=== PATIENT | male | born 1950 | race Caucasian/White ===

== ENCOUNTER → 2017-10-13 | Outpatient (CLI) | payer BC, OTHER ==
[~2017-10-13] MED LIST: ASPEC81 PO; BUME2TAB3 PO; CARV6.252 PO; CZR25 PO; ELQ25 PO; GLIM4TAB2 PO; NTRGSL4 SL
== END | disposition home or self-care (01) ==
LOC: C.LABSPEC 13:33
PROVIDERS: ATTEND Physician Assistant Medical
DX: L08.9 Local infection of the skin and subcutaneous tissue, unspecified (principal)

== ENCOUNTER → 2018-01-29 | Outpatient (CLI) | payer OTHER, MEDICARE ==
[~2018-01-29] MED LIST changes: -ASPEC81 PO; +ASPI-320 PO
[2018-01-29 17:14] LABS: BLOOD UREA NITROGEN 17 mg/dl (7-18); CALCIUM 9.1 mg/dl (8.5-10.1); CARBON DIOXIDE 29 mmol/L (21-32); GLUCOSE 134 mg/dl (70-99); POTASSIUM 5.2 mmol/L (3.5-5.1); SODIUM 138 mmol/L (136-145)
== END | disposition home or self-care (01) ==
LOC: C.LABPBG 11:19
PROVIDERS: ATTEND Family Medicine
DX: E11.65 Type 2 diabetes mellitus with hyperglycemia (principal); I10 Essential (primary) hypertension; I87.2 Venous insufficiency (chronic) (peripheral); R06.09 Other forms of dyspnea

== ENCOUNTER 2021-04-28 11:26 | Inpatient (IN) ==
[2021-04-28] MEDS ORDERED: VANCOMYCIN HCL 2,750 MG in SODIUM CHLORIDE 0.9% 500 ML IV ONE ×2 (12:13→18:23)
[2021-04-28] MEDS ORDERED: VANCOMYCIN CONSULT ACTIVE PRN ×2 (12:13→18:23)
--- NOTE | 2021-04-28 12:21 | Emergency Department Note ---
History of Present Illness General Chief complaint: Wound Stated complaint: REFERRED BY DR. PACHECO, WOUND INFECTION ON R LEG Time Seen by Provider: 04/28/21 12:04 Source: patient History of Present Illness Provider complaint: Left wound infection Onset (ago): year(s) 4 Location: lower extremity and left Pain Consistency: + constant Maximum Pain Intensity: 0 Quality: + other (Redness and swelling without pain) Relieved By: + none Associated symptoms: no chest pain, no cough, no fever/chills, no malaise, no nausea/vomiting or no shortness of breath This is a 71-year-old male who has chronic venous stasis wounds to his left leg for over 4 years. He was sent in by his doctor today for IV antibiotics for worsening infection. The patient is followed by home health who cares for his wound. He states his bandage was not changed in 4 days and when the nurse came today there was worsening redness and swelling with maggots in the wound. The nurse called the doctor who advised him to come here for IV antibiotics. He states that he has no pain to the wound. He has had this wound for over 4 years. He cannot say when the wound got worse. He states he can move and feel his toes. He denies any fever, vomiting, cough or cold symptoms, chest pain, shortness of breath, abdominal pain, diarrhea or urinary symptoms. Home Medications Medication Instructions Recorded Confirmed Type nitroglycerin 0.4 mg sublingual 0.4 mg SL Q5M PRN tab 05/16/19 04/28/21 History tablet carvedilol 6.25 mg tablet 6.25 mg PO BID #180 tab 05/14/20 04/28/21 Rx albuterol sulfate 90 mcg/actuation 2 puff INH QID #18 g 06/04/20 04/28/21 Rx aerosol inhaler bumetanide 2 mg tablet 2 mg PO BID #180 tab 07/28/20 04/28/21 Rx ergocalciferol (vitamin D2) 1,250 50,000 unit PO .weekly #12 cap 08/25/20 04/28/21 Rx mcg (50,000 unit) capsule losartan 100 mg tablet 100 mg PO DAILY #90 tab 09/15/20 04/28/21 Rx atorvastatin 80 mg tablet 80 mg PO HS #90 tab 10/20/20 04/28/21 Rx apixaban 5 mg tablet (Eliquis) 5 mg PO BID #180 tab 11/09/20 04/28/21 Rx glipizide 5 mg tablet 5 mg PO BIDM #180 tab 11/17/20 04/28/21 Rx metformin 500 mg tablet,extended 1,000 mg PO BID #360 tab 01/26/21 04/28/21 Rx release 24 hr duloxetine 30 mg capsule,delayed 30 mg PO DAILY #30 cap 04/23/21 04/28/21 Rx release sprinkle insulin glargine U-300 conc 300 70 unit SUBCUT HS 04/28/21 04/28/21 History unit/mL (1.5 mL) subcutaneous pen (TouXStor Systemso SoloStar U-300 Insulin) tramadol 50 mg tablet 50 mg PO Q6H 04/28/21 04/28/21 History Allergies Allergy/AdvReac Type Severity Reaction Status Date / Time sulfamethoxazole AdvReac nausea Verified 04/28/21 12:09 [From Bactrim] trimethoprim [From Bactrim] AdvReac nausea Verified 04/28/21 12:09 Past Med/Surg History Medical History (Updated 04/28/21 @ 18:58 by Abraham Faust MD) Acute renal failure Arthritis Atrial fibrillation Atrial fibrillation with RVR Atrial flutter with controlled response Bilateral primary osteoarthritis of knee BPH (benign prostatic hyperplasia) Cellulitis, scrotum Chronic combined systolic and diastolic congestive heart failure Chronic venous stasis dermatitis of both lower extremities Coronary artery disease Degenerative arthritis of knee, bilateral Diabetic nephropathy associated with type 2 diabetes mellitus Diabetic peripheral neuropathy associated with type 2 diabetes mellitus Dysesthesia Dyslipidemia Encounter for wound care Harley's gangrene Glaucoma Hypertension Hypoxia Ischemic cardiomyopathy Left leg cellulitis Lymphedema Morbid obesity Multiple open wounds of lower extremity Open wound of scrotum Paroxysmal SVT (supraventricular tachycardia) SARS-CoV-2 positive Sick sinus syndrome Tobacco use Type 2 diabetes mellitus, with long-term current use of insulin Vitamin D deficiency Surgical History History of testicular surgery Hx of CABG (2015) S/P ablation of atrial fibrillation (2014) Family History Brother Diabetes Hypertension Alcohol abuse Kidney stones Cancer Sister Breast cancer Hypertension Denies family history of Ovarian cancer Prostate cancer Myocardial infarction Colorectal cancer Social History Smoking Status: Never smoker Age Started Using Tobacco: 22; Age Quit Using Tobacco: 42; packs per day: 2; Second Hand Exposure: No; Hx Alcohol Use: No Hx Substance Use: No Preferred Language: Italian Communication Ability: Effective Visual Impairment: No Limitations Hearing Ability: Hard of Hearing Outreach Librarian Required: No Beliefs That Will Affect Care: None marital status: Current Living Situation: Significant Other 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 status: retired 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 and A total of 10 systems reviewed and were otherwise negative Physical Exam Vital Signs Vital Signs - 24 hr 04/28/21 11:29 Temperature 36.5 C Temperature Source Oral Pulse Rate 70 Pulse Rhythm Regular Pulse Strength Normal Respiratory Rate 20 Respiratory Effort / Characteristics Non-Labored Spontaneous Respiratory Depth Normal Respiratory Pattern Regular Blood Pressure 198/87 H Blood Pressure Mean 124 Pulse Oximetry 92 Oxygen Delivery Method Room Air Sepsis Recent Fever Within 48 Hours No Sepsis New/Unexplained Change in Mental Status N/A Sepsis Action Taken by Nursing No Action Required Constitutional: Vital signs reviewed. Eyes: Pupils are equal round reactive to light. Conjunctiva are noninjected. ENT: Pharynx is clear without erythema or exudate. Mucous membranes are moist. Neck supple without meningeal signs. Respiratory: Clear to auscultation bilaterally. Breath sounds are equal bilaterally. Cardiovascular: Regular rate and rhythm. No rubs or gallops. GI: Soft, nondistended and nontender. Bowel sounds are present. Musculoskeletal: Bilateral pitting edema to the lower extremities. There is chronic venous stasis dermatitis to both legs greater on the left side. There is increased warmth and cellulitis to the upper portion of the left lower leg. Distal capillary refill is less than 2 seconds. No tenderness or crepitus. Integumentary: No cyanosis. or jaundice. Neurological: The patient is awake and alert. No focal deficits. Psychiatric: Normal affect. Not anxious appearing. Course Administered Medications Discontinued Medications Hydralazine HCl (Hydralazine Hcl 20 Mg/Ml Vial) 10 mg IV NOW STA Stop: 04/28/21 15:37 Last Admin: 04/28/21 16:13 Dose: 10 mg Documented by: [id number] Vancomycin HCl 2,750 mg/ (Sodium Chloride) 555 mls @ 200 mls/hr IV NOW ONE Stop: 04/28/21 14:59 Last Infusion: 04/28/21 16:30 Dose: 0 mls/hr Documented by: [id number] Admin: 04/28/21 13:15 Dose: 200 mls/hr Documented by: [id number] Medical Decision Making Differential Diagnosis Cellulitis, MRSA, lymphedema, venous insufficiency, fasciitis Medical Records Attestation: I reviewed the patient's medical records. I did perform a limited focused review of portions of the patient's old chart on the electronic medical record. The patient had a wound culture from January 2019 which grew out group B strep and staph aureus from the left leg. He was last evaluated by his PCP via telehealth in December of this year. Home Medications Current Medication List: was personally reviewed by me Laboratory Data Attestation: I reviewed the patient's lab results. Result diagrams: 04/28/21 12:49 04/28/21 12:49 Lab Results 04/28/21 04/28/21 04/28/21 Range/Units 12:49 12:49 13:19 WBC 11.77 H (4.8-10.8) K/uL RBC 4.77 (4.7-6.1) M/uL Hgb 13.3 L (14.0-18.0) g/dL Hct 41.7 L (42-52) % MCV 87.4 (80-100) fL MCH 27.9 (25-34) pg MCHC 31.9 L (32-36) g/dL RDW Std Deviation 52.8 H (36.4-46.3) fL RDW Coeff of Rebecca 16.5 H (11.5-14.5) % Plt Count 217 (130-400) K/uL MPV 10.5 H (7.4-10.4) fL Immature Gran % (Auto) 0.4 % Neut % (Auto) 71.7 % Lymph % (Auto) 18.5 % [place] % (Auto) 7.4 % Eos % (Auto) 1.8 % Baso % (Auto) 0.2 % Neut # (Auto) 8.44 H (1.4-6.5) K/uL Lymph # (Auto) 2.18 (1.2-3.4) K/uL [place] # (Auto) 0.87 H (0.11-0.59) K/uL Eos # (Auto) 0.21 (0-0.5) K/uL Baso # (Auto) 0.02 (0-0.2) K/uL Immature Gran # (Auto) 0.05 H (0.00-0.02) K/uL Sodium 135 L (136-145) mmol/L Potassium 5.4 H (3.5-5.1) mmol/L Chloride 100 (98-107) mmol/L Carbon Dioxide 31 (21-32) mmol/L Anion Gap 5.0 (3-11) BUN 23 H (7-18) mg/dl Creatinine 1.36 (0.6-1.4) mg/dl Est Cr Clr Drug Dosing 80.6 ml/min Est GFR ( Amer) 61.1 ml/min Est GFR (Non-Af Amer) 52.7 ml/min BUN/Creatinine Ratio 17.0 (10-20) Glucose 213 H (70-99) mg/dl Calcium 8.9 (8.5-10.1) mg/dl Total Bilirubin 0.3 (0.2-1) mg/dl AST 11 L (15-37) U/L ALT 16 (12-78) U/L Alkaline Phosphatase 147 H (45-117) U/L Total Protein 7.6 (6.4-8.2) gm/dl Albumin 3.2 L (3.4-5.0) gm/dl Globulin 4.4 H (2.5-4.0) gm/dl Albumin/Globulin Ratio 0.7 L (0.9-2) COVID-19 Eval Order Covid19 at [facility] SARS-CoV-2 (PCR) (Negative) 04/28/21 Range/Units 13:19 WBC (4.8-10.8) K/uL RBC (4.7-6.1) M/uL Hgb (14.0-18.0) g/dL Hct (42-52) % MCV (80-100) fL MCH (25-34) pg MCHC (32-36) g/dL RDW Std Deviation (36.4-46.3) fL RDW Coeff of Rebecca (11.5-14.5) % Plt Count (130-400) K/uL MPV (7.4-10.4) fL Immature Gran % (Auto) % Neut % (Auto) % Lymph % (Auto) % [place] % (Auto) % Eos % (Auto) % Baso % (Auto) % Neut # (Auto) (1.4-6.5) K/uL Lymph # (Auto) (1.2-3.4) K/uL [place] # (Auto) (0.11-0.59) K/uL Eos # (Auto) (0-0.5) K/uL Baso # (Auto) (0-0.2) K/uL Immature Gran # (Auto) (0.00-0.02) K/uL Sodium (136-145) mmol/L Potassium (3.5-5.1) mmol/L Chloride (98-107) mmol/L Carbon Dioxide (21-32) mmol/L Anion Gap (3-11) BUN (7-18) mg/dl Creatinine (0.6-1.4) mg/dl Est Cr Clr Drug Dosing ml/min Est GFR ( Amer) ml/min Est GFR (Non-Af Amer) ml/min BUN/Creatinine Ratio (10-20) Glucose (70-99) mg/dl Calcium (8.5-10.1) mg/dl Total Bilirubin (0.2-1) mg/dl AST (15-37) U/L ALT (12-78) U/L Alkaline Phosphatase (45-117) U/L Total Protein (6.4-8.2) gm/dl Albumin (3.4-5.0) gm/dl Globulin (2.5-4.0) gm/dl Albumin/Globulin Ratio (0.9-2) COVID-19 Eval Order SARS-CoV-2 (PCR) POSITIVE A* (Negative) MDM Narrative I did evaluate the patient as noted above. Patient is presenting with worsening wound infection to the left leg. He has had a chronic wound there for over 4 years. On exam he has cellulitis to the left leg without any evidence of fasciitis. He denies having any pain to the wound. IV access was established. I did order blood cultures. He was given vancomycin IV. I did order and review the patient's blood work as noted in the electronic medical record. His white count is 12. Hemoglobin is 13. Platelet count is within normal limits. Electrolytes demonstrate a sodium of 135 with a potassium of 5.4 and a creatinine of 1.36. Glucose is 213. COVID-19 screening is positive. The patient does state he is not vaccinated. He denies having any respiratory symptoms. The patient was placed in isolation. I did discuss case with the hospitalist and director of casework department. Impression & Plan Cellulitis of left leg, Chronic venous insufficiency, COVID-19 Discharge Plan Visit Data Chief Complaint: Wound Stated Complaint: REFERRED BY DR. PACHECO, WOUND INFECTION ON R LEG ED Provider: Abraham Faust Discharge Problem: Cellulitis of left leg, Chronic venous insufficiency, COVID-19 Patient Disposition: Admitted As Inpatient Discharge Instructions Interventions: ED Discharge Assessment Last Done: 04/28/21 17:37
[2021-04-28 13:20] LABS: Basophils # (auto) 0.02 K/uL (0-0.2); Basophils % (auto) 0.2 %; Eosinophils # (auto) 0.21 K/uL (0-0.5); Eosinophils % (auto) 1.8 %; Hematocrit (blood only) 41.7 % (42-52); Hemoglobin 13.3 g/dL (14.0-18.0); Immature Granulocytes # (auto) 0.05 K/uL (0.00-0.02); Immature Granulocytes % (auto) 0.4 %; Lymphocytes # (auto) 2.18 K/uL (1.2-3.4); Lymphocytes % (auto) 18.5 %; Mean Corpuscular Hemoglobin 27.9 pg (25-34); Mean Corpuscular Hgb Conc 31.9 g/dL (32-36); Mean Corpuscular Volume 87.4 fL (80-100); Mean Platelet Volume 10.5 fL (7.4-10.4); Monocytes # (auto) 0.87 K/uL (0.11-0.59); Monocytes % (auto) 7.4 %; Neutrophils # (auto) 8.44 K/uL (1.4-6.5); Neutrophils % (auto) 71.7 %; Platelet Count 217 K/uL (130-400); RDW Coefficient of Variation 16.5 % (11.5-14.5); RDW Standard Deviation 52.8 fL (36.4-46.3); Red Blood Count 4.77 M/uL (4.7-6.1); White Blood Count 11.77 K/uL (4.8-10.8)
[2021-04-28 13:41] LABS: Albumin Level 3.2 gm/dl (3.4-5.0); Calcium 8.9 mg/dl (8.5-10.1); Creatinine Clr Calc Pharmacy 80.6 ml/min; Est GFR (African American) 61.1 ml/min; Est GFR (Non-African American) 52.7 ml/min; Potassium 5.4 mmol/L (3.5-5.1)
[2021-04-28 13:44] LABS: Albumin Globulin Ratio 0.7 (0.9-2); Bilirubin,Total 0.3 mg/dl (0.2-1); Globulin 4.4 gm/dl (2.5-4.0); Total Protein 7.6 gm/dl (6.4-8.2)
[2021-04-28] MEDS ORDERED: hydrALAZINE HCL 20 MG/ML VIAL IV STA ×2 (15:36→18:29)
--- NOTE | 2021-04-28 15:54 | History & Physical Report ---
Date of Service April 28, 2021 Assessment & Plan (1) Left leg cellulitis: Plan: Attending: Dr. Baumann Impression: Is a 71-year-old male that has chronic nonhealing wound to his left lower extremity. He has wound care come to the home and they miss an appointment. 2 days ago he took his dressings off and found maggots in the wound bed. He remove the maggots and redressed the wound. He discussed this with his primary care physician today, Dr. Smallwood, and she referred him to the emergency department for further evaluation. In the emergency department he was treated with vancomycin. A preemptive Covid screening was done as patient admission was anticipated. This was returned as positive. Patient is completely asymptomatic with Covid symptoms. He has no cough, fever, nausea, vomiting, diarrhea, sore throat, loss of taste, loss of smell. He has been admitted for wound care and isolation for COVID-19. Recommendations: Left lower extremity cellulitis: Patient was started on vancomycin in the emergency department. We will add Zosyn. Blood cultures have been checked. Patient is afebrile. Hemodynamically stable. Check procalcitonin Repeat labs in the morning Isolation for COVID-19 (2) SARS-CoV-2 positive: Plan: Incidental finding with screening on admission Patient asymptomatic Patient has not been vaccinated At this point we will not treat as patient is asymptomatic. Patient has no pulmonary sequela We will hold off on dexamethasone inasmuch as patient has acute on chronic lower extremity cellulitis Patient is chronically anticoagulated for atrial fibrillation with apixaban. Consequently, we will not administer enoxaparin twice daily Patient will be admitted to the Covid unit Monitor (3) Atrial fibrillation: Plan: Chronically anticoagulated with apixaban 5 mg p.o. twice daily Continue carvedilol and losartan Follow on telemetry (4) Type 2 diabetes mellitus, with long-term current use of insulin: Plan: Well-controlled Patient on Lantus 70 units subcutaneously at bedtime, glipizide 5 mg twice daily, and Metformin 1000 mg p.o. twice daily Hemoglobin A1c 7.5% (5) Coronary artery disease: Plan: Patient with history of CABG x2 in 2016 No chest pain or tightness Continue carvedilol and losartan Continue atorvastatin Patient currently not on any antiplatelet agents Further management outpatient Monitor on telemetry (6) Hypertension: Plan: Continue carvedilol and losartan Hemodynamically stable No hypotension in the emergency department (7) Chronic combined systolic and diastolic congestive heart failure: Plan: Patient appears to be euvolemic Continue Bumex 2 mg p.o. twice daily and follow ins and outs (8) DVT prophylaxis: Plan: Patient chronically anticoagulated with apixaban 5 mg p.o. twice daily Continue Please refer to Dr. Baumann's addendum for further recommendations and corrections History of Present Illness Chief Complaint: LLE Cellulitis COVID-19 virus positive Primary Care Provider: Neetu Smallwood DO Attending: Dr. Baumann This is a 71 yo male that was referred to the [facility] by his PPC Dr. Smallwood for worsening LLE cellulitis with evidence of maggots developing in the wound. Patient is afebrile. WBC is 11.77. No lactic acid acquired. No procalcitonin acquired. Patient received vancomycin the ED and referred to the hospitalist vida swann for admission. The patient has a PMH including Obesity, IDDM2, HTN, osteoarthitis, Atrial flutter on chronic AC with Apixaban, CAD, Hx CABG X 2, depression. The patient states that he has a wound care nurse come every other day to change dressings. He reports that he has had this wound for the past 4 years. The nurse missed an appointment so two days ago he took his own dressings off and reports that there maggots on the wound. He removed the maggots and dressed the wound. There was no bleeding and no pain. He denies fever or chills. No sweats. No n/v/d. The patient denies SOB, COYNE, hypotension, lightheadedness, chest pain, chest tightness or any other constitutional symptoms. He has no other acute complaints. He is a diabetic with a HgBA1c of 7.5%. He does not typically check his BSG as he has been out of strips. The patient was found to be positive for SARS, Covid -19. He has no respiratory complaints. He has no loss of taste or smell or diarrhea. Although he is over 62, he has no other complications or complaints. He has no cough or sputum production. He lives with is ex-, their children and their grandchildren. None of the other occupants in the house have COVID or symptoms of COVID. The patient states that he is not vaccinated for COVID Allergies Allergy/AdvReac Type Severity Reaction Status Date / Time sulfamethoxazole AdvReac nausea Verified 04/28/21 12:09 [From Bactrim] trimethoprim [From Bactrim] AdvReac nausea Verified 04/28/21 12:09 Home Medications Medication Instructions Recorded Confirmed Type nitroglycerin 0.4 mg sublingual 0.4 mg SL Q5M PRN tab 05/16/19 04/28/21 History tablet carvedilol 6.25 mg tablet 6.25 mg PO BID #180 tab 05/14/20 04/28/21 Rx albuterol sulfate 90 mcg/actuation 2 puff INH QID #18 g 06/04/20 04/28/21 Rx aerosol inhaler bumetanide 2 mg tablet 2 mg PO BID #180 tab 07/28/20 04/28/21 Rx ergocalciferol (vitamin D2) 1,250 50,000 unit PO .weekly #12 cap 08/25/2004/11 Rx mcg (50,000 unit) capsule losartan 100 mg tablet 100 mg PO DAILY #90 tab 09/15/20 04/28/21 Rx atorvastatin 80 mg tablet 80 mg PO HS #90 tab 10/20/20 04/28/21 Rx apixaban 5 mg tablet (Eliquis) 5 mg PO BID #180 tab 11/09/20 04/28/21 Rx glipizide 5 mg tablet 5 mg PO BIDM #180 tab 11/17/20 04/28/21 Rx metformin 500 mg tablet,extended 1,000 mg PO BID #360 tab 01/26/21 04/28/21 Rx release 24 hr duloxetine 30 mg capsule,delayed 30 mg PO DAILY #30 cap 04/23/21 04/28/21 Rx release sprinkle insulin glargine U-300 conc 300 70 unit SUBCUT HS 04/28/21 04/28/21 History unit/mL (1.5 mL) subcutaneous pen (Toujeo SoloStar U-300 Insulin) tramadol 50 mg tablet 50 mg PO Q6H 04/28/21 04/28/21 History Past Med/Surg History Medical History (Updated 04/28/21 @ 17:48 by Zak Dukes PA-C) Acute renal failure Arthritis Atrial fibrillation Atrial fibrillation with RVR Atrial flutter with controlled response Bilateral primary osteoarthritis of knee BPH (benign prostatic hyperplasia) Cellulitis, scrotum Chronic combined systolic and diastolic congestive heart failure Chronic venous stasis dermatitis of both lower extremities Coronary artery disease Degenerative arthritis of knee, bilateral Diabetic nephropathy associated with type 2 diabetes mellitus Diabetic peripheral neuropathy associated with type 2 diabetes mellitus Dysesthesia Dyslipidemia Encounter for wound care Harley's gangrene Glaucoma Hypertension Hypoxia Ischemic cardiomyopathy Left leg cellulitis Lymphedema Morbid obesity Multiple open wounds of lower extremity Open wound of scrotum Paroxysmal SVT (supraventricular tachycardia) SARS-CoV-2 positive Sick sinus syndrome Tobacco use Type 2 diabetes mellitus, with long-term current use of insulin Vitamin D deficiency Surgical History History of testicular surgery Hx of CABG (2015) S/P ablation of atrial fibrillation (2014) Family History Brother Diabetes Hypertension Alcohol abuse Kidney stones Cancer Sister Breast cancer Hypertension Denies family history of Ovarian cancer Prostate cancer Myocardial infarction Colorectal cancer Social History Smoking Status: Never smoker Age Started Using Tobacco: 22; Age Quit Using Tobacco: 42; packs per day: 2; Second Hand Exposure: No; Hx Alcohol Use: No Hx Substance Use: No Preferred Language: Zambian Communication Ability: Effective Visual Impairment: No Limitations Hearing Ability: Hard of Hearing Cross Country Coach Required: No Beliefs That Will Affect Care: None marital status: Current Living Situation: Significant Other 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 status: retired 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 Pleasant Eyes: PERRL, conjunctivae normal, anicteric sclerae Neck: No appreciation of stridor or carotid bruits Respiratory: normal respiratory effort; no respiratory distress Auscul tation: lungs clear to auscultation bilaterally and + diminished lung sounds Cardiovascular: Rate/Rhythm: regular rate and regular rhythm Neurologic: A&OX3. Results & Data Results & Data ([facility]) Vital Signs (Past 12 Hours) Vital Signs Temp Pulse Resp BP Pulse Ox 04/28/21 11:29 36.5 C 70 20 198/87 H 92 Laboratory Results 04/28/21 12:49 04/28/21 12:49 Medications Administered Vancomycin IV Code Status & VTE Plan Code Status Full resuscitation: Level I VTE Prophylaxis Plan VTE Prophylaxis will be ordered: Yes Supervising Physician Co-Signing Physician Notes I saw and evaluated the patient. I reviewed and agree with the AMA's note as written except/additionally thus: Historyleft lower extremity erythema Examerythema left lower extremity Medical decision making: Reasonable to treat as cellulitis though lot of changes may be chronic and stasis like Clearly has bad wounds Wound consult, Katty and Marina for now Mild hyperkalemia can be followed PG Care Time/CCT Total # of Minutes Spent Total Time Spent with Patient: Total time spent is greater than 50% in coordination of care (as documented) at patient's floor/unit and/or counseling patient: 60 minutes Coding Level of Care Code 01941 Initial Inpt Care Lvl 3 Diagnoses SARS-CoV-2 positive U07.1 Left leg cellulitis L03.116 Atrial fibrillation I48.91 Type 2 diabetes mellitus, with long-term current use of insulin E11.9; Z79.4 Coronary artery disease I25.10 Hypertension I10 DVT prophylaxis Z29.9 Chronic combined systolic and diastolic congestive heart failure I50.42 Time Spent (min) 60
[2021-04-28] MEDS ORDERED: DEXTROSE 50% 50 ML SYRINGE IV PRN (18:23)
[2021-04-28] MEDS ORDERED: PHARMACY GLYCEMIC MGMT CONSULT PRN (18:23)
[2021-04-28] MEDS ORDERED: PIPERACILL/TAZOBAC CONSULT ACTIVE PRN (18:23)
[2021-04-28] MEDS ORDERED: GLUCOSE 10 TABS/TUBE PO PRN (18:23)
[2021-04-28] MEDS ORDERED: MAGNESIUM HYDROXIDE SUSP 30 ML UDC PO PRN (18:23)
[2021-04-28] MEDS ORDERED: PIPERACILLIN/TAZOBACTAM 3.375 GM in DEXTROSE 5% 100 ML IV SCH (18:23)
[2021-04-28] MEDS ORDERED: ONDANSETRON INJ 2 MG/ML 2 ML VIAL IV PRN (18:23)
[2021-04-28] MEDS ORDERED: GLUCAGON FOR INJ 1 MG VIAL SQ PRN (18:23)
[2021-04-28] MEDS ORDERED: CARBOHYDRATES FOR HYPOGLYCEMIA PO PRN (18:23)
[2021-04-28] MEDS ORDERED: GLUCOSE 40% GEL 15 GM TUBE PO PRN (18:23)
[2021-04-28] MEDS ORDERED: ALUMINUM/MAGNESIUM SUSP 30 ML UDC PO PRN (18:23)
[2021-04-28] MEDS ORDERED: NITROGLYCERIN SL 0.4 MG/TAB TAB SL PRN (18:23)
[2021-04-28] MEDS: ALBUTEROL HFA 8 GM INHALER INH SCH (19:06)
[2021-04-28] MEDS ORDERED: PIPERACILLIN/TAZOBACTAM 4.5 GM in DEXTROSE 5% 100 ML IV ONE (19:30)
--- NOTE | 2021-04-28 19:54 | Pharmacy Report ---
Pharmacy Glycemic Short Note 2 - Date of Service April 28, 2021 - Glycemic Short BSG Results (Last 24 hours): 04/28/21 12:49 Glucose 213 H OUTPATIENT ANTIDIABETIC REGIMEN: * Toujeo 70 units SQ HS * Glipizide 5mg PO BIDM * Metformin 1,000mg PO BIDM * A1c = pending for 04/29/21 ASSESSMENT: * 71yo T2DM male with unknown degree of outpatient control - no A1c listed. Ordered for tomorrow morning * Pt is maintained on Basal insulin with Toujeo (insulin glargine U-300) + oral agents * Will HOLD oral agents for admission * Will sub Toujeo to Lantus for inpatient use - may need to adjust Lantus to BID dosing since Toujeo has a longer duration of action than Lantus * Typically when switching Toujeo to Lantus the first dose of Lantus is reduced by 20% due to the long duration of action of Lantus. However, BSGs running high and last dose of Toujeo administered is unknown. Will convert dosing 1:1 as recommended by customer marketing manager for subsequent dosing and titrate based on BSG trends. * Tight glycemic control crucial for wound healing PLAN FOR INPATIENT GLYCEMIC CONTROL: * Hold outpatient oral diabetes medications * Basal insulin * Lantus 70 units SQ HS * Bolus insulin * NovoLog per scale ACHS or Q6hrs while NPO * Goal Range: Low 110 mg/dL - High 140 mg/dL * Correction Factor: 10 mg/dL/unit * Nutritional / Prandial insulin per carb ratio of 1 unit per 4 grams CHO consumed PLAN FOR DISCHARGE: * TBD based on A1c
[2021-04-28] MEDS ORDERED: INSULIN GLARGINE 100 UNIT/ML VIAL SC SCH ×2 (21:00)
[2021-04-28] MEDS ORDERED: carvediloL 6.25 MG TAB PO SCH (21:00)
[2021-04-28] MEDS: DAPTOmycin 450 MG in SYRINGE 0 ML IV SCH (21:34)
[2021-04-28] MEDS: APIXABAN 5 MG TABLET PO SCH (21:34)
[2021-04-28] MEDS: traMADol HCL 50 MG TABLET PO SCH (21:34)
[2021-04-28] MEDS: carvediloL 12.5 MG TAB PO SCH (21:35)
[2021-04-28] MEDS: ATORVASTATIN 40 MG TAB PO SCH (21:35)
[2021-04-28] MEDS: BUMETANIDE 1 MG TAB PO SCH (21:35)
[2021-04-28] MEDS: INSULIN ASPART 100 UNITS/ML 3 ML PEN SC SCH ×2 (22:01→22:04)
[2021-04-28] MEDS ORDERED: Nursing to Pharmacy Communication SCH (23:00)
[2021-04-29 03:03] LABS: Basophils # (auto) 0.02 K/uL (0-0.2); Basophils % (auto) 0.2 %; Eosinophils # (auto) 0.18 K/uL (0-0.5); Eosinophils % (auto) 1.7 %; Hematocrit (blood only) 39.6 % (42-52); Hemoglobin 12.4 g/dL (14.0-18.0); Immature Granulocytes # (auto) 0.03 K/uL (0.00-0.02); Immature Granulocytes % (auto) 0.3 %; Lymphocytes # (auto) 2.05 K/uL (1.2-3.4); Lymphocytes % (auto) 19.3 %; Mean Corpuscular Hemoglobin 27.3 pg (25-34); Mean Corpuscular Hgb Conc 31.3 g/dL (32-36); Mean Platelet Volume 10.3 fL (7.4-10.4); Monocytes # (auto) 0.77 K/uL (0.11-0.59); Monocytes % (auto) 7.2 %; Neutrophils # (auto) 7.59 K/uL (1.4-6.5); Neutrophils % (auto) 71.3 %; Platelet Count 208 K/uL (130-400); RDW Coefficient of Variation 16.4 % (11.5-14.5); RDW Standard Deviation 52.1 fL (36.4-46.3); Red Blood Count 4.55 M/uL (4.7-6.1); White Blood Count 10.64 K/uL (4.8-10.8)
[2021-04-29 03:04] LABS: Base Excess VBG 4.4 mEq/L; HCO3 VBG 32 mmol/L; Oxygen Saturation VBG 75.5 %; PCO2 VBG 63 mmHg (38-50); PO2 VBG 47 mmHg; pH VBG 7.33 (7.36-7.41)
[2021-04-29] MEDS: traMADol HCL 50 MG TABLET PO SCH ×4 (03:11→17:55)
[2021-04-29 03:14] LABS: Partial Thromboplastin Ratio 1.1; Partial Thromboplastin Time 28.9 Seconds (21.0-31.0)
[2021-04-29 03:28] LABS: BUN Creatinine Ratio 19.4 (10-20); Calcium 8.6 mg/dl (8.5-10.1); Creatinine Clr Calc Pharmacy 97.9 ml/min; Est GFR (African American) 77.3 ml/min; Est GFR (Non-African American) 66.7 ml/min; Potassium 4.4 mmol/L (3.5-5.1)
[2021-04-29] MEDS: PIPERACILLIN/TAZOBACTAM 4.5 GM in DEXTROSE 5% 100 ML IV SCH ×2 (03:53→09:03)
[2021-04-29] MEDS ORDERED: INSULIN GLARGINE 100 UNIT/ML VIAL SC ONE (07:30)
[2021-04-29] MEDS: ALBUTEROL HFA 8 GM INHALER INH SCH (07:45)
[2021-04-29 08:02] LABS: Estimated Average Glucose 246 mg/dl; Hemoglobin A1C 10.2 % (4.5-5.6)
[2021-04-29] MEDS: INSULIN ASPART 100 UNITS/ML 3 ML PEN SC SCH ×4 (08:58→21:11)
[2021-04-29] MEDS: BUMETANIDE 1 MG TAB PO SCH ×2 (08:59→21:05)
[2021-04-29] MEDS: carvediloL 12.5 MG TAB PO SCH ×2 (09:00→21:03)
[2021-04-29] MEDS: APIXABAN 5 MG TABLET PO SCH ×2 (09:00→21:03)
[2021-04-29] MEDS: DULoxetine HCL 30 MG CAP PO SCH (09:00)
[2021-04-29] MEDS: LOSARTAN POTASSIUM 50 MG TAB PO SCH (09:00)
[2021-04-29] MEDS ORDERED: ALBUTEROL HFA 8 GM INHALER INH PRN (09:03)
--- NOTE | 2021-04-29 09:04 | XRay Report ---
XR chest 1V portable HISTORY: COVID, hypoxia COMPARISON: Chest 08/31/2018. FINDINGS: No pneumothorax. There is chronic elevation of the right hemidiaphragm. The heart remains m ildly enlarged. There are poststernotomy changes. There is mild central pulmonary vascular congestion without overt edema. This is similar to the prior study. Linear density at the right lung base also persist. This favors subsegmental atelectasis given the elevated right hemidiaphragm. No new focal darlene ng consolidations. IMPRESSION: 1. No change in the cardiomegaly and mild pulmonary vascular congestion. 2. Chronic elevation of the right hemidiaphragm with right basilar densities likely representing subs egmental atelectasis. A pneumonia could also have a similar appearance in the appropriate clinical se tting. However, no new focal lung consolidations identified. ACT 112: Negative or not required by law. Electronically signed by: Kannan Cintron M.D. 04/29/2021 9:02 AM
--- NOTE | 2021-04-29 11:40 | Hospitalist Progress Note ---
Date of Service April 29, 2021 Assessment & Plan (1) Left leg cellulitis: Plan: Impression: Is a 71-year-old male that has chronic nonhealing wound to his left lower extremity. He has wound care come to the home and they miss an appointment. 2 days ago he took his dressings off and found maggots in the wound bed. He remove the maggots and redressed the wound. He discussed this with his primary care physician today, Dr. Smallwood, and she referred him to the emergency department for further evaluation. In the emergency department he was treated with vancomycin. A preemptive Covid screening was done as patient admission was anticipated. This was returned as positive. Patient is completely asymptomatic with Covid symptoms. He has no cough, fever, nausea, vomiting, diarrhea, sore throat, loss of taste, loss of smell. He has been admitted for wound care and isolation for COVID-19. Left lower extremity cellulitis: Daptomycin and Unasyn, would need a few days of IV antibiotics then transition to PO he is resistant to staying in hospital past this evening, will need to convince him Blood cultures pending, no growth check surface wound culture at this time Patient is afebrile. Hemodynamically stable. (2) SARS-CoV-2 positive: Plan: Incidental finding with screening on admission Patient asymptomatic Patient has not been vaccinated developed hypoxia, on 2-4L, he admits that he does not use oxygen at home CXR with subtle infiltrates start on dexamethasone 6mg PO daily (3) Atrial fibrillation: Plan: Chronically anticoagulated with apixaban 5 mg p.o. twice daily Continue carvedilol and losartan Follow on telemetry (4) Type 2 diabetes mellitus, with long-term current use of insulin: Plan: Well-controlled at home Patient on Lantus 70 units subcutaneously at bedtime, glipizide 5 mg twice daily, and Metformin 1000 mg p.o. twice daily Hemoglobin A1c 7.5% pharmacy consulted, use NPH with dexamethasone (5) Coronary artery disease: Plan: Patient with history of CABG x2 in 2016 No chest pain or tightness Continue carvedilol and losartan Continue atorvastatin Patient currently not on any antiplatelet agents Further management outpatient Monitor on telemetry (6) Hypertension: Plan: Continue carvedilol and losartan Hemodynamically stable No hypotension in the emergency department (7) Chronic combined systolic and diastolic congestive heart failure: Plan: Patient appears to be volume overloaded Continue Bumex 2 mg p.o. twice daily add a dose of Zaroxolyn 5mg PO tomorrow AM prior to Bumex (8) DVT prophylaxis: Plan: Patient chronically anticoagulated with apixaban 5 mg p.o. twice daily Continue Admission and Anticipated Discharge Date Admission Date: April 28, 2021 Subjective patient sitting up in his chair left leg dressing taken down, leg is red, skin, warm he says he has had wounds/ulcers for over a year at least, he says nurses come to his home he says he wants to go home tomorrow, I discussed that he needs IV antibiotics and also he is on oxygen, suspect COVID pneumonia discussed antibiotic with pharmacy, will use Unasyn and Daptomycin patient is eating well, no fever/chills, no chest pain, no dyspnea, no cough, no GI symptoms Review of Systems Review of Systems: All systems reviewed & are unremarkable except as noted in Subjective Integumentary: + wounds (left leg), + erythema (left leg) and + dry skin Physical Exam Constitutional: well developed, + morbidly obese and comfortable; no acute distress Neck: trachea midline and + thick neck Thyroid: normal thyroid Respiratory: normal respiratory effort, lungs clear to auscultation Cardiovascular: Rate/Rhythm: regular rate and regular rhythm Heart Sounds: normal S1 and normal S2; no murmur Extremities: normal capillary refill and + edema (legs bilaterally) Gastrointestinal (Abdomen): normal bowel sounds, soft, nontender, no hepatosplenomegaly Musculoskeletal: no cyanosis or clubbing, extremities motor strength 5/5 Skin: + wound (left leg, with cellulitis, warm and tender), + dry skin and + erythema (venous stasis changes bilaterally) Neurologic: normal touch/pain/proprioception, CN's II-XI intact bilaterally, moves all extremities and awake; no focal motor deficits Psychiatric: Orientation: alert and oriented x 3 Affect: + irritable affect Results & Data Results & Data ([facility]) Vital Signs (Past 12 Hours) Vital Signs Temp Pulse Resp BP BP Pulse Ox 04/29/21 11:12 36.8 C 62 20 144/61 H 96 04/29/21 07:46 63 16 96 04/29/21 07:21 36.5 C 61 20 133/67 95 04/29/21 03:37 37.0 C 76 18 126/63 96 Laboratory Results Laboratory Results - last 24 hr 04/28/21 04/28/21 04/28/21 12:49 12:49 13:00 WBC 11.77 H RBC 4.77 Hgb 13.3 L Hct 41.7 L MCV 87.4 MCH 27.9 MCHC 31.9 L RDW Std Deviation 52.8 H RDW Coeff of Rebecca 16.5 H Plt Count 217 MPV 10.5 H Immature Gran % (Auto) 0.4 Neut % (Auto) 71.7 Lymph % (Auto) 18.5 Calvert % (Auto) 7.4 Eos % (Auto) 1.8 Baso % (Auto) 0.2 Neut # (Auto) 8.44 H Lymph # (Auto) 2.18 Calvert # (Auto) 0.87 H Eos # (Auto) 0.21 Baso # (Auto) 0.02 Immature Gran # (Auto) 0.05 H APTT PTT Ratio VBG pH VBG pCO2 VBG pO2 VBG HCO3 VBG O2 Saturation VBG Base Excess Sodium 135 L Potassium 5.4 H Chloride 100 Carbon Dioxide 31 Anion Gap 5.0 BUN 23 H Creatinine 1.36 Est Cr Clr Drug Dosing 80.6 Est GFR ( Amer) 61.1 Est GFR (Non-Af Amer) 52.7 BUN/Creatinine Ratio 17.0 Glucose 213 H POC Glucose Estimat Average Glucose Hemoglobin A1c Calcium 8.9 Total Bilirubin 0.3 AST 11 L ALT 16 Alkaline Phosphatase 147 H Total Protein 7.6 Albumin 3.2 L Globulin 4.4 H Albumin/Globulin Ratio 0.7 L Procalcitonin 0.06 COVID-19 Eval Order SARS-CoV-2 (PCR) 04/28/21 04/28/21 04/28/21 13:19 13:19 20:13 WBC RBC Hgb Hct MCV MCH MCHC RDW Std Deviation RDW Coeff of Rebecca Plt Count MPV Immature Gran % (Auto) Neut % (Auto) Lymph % (Auto) Calvert % (Auto) Eos % (Auto) Baso % (Auto) Neut # (Auto) Lymph # (Auto) Calvert # (Auto) Eos # (Auto) Baso # (Auto) Immature Gran # (Auto) APTT PTT Ratio VBG pH VBG pCO2 VBG pO2 VBG HCO3 VBG O2 Saturation VBG Base Excess Sodium Potassium Chloride Carbon Dioxide Anion Gap BUN Creatinine Est Cr Clr Drug Dosing Est GFR ( Amer) Est GFR (Non-Af Amer) BUN/Creatinine Ratio Glucose POC Glucose 322 H* Estimat Average Glucose Hemoglobin A1c Calcium Total Bilirubin AST ALT Alkaline Phosphatase Total Protein Albumin Globulin Albumin/Globulin Ratio Procalcitonin COVID-19 Eval Order Covid19 at [facility] SARS-CoV-2 (PCR) POSITIVE A* 04/28/21 04/29/21 04/29/21 20:15 02:43 02:43 WBC 10.64 RBC 4.55 L Hgb 12.4 L Hct 39.6 L MCV 87.0 MCH 27.3 MCHC 31.3 L RDW Std Deviation 52.1 H RDW Coeff of Rebecca 16.4 H Plt Count 208 MPV 10.3 Immature Gran % (Auto) 0.3 Neut % (Auto) 71.3 Lymph % (Auto) 19.3 Calvert % (Auto) 7.2 Eos % (Auto) 1.7 Baso % (Auto) 0.2 Neut # (Auto) 7.59 H Lymph # (Auto) 2.05 Calvert # (Auto) 0.77 H Eos # (Auto) 0.18 Baso # (Auto) 0.02 Immature Gran # (Auto) 0.03 H APTT 28.9 PTT Ratio 1.1 VBG pH VBG pCO2 VBG pO2 VBG HCO3 VBG O2 Saturation VBG Base Excess Sodium Potassium Chloride Carbon Dioxide Anion Gap BUN Creatinine Est Cr Clr Drug Dosing Est GFR ( Amer) Est GFR (Non-Af Amer) BUN/Creatinine Ratio Glucose POC Glucose 323 H* Estimat Average Glucose Hemoglobin A1c Calcium Total Bilirubin AST ALT Alkaline Phosphatase Total Protein Albumin Globulin Albumin/Globulin Ratio Procalcitonin COVID-19 Eval Order SARS-CoV-2 (PCR) 04/29/21 04/29/21 04/29/21 02:43 02:43 02:43 WBC RBC Hgb Hct MCV MCH MCHC RDW Std Deviation RDW Coeff of Rebecca Plt Count MPV Immature Gran % (Auto) Neut % (Auto) Lymph % (Auto) Calvert % (Auto) Eos % (Auto) Baso % (Auto) Neut # (Auto) Lymph # (Auto) Calvert # (Auto) Eos # (Auto) Baso # (Auto) Immature Gran # (Auto) APTT PTT Ratio VBG pH 7.33 L VBG pCO2 63 H VBG pO2 47 VBG HCO3 32 VBG O2 Saturation 75.5 VBG Base Excess 4.4 Sodium 136 Potassium 4.4 D Chloride 103 Carbon Dioxide 32 Anion Gap 1.0 L BUN 22 H Creatinine 1.12 Est Cr Clr Drug Dosing 97.9 Est GFR ( Amer) 77.3 Est GFR (Non-Af Amer) 66.7 BUN/Creatinine Ratio 19.4 Glucose 194 H POC Glucose Estimat Average Glucose 246 Hemoglobin A1c 10.2 H Calcium 8.6 Total Bilirubin AST ALT Alkaline Phosphatase Total Protein Albumin Globulin Albumin/Globulin Ratio Procalcitonin COVID-19 Eval Order SARS-CoV-2 (PCR) 04/29/21 07:19 WBC RBC Hgb Hct MCV MCH MCHC RDW Std Deviation RDW Coeff of Rebecca Plt Count MPV Immature Gran % (Auto) Neut % (Auto) Lymph % (Auto) Calvert % (Auto) Eos % (Auto) Baso % (Auto) Neut # (Auto) Lymph # (Auto) Calvert # (Auto) Eos # (Auto) Baso # (Auto) Immature Gran # (Auto) APTT PTT Ratio VBG pH VBG pCO2 VBG pO2 VBG HCO3 VBG O2 Saturation VBG Base Excess Sodium Potassium Chloride Carbon Dioxide Anion Gap BUN Creatinine Est Cr Clr Drug Dosing Est GFR ( Amer) Est GFR (Non-Af Amer) BUN/Creatinine Ratio Glucose POC Glucose 212 H Estimat Average Glucose Hemoglobin A1c Calcium Total Bilirubin AST ALT Alkaline Phosphatase Total Protein Albumin Globulin Albumin/Globulin Ratio Procalcitonin COVID-19 Eval Order SARS-CoV-2 (PCR) Medications Administered Current Inpatient Medications Al Hydrox/Mg Hydrox/Simethicone (Aluminum/Magnesium Susp 30 Ml Udc) 15 ml PO Q4H PRN PRN Reason: Dyspepsia Stop: 05/28/21 18:22 Albuterol (Albuterol Hfa 8 Gm Inhaler) 2 puffs INH QIDR PRN; Protocol PRN Reason: Shortness Of Breath Or Wheezing Stop: 05/28/21 18:59 Apixaban (Apixaban 5 Mg Tablet) 5 mg PO BID MARTIN Stop: 05/28/21 20:59 Last Admin: 04/29/21 09:00 Dose: 5 mg Documented by: Atorvastatin Calcium (Atorvastatin 40 Mg Tab) 80 mg PO HS [facility] Stop: 05/28/21 20:59 Last Admin: 04/28/21 21:35 Dose: 80 mg Documented by: Bumetanide (Bumetanide 1 Mg Tab) 2 mg PO BID MARTIN Stop: 05/28/21 20:59 Last Admin: 04/29/21 08:59 Dose: 2 mg Documented by: Carvedilol (Carvedilol 12.5 Mg Tab) 12.5 mg PO BID [facility] Stop: 05/28/21 20:59 Last Admin: 04/29/21 09:00 Dose: 12.5 mg Documented by: Dexamethasone (Dexamethasone 1 Mg Tab) 6 mg PO QAM [facility] Stop: 05/29/21 11:44 Dextrose (Dextrose 50% 50 Ml Syringe) 25 - 50 ml IV UD PRN; Protocol PRN Reason: Hypoglycemia Protocol Stop: 05/28/21 18:22 Duloxetine HCl (Duloxetine Hcl 30 Mg Cap) 30 mg PO DAILY MARTIN Stop: 05/29/21 08:59 Last Admin: 04/29/21 09:00 Dose: 30 mg Documented by: Ergocalciferol (Ergocalciferol 50,000 Units 1250 Mcg Cap) 50,000 units PO Sa@0900 [facility] Stop: 05/31/21 08:59 Glucagon (Glucagon For Inj 1 Mg Vial) 1 mg SQ UD PRN; Protocol PRN Reason: Hypoglycemia Protocol Stop: 05/28/21 18:22 Glucose (Glucose 10 Tabs/Tube) 4 - 8 tabs PO UD PRN; Protocol PRN Reason: Hypoglycemia Protocol Stop: 05/28/21 18:22 Glucose (Glucose 40% Gel 15 Gm Tube) 15 - 30 gm PO UD PRN; Protocol PRN Reason: Hypoglycemia Protocol Stop: 05/28/21 18:22 Piperacillin Sod/Tazobactam (Sod 4.5 gm/ Dextrose) 120 mls @ 30 mls/hr IV Q8H [facility]; Protocol Stop: 05/06/21 00:00 Last Admin: 04/29/21 09:03 Dose: 30 mls/hr Documented by: Daptomycin 450 mg/ Syringe 9 mls @ 4.5 mls/min IV HS [facility]; Protocol Stop: 05/05/21 22:59 Last Admin: 04/28/21 21:34 Dose: 4.5 mls/min Documented by: Insulin Aspart (Insulin Aspart 100 Units/Ml 3 Ml Pen) 0 units SC ACHS [facility] Stop: 05/28/21 18:22 Last Admin: 04/29/21 08:58 Dose: 26 units Documented by: Insulin Glargine (Insulin Glargine 100 Unit/Ml Vial) 70 units SC HS [facility] Stop: 05/28/21 20:59 Last Admin: 04/28/21 22:02 Dose: 70 units Documented by: Insulin Human NPH (Insulin Human Nph) 40 units SC QAM [facility] Stop: 05/29/21 11:44 Losartan Potassium (Losartan Potassium 50 Mg Tab) 100 mg PO DAILY [facility] Stop: 05/29/21 08:59 Last Admin: 04/29/21 09:00 Dose: 100 mg Documented by: Magnesium Hydroxide (Magnesium Hydroxide Susp 30 Ml Udc) 30 ml PO Q12H PRN PRN Reason: Constipation Stop: 05/28/21 18:22 Metolazone (Metolazone 5 Mg Tablet) 5 mg PO QAM [facility] Stop: 05/30/21 08:59 Miscellaneous (Carbohydrates For Hypoglycemia ) 15 - 30 gm PO UD PRN PRN Reason: Hypoglycemia Protocol Stop: 05/28/21 18:22 Miscellaneous Information (Pharmacy Glycemic Mgmt Consult) 1 ea N/A UD PRN; Protocol PRN Reason: Consult Stop: 05/28/21 18:22 Miscellaneous Information (Piperacill/Tazobac Consult Active) 1 ea N/A UD PRN PRN Reason: Consult Stop: 05/28/21 18:22 Miscellaneous Information (Daptomycin Consult Active) 1 ea N/A UD PRN PRN Reason: Consult Stop: 05/28/21 19:18 Nitroglycerin (Nitroglycerin Sl 0.4 Mg/Tab Tab) 0.4 mg SL Q5M PRN PRN Reason: chest pain Stop: 05/28/21 18:22 Ondansetron HCl (Ondansetron Inj 2 Mg/Ml 2 Ml Vial) 4 mg IV Q6H PRN PRN Reason: Nausea Stop: 05/28/21 18:22 Tramadol HCl (Tramadol Hcl 50 Mg Tablet) 50 mg PO Q6HWA [facility] Stop: 05/28/21 18:59 Last Admin: 04/29/21 06:27 Dose: 50 mg Documented by: PG Care Time/CCT Total # of Minutes Spent Total Time Spent with Patient: Total time spent is greater than 50% in coordination of care (as documented) at patient's floor/unit and/or counseling patient: Coding Level of Care Code 97054 Subseq Hosp Care Lvl 3 Diagnoses Left leg cellulitis L03.116 SARS-CoV-2 positive U07.1 Atrial fibrillation I48.91 Type 2 diabetes mellitus, with long-term current use of insulin E11.9; Z79.4 Coronary artery disease I25.10 Hypertension I10 Chronic combined systolic and diastolic congestive heart failure I50.42 DVT prophylaxis Z29.9
[2021-04-29] MEDS ORDERED: INSULIN HUMAN NPH SC ONE (11:45)
[2021-04-29] MEDS: dexAMETHasone 1 MG TAB PO SCH (12:36)
--- NOTE | 2021-04-29 12:57 | Pharmacy Report ---
Pharmacy Glycemic Short Note 2 - Date of Service April 29, 2021 - Glycemic Short BSG Results (Last 24 hours): 04/28/21 04/28/21 04/28/21 12:49 20:13 20:15 Glucose 213 H POC Glucose 322 H* 323 H* 04/29/21 04/29/21 04/29/21 02:43 07:19 11:47 Glucose 194 H POC Glucose 212 H 255 H OUTPATIENT ANTIDIABETIC REGIMEN: * Toujeo 70 units SQ HS * Glipizide 5mg PO BIDM * Metformin 1,000mg PO BIDM * A1c = 10.2% on 04/29/21 ASSESSMENT: 04/29 * BSG's have all been >200 mg/dL since admission. * Tightened CHO ratio this AM at breakfast and did so again at lunch for persistent BSG's >200 mg/dL * Increased Lantus by 30% this AM * Dexamethasone 6 mg *po* daily (1st dose now) starting at lunch * Added NPH ~0.3 units/kg * Tightened CHO ratio again, starting with dinner * BSG's were not well controlled prior to starting dexamethasone and BSG's may worsen due to dex. Discussed with Dr. Abraham PARMAR to start insulin drip for any BSG >300 mg/dL that occurs later today. Will leave out for 2nd shift assessment. 04/28 * 71yo T2DM male with unknown degree of outpatient control - no A1c listed. Ordered for tomorrow morning * Pt is maintained on Basal insulin with Toujeo (insulin glargine U-300) + oral agents * Will HOLD oral agents for admission * Will sub Toujeo to Lantus for inpatient use - may need to adjust Lantus to BID dosing since Toujeo has a longer duration of action than Lantus * Typically when switching Toujeo to Lantus the first dose of Lantus is reduced by 20% due to the long duration of action of Lantus. However, BSGs running high and last dose of Toujeo administered is unknown. Will convert dosing 1:1 as recommended by collector of port for subsequent dosing and titrate based on BSG trends. * Tight glycemic control crucial for wound healing PLAN FOR INPATIENT GLYCEMIC CONTROL: * Hold outpatient oral diabetes medications * Basal insulin * Lantus 20 units SC x1 this AM and 60-80 units SQ HS, depending on BSG * NPH 30 units SC x1 now - likely will continue qAM tomorrow, with dose dependent on trend in BSG * Bolus insulin * NovoLog per scale ACHS or Q6hrs while NPO - with two overnight checks * Goal Range: Low 110 mg/dL - High 140 mg/dL * Correction Factor: 8 mg/dL/unit * Nutritional / Prandial insulin per carb ratio of 1 unit per 2 grams CHO consumed PLAN FOR DISCHARGE: * TBD based on A1c
[2021-04-29] MEDS: AMPICILLIN/SULBACTAM SOD 3,000 MG in 0.9 % SODIUM CHLORIDE 100 ML IV SCH (17:56)
[2021-04-29] MEDS: DAPTOmycin 450 MG in SYRINGE 0 ML IV SCH (21:02)
[2021-04-29] MEDS: ATORVASTATIN 40 MG TAB PO SCH (21:05)
[2021-04-29] MEDS: INSULIN GLARGINE 100 UNIT/ML VIAL SC SCH (21:12)
[2021-04-30] MEDS: INSULIN ASPART 100 UNITS/ML 3 ML PEN SC SCH ×6 (00:14→20:25)
[2021-04-30] MEDS: AMPICILLIN/SULBACTAM SOD 3,000 MG in 0.9 % SODIUM CHLORIDE 100 ML IV SCH ×5 (00:14→23:46)
[2021-04-30] MEDS: traMADol HCL 50 MG TABLET PO SCH ×5 (00:14→23:46)
[2021-04-30] MEDS: APIXABAN 5 MG TABLET PO SCH ×2 (07:21→20:23)
[2021-04-30] MEDS: BUMETANIDE 1 MG TAB PO SCH ×2 (07:21→20:23)
[2021-04-30] MEDS: dexAMETHasone 1 MG TAB PO SCH (07:22)
[2021-04-30] MEDS: carvediloL 12.5 MG TAB PO SCH ×2 (07:22→20:23)
[2021-04-30] MEDS: LOSARTAN POTASSIUM 50 MG TAB PO SCH (07:22)
[2021-04-30] MEDS: metOLazone 5 MG TABLET PO SCH (07:22)
[2021-04-30 07:30] LABS: Basophils # (auto) 0.01 K/uL (0-0.2); Basophils % (auto) 0.1 %; Eosinophils # (auto) 0.01 K/uL (0-0.5); Eosinophils % (auto) 0.1 %; Hematocrit (blood only) 42.2 % (42-52); Hemoglobin 13.4 g/dL (14.0-18.0); Immature Granulocytes # (auto) 0.05 K/uL (0.00-0.02); Immature Granulocytes % (auto) 0.4 %; Lymphocytes # (auto) 1.49 K/uL (1.2-3.4); Lymphocytes % (auto) 11.6 %; Mean Corpuscular Hemoglobin 27.2 pg (25-34); Mean Corpuscular Hgb Conc 31.8 g/dL (32-36); Mean Corpuscular Volume 85.8 fL (80-100); Mean Platelet Volume 10.3 fL (7.4-10.4); Monocytes # (auto) 0.73 K/uL (0.11-0.59); Monocytes % (auto) 5.7 %; Neutrophils # (auto) 10.61 K/uL (1.4-6.5); Neutrophils % (auto) 82.1 %; Platelet Count 215 K/uL (130-400); RDW Coefficient of Variation 16.2 % (11.5-14.5); RDW Standard Deviation 50.8 fL (36.4-46.3); Red Blood Count 4.92 M/uL (4.7-6.1)
[2021-04-30] MEDS: DULoxetine HCL 30 MG CAP PO SCH (07:39)
[2021-04-30 08:00] LABS: BUN Creatinine Ratio 24.1 (10-20); Calcium 9.1 mg/dl (8.5-10.1); Creatinine Clr Calc Pharmacy 105.8 ml/min; Est GFR (African American) 83.5 ml/min; Est GFR (Non-African American) 72.1 ml/min; Potassium 4.4 mmol/L (3.5-5.1)
[2021-04-30] MEDS ORDERED: INSULIN HUMAN NPH SC ONE (09:00)
--- NOTE | 2021-04-30 12:30 | Hospitalist Progress Note ---
Date of Service April 30, 2021 Assessment & Plan (1) Left leg cellulitis: Plan: Impression: Is a 71-year-old male that has chronic nonhealing wound to his left lower extremity. He has wound care come to the home and they miss an appointment. 2 days ago he took his dressings off and found maggots in the wound bed. He remove the maggots and redressed the wound. He discussed this with his primary care physician today, Dr. Smallwood, and she referred him to the emergency department for further evaluation. In the emergency department he was treated with vancomycin. A preemptive Covid screening was done as patient admission was anticipated. This was returned as positive. Patient is completely asymptomatic with Covid symptoms. He has no cough, fever, nausea, vomiting, diarrhea, sore throat, loss of taste, loss of smell. He has been admitted for wound care and isolation for COVID-19. Left lower extremity cellulitis: Daptomycin and Unasyn, would need a few days of IV antibiotics then transition to PO surface culture is growing gram neg and gram pos, awaiting final speciation and sensitivities Blood cultures pending, no growth Patient is afebrile. Hemodynamically stable likely change to PO antibiotics tomorrow and go home, he does not want to stay any longer (2) SARS-CoV-2 positive: Plan: Incidental finding with screening on admission Patient asymptomatic Patient has not been vaccinated developed hypoxia, on 2L right now, took him off oxygen and he stayed at 90% says he is 87-90% at home when home nursing checks him CXR with subtle infiltrates start on dexamethasone 6mg PO daily, day 2 today would continue short course of dexamethasone on discharge (3) Atrial fibrillation: Plan: Chronically anticoagulated with apixaban 5 mg p.o. twice daily Continue carvedilol and losartan Follow on telemetry (4) Type 2 diabetes mellitus, with long-term current use of insulin: Plan: Well-controlled at home Patient on Lantus 70 units subcutaneously at bedtime, glipizide 5 mg twice daily, and Metformin 1000 mg p.o. twice daily Hemoglobin A1c 7.5% pharmacy consulted, no hypoglycemia (5) Coronary artery disease: Plan: Patient with history of CABG x2 in 2016 No chest pain or tightness Continue carvedilol and losartan Continue atorvastatin Patient currently not on any antiplatelet agents Further management outpatient Monitor on telemetry (6) Hypertension: Plan: Continue carvedilol and losartan Hemodynamically stable No hypotension in the emergency department (7) Chronic combined systolic and diastolic congestive heart failure: Plan: Patient appears to be volume overloaded Continue Bumex 2 mg p.o. twice daily good response this morning to Zaroxolyn 5mg PO (8) DVT prophylaxis: Plan: Patient chronically anticoagulated with apixaban 5 mg p.o. 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 daily with saline, apply Aquacel AG, ABD and wrap, can continue this at home surface wound with gram negative bacilli and gram positives, awaiting final culture down to room air, he says his oxygen always runs 87-92% at home on room air he is making a lot more urine today with Zaroxoyn prior to his Bumex he would like to go home tomorrow Review of Systems Review of Systems: All systems reviewed & are unremarkable except as noted in Subjective Cardiovascular: + edema Integumentary: + wounds and + erythema Physical Exam Constitutional: well developed, + morbidly obese and comfortable; no acute distress Neck: trachea midline and + thick neck Thyroid: normal thyroid Respiratory: normal respiratory effort, lungs clear to auscultation Cardiovascular: Rate/Rhythm: regular rate and regular rhythm Heart Sounds: normal S1 and normal S2; no murmur Extremities: normal capillary refill and + edema (legs bilaterally) Gastrointestinal (Abdomen): normal bowel sounds, soft, nontender, no hepatosplenomegaly Musculoskeletal: no cyanosis or clubbing, extremities motor strength 5/5 Skin: + wound (left leg, with cellulitis, warm and tender), + dry skin and + erythema (venous stasis changes bilaterally) Neurologic: normal touch/pain/proprioception, CN's II-XI intact bilaterally, moves all extremities and awake; no focal motor deficits Psychiatric: Orientation: alert and oriented x 3 Affect: + irritable affect Results & Data Results & Data ([facility]) Vital Signs (Past 12 Hours) Vital Signs Temp Pulse Pulse Pulse Resp BP Pulse Ox 04/30/21 11:26 36.7 C 62 18 143/89 H 94 04/30/21 08:00 67 04/30/21 07:09 36.5 C 65 12 178/88 H 95 04/30/21 03:56 36.6 C 78 18 174/79 H 94 04/30/21 01:03 69 Laboratory Results Laboratory Results - last 24 hr 04/29/21 04/29/21 04/30/21 16:10 20:59 00:07 WBC RBC Hgb Hct MCV MCH MCHC RDW Std Deviation RDW Coeff of Rebecca Plt Count MPV Immature Gran % (Auto) Neut % (Auto) Lymph % (Auto) [place] % (Auto) Eos % (Auto) Baso % (Auto) Neut # (Auto) Lymph # (Auto) [place] # (Auto) Eos # (Auto) Baso # (Auto) Immature Gran # (Auto) Sodium Potassium Chloride Carbon Dioxide Anion Gap BUN Creatinine Est Cr Clr Drug Dosing Est GFR ( Amer) Est GFR (Non-Af Amer) BUN/Creatinine Ratio Glucose POC Glucose 101 H 232 H 232 H Calcium 04/30/21 04/30/21 04/30/21 03:55 06:54 06:54 WBC 12.90 H RBC 4.92 Hgb 13.4 L Hct 42.2 MCV 85.8 MCH 27.2 MCHC 31.8 L RDW Std Deviation 50.8 H RDW Coeff of Rebecca 16.2 H Plt Count 215 MPV 10.3 Immature Gran % (Auto) 0.4 Neut % (Auto) 82.1 Lymph % (Auto) 11.6 [place] % (Auto) 5.7 Eos % (Auto) 0.1 Baso % (Auto) 0.1 Neut # (Auto) 10.61 H Lymph # (Auto) 1.49 [place] # (Auto) 0.73 H Eos # (Auto) 0.01 Baso # (Auto) 0.01 Immature Gran # (Auto) 0.05 H Sodium 134 L Potassium 4.4 Chloride 100 Carbon Dioxide 31 Anion Gap 3.0 BUN 25 H Creatinine 1.05 Est Cr Clr Drug Dosing 105.8 Est GFR ( Amer) 83.5 Est GFR (Non-Af Amer) 72.1 BUN/Creatinine Ratio 24.1 H Glucose 189 H POC Glucose 207 H Calcium 9.1 04/30/21 04/30/21 07:08 11:23 WBC RBC Hgb Hct MCV MCH MCHC RDW Std Deviation RDW Coeff of Rebecca Plt Count MPV Immature Gran % (Auto) Neut % (Auto) Lymph % (Auto) [place] % (Auto) Eos % (Auto) Baso % (Auto) Neut # (Auto) Lymph # (Auto) [place] # (Auto) Eos # (Auto) Baso # (Auto) Immature Gran # (Auto) Sodium Potassium Chloride Carbon Dioxide Anion Gap BUN Creatinine Est Cr Clr Drug Dosing Est GFR ( Amer) Est GFR (Non-Af Amer) BUN/Creatinine Ratio Glucose POC Glucose 175 H 238 H Calcium Medications Administered Current Inpatient Medications Al Hydrox/Mg Hydrox/Simethicone (Aluminum/Magnesium Susp 30 Ml Udc) 15 ml PO Q4H PRN PRN Reason: Dyspepsia Stop: 05/28/21 18:22 Albuterol (Albuterol Hfa 8 Gm Inhaler) 2 puffs INH QIDR PRN; Protocol PRN Reason: Shortness Of Breath Or Wheezing Stop: 05/28/21 18:59 Apixaban (Apixaban 5 Mg Tablet) 5 mg PO BID MARTIN Stop: 05/28/21 20:59 Last Admin: 04/30/21 07:21 Dose: 5 mg Documented by: Atorvastatin Calcium (Atorvastatin 40 Mg Tab) 80 mg PO HS MARTIN Stop: 05/28/21 20:59 Last Admin: 04/29/21 21:05 Dose: 80 mg Documented by: Bumetanide (Bumetanide 1 Mg Tab) 2 mg PO BID MARTIN Stop: 05/28/21 20:59 Last Admin: 04/30/21 07:21 Dose: 2 mg Documented by: Carvedilol (Carvedilol 12.5 Mg Tab) 12.5 mg PO BID MARTIN Stop: 05/28/21 20:59 Last Admin: 04/30/21 07:22 Dose: 12.5 mg Documented by: Dexamethasone (Dexamethasone 1 Mg Tab) 6 mg PO QAM [facility] Stop: 05/29/21 11:44 Last Admin: 04/30/21 07:22 Dose: 6 mg Documented by: Dextrose (Dextrose 50% 50 Ml Syringe) 25 - 50 ml IV UD PRN; Protocol PRN Reason: Hypoglycemia Protocol Stop: 05/28/21 18:22 Duloxetine HCl (Duloxetine Hcl 30 Mg Cap) 30 mg PO DAILY MARTIN Stop: 05/29/21 08:59 Last Admin: 04/30/21 07:39 Dose: 30 mg Documented by: Ergocalciferol (Ergocalciferol 50,000 Units 1250 Mcg Cap) 50,000 units PO Sa@0900 MARTIN Stop: 05/31/21 08:59 Glucagon (Glucagon For Inj 1 Mg Vial) 1 mg SQ UD PRN; Protocol PRN Reason: Hypoglycemia Protocol Stop: 05/28/21 18:22 Glucose (Glucose 10 Tabs/Tube) 4 - 8 tabs PO UD PRN; Protocol PRN Reason: Hypoglycemia Protocol Stop: 05/28/21 18:22 Glucose (Glucose 40% Gel 15 Gm Tube) 15 - 30 gm PO UD PRN; Protocol PRN Reason: Hypoglycemia Protocol Stop: 05/28/21 18:22 Daptomycin 450 mg/ Syringe 9 mls @ 4.5 mls/min IV HS MARTIN; Protocol Stop: 05/05/21 22:59 Last Admin: 04/29/21 21:02 Dose: 4.5 mls/min Documented by: Ampicillin Sodium/Sulbactam Sodium 3,000 mg/ Sodium Chloride 108 mls @ 216 mls/hr IV Q6H MARTIN; Protocol Stop: 05/06/21 17:59 Last Admin: 04/30/21 11:58 Dose: 216 mls/hr Documented by: Insulin Aspart (Insulin Aspart 100 Units/Ml 3 Ml Pen) 0 units SC ACHS MARTIN; Protocol Stop: 05/29/21 16:29 Last Admin: 04/30/21 08:47 Dose: 27 units Documented by: Insulin Glargine (Insulin Glargine 100 Unit/Ml Vial) 0 units SC HS MARTIN; Protocol Stop: 05/29/21 20:59 Last Admin: 04/29/21 21:12 Dose: 80 units Documented by: Losartan Potassium (Losartan Potassium 50 Mg Tab) 100 mg PO DAILY MARTIN Stop: 05/29/21 08:59 Last Admin: 04/30/21 07:22 Dose: 100 mg Documented by: Magnesium Hydroxide (Magnesium Hydroxide Susp 30 Ml Udc) 30 ml PO Q12H PRN PRN Reason: Constipation Stop: 05/28/21 18:22 Metolazone (Metolazone 5 Mg Tablet) 5 mg PO QAM [facility] Stop: 05/30/21 08:59 Last Admin: 04/30/21 07:22 Dose: 5 mg Documented by: Miscellaneous (Carbohydrates For Hypoglycemia ) 15 - 30 gm PO UD PRN PRN Reason: Hypoglycemia Protocol Stop: 05/28/21 18:22 Miscellaneous Information (Pharmacy Glycemic Mgmt Consult) 1 ea N/A UD PRN; Protocol PRN Reason: Consult Stop: 05/28/21 18:22 Miscellaneous Information (Daptomycin Consult Active) 1 ea N/A UD PRN PRN Reason: Consult Stop: 05/28/21 19:18 Nitroglycerin (Nitroglycerin Sl 0.4 Mg/Tab Tab) 0.4 mg SL Q5M PRN PRN Reason: chest pain Stop: 05/28/21 18:22 Ondansetron HCl (Ondansetron Inj 2 Mg/Ml 2 Ml Vial) 4 mg IV Q6H PRN PRN Reason: Nausea Stop: 05/28/21 18:22 Tramadol HCl (Tramadol Hcl 50 Mg Tablet) 50 mg PO Q6HWA [facility] Stop: 05/28/21 18:59 Last Admin: 04/30/21 12:02 Dose: 50 mg Documented by: PG Care Time/CCT Total # of Minutes Spent Total Time Spent with Patient: Total time spent is greater than 50% in coordination of care (as documented) at patient's floor/unit and/or counseling patient: Coding Level of Care Code 02858 Subseq Hosp Care Lvl 2 Diagnoses Left leg cellulitis L03.116 SARS-CoV-2 positive U07.1 Atrial fibrillation I48.91 Type 2 diabetes mellitus, with long-term current use of insulin E11.9; Z79.4 Coronary artery disease I25.10 Hypertension I10 Chronic combined systolic and diastolic congestive heart failure I50.42 DVT prophylaxis Z29.9
--- NOTE | 2021-04-30 14:32 | Pharmacy Report ---
Pharmacy Glycemic Short Note 2 - Date of Service April 30, 2021 - Glycemic Short BSG Results (Last 24 hours): 04/29/21 04/29/21 04/30/21 16:10 20:59 00:07 Glucose POC Glucose 101 H 232 H 232 H 04/30/21 04/30/21 04/30/21 03:55 06:54 07:08 Glucose 189 H POC Glucose 207 H 175 H 04/30/21 11:23 Glucose POC Glucose 238 H OUTPATIENT ANTIDIABETIC REGIMEN: * Toujeo 70 units SQ HS * Glipizide 5mg PO BIDM * Metformin 1,000mg PO BIDM * A1c = 10.2% on 04/29/21 ASSESSMENT: 04/30 * Pt has received 122 units of insulin over the past 24hrs * 130 units of basal with Lantus (100) and NPH (30) * 92 units of bolus with NovoLog * BSGs 101-255mg/dl * Will tighten CR further and NPH was increased this AM, will increase further tomorrow if needed 04/29 * BSG's have all been >200 mg/dL since admission. * Tightened CHO ratio this AM at breakfast and did so again at lunch for persistent BSG's >200 mg/dL * Increased Lantus by 30% this AM * Dexamethasone 6 mg *po* daily (1st dose now) starting at lunch * Added NPH ~0.3 units/kg * Tightened CHO ratio again, starting with dinner * BSG's were not well controlled prior to starting dexamethasone and BSG's may worsen due to dex. Discussed with Dr. Rosario - AGATA to start insulin drip for any BSG >300 mg/dL that occurs later today. Will leave out for 2nd shift assessment. 04/28 * 71yo T2DM male with unknown degree of outpatient control - no A1c listed. Ordered for tomorrow morning * Pt is maintained on Basal insulin with Toujeo (insulin glargine U-300) + oral agents * Will HOLD oral agents for admission * Will sub Toujeo to Lantus for inpatient use - may need to adjust Lantus to BID dosing since Toujeo has a longer duration of action than Lantus * Typically when switching Toujeo to Lantus the first dose of Lantus is reduced by 20% due to the long duration of action of Lantus. However, BSGs running high and last dose of Toujeo administered is unknown. Will convert dosing 1:1 as recommended by inspector of dredging for subsequent dosing and titrate based on BSG trends. * Tight glycemic control crucial for wound healing PLAN FOR INPATIENT GLYCEMIC CONTROL: * Hold outpatient oral diabetes medications * Basal insulin * Lantus 60-80 units SQ HS, depending on BSG * NPH 40 units SC qam * Bolus insulin * NovoLog per scale ACHS or Q6hrs while NPO - with two overnight checks * Goal Range: Low 110 mg/dL - High 140 mg/dL * Correction Factor: 8 mg/dL/unit * Nutritional / Prandial insulin per carb ratio of 1 unit per 2 grams CHO consumed PLAN FOR DISCHARGE: * TBD based on A1c 10.2%
[2021-04-30] MEDS: ATORVASTATIN 40 MG TAB PO SCH (20:23)
[2021-04-30] MEDS: DAPTOmycin 450 MG in SYRINGE 0 ML IV SCH (20:28)
[2021-04-30] MEDS: INSULIN GLARGINE 100 UNIT/ML VIAL SC SCH (20:33)
[2021-05-01] MEDS: traMADol HCL 50 MG TABLET PO SCH ×2 (06:05→13:12)
[2021-05-01] MEDS: AMPICILLIN/SULBACTAM SOD 3,000 MG in 0.9 % SODIUM CHLORIDE 100 ML IV SCH ×2 (06:05→14:17)
[2021-05-01] MEDS: LOSARTAN POTASSIUM 50 MG TAB PO SCH (07:07)
[2021-05-01] MEDS: APIXABAN 5 MG TABLET PO SCH (07:07)
[2021-05-01] MEDS: carvediloL 12.5 MG TAB PO SCH (07:07)
[2021-05-01] MEDS: dexAMETHasone 1 MG TAB PO SCH (07:07)
[2021-05-01] MEDS: metOLazone 5 MG TABLET PO SCH (07:08)
[2021-05-01] MEDS: DULoxetine HCL 30 MG CAP PO SCH (07:08)
[2021-05-01] MEDS: BUMETANIDE 1 MG TAB PO SCH (07:08)
[2021-05-01 07:09] LABS: Basophils # (auto) 0.02 K/uL (0-0.2); Basophils % (auto) 0.1 %; Eosinophils # (auto) 0.06 K/uL (0-0.5); Eosinophils % (auto) 0.4 %; Hematocrit (blood only) 46.6 % (42-52); Hemoglobin 14.9 g/dL (14.0-18.0); Immature Granulocytes # (auto) 0.05 K/uL (0.00-0.02); Immature Granulocytes % (auto) 0.4 %; Lymphocytes # (auto) 2.73 K/uL (1.2-3.4); Lymphocytes % (auto) 19.3 %; Mean Corpuscular Hemoglobin 27.3 pg (25-34); Mean Corpuscular Volume 85.3 fL (80-100); Mean Platelet Volume 10.5 fL (7.4-10.4); Monocytes # (auto) 0.92 K/uL (0.11-0.59); Monocytes % (auto) 6.5 %; Neutrophils # (auto) 10.37 K/uL (1.4-6.5); Neutrophils % (auto) 73.3 %; Platelet Count 252 K/uL (130-400); RDW Coefficient of Variation 16.5 % (11.5-14.5); RDW Standard Deviation 50.9 fL (36.4-46.3); Red Blood Count 5.46 M/uL (4.7-6.1); White Blood Count 14.15 K/uL (4.8-10.8)
[2021-05-01 07:28] LABS: BUN Creatinine Ratio 28.9 (10-20); Calcium 9.3 mg/dl (8.5-10.1); Creatinine Clr Calc Pharmacy 97.5 ml/min; Est GFR (African American) 75.6 ml/min; Est GFR (Non-African American) 65.3 ml/min; Potassium 4.2 mmol/L (3.5-5.1)
[2021-05-01] MEDS ORDERED: hydrALAZINE HCL 25 MG TAB PO STA (08:40)
[2021-05-01] MEDS: INSULIN ASPART 100 UNITS/ML 3 ML PEN SC SCH ×2 (08:57→12:47)
[2021-05-01] MEDS ORDERED: ERGOCALCIFEROL 50,000 UNITS 1250 MCG CAP PO SCH (09:00)
[2021-05-01] MEDS ORDERED: INSULIN HUMAN NPH SC SCH (10:45)
--- NOTE | 2021-05-01 10:47 | Discharge Summary ---
Date of Service May 01, 2021 Admission HPI Per Admitting Provider Attending: Dr. Baumann This is a 71 yo male that was referred to the [facility] by his PPC Dr. Smallwood for worsening LLE cellulitis with evidence of maggots developing in the wound. Patient is afebrile. WBC is 11.77. No lactic acid acquired. No procalcitonin acquired. Patient received vancomycin the ED and referred to the hospitalist vida swann for admission. The patient has a PMH including Obesity, IDDM2, HTN, osteoarthitis, Atrial flutter on chronic AC with Apixaban, CAD, Hx CABG X 2, depression. The patient states that he has a wound care nurse come every other day to change dressings. He reports that he has had this wound for the past 4 years. The nurse missed an appointment so two days ago he took his own dressings off and reports that there maggots on the wound. He removed the maggots and dressed the wound. T here was no bleeding and no pain. He denies fever or chills. No sweats. No n/v/d. The patient denies SOB, COYNE, hypotension, lightheadedness, chest pain, chest tightness or any other constitutional symptoms. He has no other acute complaints. He is a diabetic with a HgBA1c of 7.5%. He does not typically check his BSG as he has been out of strips. The patient was found to be positive for SARS, Covid -19. He has no respiratory complaints. He has no loss of taste or smell or diarrhea. Although he is over 62, he has no other complications or complaints. He has no cough or sputum production. He lives with is ex-, their children and their grandchildren. None of the other occupants in the house have COVID or symptoms of COVID. The patient states that he is not vaccinated for COVID Principal Diagnosis Left leg cellulitis with lymphedema Discharge Exam Constitutional well developed, + morbidly obese and comfortable; no acute distress Neck trachea midline and + thick neck Thyroid: normal thyroid Respiratory normal respiratory effort, lungs clear to auscultation Cardiovascular Rate/Rhythm: regular rate and regular rhythm Heart Sounds: normal S1 and normal S2; no murmur Extremities: normal capillary refill and + edema (legs bilaterally) Gastrointestinal (Abdomen) normal bowel sounds, soft, nontender, no hepatosplenomegaly Musculoskeletal no cyanosis or clubbing, extremities motor strength 5/5 Skin + wound (left leg, with cellulitis, warm and tender), + dry skin and + erythema (venous stasis changes bilaterally) Neurologic normal touch/pain/proprioception, CN's II-XI intact bilaterally, moves all extremities and awake; no focal motor deficits Psychiatric Orientation: alert and oriented x 3 Affect: + irritable affect Discharge Data Allergies Allergy/AdvReac Type Severity Reaction Status Date / Time sulfamethoxazole AdvReac nausea Verified 04/28/21 12:09 [From Bactrim] trimethoprim [From Bactrim] AdvReac nausea Verified 04/28/21 12:09 Consultations 04/28/21 14:29 ED Decision to Admit Stat Diabetes Follow up Diabetes Follow-up Needed for HgbA1c >9% Hospital Course (1) Left leg cellulitis: Impression: Is a 71-year-old male that has chronic nonhealing wound to his left lower extremity. He has wound care come to the home and they miss an appointment. 2 days ago he took his dressings off and found maggots in the wound bed. He remove the maggots and redressed the wound. He discussed this with his primary care physician today, Dr. Smallwood, and she referred him to the emergency department for further evaluation. In the emergency department he was treated with vancomycin. A preemptive Covid screening was done as patient admission was anticipated. This was returned as positive. Patient is completel y asymptomatic with Covid symptoms. He has no cough, fever, nausea, vomiting, diarrhea, sore throat, loss of taste, loss of smell. He has been admitted for wound care and isolation for COVID-19. Left lower extremity cellulitis: Daptomycin and Unasyn initially, good response, less redness, no pain, no drainage surface culture is growing gram neg and gram pos, cultures suggests skin microbiota Blood cultures - no growth over 48 hours Patient is afebrile. Hemodynamically stable got 4 days of IV antibiotics, will change to Augmentin/Doxy for 10 days wound care : clean with saline daily, apply Aquacel AG and ABD and wrap with gauze, change daily or as needed for drainage keep left leg elevated as often as possible (2) SARS-CoV-2 positive: Incidental finding with screening on admission Patient asymptomatic Patient has not been vaccinated was placed on 2L when he was found to be < 90% room air says he is 87-90% at home when home nursing checks him CXR with subtle infiltrates but feel it was more likely pulmonary edema started on dexamethasone 6mg PO daily, day 3 today spoke with his daughter, she says he was really sick 8 weeks ago with cough, dyspnea, URI symptoms he refused to get tested for COVID he was exposed to someone who eventually tested positive and was hospitalized for COVID suspect that his positive test was a residual positive from prior infection he has zero symptoms of COVID at this time no further need for dexamethasone, no need for isolation (3) Atrial fibrillation: Chronically anticoagulated with apixaban 5 mg p.o. twice daily Continue carvedilol and losartan rates have been stable (4) Type 2 diabetes mellitus, with long-term current use of insulin: Well-controlled at home Patient on Lantus 70 units subcutaneously at bedtime, glipizide 5 mg twice daily, and Metformin 1000 mg p.o. twice daily Hemoglobin A1c 7.5% pharmacy consulted, no hypoglycemia (5) Coronary artery disease: Patient with history of CABG x2 in 2016 No chest pain or tightness Continue carvedilol and losartan Continue atorvastatin Patient currently not on any antiplatelet agents Further management outpatient Monitor on telemetry (6) Hypertension: Continue carvedilol and losartan added Hydralazine 25mg TID for better BP control follow up with PCP (7) Chronic combined systolic and diastolic congestive heart failure: acute on chronic combined systolic/diastolic HF Patient appears to be volume overloaded Continue Bumex 2 mg p.o. twice daily good response to Zaroxolyn 5mg PO qAM discussed taking Zaroxolyn MWF at home, but he refuses, says he responds well to Bumex at home CHF instructions provided to weigh himself, fluid restrict, call PCP if weight goes up by 2-3 lbs (8) DVT prophylaxis: Patient chronically anticoagulated with apixaban 5 mg p.o. twice daily Continue home on oral antibiotics continue to follow with home nursing for wound care, lymphedema care Total Time Total Time Spent Total Time Spent (In Minutes): 35 Total Time Includes: Examination of the Patient, Discharge Planning and Medication Reconciliation Discharge Plan Discharge Items Patient Disposition: Home - Home Health Services Reason For Visit: LLE CELLULITIS Discharge Diagnosis: Left leg cellulitis, chronic lymphedema Acute on chronic combined systolic and diastolic heart failure COVID 19 positive, suspect prior infection Condition on Discharge: Good Goals: complete course of antibiotics continue wound care, keep legs elevated when possible Activity: Resume your previous activity Weightbearing: Full weightbearing Non-emergency contact: Primary Care Provider Call non-emergency contact if: you have any medication questions, your symptoms worsen and you have a fever Follow-up/Referrals: Neetu Smallwood DO [Primary Care Provider] - (one week) Diet: Carb Consistent or DM2, Heart Healthy and Low Sodium (2gm) Fluids: 2000ml (8 cups) Addtl Attending Provider Instructions: Medications: - DOXYCYCLINE and AUGMENTIN: antibiotics, take both of them twice a day for 10 more days, start this evening - HYDRALAZINE: new blood pressure medication, take 25mg three times a day, can help manage heart failure as well as blood pressure Left leg cellulitis, chronic lymphedema from prior vein graft for bypass surgery responded well to IV antibiotics for a few days transition to oral antibiotics for ten more days dressing instructions: clean daily with saline, pat dry, apply Aquacel AG and ABD, gauze wrap change daily or more often as needed keep legs elevated whenever possible COVID 19 positive test: suspect this might be residual positive test from when you were sick weeks ago no real signs of pneumonia on chest x-ray, no fever, no cough or other symptoms of COVID no further dexamethasone needed at this time you are breathing comfortably on room air Acute on chronic combined systolic and diastolic heart failure gave you Zaroxolyn in addition to Bumex while admitted, good response continue Bumex 2mg BID, follow a daily fluid restriction of 2000mL a day, weigh yourself daily to make sure you are not retaining fluid if weight goes up by 2-3 lbs then call PCP for instructions Hypertension: BP quite high, added hydralazine for better control which can also help manage heart failure Call 911 and go to the Emergency Room if: * You have tightness or pain in your chest that does not go away with rest or Nitroglycerin * You are very short of breath even with rest Call your doctor if any of the following symptoms or problems start or get worse: * Shortness of breath or difficulty breathing * Wake up at night short of breath * Chest pain * Cough * Swelling of your hands, fee, or legs * More fatigued or tired with your normal activity * Palpitations - sudden fast heart beats WEIGHT * Weigh yourself every morning after using the bathroom. * Use the same scale. * Wear the same amount of clothing. * Write your weight down on your chart. * Call your doctor if you gain more than 2-3 pounds in 1-2 days. MEDICATIONS * Use this discharge instruction sheet for instructions. * Take your medications at the time your doctor ordered. * Do not skip a dose of your medicines. * If you miss a dose of medicine, take as soon as possible, but DO NOT DOUBLE A DOSE. * Read your medicine information when you get home. * Know all of the side effects of your medicine. * Call your doctor's office if you have any side effects. * Be sure all of your doctors know what medicine and herbs you take (including cold, flu, and herbal medicine). * Pain Medicine: If you do not get relief from your pain, please call your doctor for help. Take the following with you to your follow-up doctor appointments: * Weight Chart * Medication List * List of questions Do not drink excessive alcohol, beer or wine. Pending Studies at Discharge: No Stand-Alone Forms: My [facility] [employer], Smoking Cessation Medications and DC Order Prescriptions: New hydralazine 25 mg Tablet 25 mg PO Q8 30 Days Qty: 90 RF: 1 doxycycline hyclate 100 mg capsule 100 mg PO BID 10 Days Qty: 20 RF: 0 amoxicillin-pot clavulanate [Augmentin] 875-125 mg tablet 1 tab PO BID Qty: 20 RF: 0 Continued duloxetine 30 mg capsule, delayed rel sprinkle 30 mg PO DAILY Qty: 30 RF: 0 carvedilol 6.25 mg tablet 6.25 mg PO BID Qty: 180 RF: 3 albuterol sulfate 90 mcg/actuation HFA aerosol inhaler 2 puff INH QID Qty: 18 RF: 2 ergocalciferol (vitamin D2) 1,250 mcg (50,000 unit) capsule 50,000 unit PO .weekly Qty: 12 RF: 0 losartan 100 mg tablet 100 mg PO DAILY Qty: 90 RF: 1 atorvastatin 80 mg tablet 80 mg PO HS Qty: 90 RF: 1 Eliquis 5 mg tablet 5 mg PO BID Qty: 180 RF: 1 glipizide 5 mg tablet 5 mg PO BIDM Qty: 180 RF: 1 metformin 500 mg tablet extended release 24 hr 1,000 mg PO BID Qty: 360 RF: 1 bumetanide 2 mg tablet 2 mg PO BID Qty: 180 RF: 1 nitroglycerin 0.4 mg tablet, sublingual 0.4 mg SL Q5M PRN (Reason: chest pain) RF: 0 tramadol 50 mg tablet 50 mg PO Q6H RF: 0 Toujeo SoloStar U-300 Insulin 300 unit/mL (1.5 mL) insulin pen 70 unit subcut HS RF: 0 Discharge Orders: Discharge Order (Routine); Ordered 05/01/21 Ordered By: Rick Mccoy/Other Patient Handouts: A1C, High Blood Sugar (Hyperglycemia), Managing Type 2 Diabetes, Special Foot Care for Diabetes Admission Data Admit Date/Time: 04/28/21 15:52 Attending Provider: Rick Rosario Admit Provider: Reba Baumann Primary Care Provider: Neetu Smallwood Other Providers: Abraham Ferguson Other Interventions: Discharge Summary Assessment (RN) Last Done: 05/01/21 11:17 Coding Level of Care Code D/C DAY MANAGEMENT >30 MINS Diagnoses Left leg cellulitis L03.116 SARS-CoV-2 positive U07.1 Atrial fibrillation I48.91 Type 2 diabetes mellitus, with long-term current use of insulin E11.9; Z79.4 Coronary artery disease I25.10 Hypertension I10 Chronic combined systolic and diastolic congestive heart failure I50.42 DVT prophylaxis Z29.9
[2021-05-01] MEDS ORDERED: hydrALAZINE HCL 25 MG TAB PO SCH (14:00)
== END 2021-05-01 15:50 | disposition home health service (06) | DRG 602 ==
LOC: ED 11:26 → SUATTDRO 15:52 → 2E 15:52
DX: E11.22 Type 2 diabetes mellitus with diabetic chronic kidney disease; I48.91 Unspecified atrial fibrillation; I11.0 Hypertensive heart disease with heart failure; J12.82 Pneumonia due to coronavirus disease 2019; Z95.1 Presence of aortocoronary bypass graft; M17.0 Bilateral primary osteoarthritis of knee; U07.1 COVID-19; I48.92 Unspecified atrial flutter; L03.116 Cellulitis of left lower limb; E11.40 Type 2 diabetes mellitus with diabetic neuropathy, unspecified; E66.01 Morbid (severe) obesity due to excess calories; N40.0 Benign prostatic hyperplasia without lower urinary tract symptoms; I89.0 Lymphedema, not elsewhere classified; Z87.891 Personal history of nicotine dependence; I25.10 Atherosclerotic heart disease of native coronary artery without angina pectoris; I50.43 Acute on chronic combined systolic (congestive) and diastolic (congestive) heart failure; Z68.43 Body mass index [BMI] 50.0-59.9, adult; Z79.84 Long term (current) use of oral hypoglycemic drugs; I83.229 Varicose veins of left lower extremity with both ulcer of unspecified site and inflammation; Z83.3 Family history of diabetes mellitus

== ENCOUNTER 2022-04-23 19:21 | Inpatient (IN) ==
[2022-04-23] MEDS ORDERED: FUROSEMIDE 40 MG/4 ML VIAL IV ONE (19:27)
[2022-04-23] MEDS ORDERED: NITROGLYCERIN 2% OINTMENT 30GM TUBE EXT ONE (19:31)
--- NOTE | 2022-04-23 19:31 | Emergency Department Note ---
Impression & Plan Acute respiratory failure with hypoxia, Acute pulmonary edema ED Provider Note Name: IRISH ROSALES Age: 72 Sex: M Arrives Via: Ambulance Informant: Patient, EMS, daughter ED Provider: James Diaz MD Chief Complaint: Breathing difficulty Impression: As per impressions above Medical Decision Making: Pleasant 72-year-old gentleman in severe distress due to inability to breathe. He has a history of cardiomyopathy, type 2 diabetes, CAD, BPH, hypertension, A. fib and is on anticoagulation. On arrival patient has diffuse crackles all lung sounds he is severely dyspneic and his oxygen saturation is 65% on room air. He is unable to even tolerate sitting in a bed severe shortness of breath. He was placed in a hospital chair, placed on BiPAP, given 40 mg IV Lasix, Nitropaste applied. This resulted in rapid improvement in the patient's breathing he is much more comfortable and he is interacting normally. Chest x-ray consistent with pulmonary edema. Given the amount of swelling in his legs and weeping I do feel that this is acute on chronic congestive failure. There is no clear evidence of pneumonia or infection at this time. It is unlikely PE or dissection and do not feel that a CTA would be indicated. His initial troponin is unremarkable and EKG does not show clear evidence of ischemia. Hospitalist was consulted for further management. Prior Medical Record and Triage/Nursing Notes reviewed by Me Additional history obtained from, EMS, daughter Differentials:Reactive airway disease, pneumonia, pneumothorax, COPD, CHF, infections, cardiac ischemia, pulmonary embolism, musculoskeletal, gastroi ntestinal, as well as other pathologies. Vital Signs: reviewed and remarkable for hypoxia Interventions: Lasix 40 mg IV, paste 1 inch Labs:Reviewed and remarkable for no significant abnormalities Imagin view chest x-ray bilateral congestive failure/pulmonary edema as interpreted by me EKG:Per My Interpretation: Indication shob: Sinus rhythm with PACs at 65 bpm and a QTC of 463. There is no acute ischemia. Similar to EKG from August 31, 2018 Cardiac/Tele Monitoring: Cardiac Monitoring: An Order was placed for continuous cardiac monitoring. The monitor shows a rate of 60 with a normal sinus rhythm. Consults:Dr Mickey RAMIREZ Hospitalist Plan: Disposition:Hospitalization. Condition: Fair History of Present Illness: 72-year-old gentleman arrives for evaluation of shortness of breath. Patient notes 2 weeks of worsening shortness of breath. Associated with increasing leg swelling and weeping from his legs. He notes history of heart failure and that he has had fluid overload issues before though never to this level. Patient states any exertion makes severely worse and he cannot lie flat without severe shortness of breath. Today symptoms rapidly worsened 911 was called. No medications prior to arrival. Even laying with his feet up he feels severely shortness of breath. Getting his legs down he does feel somewhat better. He denies any specific chest pain, productive cough, fevers, abdominal pain, nausea, vomiting, back pain or other specific symptoms. He states he has been urinating normally. He is on Bumex for cardiomyopathy which he states he is still taking. He is also on Eliquis for his A. fib. No recent falls, trauma, injury. ROS: See above HPI for pertinent positives & negatives. A total of 10 systems reviewed and were otherwise negative. Past Medical History:See Below Past Surgical History:See Below Family History:See Below Social History:See Below Home Medications:See Below Allergies:bactrim Vitals:Blood Pressure: 180/90, Pulse 80, RR 30, T 36.8C, O2 65% on RA Physical Exam: GENERAL: Patient is severely unwell appearing and in severe distress. EYES: No scleral icterus, unremarkable pupils. ENT: Mucous membranes moist, no nasal congestion. NECK: No masses appreciated, nomeningismus, trachea is midline. RESPIRATORY: Severe dyspnea and tachypnea with diffuse crackles all lung lam. CARDIOVASCULAR: Regular rate and rhythm.No murmurs, rubs, gallops appreciated. GASTROINTESTINAL: Abdomen soft, non-tender, no peritonitis.Bowel sounds positive.No masses appreciated. BACK: No midline tenderness, no CVA tenderness EXTREMITIES: 4+ pitting edema of legs up to back with weeping from the lower legs peripheral venous stasis noted in legs NEUROLOGIC: Alert and oriented, no acute motor or sensory deficits, no focal weakness, cranial nerves grossly intact. SKIN: No rash, no jaundice, no diaphoresis. PSYCH: Appropriate GCS: 15 ED Course: Times/Reassessments: Rapid improvement when placed on BiPAP and in sitting position. Continues to improve throughout the ED stay while awaiting hospitalization. Critical Care: I have personally spent 35 minutes of critical care time in the direct management of this patient. Acute hypoxic respiratory failure requiring BiPAP secondary to pulmonary edema. This was a life/limb threatening event. This 35 minutes is in excess of all separately billable procedures. James Diaz MD Past Med/Surg History Medical History Arthritis Atrial fibrillation Atrial flutter with controlled response Bilateral primary osteoarthritis of knee BPH (benign prostatic hyperplasia) Cellulitis, scrotum Chronic combined systolic and diastolic congestive heart failure Chronic venous stasis dermatitis of both lower extremities Coronary artery disease Degenerative arthritis of knee, bilateral Diabetic nephropathy associated with type 2 diabetes mellitus Diabetic peripheral neuropathy associated with type 2 diabetes mellitus Dysesthesia Dyslipidemia Encounter for wound care Harley's gangrene Glaucoma Hypertension Hypoxia Ischemic cardiomyopathy Left leg cellulitis Lymphedema Morbid obesity Multiple open wounds of lower extremity Open wound of scrotum Paroxysmal SVT (supraventricular tachycardia) Peripheral arterial disease SARS-CoV-2 positive Sick sinus syndrome Tobacco use Type 2 diabetes mellitus, with long-term current use of insulin Vitamin D deficiency Surgical History History of testicular surgery Hx of CABG (2015) S/P ablation of atrial fibrillation (2014) Family History Brother Diabetes Hypertension Alcohol abuse Kidney stones Cancer Sister Breast cancer Hypertension Denies family history of Ovarian cancer Prostate cancer Myocardial infarction Colorectal cancer Social History Smoking Status: Former smoker Tobacco Type: Cigarettes and Smokeless Tobacco (Dip or Chew) Age Started Using Tobacco: 22; packs per day: 2; Cigarettes Per Day: QUIT SMOKING AT AGE 42- STILL CHEWS TOBACCO; Second Hand Exposure: No; Hx Alcohol Use: Yes Alcohol type: beer Hx Substance Use: No Preferred Language: Taiwanese Communication Ability: Effective Visual Impairment: No Limitations Hearing Ability: Hard of Hearing Buffet Attendant Required: No Beliefs That Will Affect Care: None marital status: Current Living Situation: Family Current Living Situation Comment: lives with ex , daughter, granddaughter, grandson 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 How many Children do You have: 3 Feels Safe at Home: Yes Childhood Exposure to Second-Hand Smoke: Yes caffeine: Yes during the past year weight has: remained stable Dental Care, Regularly: No Physical Activity Frequency: Does not Exercise Seatbelt Use: never Sunscreen Use: Yes Assistive Devices: BiPap and Walker Allergies Allergies Allergy/AdvReac Type Severity Reaction Status Date / Time sulfamethoxazole AdvReac nausea Verified 04/23/22 21:35 [From Bactrim] trimethoprim [From Bactrim] AdvReac nausea Verified 04/23/22 21:35 Home Meds Home Medications Medication Instructions Recorded Confirmed nitroglycerin 0.4 mg sublingual 0.4 mg sublingual Q5M PRN chest 05/16/19 04/23/22 tablet pain albuterol sulfate 90 mcg/actuation 2 puff inhalation QID PRN 09/02/21 04/23/22 aerosol inhaler Shortness Of Breath ergocalciferol (vitamin D2) 1,250 1,250 mcg PO WK 04/23/22 04/23/22 mcg (50,000 unit) capsule Previous Rx's Medication Instructions Recorded metformin 500 mg tablet,extended 1,000 mg PO BID #360 tabs 07/28/21 release 24 hr glipizide 5 mg tablet 5 mg PO BIDM #180 tabs 08/13/21 losartan 100 mg tablet 100 mg PO DAILY #90 tabs 09/06/21 atorvastatin 80 mg tablet 80 mg PO HS #90 tabs 11/05/21 apixaban 5 mg tablet (Eliquis) 5 mg PO BID #180 tabs 02/01/22 acetaminophen 500 mg tablet 500 mg PO Q4H PRN pain #360 tabs 03/11/22 (Tylenol Extra Strength) amlodipine 5 mg tablet 5 mg PO DAILY #90 tabs 03/11/22 carvedilol 6.25 mg tablet 6.25 mg PO BID #180 tabs 03/11/22 insulin glargine U-300 conc 300 75 unit (0.25 mL) subcut HS #4.5 mL 03/16/22 unit/mL (1.5 mL) subcutaneous pen (Toujeo SoloStar U-300 Insulin) tramadol 50 mg tablet See Rx Instructions PO Q6H PRN 04/14/22 pain #120 tabs Results & Data (ED) Vital Signs Vital Signs - 24 hr 04/23/22 19:46 04/23/22 19:35 04/23/22 19:35 Temperature 37.0 C Temperature Source Oral Pulse Rate 69 Pulse Rate [Right Finger] Respiratory Rate 24 32 H Respiratory Effort / Characteristics Spontaneous Labored Respiratory Depth Normal Normal Respiratory Pattern Regular Tachypnea Blood Pressure 137/73 Blood Pressure [Right Arm] Blood Pressure Mean 94 Blood Pressure Mean [Right Arm] Pulse Oximetry 96 65 L Oxygen Delivery Method Room Air Oxygen Flow Rate Fraction of Inspired Oxygen 50 Sepsis Recent Fever Within 48 Hours No Sepsis New/Unexplained Change in Mental Status No Sepsis Action Taken by Nursing No Action Required Fraction of Inspired Oxygen - Titration Pulse Oximetry Post Tiitration 04/23/22 19:35 04/23/22 20:16 04/23/22 21:05 Temperature Temperature Source Pulse Rate Pulse Rate [Right Finger] 65 67 Respiratory Rate 20 20 Respiratory Effort / Characteristics Respiratory Depth Respiratory Pattern Blood Pressure Blood Pressure [Right Arm] 201/85 H 155/84 H Blood Pressure Mean Blood Pressure Mean [Right Arm] 123 107 Pulse Oximetry 65 L 94 97 Oxygen Delivery Method Room Air BiPAP Room Air Oxygen Flow Rate 0 Fraction of Inspired Oxygen Sepsis Recent Fever Within 48 Hours Sepsis New/Unexplained Change in Mental Status Sepsis Action Taken by Nursing Fraction of Inspired Oxygen - Titration 50 Pulse Oximetry Post Tiitration 98 Laboratory Data Result diagrams: 04/23/22 19:41 04/23/22 19:41 Lab Results 04/23/22 04/23/22 04/23/22 Range/Units 19:41 19:41 19:41 WBC 10.54 (4.8-10.8) K/ul RBC 4.49 L (4.63-6.08) M/uL Hgb 12.1 L (14.0-18.0) g/dl Hct 40.3 (40.1-51.0) % MCV 89.8 (80.0-100.0) fL MCH 26.9 (25.0-34.0) pg MCHC 30.0 L (32.0-36.0) g/dL RDW Std Deviation 54.0 H (36.4-46.3) fL RDW Coeff of Rebecca 16.7 H (11.5-14.5) % Plt Count 200 (130-400) K/uL MPV 9.7 (9.4-12.4) fL Immature Gran % (Auto) 0.6 % Neut % (Auto) 72.0 % Lymph % (Auto) 15.9 % [place] % (Auto) 8.9 % Eos % (Auto) 2.1 % Baso % (Auto) 0.5 % Neut # (Auto) 7.59 H (1.4-6.5) K/uL Lymph # (Auto) 1.68 (1.2-3.4) K/uL [place] # (Auto) 0.94 H (0.24-0.82) K/uL Eos # (Auto) 0.22 (0-0.50) K/uL Baso # (Auto) 0.05 (0-0.2) K/uL Immature Gran # (Auto) 0.06 H (0.00-0.02) K/uL PT 11.3 (9.0-12.0) Seconds INR 1.1 (0.9-1.1) VBG pH (7.36-7.41) VBG pCO2 (38-50) mmHg VBG pO2 mmHg VBG HCO3 mmol/L VBG O2 Saturation % VBG Base Excess mEq/L Sodium 135 L (136-145) mmol/L Potassium 5.0 (3.5-5.1) mmol/L Chloride 99 (98-107) mmol/L Carbon Dioxide 32 (21-32) mmol/L Anion Gap 4 (3-11) BUN 30 H (6-23) mg/dl Creatinine 1.19 (0.6-1.4) mg/dl Est Cr Clr Drug Dosing Not Reportable Est GFR ( Amer) 71.3 ml/min Est GFR (Non-Af Amer) 61.5 ml/min BUN/Creatinine Ratio 25.2 H (10-20) Glucose 156 H (70-99(Fasting)) mg/dl Calcium 8.7 (8.5-10.1) mg/dl Magnesium 1.6 L (1.7-2.4) mg/dl Total Bilirubin 0.4 (0.2-1.0) mg/dl Direct Bilirubin 0.0 (0-0.2) mg/dl AST 10 L (13-39) U/L ALT 8 (7-52) U/L Alkaline Phosphatase 124 H (34-104) U/L Troponin I High Sens 16.3 (0-20) pg/ml Total Protein 6.8 (6.0-8.3) gm/dl Albumin 3.4 (3.4-5.0) gm/dl Urine Color Urine Appearance (Clear) Urine pH (4.5-7.5) Ur Specific Shirley (1.000-1.030) Urine Protein (Negative) Urine Glucose (UA) (Negative) Urine Ketones (Negative) Urine Blood (Negative) Urine Nitrite (Negative) Urine Bilirubin (Negative) Urine Urobilinogen (Negative) Ur Leukocyte Esterase (Negative) Urine WBC (Auto) (0-5) /hpf Urine RBC (Auto) (0-4) /hpf U Hyaline Cast (Auto) (0-5) /lpf U Epithel Cells (Auto) (0-5) /lpf Urine Bacteria (Auto) (Negative) SARS-CoV-2, RNA, NAAT (NEGATIVE) 04/23/22 04/23/22 04/23/22 Range/Units 19:41 19:53 20:09 WBC (4.8-10.8) K/ul RBC (4.63-6.08) M/uL Hgb (14.0-18.0) g/dl Hct (40.1-51.0) % MCV (80.0-100.0) fL MCH (25.0-34.0) pg MCHC (32.0-36.0) g/dL RDW Std Deviation (36.4-46.3) fL RDW Coeff of Rebecca (11.5-14.5) % Plt Count (130-400) K/uL MPV (9.4-12.4) fL Immature Gran % (Auto) % Neut % (Auto) % Lymph % (Auto) % [place] % (Auto) % Eos % (Auto) % Baso % (Auto) % Neut # (Auto) (1.4-6.5) K/uL Lymph # (Auto) (1.2-3.4) K/uL [place] # (Auto) (0.24-0.82) K/uL Eos # (Auto) (0-0.50) K/uL Baso # (Auto) (0-0.2) K/uL Immature Gran # (Auto) (0.00-0.02) K/uL PT (9.0-12.0) Seconds INR (0.9-1.1) VBG pH 7.32 L (7.36-7.41) VBG pCO2 77 H (38-50) mmHg VBG pO2 39 mmHg VBG HCO3 40 mmol/L VBG O2 Saturation < 60.0 % VBG Base Excess 10.6 mEq/L Sodium (136-145) mmol/L Potassium (3.5-5.1) mmol/L Chloride (98-107) mmol/L Carbon Dioxide (21-32) mmol/L Anion Gap (3-11) BUN (6-23) mg/dl Creatinine (0.6-1.4) mg/dl Est Cr Clr Drug Dosing Est GFR ( Amer) ml/min Est GFR (Non-Af Amer) ml/min BUN/Creatinine Ratio (10-20) Glucose (70-99(Fasting)) mg/dl Calcium (8.5-10.1) mg/dl Magnesium (1.7-2.4) mg/dl Total Bilirubin (0.2-1.0) mg/dl Direct Bilirubin (0-0.2) mg/dl AST (13-39) U/L ALT (7-52) U/L Alkaline Phosphatase (34-104) U/L Troponin I High Sens (0-20) pg/ml Total Protein (6.0-8.3) gm/dl Albumin (3.4-5.0) gm/dl Urine Color Yellow Urine Appearance Clear (Clear) Urine pH 6.0 (4.5-7.5) Ur Specific Shirley 1.015 (1.000-1.030) Urine Protein 3+ H (Negative) Urine Glucose (UA) Trace H (Negative) Urine Ketones Negative (Negative) Urine Blood Trace H (Negative) Urine Nitrite Negative (Negative) Urine Bilirubin Negative (Negative) Urine Urobilinogen Negative (Negative) Ur Leukocyte Esterase Negative (Negative) Urine WBC (Auto) 1-5 (0-5) /hpf Urine RBC (Auto) 5-10 H (0-4) /hpf U Hyaline Cast (Auto) 0 (0-5) /lpf U Epithel Cells (Auto) 5-10 H (0-5) /lpf Urine Bacteria (Auto) Negative (Negative) SARS-CoV-2, RNA, NAAT NEGATIVE (NEGATIVE) Administered Medications Magnesium Sulfate/Dextrose (Magnesium Sulfate / D5w) 1 gm in 100 mls @ 50 mls/hr IV Q2H MARTIN Stop: 04/24/22 05:29 Last Admin: 08/14/22 00:14 Dose: 50 mls/hr Documented By: SENIOR CONSTRUCTION PROJECT MANAGER Discontinued Medications Furosemide (Furosemide 40 Mg/4 Ml Vial) 40 mg IV ONE ONE Stop: 04/23/22 19:28 Last Admin: 04/23/22 19:47 Dose: 40 mg Documented By: MEHRAN Nitroglycerin (Nitroglycerin 2% Ointment 30gm Tube) 1 inch EXT NOW ONE Stop: 04/23/22 19:32 Last Admin: 04/23/22 19:47 Dose: 1 inch Documented By: MEHRAN Imaging Data Radiologist's Impression: Chest X-Ray 04/23/22 19:28 XR chest 1V portable CLINICAL HISTORY: shob TECHNIQUE: Single frontal radiograph of the chest was obtained. Comparison: Comparison is made to chest radiograph 04/29/2021 FINDINGS: Median sternotomy wires are unchanged. Cardiomegaly is noted. There is prominence and cephalization of the vasculature with Carolina B lines seen. Likely small bilateral pleural effusions. IMPRESSION: Clinical history megaly with moderate pulmonary edema, increased from prior exam. Likely small bilateral pleural effusions. ACT 112: Negative or not required by law. Electronically signed by: Rick Banegas M.D. 04/23/2022 8:12 PM Discharge Plan Visit Data Chief Complaint: Shortness of Breath/Dyspnea ED Provider: James Diaz Discharge Problem: Acute respiratory failure with hypoxia, Acute pulmonary edema Patient Disposition: Admitted As Inpatient Discharge Instructions Interventions: ED Discharge Assessment Last Done: 04/23/22 22:27
[2022-04-23 19:49] LABS: Base Excess VBG 10.6 mEq/L; Basophils # (auto) 0.05 K/uL (0-0.2); Basophils % (auto) 0.5 %; Eosinophils # (auto) 0.22 K/uL (0-0.50); Eosinophils % (auto) 2.1 %; HCO3 VBG 40 mmol/L; Hematocrit (blood only) 40.3 % (40.1-51.0); Hemoglobin 12.1 g/dl (14.0-18.0); Immature Granulocytes # (auto) 0.06 K/uL (0.00-0.02); Immature Granulocytes % (auto) 0.6 %; Lymphocytes # (auto) 1.68 K/uL (1.2-3.4); Lymphocytes % (auto) 15.9 %; Mean Corpuscular Hemoglobin 26.9 pg (25.0-34.0); Mean Corpuscular Volume 89.8 fL (80.0-100.0); Mean Platelet Volume 9.7 fL (9.4-12.4); Monocytes # (auto) 0.94 K/uL (0.24-0.82); Monocytes % (auto) 8.9 %; Neutrophils # (auto) 7.59 K/uL (1.4-6.5); Oxygen Saturation VBG < 60.0 %; PCO2 VBG 77 mmHg (38-50); PO2 VBG 39 mmHg; Platelet Count 200 K/uL (130-400); RDW Coefficient of Variation 16.7 % (11.5-14.5); Red Blood Count 4.49 M/uL (4.63-6.08); White Blood Count 10.54 K/ul (4.8-10.8); pH VBG 7.32 (7.36-7.41)
[2022-04-23 20:01] LABS: INR 1.1 (0.9-1.1); Prothrombin Time 11.3 Seconds (9.0-12.0)
[2022-04-23 20:13] LABS: Alanine Aminotransferase 8 U/L (7-52); Albumin Level 3.4 gm/dl (3.4-5.0); Alkaline Phosphatase 124 U/L (34-104); Anion Gap 4 (3-11); Aspartate Aminotransferase 10 U/L (13-39); BUN Creatinine Ratio 25.2 (10-20); Bilirubin,Total 0.4 mg/dl (0.2-1.0); Blood Urea Nitrogen 30 mg/dl (6-23); Calcium 8.7 mg/dl (8.5-10.1); Carbon Dioxide 32 mmol/L (21-32); Chloride 99 mmol/L (98-107); Est GFR (African American) 71.3 ml/min; Est GFR (Non-African American) 61.5 ml/min; Glucose 156 mg/dl (70-99(Fasting)); Magnesium 1.6 mg/dl (1.7-2.4); Sodium 135 mmol/L (136-145); Total Protein 6.8 gm/dl (6.0-8.3)
--- NOTE | 2022-04-23 20:13 | XRay Report ---
XR chest 1V portable CLINICAL HISTORY: shob TECHNIQUE: Single frontal radiograph of the chest was obtained. Comparison: Comparison is made to chest radiograph 04/29/2021 FINDINGS: Median sternotomy wires are unchanged. Cardiomegaly is noted. There is prominence and cephalization o f the vasculature with Carolina B lines seen. Likely small bilateral pleural effusions. IMPRESSION: Clinical history megaly with moderate pulmonary edema, increased from prior exam. Likely small bilate ral pleural effusions. ACT 112: Negative or not required by law. Electronically signed by: Rick Banegas M.D. 04/23/2022 8:12 PM
[2022-04-23 20:15] LABS: Troponin I High Sensitivity 16.3 pg/ml (0-20)
[2022-04-23 20:26] LABS: Appearance Urine Clear (Clear); Bacteria Urine Automated Negative (Negative); Bilirubin Urine Negative (Negative); Blood Urine Trace (Negative); Cast Urine Automated 0 /lpf (0-5); Color Urine Yellow; Glucose Urine UA Trace (Negative); Ketones Urine Negative (Negative); Leukocyte Esterase Urine Negative (Negative); Nitrite Urine Negative (Negative); Protein Urine 3+ (Negative); Specific Gravity Urine 1.015 (1.000-1.030); Urobilinogen Urine Negative (Negative)
--- NOTE | 2022-04-23 21:30 | History & Physical Report ---
Date of Service April 23, 2022 Assessment & Plan (1) Acute respiratory failure with hypoxia: Plan: 72yo male with history of CAD s/p CABG x 2V, ICM with combined systolic/diastolic CHF, AF s/p ablation on anticoagulation presenting with 2 weeks of progressive dyspnea, weight gain and orthopnea with acute worsening today. Patient in respiratory distress upon arrival, hypoxic to 65% on room air requiring placement of rescue BiPAP. Patient with Nitro paste in place, was administered Lasix 40mg IV. Breathing more comfortably now, on BiPAP 14/6, 40% FiO2 with adequate tidal volumes 1200mL of clear, yellow urine present in Peña bag Increased weight per record review. Weight today 167.3kg. Was previously 149.7kg on 03/11/22 (must consider different clinical settings, scales, etc) Suspect acute on chronic CHF with pulmonary edema as etiology of patient's acute hypoxic respiratory failure. Improving now. -Admit to PCU -Check BNP -Check 2D echocardiogram -Continue BiPAP, wean as tolerated -Bumex 2mg IV BID -Monitor I/Os, daily weights -BMP q 12 hours to monitor renal function and electrolytes with diuresis -Mg repletion (2) Chronic combined systolic and diastolic congestive heart failure: Plan: Patient with CAD s/p CABG x 2 vessel, evidence of inferior [place] on SPECT, ischemic cardiomyopathy with EF of 40-45%. Suspect acute decompensated CHF as etiology of patient's symptoms. -Diuresis with Bumex 2mg IV BID -Montior I/Os, weight -2D echo -Continue Carvedilol 6.25mg po BID -Continue Losartan 100mg po daily -?initiation of SGLT2 for comanagement of diabetes and patient's CHF. His renal function would support it. There is some concern given patient's vascular disease, prior history of Harley's? Will defer to PCP (3) Coronary artery disease: Plan: Patient denies chest pain. Troponin is within normal limits. No acute ischemic changes present on EKG -Continue Atorvastatin, Carvedilol, Losartan Patient was to have a stent placed in the LLE but missed his appointment -Outpatient followup with Dr. Smalls (4) Atrial fibrillation: Plan: s/p ablation. Presently in SR with sinus arrhythmia. -Continue Carvedilol -Continue anticoagulation with Apixaban (5) Type 2 diabetes mellitus, with long-term current use of insulin: Plan: Patient with poorly controlled DM. Last HgbA1C on 03/11/22 = 9.1. -Hold Metformin and Glipizide while admitted -Lantus 30u BID -ISS -Goal blood sugar 100 - 140 -?use of SGLT2 medication? (6) Dyslipidemia: Plan: Chronic. On high dose statin therapy with Atorvastatin 80mg daily -Continue Atorvastatin (7) Chronic venous stasis dermatitis of both lower extremities: Plan: Dressing in place -Wound care BID -Continue compression stockings (8) Hypertension: Plan: Blood pressure elevated in ER. Improved. -Continue Amlodipine, Carvedilol, Losartan -Monitor F/E/N - Diuresis with Bumex 2mg IV BID, check BMP BID, AHA/CC/Low Na diet as tolerated Ppx - On Apixaban Code - Full Dispo- Admit to PCU History of Present Illness Chief Complaint: "can't breathe" Primary Care Provider: Neetu Smallwood DO Ryan Bruce is a 72yo male with history of CAD s/p CABG x 2V, ischemic cardiomyopathy with chronic systolic and diastolic CHF, EF of 40-45%, atrial flutter s/p ablation on Apixaban anticoagulation, HTN, HLP, DM and chronic lymphedema with stasis dermatitis. Patient reports two weeks of progressive SOB and COYNE. Also endorses 30# unintentional weight gain over the last 2 weeks. He has baseline orthopnea and is unable to lay flat but now has to sit upright in a chair to breathe. He presents to the ER today with acute progressive dyspnea - oxygen saturation measured at home 70%. He reports that his daughter made him come to the ER. He denies fever, chest pain, palpitations, cough, phlegm, abdominal pain, nausea, vomiting, diarrhea, constipation. He does not use home O2 or NIPPV. In the ER patient afebrile, tachypneic at 32bpm with saturation of 65% on room air. He did have one BP reading of 201/85. He was placed on BiPAP and was given Nitro patch and IV Lasix. During my encounter patient sitting upright in chair, BiPAP in place. No respiratory distress. Patient able to answer questions and speak in complete sentences. No additional complaints at this time. ER Course: BiPAP Peña Nitro paste x 1 inch Lasix 40mg IV Allergies Allergy/AdvReac Type Severity Reaction Status Date / Time sulfamethoxazole AdvReac nausea Verified 04/23/22 21:35 [From Bactrim] trimethoprim [From Bactrim] AdvReac nausea Verified 04/23/22 21:35 Home Medications Medication Instructions Recorded Confirmed Type nitroglycerin 0.4 mg sublingual 0.4 mg sublingual Q5M PRN chest 05/16/19 04/23/22 History tablet pain metformin 500 mg tablet,extended 1,000 mg PO BID #360 tabs 07/28/21 04/23/22 Rx release 24 hr glipizide 5 mg tablet 5 mg PO BIDM #180 tabs 08/13/21 04/23/22 Rx albuterol sulfate 90 mcg/actuation 2 puff inhalation QID PRN 09/02/21 04/23/22 History aerosol inhaler Shortness Of Breath losartan 100 mg tablet 100 mg PO DAILY #90 tabs 09/06/21 04/23/22 Rx atorvastatin 80 mg tablet 80 mg PO HS #90 tabs 11/05/21 04/23/22 Rx apixaban 5 mg tablet (Eliquis) 5 mg PO BID #180 tabs 02/01/22 04/23/22 Rx acetaminophen 500 mg tablet 500 mg PO Q4H PRN pain #360 tabs 03/11/22 04/23/22 Rx (Tylenol Extra Strength) amlodipine 5 mg tablet 5 mg PO DAILY #90 tabs 03/11/22 04/23/22 Rx carvedilol 6.25 mg tablet 6.25 mg PO BID #180 tabs 03/11/22 04/23/22 Rx insulin glargine U-300 conc 300 75 unit (0.25 mL) subcut HS #4.5 mL 03/16/22 04/23/22 Rx unit/mL (1.5 mL) subcutaneous pen (Toujeo SoloStar U-300 Insulin) tramadol 50 mg tablet See Rx Instructions PO Q6H PRN 04/14/22 04/23/22 Rx pain #120 tabs ergocalciferol (vitamin D2) 1,250 1,250 mcg PO WK 04/23/22 04/23/22 History mcg (50,000 unit) capsule Past Med/Surg History Medical History Arthritis Atrial fibrillation Atrial flutter with controlled response Bilateral primary osteoarthritis of knee BPH (benign prostatic hyperplasia) Cellulitis, scrotum Chronic combined systolic and diastolic congestive heart failure Chronic venous stasis dermatitis of both lower extremities Coronary artery disease Degenerative arthritis of knee, bilateral Diabetic nephropathy associated with type 2 diabetes mellitus Diabetic peripheral neuropathy associated with type 2 diabetes mellitus Dysesthesia Dyslipidemia Encounter for wound care Harley's gangrene Glaucoma Hypertension Hypoxia Ischemic cardiomyopathy Left leg cellulitis Lymphedema Morbid obesity Multiple open wounds of lower extremity Open wound of scrotum Paroxysmal SVT (supraventricular tachycardia) Peripheral arterial disease SARS-CoV-2 positive Sick sinus syndrome Tobacco use Type 2 diabetes mellitus, with long-term current use of insulin Vitamin D deficiency Surgical History History of testicular surgery Hx of CABG (2015) S/P ablation of atrial fibrillation (2014) Family History Brother Diabetes Hypertension Alcohol abuse Kidney stones Cancer Sister Breast cancer Hypertension Denies family history of Ovarian cancer Prostate cancer Myocardial infarction Colorectal cancer Social History Smoking Status: Never smoker Tobacco Type: Cigarettes and Smokeless Tobacco (Dip or Chew) Age Started Using Tobacco: 22; packs per day: 2; Cigarettes Per Day: QUIT SMOKING AT AGE 42- STILL CHEWS TOBACCO; Second Hand Exposure: No; Hx Alcohol Use: No Hx Substance Use: No Preferred Language: Tajik Communication Ability: Effective Visual Impairment: No Limitations Hearing Ability: Hard of Hearing Malt Roaster Required: No Beliefs That Will Affect Care: None marital status: Current Living Situation: Significant Other Current Living Situation Comment: LIVES W EX- 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 status: retired 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 How many Children do You have: 3 Feels Safe at Home: Yes Childhood Exposure to Second-Hand Smoke: Yes caffeine: Yes during the past year weight has: remained stable Dental Care, Regularly: No Physical Activity Frequency: Does not Exercise Seatbelt Use: never Sunscreen Use: Yes Assistive Devices: Walker Review of Systems Review of Systems: All systems reviewed & are unremarkable except as noted in HPI & below Physical Exam Physical Exam: General: obese male patient sitting upright in chair, BiPAP in place, NAD, non-toxic in appearance, AA&O x 4 Skin: warm, dry, chronic venous stasis dermatitis with dressings in place on bilateral LE wounds HEENT: NC/AT, PERRL, EOMI, anicteric sclera, conjunctiva without injection, external ear normal to inspection and nontender, nares patent, moist mucus membranes, dentition intact, no oropharyngeal lesions, neck supple, trachea midline, no LAD, no thyromegaly, +JVD noted on left to angle of jaw Heart: +S1/S2, regular, no m/r/g, distant heart sounds Lungs: equal air entry bilaterally, no rales/rhonchi/wheezes, diminished in bases Abd: +BS, soft, NT/ND, no masses/organomegaly/ascites, reducible umbilical hernia, nontender Ext: warm, 2+ pulses in UE/LE bilaterally, +edema of bilateral LE, thighs, scrotum, LE wounds dressed with compression stockings in place, palpabla pulses Neuro: nonfocal, patient AA&O x 4, speech intact, no facial droop, moving all extremities on command with equal strength 5/5 Results & Data Results & Data ([facility]) Vital Signs (Past 12 Hours) Vital Signs Temp Pulse Pulse Resp BP BP Pulse Ox 04/23/22 21:05 67 20 155/84 H 97 04/23/22 20:16 65 20 201/85 H 94 04/23/22 19:35 65 L 04/23/22 19:35 37.0 C 69 32 H 137/73 65 L 04/23/22 19:46 24 96 O2 Del Method O2 Flow Rate FiO2 04/23/22 21:05 Room Air 04/23/22 20:16 BiPAP 04/23/22 19:35 Room Air 0 04/23/22 19:35 Room Air 04/23/22 19:46 50 Laboratory Results Laboratory Results WBC 10.54 K/ul (4.8-10.8) 04/23/22 19:41 RBC 4.49 M/uL (4.63-6.08) L 04/23/22 19:41 Hgb 12.1 g/dl (14.0-18.0) L 04/23/22 19:41 Hct 40.3 % (40.1-51.0) 04/23/22 19: MCV 89.8 fL (80.0-100.0) 04/23/22 19: MCH 26.9 pg (25.0-34.0) 04/23/22 19: MCHC 30.0 g/dL (32.0-36.0) L 04/23/22 19: RDW Std Deviation 54.0 fL (36.4-46.3) H 04/23/22: RDW Coeff of Rebecca 16.7 % (11.5-14.5) H 04/23/22 19:41 Plt Count 200 K/uL (130-400) 04/23/22: MPV 9.7 fL (9.4-12.4) 04/23/22: Immature Gran % (Auto) 0.6 % 04/23/22: Neut % (Auto) 72.0 % 04/23/22 19: Lymph % (Auto) 15.9 % 04/23/22: Patrick % (Auto) 8.9 % 04/23/22 19:41 Eos % (Auto) 2.1 % 04/23/22 19: Baso % (Auto) 0.5 % 04/23/22: Neut # (Auto) 7.59 K/uL (1.4-6.5) H 04/23/22: Lymph # (Auto) 1.68 K/uL (1.2-3.4) 04/23/22 19: Patrick # (Auto) 0.94 K/uL (0.24-0.82) H 04/23/22: Eos # (Auto) 0.22 K/uL (0-0.50) 04/23/22 19: Baso # (Auto) 0.05 K/uL (0-0.2) 04/23/22: Immature Gran # (Auto) 0.06 K/uL (0.00-0.02) H 04/23/22 19: PT 11.3 Seconds (9.0-12.0) 04/23/22: INR 1.1 (0.9-1.1) 04/23/22: VBG pH 7.32 (7.36-7.41) L 04/23/22 19:41 VBG pCO2 77 mmHg (38-50) H 04/23/22 19:41 VBG pO2 39 mmHg 04/23/22 19:41 VBG HCO3 40 mmol/L 04/23/22 19:41 VBG O2 Saturation < 60.0 % 04/23/22 19:41 VBG Base Excess 10.6 mEq/L 04/23/22 19:41 Sodium 135 mmol/L (136-145) L 04/23/22 19:41 Potassium 5.0 mmol/L (3.5-5.1) 04/23/22 19:41 Chloride 99 mmol/L (98-107) 04/23/22 19:41 Carbon Dioxide 32 mmol/L (21-32) 04/23/22 19:41 Anion Gap 4 (3-11) 04/23/22 19:41 BUN 30 mg/dl (6-23) H 04/23/22 19:41 Creatinine 1.19 mg/dl (0.6-1.4) 04/23/22 19:41 Est Cr Clr Drug Dosing Not Reportable 04/23/22 19:41 Est GFR ( Amer) 71.3 ml/min 04/23/22 19:41 Est GFR (Non-Af Amer) 61.5 ml/min 04/23/22 19:41 BUN/Creatinine Ratio 25.2 (10-20) H 04/23/22 19:41 Glucose 156 mg/dl (70-99(Fasting)) H 04/23/22 19:41 Calcium 8.7 mg/dl (8.5-10.1) 04/23/22 19:41 Magnesium 1.6 mg/dl (1.7-2.4) L 04/23/22 19:41 Total Bilirubin 0.4 mg/dl (0.2-1.0) 04/23/22 19:41 Direct Bilirubin 0.0 mg/dl (0-0.2) 04/23/22 19:41 AST 10 U/L (13-39) L 04/23/22 19:41 ALT 8 U/L (7-52) 04/23/22 19:41 Alkaline Phosphatase 124 U/L (34-104) H 04/23/22 19:41 Troponin I High Sens 16.3 pg/ml (0-20) 04/23/22 19:41 Total Protein 6.8 gm/dl (6.0-8.3) 04/23/22 19:41 Albumin 3.4 gm/dl (3.4-5.0) 04/23/22 19:41 Urine Color Yellow 04/23/22 20:09 Urine Appearance Clear (Clear) 04/23/22 20:09 Urine pH 6.0 (4.5-7.5) 04/23/22 20:09 Ur Specific [place] 1.015 (1.000-1.030) 04/23/22 20:09 Urine Protein 3+ (Negative) H 04/23/22 20:09 Urine Glucose (UA) Trace (Negative) H 04/23/22 20:09 Urine Ketones Negative (Negative) 04/23/22 20:09 Urine Blood Trace (Negative) H 04/23/22 20:09 Urine Nitrite Negative (Negative) 04/23/22 20:09 Urine Bilirubin Negative (Negative) 04/23/22 20:09 Urine Urobilinogen Negative (Negative) 04/23/22 20:09 Ur Leukocyte Esterase Negative (Negative) 04/23/22 20:09 Urine WBC (Auto) 1-5 /hpf (0-5) 04/23/22 20:09 Urine RBC (Auto) 5-10 /hpf (0-4) H 04/23/22 20:09 U Hyaline Cast (Auto) 0 /lpf (0-5) 04/23/22 20:09 U Epithel Cells (Auto) 5-10 /lpf (0-5) H 04/23/22 20:09 Urine Bacteria (Auto) Negative (Negative) 04/23/22 20:09 SARS-CoV-2, RNA, NAAT NEGATIVE (NEGATIVE) 04/23/22 19:53 Impressions Chest X-Ray 04/23/22 19:28 XR chest 1V portable CLINICAL HISTORY: shob TECHNIQUE: Single frontal radiograph of the chest was obtained. Comparison: Comparison is made to chest radiograph 04/29/2021 FINDINGS: Median sternotomy wires are unchanged. Cardiomegaly is noted. There is prominence and cephalization of the vasculature with [place] B lines seen. Likely small bilateral pleural effusions. IMPRESSION: Clinical history megaly with moderate pulmonary edema, increased from prior exam. Likely small bilateral pleural effusions. ACT 112: Negative or not required by law. Electronically signed by: Rick Banegas M.D. 04/23/2022 8:12 PM ECG Additional Comments: EKG with SR at 65bpm with sinus arrhythmia, rate of 65, left axis deviation, 1st degree AV block with HQ=148, GDL=475, CEk=262, RBBB, old inferior infarct PG Care Time/CCT Total # of Minutes Spent Total Time Spent with Patient: Total time spent is greater than 50% in coordination of care (as documented) at patient's floor/unit and/or counseling patient: Coding Level of Care Code 50888 Initial Inpt Care Lvl 3 Diagnoses Acute respiratory failure with hypoxia J96.01 Chronic combined systolic and diastolic congestive heart failure I50.42 Coronary artery disease I25.10 Atrial fibrillation I48.91 Type 2 diabetes mellitus, with long-term current use of insulin E11.9; Z79.4 Dyslipidemia E78.5 Chronic venous stasis dermatitis of both lower extremities I87.2 Hypertension I10
[2022-04-23] MEDS ORDERED: GLUCOSE 40% GEL 15 GM TUBE PO PRN (22:55)
[2022-04-23] MEDS ORDERED: GLUCAGON FOR INJ 1 MG VIAL SQ PRN (22:55)
[2022-04-23] MEDS ORDERED: CARBOHYDRATES FOR HYPOGLYCEMIA PO PRN (22:55)
[2022-04-23] MEDS ORDERED: GLUCOSE 10 TAB/TUBE PO PRN (22:55)
[2022-04-23] MEDS ORDERED: DEXTROSE 50% 50 ML SYRINGE IV PRN (22:55)
[2022-04-23] MEDS ORDERED: ONDANSETRON INJ 2 MG/ML 2 ML VIAL IV PRN (22:55)
[2022-04-23] MEDS ORDERED: ALBUTEROL HFA 8 GM INHALER INH PRN (22:55)
[2022-04-23] MEDS ORDERED: traMADol HCL 50 MG TABLET PO PRN (22:55)
[2022-04-24] MEDS: MAGNESIUM SULFATE / D5W 1 GM/100 ML BAG IV SCH ×3 (00:14→05:06)
[2022-04-24 07:35] LABS: Basophils # (auto) 0.05 K/uL (0-0.2); Basophils % (auto) 0.5 %; Eosinophils % (auto) 1.9 %; Immature Granulocytes # (auto) 0.04 K/uL (0.00-0.02); Immature Granulocytes % (auto) 0.4 %; Lymphocytes # (auto) 1.44 K/uL (1.2-3.4); Lymphocytes % (auto) 13.9 %; Mean Corpuscular Volume 89.9 fL (80.0-100.0); Mean Platelet Volume 10.7 fL (9.4-12.4); Monocytes # (auto) 1.03 K/uL (0.24-0.82); Neutrophils # (auto) 7.58 K/uL (1.4-6.5); Neutrophils % (auto) 73.3 %; Platelet Count 212 K/uL (130-400); RDW Coefficient of Variation 16.7 % (11.5-14.5); RDW Standard Deviation 54.3 fL (36.4-46.3); Red Blood Count 4.45 M/uL (4.63-6.08); White Blood Count 10.34 K/ul (4.8-10.8)
[2022-04-24 08:00] LABS: BUN Creatinine Ratio 26.4 (10-20); Calcium 8.7 mg/dl (8.5-10.1); Creatinine Clr Calc Pharmacy 97.2 ml/min; Est GFR (African American) 78.4 ml/min; Est GFR (Non-African American) 67.7 ml/min; Magnesium 2.1 mg/dl (1.7-2.4); Potassium 4.8 mmol/L (3.5-5.1)
[2022-04-24] MEDS: INSULIN ASPART PER UNIT SC SCH ×4 (08:23→21:03)
[2022-04-24] MEDS ORDERED: LOSARTAN POTASSIUM 50 MG TAB PO SCH (09:00)
[2022-04-24] MEDS: APIXABAN 5 MG TABLET PO SCH ×2 (09:15→20:38)
[2022-04-24] MEDS: carvediloL 6.25 MG TAB PO SCH ×2 (09:15→20:38)
[2022-04-24] MEDS: BUMETANIDE 2 MG in SYRINGE 0 ML IV SCH ×2 (09:17→17:14)
[2022-04-24] MEDS: LANTUS PER UNIT CHARGE SQ SCH ×2 (09:26→21:04)
--- NOTE | 2022-04-24 10:25 | XCELERA ---
[id number]
--- NOTE | 2022-04-24 11:20 | Hospitalist Progress Note ---
Date of Service April 24, 2022 Assessment & Plan (1) Acute respiratory failure with hypoxia: Plan: 72yo male with history of CAD s/p CABG x 2V, ICM with combined systo lic/diastolic CHF, AF s/p ablation on anticoagulation presenting with 2 weeks of progressive dyspnea, weight gain and orthopnea with acute worsening today. Patient in respiratory distress upon arrival, hypoxic to 65% on room air requiring placement of rescue BiPAP. Patient with Nitro paste in place, was administered Lasix 40mg IV. Breathing more comfortably now, on BiPAP /, 40% FiO2 with adequate tidal volumes 1200mL of clear, yellow urine present in Peña bag Increased weight per record review. Weight today 167.3kg. Was previously 149.7kg on 03/11/22 (must consider different clinical settings, scales, etc) Treat CHF. O2 to keep sats > 90%. Wean as tolerated. Serial CXR. (2) Chronic combined systolic and diastolic congestive heart failure: Plan: Patient with CAD s/p CABG x 2 vessel, evidence of inferior [place] on SPECT, ischemic cardiomyopathy with EF of 40-45%. Suspect acute decompensated CHF as etiology of patient's symptoms. -Diuresis with Bumex 2mg IV BID -Montior I/Os, weight -2D echo. -Continue Carvedilol 6.25mg po BID -Continue Losartan 100mg po daily (3) Coronary artery disease: Plan: Patient denies chest pain. Troponin normal. No acute ischemic changes present on EKG -Continue Atorvastatin, Carvedilol, Losartan Patient was to have a stent placed in the LLE but missed his appointment -Outpatient followup with Dr. Smalls (4) Atrial fibrillation: Plan: s/p ablation. Presently in SR with sinus arrhythmia. -Continue Carvedilol -Continue anticoagulation with Apixaban (5) Type 2 diabetes mellitus, with long-term current use of insulin: Plan: Patient with poorly controlled DM. Last HgbA1C on 03/11/22 = 9.1. -Hold Metformin and Glipizide while admitted -Lantus 30u BID -ISS -Goal blood sugar 100 - 140 (6) Dyslipidemia: Plan: Chronic. Continue Atorvastatin (7) Chronic venous stasis dermatitis of both lower extremities: Plan: Dressing in place -Wound care BID -Continue compression stockings (8) Hypertension: Plan: Blood pressure elevated in ER. Now improved. -Continue Amlodipine, Carvedilol, Losartan -Monitor Ppx - On Apixaban Code - Full Dispo- eventual discharge to home Plan treat CHF. Eventual discharge to home Admission and Anticipated Discharge Date Admission Date: April 23, 2022 Subjective Alert and oriented. He is not sure if his breathing has improved subjectively. We will repeat chest x-ray again tomorrow. Cardiac echo ordered and [facility] cardiology consult requested. Continue to monitor daily labs. Wean oxygen as tolerated but keep saturation greater than 90%. Continue intravenous Bumex 2 mg IV twice daily. Review of Systems Review of Systems: Constitutional-no fever or chills ENT-no blurred vision, no double vision, no epistaxis, no sore throat Respiratory-no cough, no wheezing. Orthopnea and dyspnea on exertion noted Cardiac-no palpitations, no chest pain, no syncope GI-no nausea, vomiting, diarrhea, melena, hematochezia -no urinary retention, no urinary incontinence, no dysuria, no hematuria Musculoskeletal-no joint pain, no muscle tenderness Skin-chronic stasis dermatitis bilateral lower extremities with chronic edema bilateral lower extremities which has worsened with CHF Neuro-no isolated weakness, no paresthesia, no weakness Psych-no depression, no anxiety Physical Exam Physical Exam: General-alert and oriented x3, no fevers, no chills. Morbidly obese HEENT-head atraumatic and normocephalic, TMs intact bilaterally, pupils equal and reactive to light, extraocular muscles intact Neck-no lymphadenopathy or thyromegaly, trachea midline Chest-bilateral inspiratory rales. No wheezing. No dullness to percussion Cardiac-regular rate and rhythm, normal S1 and S2 Abdomen-normal bowel sounds, nontender, no hepatosplenomegaly Extremities-chronic bilateral stasis dermatitis and bilateral edema Neuro-cranial nerves II through XII intact, motor and sensory function within normal limits, strength symmetrical , no focal deficits Psych-normal affect, normal mood Results & Data Results & Data ([facility]) Vital Signs (Past 12 Hours) Vital Signs Temp Pulse Pulse Resp BP Pulse Ox O2 Del Method 04/24/22 11:01 36.8 C 61 21 126/68 98 Nasal Cannula 04/24/22 08:00 59 L 04/24/22 07:53 37.0 C 62 22 161/69 H 97 Nasal Cannula 04/24/22 07:24 62 14 92 04/24/22 06:01 BiPAP 04/24/22 03:57 36.7 C 61 18 143/55 H 97 BiPAP 04/24/22 03:23 60 13 95 O2 Flow Rate FiO2 04/24/22 11:01 15 04/24/22 08:00 04/24/22 07:53 15 04/24/22 07:24 40 04/24/22 06:01 04/24/22 03:57 04/24/22 03:23 40 Laboratory Results 04/24/22 06:38 04/24/22 06:38 04/24/22 06:38 04/24/22 06:38 PG Care Time/CCT Total # of Minutes Spent Total Time Spent with Patient: Total time spent is greater than 50% in coordination of care (as documented) at patient's floor/unit and/or counseling patient: Coding Level of Care Code 04305 Subseq Hosp Care Lvl 3 Diagnoses Acute respiratory failure with hypoxia J96.01 Chronic combined systolic and diastolic congestive heart failure I50.42 Coronary artery disease I25.10 Atrial fibrillation I48.91 Type 2 diabetes mellitus, with long-term current use of insulin E11.9; Z79.4 Dyslipidemia E78.5 Chronic venous stasis dermatitis of both lower extremities I87.2 Hypertension I10
[2022-04-24] MEDS: amLODIPine BESYLATE 5 MG TAB PO SCH (11:56)
--- NOTE | 2022-04-24 12:16 | Cardiology Consultation ---
Date of Consultation April 24, 2022 Assessment & Plan (1) Acute respiratory failure with hypoxia: -secondary to acute on chronic CHF -responding well to intravenous Bumex. -would continue IV diuretics until the BUN and creatinine increase. (2) Chronic combined systolic and diastolic congestive heart failure: -echocardiogram today notes normal systolic function without obvious wall motion abnormality. -continue carvedilol and losartan. (3) Coronary artery disease: -s/p CABG x2, June 2016. (4) Ischemic cardiomyopathy: -LVEF now normal. History of Present Illness Attending Physician: Iván Sotelo MD History of Present Illness Mr. Bruce is a 72-year-old male admitted yesterday with acute on chronic combined CHF. This consultation was ordered to assist in his cardiac management. Of note, patient is followed by Dr. Smalls in the outpatient setting. The patient was in his usual state of health until approximately 2 weeks prior to presentation. He began to note progressive exertional dyspnea, orthopnea, and a 30 lb weight gain. On the day of presentation, the patient was short of breath at rest. On arrival to the emergency room, he was in respiratory distress with an O2 sat of 65%. He was placed on rescue BiPAP and was treated with intravenous diuretics. Fortunately, the patient improved. He has a history of coronary artery disease having undergone a 2 vessel bypass in June of 2016. This included an MENDEZ to the LAD, and a saphenous vein graft to the LCx. He also carries a history of an ischemic cardiomyopathy with ejection fraction 40-45%. He has been diagnosed with combined systolic and diastolic CHF. He has a history of paroxysmal atrial flutter and underwent an atrial flutter ablation in 2014. He is maintained on rate control and long-term anticoagulation. He also has a history of peripheral vascular disease with ulcerations in the left lower extremity. An arterial Doppler in July 2021 noted a 60% SFA/popliteal stenosis. He was to undergo an intervention, however, did not show up for his appointments. Currently, patient is resting comfortably in bedside chair without complaints. Past medical and surgical history 1. Coronary artery disease-see above 2. CABG times 12 June 2016 3. Ischemic cyrjteqlxgmtdg-12-00% 4. Combined systolic/diastolic CHF 5. Paroxysmal atrial flutter 6. Atrial flutter ablation-2014 7. Hypertension 8. Hypercholesterolemia 9. Peripheral vascular disease-see above 10. Diabetes mellitus 11. Lymphedema 12. Chronic venous stasis 13. BPH 14. 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 Allergies Allergy/AdvReac Type Severity Reaction Status Date / Time sulfamethoxazole AdvReac nausea Verified 04/23/22 21:35 [From Bactrim] trimethoprim [From Bactrim] AdvReac nausea Verified 04/23/22 21:35 Home Medications Medication Instructions Recorded Confirmed Type nitroglycerin 0.4 mg sublingual 0.4 mg sublingual Q5M PRN chest 05/16/19 04/23/22 History tablet pain metformin 500 mg tablet,extended 1,000 mg PO BID #360 tabs 07/28/21 04/23/22 Rx release 24 hr glipizide 5 mg tablet 5 mg PO BIDM #180 tabs 08/13/21 04/23/22 Rx albuterol sulfate 90 mcg/actuation 2 puff inhalation QID PRN 09/02/21 04/23/22 History aerosol inhaler Shortness Of Breath losartan 100 mg tablet 100 mg PO DAILY #90 tabs 09/06/21 04/23/22 Rx atorvastatin 80 mg tablet 80 mg PO HS #90 tabs 11/05/21 04/23/22 Rx apixaban 5 mg tablet (Eliquis) 5 mg PO BID #180 tabs 02/01/22 04/23/22 Rx acetaminophen 500 mg tablet 500 mg PO Q4H PRN pain #360 tabs 03/11/22 04/23/22 Rx (Tylenol Extra Strength) amlodipine 5 mg tablet 5 mg PO DAILY #90 tabs 03/11/22 04/23/22 Rx carvedilol 6.25 mg tablet 6.25 mg PO BID #180 tabs 03/11/22 04/23/22 Rx insulin glargine U-300 conc 300 75 unit (0.25 mL) subcut HS #4.5 mL 03/16/22 04/23/22 Rx unit/mL (1.5 mL) subcutaneous pen (Touinnao SoloStar U-300 Insulin) tramadol 50 mg tablet See Rx Instructions PO Q6H PRN 04/14/22 04/23/22 Rx pain #120 tabs ergocalciferol (vitamin D2) 1,250 1,250 mcg PO WK 04/23/22 04/23/22 History mcg (50,000 unit) capsule Patient History Medical History Arthritis Atrial fibrillation Atrial flutter with controlled response Bilateral primary osteoarthritis of knee BPH (benign prostatic hyperplasia) Cellulitis, scrotum Chronic combined systolic and diastolic congestive heart failure Chronic venous stasis dermatitis of both lower extremities Coronary artery disease Degenerative arthritis of knee, bilateral Diabetic nephropathy associated with type 2 diabetes mellitus Diabetic peripheral neuropathy associated with type 2 diabetes mellitus Dysesthesia Dyslipidemia Encounter for wound care Harley's gangrene Glaucoma Hypertension Hypoxia Ischemic cardiomyopathy Left leg cellulitis Lymphedema Morbid obesity Multiple open wounds of lower extremity Open wound of scrotum Paroxysmal SVT (supraventricular tachycardia) Peripheral arterial disease SARS-CoV-2 positive Sick sinus syndrome Tobacco use Type 2 diabetes mellitus, with long-term current use of insulin Vitamin D deficiency Surgical History History of testicular surgery Hx of CABG (2015) S/P ablation of atrial fibrillation (2014) Family History Brother Diabetes Hypertension Alcohol abuse Kidney stones Cancer Sister Breast cancer Hypertension Denies family history of Ovarian cancer Prostate cancer Myocardial infarction Colorectal cancer Social History Smoking Status: Former smoker Tobacco Type: Cigarettes and Smokeless Tobacco (Dip or Chew) Age Started Using Tobacco: 22; packs per day: 2; Cigarettes Per Day: QUIT SMOKING AT AGE 42- STILL CHEWS TOBACCO; Second Hand Exposure: No; Hx Alcohol Use: Yes Alcohol type: beer Hx Substance Use: No Preferred Language: Moldovan Communication Ability: Effective Visual Impairment: No Limitations Hearing Ability: Hard of Hearing Space Technologist Required: No Beliefs That Will Affect Care: None marital status: Current Living Situation: Family Current Living Situation Comment: lives with ex , daughter, granddaughter, grandson 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 status: 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 HEENT exam is negative. Neck is supple with full carotid upstrokes. No carotid bruits. Jugular venous pressure is flat at 90. There is no thyromegaly. Cardiovascular exam reveals a regular rhythm with distant heart sounds. No obvious murmurs. No S3. Lungs note decreased breath sounds at the bases but no rales. Abdomen is obese without bruits. Extremities reveal intact radial artery pulses bilaterally. 2+ pitting edema in the pretibial regions bilaterally. Erythema and ulcerations of the left lower extremity noted. Results & Data ([facility]) Vital Signs (Past 12 Hours) Vital Signs Temp Pulse Pulse Resp BP Pulse Ox Pulse Ox 04/24/22 11:01 36.8 C 61 21 126/68 98 04/24/22 08:00 04/24/22 08:00 90 04/24/22 08:00 59 L 04/24/22 07:53 37.0 C 62 22 161/69 H 97 04/24/22 07:24 62 14 92 04/24/22 06:01 04/24/22 03:57 36.7 C 61 18 143/55 H 97 04/24/22 03:23 60 13 95 O2 Del Method O2 Del Method O2 Flow Rate FiO2 04/24/22 11:01 Nasal Cannula 15 04/24/22 08:00 High Flow Nasal Cannula 04/24/22 08:00 High Flow Nasal Cannula 04/24/22 08:00 04/24/22 07:53 Nasal Cannula 15 04/24/22 07:24 40 04/24/22 06:01 BiPAP 04/24/22 03:57 BiPAP 04/24/22 03:23 40 Laboratory Results CBC notes hemoglobin of 12.0, hematocrit 40.0, white count 10.3, and platelet count of 360028. Electrolytes note a sodium of 135, potassium 4.8, chloride 100, bicarb 32, BUN 29, creatinine 1.1, glucose of 109. High sensitivity troponin is normal at 16.3. BNP is mildly elevated 193. Diagnostic Findings Echocardiogram is technically limited but notes normal systolic function with ejection fraction 55-60%. There are no obvious wall motion abnormalities. There was mild LVH and mild tricuspid regurgitation. EKG notes sinus rhythm with first-degree AV block, PACs, and a complete right bundle branch block. Chest x-ray notes cardiomegaly and interstitial pulmonary edema. PG Care Time/CCT Total # of Minutes Spent Total Time Spent with Patient: Total time spent is greater than 50% in coordination of care (as documented) at patient's floor/unit and/or counseling patient: Coding Level of Care Code 50252 Initial Inpt Care Lvl 3 Diagnoses Acute respiratory failure with hypoxia J96.01 Chronic combined systolic and diastolic congestive heart failure I50.42 Coronary artery disease I25.10 Ischemic cardiomyopathy I25.5
--- NOTE | 2022-04-24 13:37 | Electrocardiogram Report ---
Test Reason : Blood Pressure : / mmHG Vent. Rate : 065 BPM Atrial Rate : 065 BPM P-R Int : 272 ms QRS Dur : 146 ms QT Int : 446 ms P-R-T Axes : 000 -50 032 degrees QTc Int : 463 ms Sinus rhythm with marked sinus arrhythmia with 1st degree A-V block Left axis deviation Right bundle branch block Inferior infarct (cited on or before 31-AUG-2018) Abnormal ECG When compared with ECG of 31-AUG-2018 07:29, NE interval has increased QRS axis Shifted left T wave inversion no longer evident in Anterior leads Confirmed by Timothy Rice ([id number]) on 04/24/2022 1:36:49 PM Referred By: Neetu Smallwood Confirmed By:Timothy Rice
[2022-04-24] MEDS: traMADol HCL 50 MG TABLET PO PRN ×2 (14:06→20:51)
[2022-04-24 17:20] LABS: BUN Creatinine Ratio 23.4 (10-20); Calcium 8.7 mg/dl (8.5-10.1); Creatinine Clr Calc Pharmacy 75.8 ml/min; Est GFR (African American) 58.1 ml/min; Est GFR (Non-African American) 50.1 ml/min; Potassium 5.3 mmol/L (3.5-5.1)
[2022-04-24] MEDS: ATORVASTATIN 40 MG TAB PO SCH (20:38)
[2022-04-25] MEDS: ACETAMINOPHEN 500 MG TAB PO PRN (02:19)
[2022-04-25 06:13] LABS: BUN Creatinine Ratio 24.7 (10-20); Calcium 8.5 mg/dl (8.5-10.1); Creatinine Clr Calc Pharmacy 71.2 ml/min; Est GFR (African American) 53.9 ml/min; Est GFR (Non-African American) 46.5 ml/min; Potassium 5.3 mmol/L (3.5-5.1)
--- NOTE | 2022-04-25 07:08 | XRay Report ---
XR chest 1V portable HISTORY: 72 years-old Male CHF acute shortness of breath COMPARISON: Chest radiograph 04/23/2022 TECHNIQUE: AP view of the chest FINDINGS: Cardiac silhouette is enlarged. Pulmonary vascular congestion an mildly improved interstitial coarsen ing. Prior median sternotomy. There is no pneumothorax. Layering pleural effusions with bibasilar con solidation. Degenerative changes of the shoulders and spine. IMPRESSION: 1. Cardiomegaly with mildly improved pulmonary edema. 2. Layering pleural effusions with bibasilar consolidation redemonstrated. ACT 112: Negative or not required by law. The above report was generated using voice recognition software. It may contain grammatical, syntax o r spelling errors. Electronically signed by: Kb Montenegro M.D. 04/25/2022 7:06 AM
[2022-04-25] MEDS: LANTUS PER UNIT CHARGE SQ SCH ×2 (08:18→20:45)
[2022-04-25] MEDS: INSULIN ASPART PER UNIT SC SCH ×4 (08:18→20:46)
[2022-04-25] MEDS: carvediloL 6.25 MG TAB PO SCH (08:58)
[2022-04-25] MEDS: APIXABAN 5 MG TABLET PO SCH ×2 (08:59→20:45)
[2022-04-25] MEDS: LOSARTAN POTASSIUM 50 MG TAB PO SCH (08:59)
[2022-04-25] MEDS: BUMETANIDE 2 MG in SYRINGE 0 ML IV SCH (08:59)
[2022-04-25] MEDS: amLODIPine BESYLATE 5 MG TAB PO SCH (08:59)
--- NOTE | 2022-04-25 14:13 | Electrocardiogram Report ---
Test Reason : Blood Pressure : / mmHG Vent. Rate : 061 BPM Atrial Rate : 061 BPM P-R Int : 000 ms QRS Dur : 154 ms QT Int : 426 ms P-R-T Axes : 000 -61 073 degrees QTc Int : 428 ms Normal sinus rhythm with frequent Premature atrial complexes Right bundle branch block Left anterior fascicular block Bifascicular block Abnormal ECG When compared with ECG of 23-APR-2022 19:44, No significant change Confirmed by Timothy Rice ([id number]) on 04/25/2022 2:12:33 PM Referred By: Neetu Smallwood Confirmed By:Timothy Rice
--- NOTE | 2022-04-25 15:35 | Hospitalist Progress Note ---
Date of Service April 25, 2022 Assessment & Plan (1) Acute diastolic CHF (congestive heart failure): Plan: At present picture most consistent with same; now developing what appears to be CRS physiology with rising creatinine in the face of volume overload and rising bicarbonate; inappropriate bradycardia might be contributing At present cut back Bumex to once a day; cut back carvedilol (tending to have inappropriate sinus bradycardia although asymptomaticresume lower dose from a.m.); cut back ARB (2) Acute respiratory failure with hypoxia: Plan: Likely secondary to #1 though may have underlying [place]/obesity hypoventilation (3) Coronary artery disease: Plan: Patient denies chest pain. Troponin normal. No acute ischemic changes present on EKG Continue meds as above Patient was to have a stent placed in the LLE but missed his appointment -Outpatient followup with Dr. Smalls (4) Atrial fibrillation: Plan: s/p ablation. Presently in SR with sinus arrhythmia. -Continue carvedilol but dose lowered -Continue anticoagulation with Apixaban (5) Type 2 diabetes mellitus, with long-term current use of insulin: Plan: Sugars reasonableno change for now (6) Dyslipidemia: Plan: Chronic. Continue Atorvastatin (7) Chronic venous stasis dermatitis of both lower extremities: Plan: Dressing in place -Wound care BID -Continue compression stockings Wound care consult (8) Hypertension: Plan: Slightly lower dose of carvedilol and losartan as above but no other change Plan Noted renal function, noted electrolytes; no other change; trial of Peña removal Admission and Anticipated Discharge Date Admission Date: April 23, 2022 Results & Data Results & Data ([facility]) Vital Signs (Past 12 Hours) Vital Signs Temp Pulse Pulse Resp BP Pulse Ox Pulse Ox 04/25/22 15:27 65 04/25/22 10:04 04/25/22 08:00 96 04/25/22 08:08 37 C 67 20 126/71 97 04/25/22 07:18 64 04/25/22 06:32 95 04/25/22 04:01 36.9 C 60 20 124/66 96 O2 Del Method O2 Del Method O2 Flow Rate O2 Flow Rate 04/25/22 15:27 04/25/22 10:04 High Flow Nasal Cannula 7 04/25/22 08:00 High Flow Nasal Cannula 7 04/25/22 08:08 Nasal Cannula 04/25/22 07:18 04/25/22 06:32 Nasal Cannula 7 04/25/22 04:01 Nasal Cannula 8 Laboratory Results Laboratory Results - last 24 hr 04/24/22 04/24/22 04/24/22 16:01 16:31 20:10 Sodium 135 L Potassium 5.3 H Chloride 99 Carbon Dioxide 32 Anion Gap 4 BUN 33 H Creatinine 1.41 H D Est Cr Clr Drug Dosing 75.8 Est GFR ( Amer) 58.1 Est GFR (Non-Af Amer) 50.1 BUN/Creatinine Ratio 23.4 H Glucose 162 H POC Glucose 170 H 171 H Calcium 8.7 04/25/22 04/25/22 04/25/22 05:42 07:24 11:17 Sodium 136 Potassium 5.3 H Chloride 99 Carbon Dioxide 35 H Anion Gap 2 L BUN 37 H Creatinine 1.50 H Est Cr Clr Drug Dosing 71.2 Est GFR ( Amer) 53.9 Est GFR (Non-Af Amer) 46.5 BUN/Creatinine Ratio 24.7 H Glucose 155 H POC Glucose 145 H 241 H Calcium 8.5 04/25/22 11:17 Sodium Potassium Chloride Carbon Dioxide Anion Gap BUN Creatinine Est Cr Clr Drug Dosing Est GFR ( Amer) Est GFR (Non-Af Amer) BUN/Creatinine Ratio Glucose POC Glucose 265 H Calcium PG Care Time/CCT Total # of Minutes Spent Total Time Spent with Patient: Total time spent is greater than 50% in coordination of care (as documented) at patient's floor/unit and/or counseling patient: Coding Level of Care Code 27065 Subseq Hosp Care Lvl 2 Diagnoses Acute diastolic CHF (congestive heart failure) I50.31 Acute respiratory failure with hypoxia J96.01 Coronary artery disease I25.10 Atrial fibrillation I48.91 Type 2 diabetes mellitus, with long-term current use of insulin E11.9; Z79.4 Dyslipidemia E78.5 Chronic venous stasis dermatitis of both lower extremities I87.2 Hypertension I10
--- NOTE | 2022-04-25 18:31 | Cardiology Progress Note ---
Date of Service April 25, 2022 Assessment & Plan (1) Acute diastolic CHF (congestive heart failure): Plan: 2. 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 Acute renal insufficiency 4. Bradycardia, secondary AV block Mobitz type I, trifascicular block 5. History of atrial flutter status post ablation on anticoagulation 6. Type 2 diabetes--on insulin 7. Hypertension 8. Lymphedema CVI with venous ulcerations 9. Poor medical adherence 10. Suspected PAD Breathing improved but not back at baseline still on 7 L Continues to diurese well. Negative almost 4 L since admission. Mild bump in BUN/creatinine Difficult exam but evidence of congestion. Edema/pleural effusions on chest x- ray Periods of bradycardia to the 40s on telemetry, appears to have sinus bradycardia/second-degree AV block Mobitz type I, asymptomatic. ECG with evidence of conduction disease. No indication for pacemaker at this time. Recommend continued IV diuresis, reassess urine output/BUN/SCr in AM carvedilol reduced to 3.125 twice daily. Okay to discontinue if recurrent bradycardia. Can add back hydralazine as needed for blood pressure Continue Eliquis continue wound care/compression for venous ulcers Distal lower extremities appear well-perfused. No plans for lower extremity angiogram at this time Discuss addition of SGLT2 as an outpatient Admission and Anticipated Discharge Date Admission Date: April 23, 2022 Subjective Seen this afternoon. Patient sitting up in chair. Denies any chest pain or palpitations. States breathing had progressed over the preceding few weeks leading to admission. Breathing easier than when admitted but still not at baseline. -1500 yesterday. Cumulative negative almost 4 L. Weight down 9 pounds Telemetry reviewedprimarily sinus rhythm in the 60s to 70s. Periods of bradycardia down to 40s, second-degree AV block Mobitz type I Review of Systems Review of Systems: All systems reviewed & are unremarkable except as noted in HPI & below Physical Exam Physical Exam: General: Comfortable HEENT: Sclerae anicteric Lungs: Decreased breath sounds throughout Cardiac: Regular rate and rhythm, 2 out of 6 systolic ejection murmur, unable to assess JVD Vascular: 2+ radial, DP pulses. Abdomen: Soft, nontender Extremities: Chronic venous stasis changes, evidence of stasis dermatitis with skin breakdown and oozing, 2+ edema below the knee. Purpleish discoloration of digits on left foot, normal capillary refill Psych: Alert orient x3, normal affect and mood Results & Data ([facility]) Vital Signs (Past 12 Hours) Vital Signs Temp Pulse Pulse Resp BP Pulse Ox Pulse Ox 04/25/22 16:00 98.2 F 65 20 159/70 H 97 04/25/22 15:27 65 04/25/22 10:04 04/25/22 08:00 96 04/25/22 08:08 98.6 F 67 20 126/71 97 04/25/22 07:18 64 04/25/22 06:32 95 O2 Del Method O2 Del Method O2 Flow Rate O2 Flow Rate 04/25/22 16:00 High Flow Nasal Cannula 7 04/25/22 15:27 04/25/22 10:04 High Flow Nasal Cannula 7 04/25/22 08:00 High Flow Nasal Cannula 7 04/25/22 08:08 Nasal Cannula 04/25/22 07:18 04/25/22 06:32 Nasal Cannula 7 PG Care Time/CCT Total # of Minutes Spent Total Time Spent with Patient: Total time spent is greater than 50% in coordination of care (as documented) at patient's floor/unit and/or counseling patient: Coding Level of Care Code 00536 Subseq Hosp Care Lvl 3 Diagnoses Acute diastolic CHF (congestive heart failure) I50.31
[2022-04-25] MEDS: ATORVASTATIN 40 MG TAB PO SCH (20:45)
[2022-04-25] MEDS ORDERED: carvediloL 3.125 MG TAB PO SCH (21:00)
[2022-04-26] MEDS: ACETAMINOPHEN 500 MG TAB PO PRN ×2 (03:51→21:09)
[2022-04-26 07:44] LABS: Basophils # (auto) 0.03 K/uL (0-0.2); Basophils % (auto) 0.2 %; Eosinophils # (auto) 0.15 K/uL (0-0.50); Eosinophils % (auto) 1.2 %; Hematocrit (blood only) 40.7 % (40.1-51.0); Immature Granulocytes # (auto) 0.05 K/uL (0.00-0.02); Immature Granulocytes % (auto) 0.4 %; Lymphocytes # (auto) 1.45 K/uL (1.2-3.4); Lymphocytes % (auto) 11.8 %; Mean Corpuscular Hemoglobin 27.1 pg (25.0-34.0); Mean Corpuscular Hgb Conc 29.5 g/dL (32.0-36.0); Mean Corpuscular Volume 91.9 fL (80.0-100.0); Monocytes # (auto) 1.25 K/uL (0.24-0.82); Monocytes % (auto) 10.2 %; Neutrophils # (auto) 9.37 K/uL (1.4-6.5); Neutrophils % (auto) 76.2 %; Platelet Count 208 K/uL (130-400); RDW Coefficient of Variation 16.6 % (11.5-14.5); RDW Standard Deviation 55.8 fL (36.4-46.3); Red Blood Count 4.43 M/uL (4.63-6.08)
[2022-04-26 08:23] LABS: Albumin Globulin Ratio 0.9 (0.9-2); Albumin Level 3.4 gm/dl (3.4-5.0); Bilirubin,Total 0.5 mg/dl (0.2-1.0); Creatinine Clr Calc Pharmacy 79.2 ml/min; Est GFR (African American) 61.8 ml/min; Est GFR (Non-African American) 53.3 ml/min; Globulin 3.6 gm/dl (2.5-4.0); Phosphorus 4.1 mg/dl (2.5-4.9)
[2022-04-26] MEDS: BUMETANIDE 2 MG in SYRINGE 0 ML IV SCH (08:43)
[2022-04-26] MEDS: LOSARTAN POTASSIUM 50 MG TAB PO SCH (08:43)
[2022-04-26] MEDS: carvediloL 3.125 MG TAB PO SCH ×2 (08:43→21:10)
[2022-04-26] MEDS: APIXABAN 5 MG TABLET PO SCH ×2 (08:43→21:11)
[2022-04-26] MEDS: amLODIPine BESYLATE 5 MG TAB PO SCH (08:43)
[2022-04-26] MEDS: LANTUS PER UNIT CHARGE SQ SCH ×2 (08:57→21:12)
[2022-04-26] MEDS: INSULIN ASPART PER UNIT SC SCH ×4 (08:57→21:12)
--- NOTE | 2022-04-26 12:12 | Cardiology Progress Note ---
Date of Service April 26, 2022 Assessment & Plan (1) Acute diastolic CHF (congestive heart failure): Plan: 2. Multivessel coronary artery disease post 2 vessel CABG 2015 (MENDEZ TO LAD, SVG TO LCX), known RCA ELECTRONICS TESTER 3. Acute renal insufficiency 4. Bradycardia, second degree AV block Mobitz type I, trifascicular block 5. History of atrial flutter status post ablation on anticoagulation 6. Type 2 diabetes--on insulin 7. Hypertension 8. Lymphedema CVI with venous ulcerations 9. Poor medical adherence 10. Suspected PAD 11. Nonsustained VT Continues to diurese well. Residual congestion on exam but improved from yesterday. O2 requirement reduced Renal function stable Brief nonsustained VT on telemetry, no further bradycardia overnight Continue IV Bumex today possible transition to p.o. diuretics tomorrow continue reduced dose carvedilol 3.125 twice daily. Can add back hydralazine as needed for blood pressure Continue Eliquis continue wound care/compression for venous ulcers Distal lower extremities appear well-perfused. No plans for lower extremity angiogram at this time Discuss addition of SGLT2 as an outpatient Admission and Anticipated Discharge Date Admission Date: April 23, 2022 Subjective Seen this morning. Patient sitting up in chair. Just walked to bathroom, O2 sats down to low 80s. Denies any chest pain or palpitations. He states breathing near baseline and hoping to go home soon. -1100 yesterday. Cumulative negative almost 4750 Telemetry reviewedprimarily sinus rhythm in the 60s to 70s. 1 episode of nonsustained VT, 11 beats. Periods of bradycardia down to 40s, sinus/PACs and second-degree AV block Mobitz type I Physical Exam Physical Exam: General: Comfortable HEENT: Sclerae anicteric Lungs: Decreased breath sounds most notable at right base, otherwise clear Cardiac: Regular rate and rhythm, 2 out of 6 systolic ejection murmur, unable to assess JVD Vascular: 2+ radial, DP pulses. Abdomen: Soft, nontender Extremities: Chronic venous stasis changes, evidence of stasis dermatitis with skin breakdown and oozing, 2+ edema below the knee. Purpleish discoloration of digits on left foot, normal capillary refill Psych: Alert orient x3, normal affect and mood Results & Data ([facility]) Vital Signs (Past 12 Hours) Vital Signs Temp Pulse Pulse Resp BP Pulse Ox Pulse Ox 04/26/22 09:33 04/26/22 08:00 93 04/26/22 08:28 97.5 F L 71 16 147/63 H 93 04/26/22 07:27 60 04/26/22 04:37 61 158/73 H 04/26/22 03:41 98.4 F 64 20 164/79 H 95 04/26/22 00:28 98.6 F 63 20 164/72 H 94 O2 Del Method O2 Del Method O2 Flow Rate O2 Flow Rate 04/26/22 09:33 Nasal Cannula 3 04/26/22 08:00 Nasal Cannula 3 04/26/22 08:28 Nasal Cannula 3 04/26/22 07:27 04/26/22 04:37 04/26/22 03:41 Nasal Cannula 3 04/26/22 00:28 Nasal Cannula 5 PG Care Time/CCT Total # of Minutes Spent Total Time Spent with Patient: Total time spent is greater than 50% in coordination of care (as documented) at patient's floor/unit and/or counseling patient: Coding Level of Care Code 65901 Subseq Hosp Care Lvl 3 Diagnoses Acute diastolic CHF (congestive heart failure) I50.31
[2022-04-26] MEDS: hydrALAZINE HCL 25 MG TAB PO SCH ×2 (13:31→21:11)
--- NOTE | 2022-04-26 15:12 | Hospitalist Progress Note ---
Date of Service April 26, 2022 Assessment & Plan (1) Acute diastolic CHF (congestive heart failure): Plan: Picture most consistent; doing better; renal function somewhat better, no change from current Bumex dose (2) Acute respiratory failure with hypoxia: Plan: Likely secondary to #1 though may have underlying [place]/obesity hypoventilationoutpatient evaluation for latter (3) Coronary artery disease: Plan: Patient denies chest pain. Troponin normal. No acute ischemic changes present on EKG Continue meds as above Patient was to have a stent placed in the LLE but missed his appointment -Outpatient followup with Dr. Smalls (4) Atrial fibrillation: Plan: s/p ablation. Presently in SR with sinus arrhythmia. -Continue carvedilol but dose lowered -Continue anticoagulation with Apixaban (5) Type 2 diabetes mellitus, with long-term current use of insulin: Plan: Sugars reasonableno change for now (6) Dyslipidemia: Plan: Chronic. Continue Atorvastatin (7) Chronic venous stasis dermatitis of both lower extremities: Plan: Dressing in place -Wound care BID -Continue compression stockings Wound care consult (8) Hypertension: Plan: BP drifting up; added hydralazine (9) Dysuria: Plan: Along with leukocytosisurine analysis with reflex culture; hold off antibiotics for the moment Plan Noted NSVTDr. Slim follow-up appreciated Admission and Anticipated Discharge Date Admission Date: April 23, 2022 Subjective Follow-up of presentation with shortness of breath-overall doing better but does complain of dysuria after Peña removal Physical Exam Physical Exam: Constitutional and general: No acute distress, looks biologic age Head and face: No puffiness, atraumatic Eyes: No scleral icterus, extraocular movements normal Neck: Supple, no JVD Musculoskeletal: No acute joint swelling, no bony abnormalities Skin/dermatologic/integument: No rash, no purpura Hematologic and lymphatic: pallor +, no petechia Gastrointestinal/abdomen: distended, soft, nonacute Neurologic: Cranial nerves intact, nonfocal Psychiatry: Awake, alert, pleasant, communicative Cardiovascular: Heart rhythm regular, no rub, systolic murmur 3 x 6, no gallop Respiratory: Chest movements equal, no use of accessory muscles, no adventitious sounds but overall decreased breath sounds Extremities: Edema++; stasis changes Results & Data Results & Data ([facility]) Vital Signs (Past 12 Hours) Vital Signs Temp Pulse Pulse Resp BP Pulse Ox Pulse Ox 04/26/22 12:00 36.7 C 65 20 150/67 H 96 04/26/22 09:33 04/26/22 08:00 93 04/26/22 08:28 36.4 C L 71 16 147/63 H 93 04/26/22 07:27 60 04/26/22 04:37 61 158/73 H 04/26/22 03:41 36.9 C 64 20 164/79 H 95 O2 Del Method O2 Del Method O2 Flow Rate O2 Flow Rate 04/26/22 12:00 Nasal Cannula 3 04/26/22 09:33 Nasal Cannula 3 04/26/22 08:00 Nasal Cannula 3 04/26/22 08:28 Nasal Cannula 3 04/26/22 07:27 04/26/22 04:37 04/26/22 03:41 Nasal Cannula 3 Laboratory Results Laboratory Results - last 24 hr 04/25/22 04/25/22 04/26/22 16:13 20:15 07:15 WBC 12.30 H RBC 4.43 L Hgb 12.0 L Hct 40.7 MCV 91.9 MCH 27.1 MCHC 29.5 L RDW Std Deviation 55.8 H RDW Coeff of Rebecca 16.6 H Plt Count 208 MPV 10.0 Immature Gran % (Auto) 0.4 Neut % (Auto) 76.2 Lymph % (Auto) 11.8 [place] % (Auto) 10.2 Eos % (Auto) 1.2 Baso % (Auto) 0.2 Neut # (Auto) 9.37 H Lymph # (Auto) 1.45 [place] # (Auto) 1.25 H Eos # (Auto) 0.15 Baso # (Auto) 0.03 Immature Gran # (Auto) 0.05 H Sodium Potassium Chloride Carbon Dioxide Anion Gap BUN Creatinine Est Cr Clr Drug Dosing Est GFR ( Amer) Est GFR (Non-Af Amer) POC Glucose 242 H 190 H Fasting Glucose Calcium Phosphorus Magnesium Total Bilirubin AST ALT Alkaline Phosphatase Total Protein Albumin Globulin Albumin/Globulin Ratio Urine Color Urine Appearance Urine pH Ur Specific [place] Urine Protein Urine Glucose (UA) Urine Ketones Urine Blood Urine Nitrite Urine Bilirubin Urine Urobilinogen Ur Leukocyte Esterase 04/26/22 04/26/22 04/26/22 07:15 07:25 11:33 WBC RBC Hgb Hct MCV MCH MCHC RDW Std Deviation RDW Coeff of Rebecca Plt Count MPV Immature Gran % (Auto) Neut % (Auto) Lymph % (Auto) [place] % (Auto) Eos % (Auto) Baso % (Auto) Neut # (Auto) Lymph # (Auto) [place] # (Auto) Eos # (Auto) Baso # (Auto) Immature Gran # (Auto) Sodium 139 Potassium 5.0 Chloride 100 Carbon Dioxide 34 H Anion Gap 5 BUN 50 H Creatinine 1.34 Est Cr Clr Drug Dosing 79.2 Est GFR ( Amer) 61.8 Est GFR (Non-Af Amer) 53.3 POC Glucose 107 H 247 H Fasting Glucose 124 H Calcium 9.0 Phosphorus 4.1 Magnesium 2.0 Total Bilirubin 0.5 AST 12 L ALT 10 Alkaline Phosphatase 150 H Total Protein 7.0 Albumin 3.4 Globulin 3.6 Albumin/Globulin Ratio 0.9 Urine Color Urine Appearance Urine pH Ur Specific [place] Urine Protein Urine Glucose (UA) Urine Ketones Urine Blood Urine Nitrite Urine Bilirubin Urine Urobilinogen Ur Leukocyte Esterase 04/26/22 13:48 WBC RBC Hgb Hct MCV MCH MCHC RDW Std Deviation RDW Coeff of Rebecca Plt Count MPV Immature Gran % (Auto) Neut % (Auto) Lymph % (Auto) [place] % (Auto) Eos % (Auto) Baso % (Auto) Neut # (Auto) Lymph # (Auto) [place] # (Auto) Eos # (Auto) Baso # (Auto) Immature Gran # (Auto) Sodium Potassium Chloride Carbon Dioxide Anion Gap BUN Creatinine Est Cr Clr Drug Dosing Est GFR ( Amer) Est GFR (Non-Af Amer) POC Glucose Fasting Glucose Calcium Phosphorus Magnesium Total Bilirubin AST ALT Alkaline Phosphatase Total Protein Albumin Globulin Albumin/Globulin Ratio Urine Color Pending Urine Appearance Pending Urine pH Pending Ur Specific [place] Pending Urine Protein Pending Urine Glucose (UA) Pending Urine Ketones Pending Urine Blood Pending Urine Nitrite Pending Urine Bilirubin Pending Urine Urobilinogen Pending Ur Leukocyte Esterase Pending PG Care Time/CCT Total # of Minutes Spent Total Time Spent with Patient: Total time spent is greater than 50% in coordination of care (as documented) at patient's floor/unit and/or counseling patient: Coding Level of Care Code 00626 Subseq Hosp Care Lvl 2 Diagnoses Acute diastolic CHF (congestive heart failure) I50.31 Acute respiratory failure with hypoxia J96.01 Coronary artery disease I25.10 Atrial fibrillation I48.91 Type 2 diabetes mellitus, with long-term current use of insulin E11.9; Z79.4 Dyslipidemia E78.5 Chronic venous stasis dermatitis of both lower extremities I87.2 Hypertension I10 Dysuria R30.0
[2022-04-26 15:20] LABS: Appearance Urine Cloudy (Clear); Bacteria Urine Automated 3+ (Negative); Bilirubin Urine Negative (Negative); Blood Urine 3+ (Negative); Color Urine Yellow; Glucose Urine UA Negative (Negative); Ketones Urine Negative (Negative); Leukocyte Esterase Urine 2+ (Negative); Nitrite Urine Negative (Negative); Protein Urine 3+ (Negative); Specific Gravity Urine 1.013 (1.000-1.030); Urobilinogen Urine Negative (Negative); WBC Urine Automated >30 /hpf (0-5)
[2022-04-26] MEDS: traMADol HCL 50 MG TABLET PO PRN (18:20)
[2022-04-26] MEDS: ATORVASTATIN 40 MG TAB PO SCH (21:10)
[2022-04-26] MEDS: cefTRIAXone SODIUM 2,000 MG in DEXTROSE 5% 50 ML IV SCH (22:06)
[2022-04-27] MEDS: traMADol HCL 50 MG TABLET PO PRN ×2 (01:01→20:38)
[2022-04-27 07:36] LABS: Basophils # (auto) 0.04 K/uL (0-0.2); Basophils % (auto) 0.3 %; Eosinophils # (auto) 0.05 K/uL (0-0.50); Eosinophils % (auto) 0.3 %; Hematocrit (blood only) 38.6 % (40.1-51.0); Hemoglobin 11.7 g/dl (14.0-18.0); Immature Granulocytes # (auto) 0.08 K/uL (0.00-0.02); Immature Granulocytes % (auto) 0.5 %; Lymphocytes # (auto) 1.11 K/uL (1.2-3.4); Mean Corpuscular Hgb Conc 30.3 g/dL (32.0-36.0); Mean Corpuscular Volume 88.9 fL (80.0-100.0); Mean Platelet Volume 10.7 fL (9.4-12.4); Monocytes # (auto) 1.33 K/uL (0.24-0.82); Monocytes % (auto) 8.4 %; Neutrophils # (auto) 13.31 K/uL (1.4-6.5); Neutrophils % (auto) 83.5 %; Platelet Count 196 K/uL (130-400); RDW Coefficient of Variation 16.4 % (11.5-14.5); RDW Standard Deviation 52.9 fL (36.4-46.3); Red Blood Count 4.34 M/uL (4.63-6.08); White Blood Count 15.92 K/ul (4.8-10.8)
[2022-04-27] MEDS: hydrALAZINE HCL 25 MG TAB PO SCH ×3 (08:28→20:02)
[2022-04-27] MEDS: LOSARTAN POTASSIUM 50 MG TAB PO SCH (08:28)
[2022-04-27 08:29] LABS: Albumin Globulin Ratio 0.9 (0.9-2); Albumin Level 3.3 gm/dl (3.4-5.0); Bilirubin,Total 0.6 mg/dl (0.2-1.0); Calcium 8.9 mg/dl (8.5-10.1); Creatinine Clr Calc Pharmacy 84.9 ml/min; Est GFR (African American) 67.2 ml/min; Globulin 3.8 gm/dl (2.5-4.0); Magnesium 1.9 mg/dl (1.7-2.4); Phosphorus 3.5 mg/dl (2.5-4.9); Potassium 4.9 mmol/L (3.5-5.1); Total Protein 7.1 gm/dl (6.0-8.3)
[2022-04-27] MEDS: BUMETANIDE 2 MG in SYRINGE 0 ML IV SCH (08:29)
[2022-04-27] MEDS: amLODIPine BESYLATE 5 MG TAB PO SCH (08:29)
[2022-04-27] MEDS: APIXABAN 5 MG TABLET PO SCH ×2 (08:29→20:00)
[2022-04-27] MEDS: carvediloL 3.125 MG TAB PO SCH ×2 (08:30→20:02)
[2022-04-27] MEDS: INSULIN ASPART PER UNIT SC SCH ×4 (08:38→21:23)
[2022-04-27] MEDS: LANTUS PER UNIT CHARGE SQ SCH ×2 (08:38→21:23)
--- NOTE | 2022-04-27 13:20 | Hospitalist Progress Note ---
Date of Service April 27, 2022 Assessment & Plan (1) Acute diastolic CHF (congestive heart failure): Plan: Picture most consistent; overall doing better; renal function stable; no change at present; will consider switch to p.o. Bumex soon (2) Catheter-associated urinary tract infection: Plan: Not present on admission; gram-negative rods; noted leukocytosis worse but clinically bettercontinue Rocephin pending sensitivity (3) Acute respiratory failure with hypoxia: Plan: Likely secondary to #1 though may have underlying [place]/obesity hypoventilationoutpatient evaluation for latter (4) Coronary artery disease: Plan: Patient denies chest pain. Troponin normal. No acute ischemic changes present on EKG Continue meds as above Patient was to have a stent placed in the LLE but missed his appointment -Outpatient followup with Dr. Smalls (5) Atrial fibrillation: Plan: s/p ablation. Presently in SR with sinus arrhythmia. -Continue carvedilol but dose lowered -Continue anticoagulation with Apixaban (6) Type 2 diabetes mellitus, with long-term current use of insulin: Plan: Sugars reasonableno change for now (7) Dyslipidemia: Plan: Chronic. Continue Atorvastatin (8) Chronic venous stasis dermatitis of both lower extremities: Plan: Dressing in place -Wound care BID -Continue compression stockings Wound care consult (9) Hypertension: Plan: BP drifting up; added hydralazine yesterday (26 April)no change today Plan Noted NSVT 2 days agoDr. Smalls follow-up appreciated Admission and Anticipated Discharge Date Admission Date: April 23, 2022 Subjective Follow-up of presentation with shortness of breath-dysuria better; no other complaints Physical Exam Physical Exam: Constitutional and general: No acute distress, looks biologic age Head and face: No puffiness, atraumatic Eyes: No scleral icterus, extraocular movements normal Neck: Supple, no JVD Musculoskeletal: No acute joint swelling, no bony abnormalities Skin/dermatologic/integument: No rash, no purpura Hematologic and lymphatic: pallor +, no petechia Gastrointestinal/abdomen: distended, soft, nonacute Neurologic: Cranial nerves intact, nonfocal Psychiatry: Awake, alert, pleasant, communicative Cardiovascular: Heart rhythm regular, no rub, systolic murmur 3 x 6, no gallop Respiratory: Chest movements equal, no use of accessory muscles, no adventitious sounds but overall decreased breath sounds Extremities: Edema++; stasis changes Results & Data Results & Data ([facility]) Vital Signs (Past 12 Hours) Vital Signs Temp Pulse Resp BP Pulse Ox O2 Del Method O2 Flow Rate 04/27/22 08:15 Nasal Cannula 3 04/27/22 11:19 36.8 C 69 18 151/62 H 94 Nasal Cannula 3 04/27/22 07:21 36.9 C 62 18 150/57 H 92 Nasal Cannula 3 04/27/22 03:00 36.8 C 63 18 156/72 H 96 Nasal Cannula Laboratory Results Laboratory Results - last 24 hr 04/26/22 04/26/22 04/26/22 13:48 16:21 20:25 WBC RBC Hgb Hct MCV MCH MCHC RDW Std Deviation RDW Coeff of Rebecca Plt Count MPV Immature Gran % (Auto) Neut % (Auto) Lymph % (Auto) [place] % (Auto) Eos % (Auto) Baso % (Auto) Neut # (Auto) Lymph # (Auto) [place] # (Auto) Eos # (Auto) Baso # (Auto) Immature Gran # (Auto) Sodium Potassium Chloride Carbon Dioxide Anion Gap BUN Creatinine Est Cr Clr Drug Dosing Est GFR ( Amer) Est GFR (Non-Af Amer) POC Glucose 125 H 180 H Fasting Glucose Calcium Phosphorus Magnesium Total Bilirubin AST ALT Alkaline Phosphatase Total Protein Albumin Globulin Albumin/Globulin Ratio Urine Color Yellow Urine Appearance Cloudy A Urine pH 6.0 Ur Specific [place] 1.013 Urine Protein 3+ H Urine Glucose (UA) Negative Urine Ketones Negative Urine Blood 3+ H Urine Nitrite Negative Urine Bilirubin Negative Urine Urobilinogen Negative Ur Leukocyte Esterase 2+ H Urine WBC (Auto) >30 H Urine RBC (Auto) 5-10 H U Hyaline Cast (Auto) 1-5 U Epithel Cells (Auto) 5-10 H Urine Bacteria (Auto) 3+ H 04/27/22 04/27/22 04/27/22 06:39 06:39 07:23 WBC 15.92 H RBC 4.34 L Hgb 11.7 L Hct 38.6 L MCV 88.9 MCH 27.0 MCHC 30.3 L RDW Std Deviation 52.9 H RDW Coeff of Rebecca 16.4 H Plt Count 196 MPV 10.7 Immature Gran % (Auto) 0.5 Neut % (Auto) 83.5 Lymph % (Auto) 7.0 [place] % (Auto) 8.4 Eos % (Auto) 0.3 Baso % (Auto) 0.3 Neut # (Auto) 13.31 H Lymph # (Auto) 1.[address] # (Auto) 1.33 H Eos # (Auto) 0.05 Baso # (Auto) 0.04 Immature Gran # (Auto) 0.08 H Sodium 137 Potassium 4.9 Chloride 99 Carbon Dioxide 36 H Anion Gap 2 L BUN 48 H Creatinine 1.25 Est Cr Clr Drug Dosing 84.9 Est GFR ( Amer) 67.2 Est GFR (Non-Af Amer) 58.0 POC Glucose 87 Fasting Glucose 84 Calcium 8.9 Phosphorus 3.5 Magnesium 1.9 Total Bilirubin 0.6 AST 12 L ALT 12 Alkaline Phosphatase 159 H Total Protein 7.1 Albumin 3.3 L Globulin 3.8 Albumin/Globulin Ratio 0.9 Urine Color Urine Appearance Urine pH Ur Specific [place] Urine Protein Urine Glucose (UA) Urine Ketones Urine Blood Urine Nitrite Urine Bilirubin Urine Urobilinogen Ur Leukocyte Esterase Urine WBC (Auto) Urine RBC (Auto) U Hyaline Cast (Auto) U Epithel Cells (Auto) Urine Bacteria (Auto) 04/27/22 11:21 WBC RBC Hgb Hct MCV MCH MCHC RDW Std Deviation RDW Coeff of Rebecca Plt Count MPV Immature Gran % (Auto) Neut % (Auto) Lymph % (Auto) [place] % (Auto) Eos % (Auto) Baso % (Auto) Neut # (Auto) Lymph # (Auto) [place] # (Auto) Eos # (Auto) Baso # (Auto) Immature Gran # (Auto) Sodium Potassium Chloride Carbon Dioxide Anion Gap BUN Creatinine Est Cr Clr Drug Dosing Est GFR ( Amer) Est GFR (Non-Af Amer) POC Glucose 167 H Fasting Glucose Calcium Phosphorus Magnesium Total Bilirubin AST ALT Alkaline Phosphatase Total Protein Albumin Globulin Albumin/Globulin Ratio Urine Color Urine Appearance Urine pH Ur Specific [place] Urine Protein Urine Glucose (UA) Urine Ketones Urine Blood Urine Nitrite Urine Bilirubin Urine Urobilinogen Ur Leukocyte Esterase Urine WBC (Auto) Urine RBC (Auto) U Hyaline Cast (Auto) U Epithel Cells (Auto) Urine Bacteria (Auto) PG Care Time/CCT Total # of Minutes Spent Total Time Spent with Patient: Total time spent is greater than 50% in coordination of care (as documented) at patient's floor/unit and/or counseling patient: Coding Level of Care Code 96874 Subseq Hosp Care Lvl 2 Diagnoses Acute diastolic CHF (congestive heart failure) I50.31 Catheter-associated urinary tract infection T83.511A; N39.0 Acute respiratory failure with hypoxia J96.01 Coronary artery disease I25.10 Atrial fibrillation I48.91 Type 2 diabetes mellitus, with long-term current use of insulin E11.9; Z79.4 Dyslipidemia E78.5 Chronic venous stasis dermatitis of both lower extremities I87.2 Hypertension I10
[2022-04-27] MEDS: cefTRIAXone SODIUM 2,000 MG in DEXTROSE 5% 50 ML IV SCH (18:14)
[2022-04-27] MEDS: ATORVASTATIN 40 MG TAB PO SCH (20:01)
[2022-04-28 05:53] LABS: Basophils # (auto) 0.03 K/uL (0-0.2); Basophils % (auto) 0.2 %; Eosinophils # (auto) 0.16 K/uL (0-0.50); Eosinophils % (auto) 1.2 %; Hematocrit (blood only) 37.9 % (40.1-51.0); Hemoglobin 11.1 g/dl (14.0-18.0); Immature Granulocytes # (auto) 0.07 K/uL (0.00-0.02); Immature Granulocytes % (auto) 0.5 %; Lymphocytes # (auto) 1.12 K/uL (1.2-3.4); Lymphocytes % (auto) 8.4 %; Mean Corpuscular Hemoglobin 26.6 pg (25.0-34.0); Mean Corpuscular Hgb Conc 29.3 g/dL (32.0-36.0); Mean Corpuscular Volume 90.9 fL (80.0-100.0); Mean Platelet Volume 10.6 fL (9.4-12.4); Monocytes # (auto) 1.14 K/uL (0.24-0.82); Monocytes % (auto) 8.5 %; Neutrophils # (auto) 10.88 K/uL (1.4-6.5); Neutrophils % (auto) 81.2 %; Platelet Count 194 K/uL (130-400); RDW Coefficient of Variation 16.4 % (11.5-14.5); RDW Standard Deviation 54.7 fL (36.4-46.3); Red Blood Count 4.17 M/uL (4.63-6.08)
[2022-04-28] MEDS: traMADol HCL 50 MG TABLET PO PRN ×2 (05:59→17:03)
[2022-04-28 06:29] LABS: Alanine Aminotransferase 17 U/L (7-52); Albumin Globulin Ratio 0.8 (0.9-2); Albumin Level 3.2 gm/dl (3.4-5.0); Alkaline Phosphatase 174 U/L (34-104); Anion Gap 4 (3-11); Bilirubin,Total 0.5 mg/dl (0.2-1.0); Blood Urea Nitrogen 58 mg/dl (6-23); Calcium 8.8 mg/dl (8.5-10.1); Carbon Dioxide 33 mmol/L (21-32); Chloride 97 mmol/L (98-107); Creatinine Clr Calc Pharmacy 77.6 ml/min; Est GFR (African American) 60.1 ml/min; Est GFR (Non-African American) 51.9 ml/min; Globulin 3.9 gm/dl (2.5-4.0); Glucose Fasting 128 mg/dl (70-99); Phosphorus 4.6 mg/dl (2.5-4.9); Sodium 134 mmol/L (136-145); Total Protein 7.1 gm/dl (6.0-8.3)
[2022-04-28] MEDS: INSULIN ASPART PER UNIT SC SCH ×4 (08:27→21:21)
[2022-04-28] MEDS: LANTUS PER UNIT CHARGE SQ SCH ×2 (08:28→21:21)
[2022-04-28] MEDS: ACETAMINOPHEN 500 MG TAB PO PRN ×2 (08:48→17:02)
[2022-04-28] MEDS: amLODIPine BESYLATE 5 MG TAB PO SCH (08:48)
[2022-04-28] MEDS: carvediloL 3.125 MG TAB PO SCH ×2 (08:49→21:16)
[2022-04-28] MEDS: APIXABAN 5 MG TABLET PO SCH ×2 (08:49→21:15)
[2022-04-28] MEDS: LOSARTAN POTASSIUM 50 MG TAB PO SCH (08:49)
[2022-04-28] MEDS: hydrALAZINE HCL 25 MG TAB PO SCH ×3 (08:49→21:15)
[2022-04-28] MEDS: BUMETANIDE 2 MG in SYRINGE 0 ML IV SCH (08:49)
--- NOTE | 2022-04-28 14:52 | Hospitalist Progress Note ---
Date of Service April 28, 2022 Assessment & Plan (1) Acute diastolic CHF (congestive heart failure): Plan: Picture most consistent; overall doing better; at present might be over diuresed based on renal parametershold Bumex and observe (2) Catheter-associated urinary tract infection: Plan: Not present on admission; Proteus sensitive to Rocephincontinue (3) Acute respiratory failure with hypoxia: Plan: Likely secondary to #1 though may have underlying [place]/obesity hypoventilationoutpatient evaluation for latter (4) Coronary artery disease: Plan: Patient denies chest pain. Troponin normal. No acute ischemic changes present on EKG Continue meds as above Patient was to have a stent placed in the LLE but missed his appointment -Outpatient followup with Dr. Smalls (5) Atrial fibrillation: Plan: s/p ablation. Presently in SR with sinus arrhythmia. -Continue carvedilol but dose lowered -Continue anticoagulation with Apixaban (6) Type 2 diabetes mellitus, with long-term current use of insulin: Plan: Sugars reasonableno change for now (7) Dyslipidemia: Plan: Chronic. Continue Atorvastatin (8) Chronic venous stasis dermatitis of both lower extremities: Plan: Dressing in place -Wound care BID -Continue compression stockings Wound care consult (9) Hypertension: Plan: BP drifting up; added hydralazine 26 April)no change today; uptitrate as necessary Plan Noted NSVT 3 days agoDr. Smalls follow-up appreciated Await stability in renal function, sense of diuretic need, trend of leukocytosis towards improvement Admission and Anticipated Discharge Date Admission Date: April 23, 2022 Subjective Follow-up of presentation with shortness of breath-dysuria better; no other complaints Physical Exam Physical Exam: Constitutional and general: No acute distress, looks biologic age Head and face: No puffiness, atraumatic Eyes: No scleral icterus, extraocular movements normal Neck: Supple, no JVD Musculoskeletal: No acute joint swelling, no bony abnormalities Skin/dermatologic/integument: No rash, no purpura Hematologic and lymphatic: pallor +, no petechia Gastrointestinal/abdomen: distended, soft, nonacute Neurologic: Cranial nerves intact, nonfocal Psychiatry: Awake, alert, pleasant, communicative Cardiovascular: Heart rhythm regular, no rub, systolic murmur 3 x 6, no gallop Respiratory: Chest movements equal, no use of accessory muscles, no adventitious sounds but overall decreased breath sounds Extremities: Edema++; stasis changes Results & Data Results & Data ([facility]) Vital Signs (Past 12 Hours) Vital Signs Temp Pulse Pulse Resp BP Pulse Ox O2 Del Method 04/28/22 14:41 36.7 C 62 18 174/75 H 95 Nasal Cannula 04/28/22 11:00 36.8 C 64 18 130/68 97 Nasal Cannula 04/28/22 08:00 Nasal Cannula 04/28/22 07:00 61 04/28/22 08:45 65 144/55 H 04/28/22 07:10 36.5 C 61 17 132/58 L 93 Nasal Cannula 04/28/22 03:13 36.5 C 68 20 152/66 H 94 Nasal Cannula O2 Flow Rate 04/28/22 14:41 3 04/28/22 11:00 3 04/28/22 08:00 3 04/28/22 07:00 04/28/22 08:45 04/28/22 07:10 3 04/28/22 03:13 3 Laboratory Results Laboratory Results - last 24 hr 04/27/22 04/27/22 04/28/22 16:13 20:57 05:26 WBC 13.40 H RBC 4.17 L Hgb 11.1 L Hct 37.9 L MCV 90.9 MCH 26.6 MCHC 29.3 L RDW Std Deviation 54.7 H RDW Coeff of Rebecca 16.4 H Plt Count 194 MPV 10.6 Immature Gran % (Auto) 0.5 Neut % (Auto) 81.2 Lymph % (Auto) 8.4 [place] % (Auto) 8.5 Eos % (Auto) 1.2 Baso % (Auto) 0.2 Neut # (Auto) 10.88 H Lymph # (Auto) 1.12 L [place] # (Auto) 1.14 H Eos # (Auto) 0.16 Baso # (Auto) 0.03 Immature Gran # (Auto) 0.07 H Sodium Potassium Chloride Carbon Dioxide Anion Gap BUN Creatinine Est Cr Clr Drug Dosing Est GFR ( Amer) Est GFR (Non-Af Amer) POC Glucose 169 H 149 H Fasting Glucose Calcium Phosphorus Magnesium Total Bilirubin AST ALT Alkaline Phosphatase Total Protein Albumin Globulin Albumin/Globulin Ratio 04/28/22 04/28/22 04/28/22 05:26 06:50 07:12 WBC RBC Hgb Hct MCV MCH MCHC RDW Std Deviation RDW Coeff of Rebecca Plt Count MPV Immature Gran % (Auto) Neut % (Auto) Lymph % (Auto) [place] % (Auto) Eos % (Auto) Baso % (Auto) Neut # (Auto) Lymph # (Auto) [place] # (Auto) Eos # (Auto) Baso # (Auto) Immature Gran # (Auto) Sodium 134 L Potassium TNP 5.0 Chloride 97 L Carbon Dioxide 33 H Anion Gap 4 BUN 58 H Creatinine 1.37 Est Cr Clr Drug Dosing 77.6 Est GFR ( Amer) 60.1 Est GFR (Non-Af Amer) 51.9 POC Glucose 123 H Fasting Glucose 128 H Calcium 8.8 Phosphorus 4.6 D Magnesium 2.0 Total Bilirubin 0.5 AST TNP 13 ALT 17 Alkaline Phosphatase 174 H Total Protein 7.1 Albumin 3.2 L Globulin 3.9 Albumin/Globulin Ratio 0.8 L 04/28/22 11:02 WBC RBC Hgb Hct MCV MCH MCHC RDW Std Deviation RDW Coeff of Rebecca Plt Count MPV Immature Gran % (Auto) Neut % (Auto) Lymph % (Auto) [place] % (Auto) Eos % (Auto) Baso % (Auto) Neut # (Auto) Lymph # (Auto) [place] # (Auto) Eos # (Auto) Baso # (Auto) Immature Gran # (Auto) Sodium Potassium Chloride Carbon Dioxide Anion Gap BUN Creatinine Est Cr Clr Drug Dosing Est GFR ( Amer) Est GFR (Non-Af Amer) POC Glucose 181 H Fasting Glucose Calcium Phosphorus Magnesium Total Bilirubin AST ALT Alkaline Phosphatase Total Protein Albumin Globulin Albumin/Globulin Ratio PG Care Time/CCT Total # of Minutes Spent Total Time Spent with Patient: Total time spent is greater than 50% in coordination of care (as documented) at patient's floor/unit and/or counseling patient: Coding Level of Care Code 38785 Subseq Hosp Care Lvl 2 Diagnoses Acute diastolic CHF (congestive heart failure) I50.31 Catheter-associated urinary tract infection T83.511A; N39.0 Acute respiratory failure with hypoxia J96.01 Coronary artery disease I25.10 Atrial fibrillation I48.91 Type 2 diabetes mellitus, with long-term current use of insulin E11.9; Z79.4 Dyslipidemia E78.5 Chronic venous stasis dermatitis of both lower extremities I87.2 Hypertension I10
[2022-04-28] MEDS: cefTRIAXone SODIUM 2,000 MG in DEXTROSE 5% 50 ML IV SCH (20:02)
[2022-04-28] MEDS: ATORVASTATIN 40 MG TAB PO SCH (21:15)
[2022-04-29] MEDS: traMADol HCL 50 MG TABLET PO PRN ×4 (00:30→20:11)
[2022-04-29] MEDS: ACETAMINOPHEN 500 MG TAB PO PRN ×3 (06:03→17:33)
[2022-04-29 06:25] LABS: Basophils # (auto) 0.02 K/uL (0-0.2); Basophils % (auto) 0.2 %; Eosinophils # (auto) 0.14 K/uL (0-0.50); Eosinophils % (auto) 1.6 %; Hematocrit (blood only) 38.8 % (40.1-51.0); Hemoglobin 11.5 g/dl (14.0-18.0); Immature Granulocytes # (auto) 0.02 K/uL (0.00-0.02); Immature Granulocytes % (auto) 0.2 %; Lymphocytes # (auto) 0.67 K/uL (1.2-3.4); Lymphocytes % (auto) 7.8 %; Mean Corpuscular Hemoglobin 26.9 pg (25.0-34.0); Mean Corpuscular Hgb Conc 29.6 g/dL (32.0-36.0); Mean Corpuscular Volume 90.9 fL (80.0-100.0); Mean Platelet Volume 10.8 fL (9.4-12.4); Monocytes # (auto) 0.77 K/uL (0.24-0.82); Monocytes % (auto) 8.9 %; Neutrophils # (auto) 7.01 K/uL (1.4-6.5); Neutrophils % (auto) 81.3 %; Platelet Count 195 K/uL (130-400); RDW Coefficient of Variation 16.4 % (11.5-14.5); RDW Standard Deviation 54.4 fL (36.4-46.3); Red Blood Count 4.27 M/uL (4.63-6.08); White Blood Count 8.63 K/ul (4.8-10.8)
[2022-04-29 07:08] LABS: Albumin Globulin Ratio 0.9 (0.9-2); Albumin Level 3.3 gm/dl (3.4-5.0); Bilirubin,Total 0.4 mg/dl (0.2-1.0); Calcium 8.9 mg/dl (8.5-10.1); Creatinine Clr Calc Pharmacy 72.3 ml/min; Est GFR (African American) 55.2 ml/min; Est GFR (Non-African American) 47.7 ml/min; Globulin 3.8 gm/dl (2.5-4.0); Magnesium 2.1 mg/dl (1.7-2.4); Phosphorus 4.5 mg/dl (2.5-4.9); Potassium 5.4 mmol/L (3.5-5.1); Total Protein 7.1 gm/dl (6.0-8.3)
[2022-04-29] MEDS: INSULIN ASPART PER UNIT SC SCH ×4 (08:29→20:17)
[2022-04-29] MEDS: carvediloL 3.125 MG TAB PO SCH ×2 (08:41→20:08)
[2022-04-29] MEDS: LOSARTAN POTASSIUM 50 MG TAB PO SCH (08:41)
[2022-04-29] MEDS: APIXABAN 5 MG TABLET PO SCH ×2 (08:41→20:08)
[2022-04-29] MEDS: amLODIPine BESYLATE 5 MG TAB PO SCH (08:41)
[2022-04-29] MEDS: hydrALAZINE HCL 25 MG TAB PO SCH ×3 (08:41→20:08)
[2022-04-29] MEDS: LANTUS PER UNIT CHARGE SQ SCH ×2 (09:31→20:17)
--- NOTE | 2022-04-29 15:44 | Hospitalist Progress Note ---
Date of Service April 29, 2022 Assessment & Plan (1) Acute diastolic CHF (congestive heart failure): Plan: Picture most consistent; overall doing better but rising renal parameters; overdiuresis versus evolving CRS BNP in a.m.; no Bumex today; reassess; Dr. Smalls will reevaluate in the morning (2) Catheter-associated urinary tract infection: Plan: Not present on admission; Proteus sensitive to Rocephincontinue (3) Acute respiratory failure with hypoxia: Plan: Likely secondary to #1 though may have underlying CLINTON/obesity hy poventilationoutpatient evaluation for latter (4) Coronary artery disease: Plan: Patient denies chest pain. Troponin normal. No acute ischemic changes present on EKG Continue meds as above Patient was to have a stent placed in the LLE but missed his appointment -Outpatient followup with Dr. Smalls (5) Atrial fibrillation: Plan: s/p ablation. Presently in SR with sinus arrhythmia. -Continue carvedilol but dose lowered -Continue anticoagulation with Apixaban (6) Type 2 diabetes mellitus, with long-term current use of insulin: Plan: Sugars reasonableno change for now (7) Dyslipidemia: Plan: Chronic. Continue Atorvastatin (8) Chronic venous stasis dermatitis of both lower extremities: Plan: Dressing in place -Wound care BID -Continue compression stockings Wound care consult (9) Hypertension: Plan: BP acceptable; room to uptitrate hydralazine; no change at present (10) Acute renal insufficiency: Plan: Cannot diagnose RISHABH; ultrasound noncontributory; reassess in a.m., see #1; if persists will consider nephrology input Plan Noted NSVT 4 [address]Dr. Smalls follow-up appreciated Observe mild hyperkalemia; observe mild hyponatremia Admission and Anticipated Discharge Date Admission Date: April 23, 2022 Subjective Follow-up of presentation with shortness of breath-dysuria better; no other complaints Physical Exam Physical Exam: Constitutional and general: No acute distress, looks biologic age Head and face: No puffiness, atraumatic Eyes: No scleral icterus, extraocular movements normal Neck: Supple, no JVD Musculoskeletal: No acute joint swelling, no bony abnormalities Skin/dermatologic/integument: No rash, no purpura Hematologic and lymphatic: pallor +, no petechia Gastrointestinal/abdomen: distended, soft, nonacute Neurologic: Cranial nerves intact, nonfocal Psychiatry: Awake, alert, pleasant, communicative Cardiovascular: Heart rhythm regular, no rub, systolic murmur 3 x 6, no gallop Respiratory: Chest movements equal, no use of accessory muscles, no adventitious sounds but overall decreased breath sounds Extremities: Edema+; stasis changes Results & Data Results & Data ([facility]) Vital Signs (Past 12 Hours) Vital Signs Temp Pulse Pulse Resp BP Pulse Ox O2 Del Method 04/29/22 14:36 36.6 C 63 20 141/64 H 93 Nasal Cannula 04/29/22 11:09 36.7 C 62 17 133/61 94 Room Air 04/29/22 08:15 Nasal Cannula 04/29/22 07:00 67 04/29/22 07:08 36.7 C 68 19 134/69 93 Nasal Cannula O2 Flow Rate 04/29/22 14:36 3 04/29/22 11:09 3 04/29/22 08:15 3 04/29/22 07:00 04/29/22 07:08 3 Laboratory Results Laboratory Results - last 24 hr 04/28/22 04/29/22 04/29/22 19:59 05:33 05:33 WBC 8.63 RBC 4.27 L Hgb 11.5 L Hct 38.8 L MCV 90.9 MCH 26.9 MCHC 29.6 L RDW Std Deviation 54.4 H RDW Coeff of Rebecca 16.4 H Plt Count 195 MPV 10.8 Immature Gran % (Auto) 0.2 Neut % (Auto) 81.3 Lymph % (Auto) 7.8 [place] % (Auto) 8.9 Eos % (Auto) 1.6 Baso % (Auto) 0.2 Neut # (Auto) 7.01 H Lymph # (Auto) 0.67 L [place] # (Auto) 0.77 Eos # (Auto) 0.14 Baso # (Auto) 0.02 Immature Gran # (Auto) 0.02 Sodium 133 L Potassium 5.4 H Chloride 95 L Carbon Dioxide 32 Anion Gap 6 BUN 64 H Creatinine 1.47 H Est Cr Clr Drug Dosing 72.3 Est GFR ( Amer) 55.2 Est GFR (Non-Af Amer) 47.7 POC Glucose 221 H Fasting Glucose 126 H Calcium 8.9 Phosphorus 4.5 Magnesium 2.1 Total Bilirubin 0.4 AST 14 ALT 18 Alkaline Phosphatase 205 H Total Protein 7.1 Albumin 3.3 L Globulin 3.8 Albumin/Globulin Ratio 0.9 04/29/22 04/29/22 07:12 11:14 WBC RBC Hgb Hct MCV MCH MCHC RDW Std Deviation RDW Coeff of Rebceca Plt Count MPV Immature Gran % (Auto) Neut % (Auto) Lymph % (Auto) [place] % (Auto) Eos % (Auto) Baso % (Auto) Neut # (Auto) Lymph # (Auto) [place] # (Auto) Eos # (Auto) Baso # (Auto) Immature Gran # (Auto) Sodium Potassium Chloride Carbon Dioxide Anion Gap BUN Creatinine Est Cr Clr Drug Dosing Est GFR ( Amer) Est GFR (Non-Af Amer) POC Glucose 121 H 210 H Fasting Glucose Calcium Phosphorus Magnesium Total Bilirubin AST ALT Alkaline Phosphatase Total Protein Albumin Globulin Albumin/Globulin Ratio PG Care Time/CCT Total # of Minutes Spent Total Time Spent with Patient: Total time spent is greater than 50% in coordination of care (as documented) at patient's floor/unit and/or counseling patient: Coding Level of Care Code 00758 Subseq Hosp Care Lvl 2 Diagnoses Acute diastolic CHF (congestive heart failure) I50.31 Catheter-associated urinary tract infection T83.511A; N39.0 Acute respiratory failure with hypoxia J96.01 Coronary artery disease I25.10 Atrial fibrillation I48.91 Type 2 diabetes mellitus, with long-term current use of insulin E11.9; Z79.4 Dyslipidemia E78.5 Chronic venous stasis dermatitis of both lower extremities I87.2 Hypertension I10 Acute renal insufficiency N28.9
--- NOTE | 2022-04-29 15:49 | Ultrasound Report ---
US renal/blad retro comp HISTORY: 72 years-old Male Abnormal renal function COMPARISON: None TECHNIQUE: Multiple real-time sonographic images of the kidneys and urinary bladder were obtained ass essing grayscale appearance and color flow FINDINGS: The right kidney measures 12.2 cm in length. The left kidney measures 12.2 cm in length. Mild cortica l thinning of the bilateral kidneys. No renal calculi, hydronephrosis or suspicious mass lesion. Vince ical medullary differentiation is preserved bilaterally. Decompressed urinary bladder is not well vis ualized. IMPRESSION: 1. No renal calculi or hydronephrosis. 2. Mild cortical thinning of the kidneys. ACT 112: Negative or not required by law. The above report was generated using voice recognition software. It may contain grammatical, syntax o r spelling errors. Electronically signed by: Kb Montenegro M.D. 04/29/2022 3:48 PM
[2022-04-29] MEDS: cefTRIAXone SODIUM 2,000 MG in DEXTROSE 5% 50 ML IV SCH (18:16)
[2022-04-29] MEDS: ATORVASTATIN 40 MG TAB PO SCH (20:08)
[2022-04-30] MEDS: traMADol HCL 50 MG TABLET PO PRN ×3 (03:37→17:30)
[2022-04-30 07:35] LABS: Basophils # (auto) 0.03 K/uL (0-0.2); Basophils % (auto) 0.4 %; Eosinophils # (auto) 0.18 K/uL (0-0.50); Eosinophils % (auto) 2.5 %; Hematocrit (blood only) 38.3 % (40.1-51.0); Hemoglobin 11.6 g/dl (14.0-18.0); Immature Granulocytes # (auto) 0.04 K/uL (0.00-0.02); Immature Granulocytes % (auto) 0.6 %; Lymphocytes # (auto) 0.86 K/uL (1.2-3.4); Mean Corpuscular Hemoglobin 27.1 pg (25.0-34.0); Mean Corpuscular Hgb Conc 30.3 g/dL (32.0-36.0); Mean Corpuscular Volume 89.5 fL (80.0-100.0); Mean Platelet Volume 10.8 fL (9.4-12.4); Monocytes # (auto) 0.83 K/uL (0.24-0.82); Monocytes % (auto) 11.6 %; Neutrophils # (auto) 5.23 K/uL (1.4-6.5); Neutrophils % (auto) 72.9 %; Platelet Count 191 K/uL (130-400); RDW Coefficient of Variation 16.3 % (11.5-14.5); RDW Standard Deviation 53.1 fL (36.4-46.3); Red Blood Count 4.28 M/uL (4.63-6.08); White Blood Count 7.17 K/ul (4.8-10.8)
[2022-04-30] MEDS: INSULIN ASPART PER UNIT SC SCH ×4 (08:02→20:55)
[2022-04-30] MEDS: LANTUS PER UNIT CHARGE SQ SCH ×2 (08:02→20:55)
[2022-04-30] MEDS: hydrALAZINE HCL 25 MG TAB PO SCH (08:07)
[2022-04-30] MEDS: APIXABAN 5 MG TABLET PO SCH ×2 (08:08→20:09)
[2022-04-30] MEDS: amLODIPine BESYLATE 5 MG TAB PO SCH (08:08)
[2022-04-30] MEDS: ACETAMINOPHEN 500 MG TAB PO PRN ×3 (08:08→20:12)
[2022-04-30] MEDS: carvediloL 3.125 MG TAB PO SCH ×2 (08:08→20:10)
[2022-04-30] MEDS: LOSARTAN POTASSIUM 50 MG TAB PO SCH (08:08)
[2022-04-30 08:25] LABS: Albumin Globulin Ratio 0.9 (0.9-2); Albumin Level 3.3 gm/dl (3.4-5.0); Bilirubin,Total 0.4 mg/dl (0.2-1.0); Calcium 9.1 mg/dl (8.5-10.1); Creatinine Clr Calc Pharmacy 80.5 ml/min; Est GFR (African American) 62.9 ml/min; Est GFR (Non-African American) 54.3 ml/min; Globulin 3.8 gm/dl (2.5-4.0); Magnesium 2.3 mg/dl (1.7-2.4); Phosphorus 4.1 mg/dl (2.5-4.9); Potassium 5.2 mmol/L (3.5-5.1); Total Protein 7.1 gm/dl (6.0-8.3)
--- NOTE | 2022-04-30 09:33 | Cardiology Progress Note ---
Date of Service April 30, 2022 Assessment & Plan (1) Acute diastolic CHF (congestive heart failure): Plan: 2. Multivessel coronary artery disease post 2 vessel CABG 2016 (MENDEZ TO LAD, SVG TO LCX), known RCA [employer]IST 3. Acute renal insufficiency 4. Bradycardia, second degree AV block Mobitz type I, trifascicular block 5. History of atrial flutter status post ablation on anticoagulation 6. Type 2 diabetes--on insulin 7. Hypertension 8. Lymphedema CVI with venous ulcerations 9. Poor medical adherence 10. Suspected PAD 11. Nonsustained VT Volume status difficult to assess. Dyspnea on exertion, 02 requirement persists. LE edema worse and now new scrotal edema -- ? mostly lymphedema SCr improved with holding of diuretics. BNP minimally elevated For now recommend repeat trial of IV diuretics. If volume status remains unclear may consider RHC on monday. Will give Bumex 2mg IV this morning. Will be difficult to follow I/Os, will need standing weights. Follow BMP, repeat CXR in AM Needs LE compression Will increase hydralazine to 50mg TID -- titrate as needed Continue Eliquis Admission and Anticipated Discharge Date Admission Date: April 23, 2022 Subjective Primary concern today is difficulty urinating due to swelling in scrotum. Denies chest pain. Short of breath with any exertion. Unable to lie flat. Tele reviewed -- no events. Review of Systems Review of Systems: All systems reviewed & are unremarkable except as noted in HPI & below Physical Exam Physical Exam: General: uncomfortable HEENT: Sclerae anicteric Lungs: Decreased breath sounds at bases bilaterally, otherwise clear Cardiac: Regular rate and rhythm, 2 out of 6 systolic ejection murmur, unable to assess JVD Vascular: 2+ radial Abdomen: Soft, nontender. Scrotum red, swollen Extremities: Chronic venous stasis changes, evidence of stasis dermatitis with skin breakdown and oozing, 2+ edema below the knee. Psych: Alert orient x3, normal affect and mood Results & Data ([facility]) Vital Signs (Past 12 Hours) Vital Signs Temp Pulse Resp BP Pulse Ox O2 Del Method O2 Flow Rate 04/30/22 08:14 98.4 F 69 20 195/77 H 96 Nasal Cannula 3 04/30/22 08:00 98.2 F 72 18 171/67 H 95 Nasal Cannula 3 04/30/22 03:25 97.7 F 82 20 158/65 H 92 Nasal Cannula 3 04/29/22 23:19 98.6 F 60 20 167/70 H 96 Nasal Cannula 3 PG Care Time/CCT Total # of Minutes Spent Total Time Spent with Patient: Total time spent is greater than 50% in coordination of care (as documented) at patient's floor/unit and/or counseling patient: Coding Level of Care Code 33570 Subseq Hosp Care Lvl 3 Diagnoses Acute diastolic CHF (congestive heart failure) I50.31
[2022-04-30] MEDS ORDERED: BUMETANIDE 2 MG in SYRINGE 0 ML IV ONE ×2 (10:15→19:00)
[2022-04-30] MEDS ORDERED: hydrALAZINE HCL 25 MG TAB PO STA (10:37)
[2022-04-30] MEDS: hydrALAZINE TAB 50 MG TAB PO SCH ×2 (13:07→20:11)
[2022-04-30] MEDS ORDERED: oxyCODONE HCL IR 5 MG TAB (IMMEDIATE RELEASE) PO STA (15:20)
[2022-04-30] MEDS ORDERED: oxyCODONE HCL IR 5 MG TAB (IMMEDIATE RELEASE) PO PRN ×3 (15:21→18:45)
--- NOTE | 2022-04-30 15:48 | Hospitalist Progress Note ---
Date of Service April 30, 2022 Assessment & Plan (1) Acute diastolic CHF (congestive heart failure): Plan: Picture most consistent; more edema with scrotal swellingmost that I have seen; appears evolving CRS; noted BNP not impressive Noted dose of IV Bumex Could merit Bumex/Lasix drip based on clinical hypervolemia At present cautiously follow May be predominantly right-sided failure due to cor pulmonale; right heart cath strong consideration (2) Catheter-associated urinary tract infection: Plan: Not present on admission; Proteus sensitive to Rocephincontinue (3) Acute respiratory failure with hypoxia: Plan: Likely secondary to #1 though may have underlying CLINTON/obesity hypoventilationoutpatient evaluation for latter Otherwise as above (4) Coronary artery disease: Plan: Patient denies chest pain. Troponin normal. No acute ischemic changes present on EKG Continue meds as above Patient was to have a stent placed in the LLE but missed his appointment -Outpatient followup with Dr. Smalls (5) Atrial fibrillation: Plan: s/p ablation. Presently in SR with sinus arrhythmia. -Continue carvedilol but dose lowered -Continue anticoagulation with Apixaban (6) Type 2 diabetes mellitus, with long-term current use of insulin: Plan: Sugars reasonableno change for now (7) Dyslipidemia: Plan: Chronic. Continue Atorvastatin (8) Chronic venous stasis dermatitis of both lower extremities: Plan: Dressing in place -Wound care BID -Continue compression stockings Wound care consult (9) Hypertension: Plan: BP acceptable; room to uptitrate hydralazine; no change at present (10) Acute renal insufficiency: Plan: Improvement in parameters after 1 dose of Bumex being held but now clinical hypervolemiaquite prominent; as noted above appears evolving CRS and may be more right-sided As above Plan Noted NSVT 5 [address]Dr. Smalls follow-up appreciated Observe mild hyperkalemia; observe mild hyponatremia Symptomatic treatment of scrotal swellingat present nothing to suggest epididymoorchitis Admission and Anticipated Discharge Date Admission Date: April 23, 2022 Subjective Follow-up of presentation of shortness of breathincreased edema, scrotal swelling Physical Exam Physical Exam: Constitutional and general: No acute distress, looks biologic age Head and face: No puffiness, atraumatic Eyes: No scleral icterus, extraocular movements normal Neck: Supple, no JVD Musculoskeletal: No acute joint swelling, no bony abnormalities Skin/dermatologic/integument: No rash, no purpura Hematologic and lymphatic: pallor +, no petechia Gastrointestinal/abdomen: distended, soft, nonacute Neurologic: Cranial nerves intact, nonfocal Psychiatry: Awake, alert, pleasant, communicative Cardiovascular: Heart rhythm regular, no rub, systolic murmur 3 x 6, no gallop Respiratory: Chest movements equal, no use of accessory muscles, no adventitious sounds but overall decreased breath sounds Extremities: Edema++; stasis changes Scrotal swelling Results & Data Results & Data ([facility]) Vital Signs (Past 12 Hours) Vital Signs Temp Pulse Pulse Resp BP Pulse Ox O2 Del Method 04/30/22 07:45 Nasal Cannula 04/30/22 12:20 36.7 C 67 18 182/81 H 96 Nasal Cannula 04/30/22 07:00 65 04/30/22 08:14 36.9 C 69 20 195/77 H 96 Nasal Cannula 04/30/22 08:00 36.8 C 72 18 171/67 H 95 Nasal Cannula O2 Flow Rate 04/30/22 07:45 3 04/30/22 12:20 3 04/30/22 07:00 04/30/22 08:14 3 04/30/22 08:00 3 Laboratory Results Laboratory Results - last 24 hr 04/29/22 04/29/22 04/30/22 16:23 20:10 06:59 WBC 7.17 RBC 4.28 L Hgb 11.6 L Hct 38.3 L MCV 89.5 MCH 27.1 MCHC 30.3 L RDW Std Deviation 53.1 H RDW Coeff of Rebecca 16.3 H Plt Count 191 MPV 10.8 Immature Gran % (Auto) 0.6 Neut % (Auto) 72.9 Lymph % (Auto) 12.0 [place] % (Auto) 11.6 Eos % (Auto) 2.5 Baso % (Auto) 0.4 Neut # (Auto) 5.23 Lymph # (Auto) 0.86 L [place] # (Auto) 0.83 H Eos # (Auto) 0.18 Baso # (Auto) 0.03 Immature Gran # (Auto) 0.04 H Sodium Potassium Chloride Carbon Dioxide Anion Gap BUN Creatinine Est Cr Clr Drug Dosing Est GFR ( Amer) Est GFR (Non-Af Amer) POC Glucose 147 H 172 H Fasting Glucose Calcium Phosphorus Magnesium Total Bilirubin AST ALT Alkaline Phosphatase B-Natriuretic Peptide Total Protein Albumin Globulin Albumin/Globulin Ratio 04/30/22 04/30/22 04/30/22 06:59 06:59 07:23 WBC RBC Hgb Hct MCV MCH MCHC RDW Std Deviation RDW Coeff of Rebecca Plt Count MPV Immature Gran % (Auto) Neut % (Auto) Lymph % (Auto) [place] % (Auto) Eos % (Auto) Baso % (Auto) Neut # (Auto) Lymph # (Auto) [place] # (Auto) Eos # (Auto) Baso # (Auto) Immature Gran # (Auto) Sodium 135 L Potassium 5.2 H Chloride 97 L Carbon Dioxide 32 Anion Gap 6 BUN 64 H Creatinine 1.32 Est Cr Clr Drug Dosing 80.5 Est GFR ( Amer) 62.9 Est GFR (Non-Af Amer) 54.3 POC Glucose 166 H Fasting Glucose 169 H Calcium 9.1 Phosphorus 4.1 Magnesium 2.3 Total Bilirubin 0.4 AST 11 L ALT 17 Alkaline Phosphatase 212 H B-Natriuretic Peptide 117 H Total Protein 7.1 Albumin 3.3 L Globulin 3.8 Albumin/Globulin Ratio 0.9 04/30/22 11:38 WBC RBC Hgb Hct MCV MCH MCHC RDW Std Deviation RDW Coeff of Rebecca Plt Count MPV Immature Gran % (Auto) Neut % (Auto) Lymph % (Auto) [place] % (Auto) Eos % (Auto) Baso % (Auto) Neut # (Auto) Lymph # (Auto) [place] # (Auto) Eos # (Auto) Baso # (Auto) Immature Gran # (Auto) Sodium Potassium Chloride Carbon Dioxide Anion Gap BUN Creatinine Est Cr Clr Drug Dosing Est GFR ( Amer) Est GFR (Non-Af Amer) POC Glucose 163 H Fasting Glucose Calcium Phosphorus Magnesium Total Bilirubin AST ALT Alkaline Phosphatase B-Natriuretic Peptide Total Protein Albumin Globulin Albumin/Globulin Ratio PG Care Time/CCT Total # of Minutes Spent Total Time Spent with Patient: Total time spent is greater than 50% in coordination of care (as documented) at patient's floor/unit and/or counseling patient: Coding Level of Care Code 57671 Subseq Hosp Care Lvl 2 Diagnoses Acute diastolic CHF (congestive heart failure) I50.31 Catheter-associated urinary tract infection T83.511A; N39.0 Acute respiratory failure with hypoxia J96.01 Coronary artery disease I25.10 Atrial fibrillation I48.91 Type 2 diabetes mellitus, with long-term current use of insulin E11.9; Z79.4 Dyslipidemia E78.5 Chronic venous stasis dermatitis of both lower extremities I87.2 Hypertension I10 Acute renal insufficiency N28.9
[2022-04-30] MEDS: cefTRIAXone SODIUM 2,000 MG in DEXTROSE 5% 50 ML IV SCH (18:00)
--- NOTE | 2022-04-30 19:34 | Ultrasound Report ---
ULTRASOUND TESTES AND SCROTUM CLINICAL HISTORY: Scrotal pain and swelling. COMPARISON STUDY: Scrotal ultrasound dated 12/03/2014. TECHNIQUE: Real-time, grayscale, and color Doppler sonography of the testes and scrotum is performed. Images are reviewed in the transverse and longitudinal planes. FINDINGS: The testes are mildly atrophic and slightly heterogeneous. The right testis measures 3.7 x 3.6 x 3.2 cm and the left testis measures 3.3 x 3.0 x 2.8 cm. No intratesticular mass is seen. Testicular blood flow is normal and symmetric. Normal Doppler waveforms are identified in both testes. The epididymal heads are grossly unremarkable but not well visualized. There is marked scrotal wall thickening. Hyperemia is shown on color imaging. No varicocele or hydroc gege is seen. IMPRESSION: 1. No acute sonographic abnormality is seen involving the testes. 2. There is marked scrotal wall thickening and edema with hyperemia on color imaging. Correlate clini brionna for evidence of cellulitis. ACT 112: Negative or not required by law. Electronically signed by: Zak Kemp M.D. 04/30/2022 7:32 PM
[2022-04-30] MEDS: ATORVASTATIN 40 MG TAB PO SCH (20:09)
[2022-05-01] MEDS: oxyCODONE HCL IR 5 MG TAB (IMMEDIATE RELEASE) PO PRN ×2 (00:08→20:46)
[2022-05-01] MEDS: traMADol HCL 50 MG TABLET PO PRN ×2 (00:09→20:47)
[2022-05-01 06:15] LABS: Base Excess VBG 9.2 mEq/L; Basophils # (auto) 0.05 K/uL (0-0.2); Basophils % (auto) 0.6 %; Eosinophils # (auto) 0.15 K/uL (0-0.50); Eosinophils % (auto) 1.7 %; HCO3 VBG 37 mmol/L; Hematocrit (blood only) 37.1 % (40.1-51.0); Hemoglobin 11.3 g/dl (14.0-18.0); Immature Granulocytes # (auto) 0.03 K/uL (0.00-0.02); Immature Granulocytes % (auto) 0.3 %; Lymphocytes # (auto) 0.89 K/uL (1.2-3.4); Lymphocytes % (auto) 10.3 %; Mean Corpuscular Hgb Conc 30.5 g/dL (32.0-36.0); Mean Corpuscular Volume 88.5 fL (80.0-100.0); Mean Platelet Volume 10.7 fL (9.4-12.4); Monocytes # (auto) 1.03 K/uL (0.24-0.82); Monocytes % (auto) 11.9 %; Neutrophils # (auto) 6.49 K/uL (1.4-6.5); Neutrophils % (auto) 75.2 %; Oxygen Saturation VBG 91.4 %; PCO2 VBG 66 mmHg (38-50); PO2 VBG 61 mmHg; Platelet Count 187 K/uL (130-400); RDW Coefficient of Variation 16.1 % (11.5-14.5); RDW Standard Deviation 52.5 fL (36.4-46.3); Red Blood Count 4.19 M/uL (4.63-6.08); White Blood Count 8.64 K/ul (4.8-10.8); pH VBG 7.36 (7.36-7.41)
[2022-05-01 06:46] LABS: Albumin Globulin Ratio 0.9 (0.9-2); Albumin Level 3.1 gm/dl (3.4-5.0); Bilirubin,Total 0.4 mg/dl (0.2-1.0); Creatinine Clr Calc Pharmacy 81.6 ml/min; Est GFR (African American) 64.1 ml/min; Est GFR (Non-African American) 55.3 ml/min; Globulin 3.4 gm/dl (2.5-4.0); Magnesium 2.2 mg/dl (1.7-2.4); Phosphorus 3.6 mg/dl (2.5-4.9); Potassium 5.1 mmol/L (3.5-5.1); Total Protein 6.5 gm/dl (6.0-8.3)
[2022-05-01] MEDS: INSULIN ASPART PER UNIT SC SCH ×4 (08:27→21:49)
[2022-05-01] MEDS: hydrALAZINE TAB 50 MG TAB PO SCH ×3 (08:28→20:45)
[2022-05-01] MEDS: LOSARTAN POTASSIUM 50 MG TAB PO SCH (08:28)
[2022-05-01] MEDS: amLODIPine BESYLATE 5 MG TAB PO SCH (08:28)
[2022-05-01] MEDS: carvediloL 3.125 MG TAB PO SCH ×2 (08:29→20:44)
[2022-05-01] MEDS: APIXABAN 5 MG TABLET PO SCH ×2 (08:29→20:46)
[2022-05-01] MEDS: LANTUS PER UNIT CHARGE SQ SCH ×2 (08:32→21:49)
--- NOTE | 2022-05-01 08:40 | Urology Consultation ---
Date of Consultation May 01, 2022 Assessment & Plan (1) Scrotal edema: Plan 72-year-old male with scrotal edema likely related to fluid overload Discussed with patient that there is no surgical management to help this issue. It is related to third spacing of fluid. Recommended scrotal elevation with a towel as well as tight fitting underwear. I do not have any concern for infection based on exam but not unreasonable to continue antibiotics while patient is in-house due to his history of scrotal infections Recommend continued fluid overload management. Not unreasonable to treat positive urine culture however this may likely be contaminated based on body habitus preventing clean-catch collection technique Urology to sign off. No urologic follow-up necessary. Discussed with patient that better fluid management at home and weight loss would be his most benefi cial management. History of Present Illness Reason for Consultation: Scrotal swelling Attending Physician: Reba Baumann MD History of Present Illness 72-year-old male admitted for respiratory failure likely from exacerbation of chronic CHF. He has had persistent scrotal discomfort which medicine thought was due to edema. Scrotal ultrasound was performed on 04/30/2022 which I independently reviewed. This shows normal bilateral testicles and scrotal wall thickening. He had a renal ultrasound done on 04/29/2022 which does not show any renal calculi or hydronephrosis. He is currently on ceftriaxone and was pr eviously on Bumex. Patient reports that his swelling has worsened since he was admitted to the hospital. He does report these had a history of scrotal infection that required surgical intervention. Denies some dysuria but otherwise is urinating without any issues. His urine culture did grow out Proteus mirabilis however doubt this was a clean-catch based on his anatomy. Allergies Allergy/AdvReac Type Severity Reaction Status Date / Time sulfamethoxazole AdvReac nausea Verified 04/23/22 21:35 [From Bactrim] trimethoprim [From Bactrim] AdvReac nausea Verified 04/23/22 21:35 Home Medications Medication Instructions Recorded Confirmed Type nitroglycerin 0.4 mg sublingual 0.4 mg sublingual Q5M PRN chest 05/16/19 04/23/22 History tablet pain metformin 500 mg tablet,extended 1,000 mg PO BID #360 tabs 07/28/21 04/23/22 Rx release 24 hr glipizide 5 mg tablet 5 mg PO BIDM #180 tabs 08/13/21 04/23/22 Rx albuterol sulfate 90 mcg/actuation 2 puff inhalation QID PRN 09/02/21 04/23/22 History aerosol inhaler Shortness Of Breath losartan 100 mg tablet 100 mg PO DAILY #90 tabs 09/06/21 04/23/22 Rx atorvastatin 80 mg tablet 80 mg PO HS #90 tabs 11/05/21 04/23/22 Rx apixaban 5 mg tablet (Eliquis) 5 mg PO BID #180 tabs 02/01/22 04/23/22 Rx acetaminophen 500 mg tablet 500 mg PO Q4H PRN pain #360 tabs 03/11/22 04/23/22 Rx (Tylenol Extra Strength) amlodipine 5 mg tablet 5 mg PO DAILY #90 tabs 03/11/22 04/23/22 Rx carvedilol 6.25 mg tablet 6.25 mg PO BID #180 tabs 03/11/22 04/23/22 Rx insulin glargine U-300 conc 300 75 unit (0.25 mL) subcut HS #4.5 mL 03/16/22 04/23/22 Rx unit/mL (1.5 mL) subcutaneous pen (Toujeo SoloStar U-300 Insulin) tramadol 50 mg tablet See Rx Instructions PO Q6H PRN 04/14/22 04/23/22 Rx pain #120 tabs ergocalciferol (vitamin D2) 1,250 1,250 mcg PO WK 04/23/22 04/23/22 History mcg (50,000 unit) capsule Patient History Medical History Arthritis Atrial fibrillation Atrial flutter with controlled response Bilateral primary osteoarthritis of knee BPH (benign prostatic hyperplasia) Cellulitis, scrotum Chronic combined systolic and diastolic congestive heart failure Chronic venous stasis dermatitis of both lower extremities Coronary artery disease Degenerative arthritis of knee, bilateral Diabetic nephropathy associated with type 2 diabetes mellitus Diabetic peripheral neuropathy associated with type 2 diabetes mellitus Dysesthesia Dyslipidemia Encounter for wound care Harley's gangrene Glaucoma Hypertension Hypoxia Ischemic cardiomyopathy Left leg cellulitis Lymphedema Morbid obesity Multiple open wounds of lower extremity Open wound of scrotum Paroxysmal SVT (supraventricular tachycardia) Peripheral arterial disease SARS-CoV-2 positive Sick sinus syndrome Tobacco use Type 2 diabetes mellitus, with long-term current use of insulin Vitamin D deficiency Surgical History History of testicular surgery Hx of CABG (2016) S/P ablation of atrial fibrillation (2014) Family History Brother Diabetes Hypertension Alcohol abuse Kidney stones Cancer Sister Breast cancer Hypertension Denies family history of Ovarian cancer Prostate cancer Myocardial infarction Colorectal cancer Social History Smoking Status: Former smoker Tobacco Type: Cigarettes and Smokeless Tobacco (Dip or Chew) Age Started Using Tobacco: 22; packs per day: 2; Cigarettes Per Day: QUIT SMOKING AT AGE 42- STILL CHEWS TOBACCO; Second Hand Exposure: No; Hx Alcohol Use: Yes Alcohol type: beer Hx Substance Use: No Preferred Language: Slovenian Communication Ability: Effective Visual Impairment: No Limitations Hearing Ability: Hard of Hearing Pc Tech Required: No Beliefs That Will Affect Care: None marital status: Current Living Situation: Family Current Living Situation Comment: lives with ex , daughter, granddaughter, grandson 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 status: 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 How many Children do You have: 3 Feels Safe at Home: Yes Childhood Exposure to Second-Hand Smoke: Yes caffeine: Yes during the past year weight has: remained stable Dental Care, Regularly: No Physical Activity Frequency: Does not Exercise Seatbelt Use: never Sunscreen Use: Yes Assistive Devices: Walker Review of Systems Review of Systems: 14 point review of systems negative outside of what is listed above in HPI Physical Exam Physical Exam: General: Alert and oriented, no acute distress HEENT: Normocephalic, mucous membranes moist Pulmonary: Nonlabored respirations Abdomen: Nondistended, obese : Significant scrotal edema causing buried penis. He is tender to examination. Mild erythema throughout. Unable to palpate testicles due to edema. Edema appears most consistent with third spacing. Extremities: Edema throughout all 4 extremities Neuro: No gross deficits Skin: Warm, dry, no rashes noted Results & Data ([facility]) Vital Signs (Past 12 Hours) Vital Signs Temp Pulse Resp BP BP Pulse Ox O2 Del Method 05/01/22 08:15 36.9 C 71 16 175/71 H 94 Nasal Cannula 05/01/22 05:00 36.8 C 79 18 167/70 H 92 Nasal Cannula 04/30/22 23:32 36.8 C 75 20 156/68 H 94 Nasal Cannula 04/30/22 21:00 Nasal Cannula O2 Flow Rate 05/01/22 08:15 05/01/22 05:00 5 04/30/22 23:32 5 04/30/22 21:00 3 PG Care Time/CCT Total # of Minutes Spent Total Time Spent with Patient: Total time spent is greater than 50% in coordination of care (as documented) at patient's floor/unit and/or counseling patient: [place] [address] Initial Inpt Care Lvl 2 Patient Type New Diagnoses Scrotal edema N50.89
[2022-05-01] MEDS ORDERED: BUMETANIDE 2 MG in SYRINGE 0 ML IV ONE (12:45)
--- NOTE | 2022-05-01 12:54 | Hospitalist Progress Note ---
Date of Service May 01, 2022 Assessment & Plan (1) Acute diastolic CHF (congestive heart failure): Plan: Picture most consistent though likely has a component of cor pulmonalecontinue Lasix; recent issue is painful scrotal discomfort; declines scrotal support; con tinue diuresis, today appears better Bumex 2 mg IV twice daily today; cardiology considering right heart cath (2) Catheter-associated urinary tract infection: Plan: Not present on admission; Proteus sensitive to Rocephincontinue to soon switch to p.o. (3) Acute respiratory failure with hypoxia: Plan: And with hypercapnia; likely combination of diastolic heart failure and CLINTON/obesity hypoventilation; pulmonary inputlikely merits nightly NIV though at discharge may be an issue without a formal sleep study (4) Coronary artery disease: Plan: Patient denies chest pain. Troponin normal. No acute ischemic changes present on EKG Continue meds as above Patient was to have a stent placed in the LLE but missed his appointment -Outpatient followup with Dr. Smalls (5) Atrial fibrillation: Plan: s/p ablation. Presently in SR with sinus arrhythmia. -Continue carvedilol but dose lowered -Continue anticoagulation with Apixaban (6) Type 2 diabetes mellitus, with long-term current use of insulin: Plan: Sugars reasonableno change for now (7) Dyslipidemia: Plan: Chronic. Continue Atorvastatin (8) Chronic venous stasis dermatitis of both lower extremities: Plan: Dressing in place -Wound care BID -Continue compression stockings Wound care consult (9) Hypertension: Plan: BP recent high trend; hydralazine uptitrated yesterday; no more changes today (10) Acute renal insufficiency: Plan: Suspect CRSstable; continue diuresis (11) Elevated alkaline phosphatase level: Plan: Has been in this range before; no definite clinical correlateinclined to observe; if persists or worse can consider further assessment Plan Noted NSVT 6 days agoDr. Smalls follow-up appreciated Mild hyponatremiamodest fluid restriction Symptomatic treatment of scrotal swellingat present nothing to suggest epididymoorchitis; one-time urology input appreciated Admission and Anticipated Discharge Date Admission Date: April 23, 2022 Subjective Follow-up of presentation with shortness of breathfeels better than yesterday, scrotal discomfort less Physical Exam Physical Exam: Constitutional and general: No acute distress, looks biologic age Head and face: No puffiness, atraumatic Eyes: No scleral icterus, extraocular movements normal Neck: Supple, no JVD Musculoskeletal: No acute joint swelling, no bony abnormalities Skin/dermatologic/integument: No rash, no purpura Hematologic and lymphatic: pallor +, no petechia Gastrointestinal/abdomen: distended, soft, nonacute Neurologic: Cranial nerves intact, nonfocal Psychiatry: Awake, alert, pleasant, communicative Cardiovascular: Heart rhythm regular, no rub, systolic murmur 3 x 6, no gallop Respiratory: Chest movements equal, no use of accessory muscles, no adventitious sounds but overall decreased breath sounds Extremities: Edema++; stasis changes Scrotal swellingdifficult to assess much change Results & Data Results & Data ([facility]) Vital Signs (Past 12 Hours) Vital Signs Temp Pulse Resp BP BP Pulse Ox Pulse Ox 05/01/22 12:04 36.8 C 72 18 165/96 H 94 05/01/22 11:48 93 05/01/22 11:32 83 L 05/01/22 08:15 36.9 C 71 16 175/71 H 94 05/01/22 05:00 36.8 C 79 18 167/70 H 92 Pulse Ox O2 Del Method O2 Flow Rate O2 Flow Rate O2 Flow Rate 05/01/22 12:04 Nasal Cannula 5 05/01/22 11:48 05/01/22 11:32 93 0 3 05/01/22 08:15 Nasal Cannula 05/01/22 05:00 Nasal Cannula 5 Laboratory Results Vital Signs Temp Pulse Pulse Resp BP BP Pulse Ox 05/01/22 12:04 36.8 C 72 18 165/96 H 94 05/01/22 11:48 93 05/01/22 11:32 05/01/22 08:15 36.9 C 71 16 175/71 H 94 05/01/22 05:00 36.8 C 79 18 167/70 H 92 04/30/22 23:32 36.8 C 75 20 156/68 H 94 04/30/22 21:00 04/30/22 14:15 68 04/30/22 16:07 36.6 C 69 18 170/61 H 95 Pulse Ox Pulse Ox O2 Del Method O2 Flow Rate O2 Flow Rate O2 Flow Rate 05/01/22 12:04 Nasal Cannula 5 05/01/22 11:48 05/01/22 11:32 83 L 93 0 3 05/01/22 08:15 Nasal Cannula 05/01/22 05:00 Nasal Cannula 5 04/30/22 23:32 Nasal Cannula 5 04/30/22 21:00 Nasal Cannula 3 04/30/22 14:15 04/30/22 16:07 Room Air Intake and Output 04/30/22 05/01/22 05/01/22 22:59 06:59 14:59 Intake Total 130 / 920 120 / 920 Output Total 400 / 950 550 / 950 250 / 250 Balance -270 / -30 -430 / -30 -250 / -250 Intake: IV 70 / 70 cefTRIAXone SODIUM 2,000 mg In 70 / 70 Dextrose 5% 50 ml @ 100 mls/hr IV Q24H [facility] Rx#:[id number] Oral 60 / 850 120 / 850 Output: Urine 400 / 950 550 / 950 250 / 250 PG Care Time/CCT Total # of Minutes Spent Total Time Spent with Patient: Total time spent is greater than 50% in coordination of care (as documented) at patient's floor/unit and/or counseling patient: Coding Level of Care Code 15455 Subseq Hosp Care Lvl 2 Diagnoses Acute diastolic CHF (congestive heart failure) I50.31 Catheter-associated urinary tract infection T83.511A; N39.0 Acute respiratory failure with hypoxia J96.01 Coronary artery disease I25.10 Atrial fibrillation I48.91 Type 2 diabetes mellitus, with long-term current use of insulin E11.9; Z79.4 Dyslipidemia E78.5 Chronic venous stasis dermatitis of both lower extremities I87.2 Hypertension I10 Acute renal insufficiency N28.9 Elevated alkaline phosphatase level R74.8
--- NOTE | 2022-05-01 17:21 | Pulmonary Consultation ---
Date of Consultation May 01, 2022 Assessment & Plan (1) Acute diastolic CHF (congestive heart failure): In order to accurately assess this patient's urine output, a Peña catheter is of utmost importance. I think the risks and benefits are in favor of placement of a Peña catheter to accurately assess volume status. I have placed an order for Peña catheter and discussed this with the nurse. Of note, nursing staff has attempted to place the Peña catheter, but due to the patient's profound scrotal edema and was unable to be placed. Urology is following the patient and would recommend consultation with urology service in terms of placement of a Peña. Will defer to the hospitalist service. (2) Cor pulmonale: The echo findings are difficult to interpret given his body habitus. I suspect that he has significant pulmonary hypertension due to poorly controlled CLINTON, severe diastolic heart failure and OHS. The treatment for this is diuretic therapy, weight loss, supplemental oxygen and compliance with BiPAP. (3) Obesity hypoventilation syndrome: I strongly encouraged the use of BiPAP anytime the patient is sleeping. He would benefit from an outpatient polysomnography to determine the exact settings that he needs to treat his OHS/CLINTON. In the interim, we will recommend empiric BiPAP therapy while in the hospital. (4) Catheter-associated urinary tract infection: Patient had pansensitive Proteus urinary tract infection associated with a Peña catheter earlier this admission. He is asymptomatic at this time. The catheter has been removed for about 3 days. New catheter can be reinserted to accurately assess urine output. This was discussed with the hospitalist over [place] text and he agrees. Urology will be consulted by the hospitalist service. History of Present Illness Reason for Consultation: Acute on chronic hypercapnic respiratory failure Attending Physician: Reba Baumann MD History of Present Illness 72-year-old male with a past medical history of coronary artery disease status post grafting in 2016, type 2 diabetes mellitus, morbid obesity with a BMI of 48, atrial fibrillation, lymphedema, poor medical compliance, nonsustained ventricular tachycardia and sick sinus syndrome who presented to the hospital due to worsening respiratory distress. He was found to be in volume overload. He is followed by cardiology for pulmonary hypertension, diastolic heart failure and fluid retention. Urology has also been consulted for severe scrotal edema. He had an echo on April 24 which revealed an LVEF of 55 to 60%. The study was overall poor and the right ventricle was poorly visualized. He had a chest x- ray on the which revealed layering pleural effusion with bibasilar consolidation. Serial VBG's have been reviewed. His most recent VBG is from 6 AM this morning which revealed a pH of 7.36 and a PCO2 of 66. As far as his respiratory treatments, he is currently on Rocephin 2 g daily and Bumex 2 mg twice daily. He is also on Eliquis 5 mg twice daily for atrial flutter. The patient is frustrated and notes that his scrotum is very swollen. He has refused BiPAP throughout this hospital stay. He does not have a Peña catheter in place and is questioning the need for Peña catheter. Apparently earlier in the day he urinated on the floor. He easily falls asleep during mid conversation. With the nurse in the room, we were able to get his attention and have a more in-depth discussion. He notes increasing shortness of breath over the past several weeks. He denies any chest pain. No fevers or chills. He is overall frustrated with his situation. Allergies Allergy/AdvReac Type Severity Reaction Status Date / Time sulfamethoxazole AdvReac nausea Verified 04/23/22 21:35 [From Bactrim] trimethoprim [From Bactrim] AdvReac nausea Verified 04/23/22 21:35 Home Medications Medication Instructions Recorded Confirmed Type nitroglycerin 0.4 mg sublingual 0.4 mg sublingual Q5M PRN chest 05/16/19 04/23/22 History tablet pain metformin 500 mg tablet,extended 1,000 mg PO BID #360 tabs 07/28/21 04/23/22 Rx release 24 hr glipizide 5 mg tablet 5 mg PO BIDM #180 tabs 08/13/21 04/23/22 Rx albuterol sulfate 90 mcg/actuation 2 puff inhalation QID PRN 09/02/21 04/23/22 History aerosol inhaler Shortness Of Breath losartan 100 mg tablet 100 mg PO DAILY #90 tabs 09/06/21 04/23/22 Rx atorvastatin 80 mg tablet 80 mg PO HS #90 tabs 11/05/21 04/23/22 Rx apixaban 5 mg tablet (Eliquis) 5 mg PO BID #180 tabs 02/01/22 04/23/22 Rx acetaminophen 500 mg tablet 500 mg PO Q4H PRN pain #360 tabs 03/11/22 04/23/22 Rx (Tylenol Extra Strength) amlodipine 5 mg tablet 5 mg PO DAILY #90 tabs 03/11/22 04/23/22 Rx carvedilol 6.25 mg tablet 6.25 mg PO BID #180 tabs 03/11/22 04/23/22 Rx insulin glargine U-300 conc 300 75 unit (0.25 mL) subcut HS #4.5 mL 03/16/22 04/23/22 Rx unit/mL (1.5 mL) subcutaneous pen (Toujeo SoloStar U-300 Insulin) tramadol 50 mg tablet See Rx Instructions PO Q6H PRN 04/14/22 04/23/22 Rx pain #120 tabs ergocalciferol (vitamin D2) 1,250 1,250 mcg PO WK 04/23/22 04/23/22 History mcg (50,000 unit) capsule Patient History Medical History (Updated 05/01/22 @ 18:10 by Johnny Bowden MD) Arthritis Atrial fibrillation Atrial flutter with controlled response Bilateral primary osteoarthritis of knee BPH (benign prostatic hyperplasia) Catheter-associated urinary tract infection Cellulitis, scrotum Chronic combined systolic and diastolic congestive heart failure Chronic venous stasis dermatitis of both lower extremities Cor pulmonale Coronary artery disease Degenerative arthritis of knee, bilateral Diabetic nephropathy associated with type 2 diabetes mellitus Diabetic peripheral neuropathy associated with type 2 diabetes mellitus Dysesthesia Dyslipidemia Encounter for wound care Harley's gangrene Glaucoma Hypertension Hypoxia Ischemic cardiomyopathy Left leg cellulitis Lymphedema Morbid obesity Multiple open wounds of lower extremity Obesity hypoventilation syndrome Open wound of scrotum Paroxysmal SVT (supraventricular tachycardia) Peripheral arterial disease SARS-CoV-2 positive Scrotal edema Sick sinus syndrome Tobacco use Type 2 diabetes mellitus, with long-term current use of insulin Vitamin D deficiency Surgical History History of testicular surgery Hx of CABG (2015) S/P ablation of atrial fibrillation (2014) Family History Brother Diabetes Hypertension Alcohol abuse Kidney stones Cancer Sister Breast cancer Hypertension Denies family history of Ovarian cancer Prostate cancer Myocardial infarction Colorectal cancer Social History Smoking Status: Former smoker Tobacco Type: Cigarettes and Smokeless Tobacco (Dip or Chew) Age Started Using Tobacco: 22; packs per day: 2; Cigarettes Per Day: QUIT SMOKING AT AGE 42- STILL CHEWS TOBACCO; Second Hand Exposure: No; Hx Alcohol Use: Yes Alcohol type: beer Hx Substance Use: No Preferred Language: Algerian Communication Ability: Effective Visual Impairment: No Limitations Hearing Ability: Hard of Hearing Crystalizer Operator Required: No Beliefs That Will Affect Care: None marital status: Current Living Situation: Family Current Living Situation Comment: lives with ex , daughter, granddaughter, grandson 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 Eyes: Pupils are equal round and reactive to light. Conjunctivae are normal. Anicteric sclera. Ears nose, mouth and throat: Mallampati class 3. Normal posterior oropharynx. Uvula is midline. Neck: Trachea is midline. Visual inspection is normal. Respiratory: Clear to auscultation bilaterally. No use of accessory muscles. No significant clubbing noted. Cardiovascular: Regular rate and rhythm. Profound lower extremity edema and scrotal edema. Gastrointestinal: Normal bowel sounds, soft, nontender and nondistended. No hepatosplenomegaly noted. Musculoskeletal: No cyanosis. Patient is able to move all extremities. Skin: No rashes, warm dry and intact. Neurologic: No obvious focal neurological deficits seen. Psychiatric: Alert and oriented x3 with an anxious mood Results & Data Results & Data ([facility]) Vital Signs (Past 12 Hours) Vital Signs Temp Pulse Pulse Resp BP Pulse Ox Pulse Ox 05/01/22 16:56 37.0 C 72 20 166/72 H 96 05/01/22 08:00 66 05/01/22 08:00 08/21/22 12:04 36.8 C 72 18 165/96 H 94 05/01/22 11:48 93 05/01/22 11:32 83 L 05/01/22 08:15 36.9 C 71 16 175/71 H 94 Pulse Ox O2 Del Method O2 Flow Rate O2 Flow Rate O2 Flow Rate 05/01/22 16:56 Nasal Cannula 5 05/01/22 08:00 05/01/22 08:00 Nasal Cannula 5 05/01/22 12:04 Nasal Cannula 5 05/01/22 11:48 05/01/22 11:32 93 0 3 05/01/22 08:15 Nasal Cannula PG Care Time/CCT Total # of Minutes Spent Total Time Spent with Patient: Total time spent is greater than 50% in coordination of care (as documented) at patient's floor/unit and/or counseling patient: Coding Level of Care Code 56236 Initial Inpt Care Lvl 3 Diagnoses Acute diastolic CHF (congestive heart failure) I50.31 Cor pulmonale I27.81 Obesity hypoventilation syndrome E66.2 Catheter-associated urinary tract infection T83.511A; N39.0
[2022-05-01] MEDS: BUMETANIDE 2 MG in SYRINGE 0 ML IV SCH (17:41)
[2022-05-01] MEDS: ATORVASTATIN 40 MG TAB PO SCH (20:45)
[2022-05-02 06:29] LABS: Basophils # (auto) 0.06 K/uL (0-0.2); Basophils % (auto) 0.7 %; Eosinophils # (auto) 0.16 K/uL (0-0.50); Eosinophils % (auto) 1.8 %; Hematocrit (blood only) 37.8 % (40.1-51.0); Hemoglobin 11.2 g/dl (14.0-18.0); Immature Granulocytes # (auto) 0.05 K/uL (0.00-0.02); Immature Granulocytes % (auto) 0.6 %; Lymphocytes # (auto) 0.98 K/uL (1.2-3.4); Lymphocytes % (auto) 10.9 %; Mean Corpuscular Hemoglobin 26.5 pg (25.0-34.0); Mean Corpuscular Hgb Conc 29.6 g/dL (32.0-36.0); Mean Corpuscular Volume 89.6 fL (80.0-100.0); Mean Platelet Volume 11.1 fL (9.4-12.4); Monocytes # (auto) 1.06 K/uL (0.24-0.82); Monocytes % (auto) 11.8 %; Neutrophils % (auto) 74.2 %; Platelet Count 231 K/uL (130-400); RDW Coefficient of Variation 16.2 % (11.5-14.5); RDW Standard Deviation 52.9 fL (36.4-46.3); Red Blood Count 4.22 M/uL (4.63-6.08); White Blood Count 9.01 K/ul (4.8-10.8)
[2022-05-02 07:00] LABS: Albumin Globulin Ratio 0.9 (0.9-2); Albumin Level 3.2 gm/dl (3.4-5.0); Bilirubin,Total 0.5 mg/dl (0.2-1.0); Calcium 9.3 mg/dl (8.5-10.1); Creatinine Clr Calc Pharmacy 91.1 ml/min; Est GFR (African American) 74.3 ml/min; Est GFR (Non-African American) 64.1 ml/min; Globulin 3.5 gm/dl (2.5-4.0); Magnesium 2.2 mg/dl (1.7-2.4); Phosphorus 3.6 mg/dl (2.5-4.9); Potassium 5.2 mmol/L (3.5-5.1); Total Protein 6.7 gm/dl (6.0-8.3)
[2022-05-02] MEDS: hydrALAZINE TAB 50 MG TAB PO SCH ×3 (08:40→20:39)
[2022-05-02] MEDS: LOSARTAN POTASSIUM 50 MG TAB PO SCH (08:40)
[2022-05-02] MEDS: amLODIPine BESYLATE 5 MG TAB PO SCH (08:40)
[2022-05-02] MEDS: carvediloL 3.125 MG TAB PO SCH ×2 (08:40→20:40)
[2022-05-02] MEDS: APIXABAN 5 MG TABLET PO SCH ×2 (08:41→20:39)
[2022-05-02] MEDS: BUMETANIDE 2 MG in SYRINGE 0 ML IV SCH ×2 (08:41→16:58)
[2022-05-02] MEDS: oxyCODONE HCL IR 5 MG TAB (IMMEDIATE RELEASE) PO PRN ×3 (08:49→20:38)
[2022-05-02] MEDS: INSULIN ASPART PER UNIT SC SCH ×4 (08:50→20:37)
[2022-05-02] MEDS: LANTUS PER UNIT CHARGE SQ SCH ×2 (08:50→20:38)
--- NOTE | 2022-05-02 10:13 | Cardiology Progress Note ---
Date of Service May 02, 2022 Assessment & Plan (1) Acute diastolic CHF (congestive heart failure): Plan: 2. Multivessel coronary artery disease post 2 vessel CABG 2016 (MENDEZ TO LAD, SVG TO LCX), known [employer] 3. Acute renal insufficiency 4. Bradycardia -- sinus with periods of second degree AV block Mobitz type I, trifascicular block 5. History of atrial flutter status post ablation on anticoagulation 6. Type 2 diabetes--on insulin 7. Hypertension 8. Lymphedema CVI with venous ulcerations 9. Poor medical adherence 10. Suspected PAD 11. Nonsustained VT Good urine ouput on BID IV diuretic Weight, breath sounds, LE edema, 02 requirement improved from monday Renal function stable - Continue bumex 2mg IV BID - Continue daily standing weights, BUN/SCr - Increase hydralazine to 75mg TID. Continue current carvedilol, losartan, amlodipine. - Continue Eliquis - Needs LE compression Will follow Admission and Anticipated Discharge Date Admission Date: April 23, 2022 Subjective Breathing slightly improved. Did not like Bipap overnight. No chest pain. Primary concern this morning is continued pain in scrotum after catheter inserted. Tele reviewed -- sinus, no NSVT or bradycardia I/O -- negative 1800 Review of Systems Review of Systems: All systems reviewed & are unremarkable except as noted in HPI & below Physical Exam Physical Exam: General: uncomfortable HEENT: Sclerae anicteric Lungs: Breath sounds improved. no crackles Cardiac: Regular rate and rhythm, 2 out of 6 systolic ejection murmur, unable to assess JVD Vascular: 2+ radial Abdomen: Soft, nontender. Scrotum red, swollen Extremities: Chronic venous stasis changes, evidence of stasis dermatitis with skin breakdown and oozing, 2+ edema below the knee. Psych: Alert orient x3, normal affect and mood Results & Data ([facility]) Vital Signs (Past 12 Hours) Vital Signs Temp Pulse Pulse Resp BP Pulse Ox O2 Del Method 05/02/22 07:44 98.2 F 74 18 167/74 H 97 Nasal Cannula 05/01/22 22:41 66 05/02/22 04:12 97.7 F 74 22 165/75 H 96 Nasal Cannula 05/01/22 22:36 76 19 98 05/01/22 22:52 98.2 F 68 19 145/61 H 97 Nasal Cannula O2 Flow Rate FiO2 05/02/22 07:44 5 05/01/22 22:41 05/02/22 04:12 5 05/01/22 22:36 40 05/01/22 22:52 5 PG Care Time/CCT Total # of Minutes Spent Total Time Spent with Patient: Total time spent is greater than 50% in coordination of care (as documented) at patient's floor/unit and/or counseling patient: Coding Level of Care Code 12061 Subseq Hosp Care Lvl 3 Diagnoses Acute diastolic CHF (congestive heart failure) I50.31
--- NOTE | 2022-05-02 10:34 | Pulmonology Progress Note ---
Date of Service May 02, 2022 Assessment & Plan (1) Acute diastolic CHF (congestive heart failure): (2) Cor pulmonale: (3) Obesity hypoventilation syndrome: (4) Acute respiratory failure with hypoxia and hypercapnia: Plan Chest x-ray 04/25/2022 personally reviewed: Portable film, poor inspiratory effort, bilateral costophrenic and cardiophrenic angles are blunted, increased cardiac silhouette, pulmonary vascular congestion 2D echo 04/24/2022: EF 55-60%, grade 2 diastolic dysfunction, right ventricle is not well visualized -- Acute hypoxic hypercapnic respiratory failure Hypoxia is most likely from pulmonary edema from grade 2 diastolic CHF, pulm onary hypertension might also be playing a role Hypercapnia is most likely from underlying CLINTON/OHS Continue with O2 supplementation to keep O2 saturation between 88-92% Do not over oxygenate the patient BiPAP nightly and as needed shortness of breath. This will help with pulmonary edema as well -- CLINTON/OHS BiPAP nightly and as needed shortness of breath Patient will need sleep study to be done as an outpatient Patient will benefit from CPAP/BiPAP machine on discharge -- History of cigarette smoking Quit approximately 40 years ago -- Morbid obesity Advised to lose with diet and exercise --A. fib On apixaban Plan: In/out: -1.7 L, urine output 2750, -7 L since coming to the hospital Patient's last chest x-ray was 04/25/2022. I will repeat a chest x-ray today Continue with diuretics to keep the patient negative balance. Hyperkalemia management as per primary team Do not overall continue with the patient. Keep O2 saturation between 88-92% Incentive spirometry will be beneficial Case was discussed with SOHEILA Mitchell Please note the above document was generated using voice recognition software. It may contain grammatical, syntax or spelling errors.Any formal questions or concerns about the content, text or information contained within the body of this dictation should be directly addressed to the provider for clarification. Admission and Anticipated Discharge Date Admission Date: April 23, 2022 Subjective Patient seen and examined at bedside. No acute distress, no adverse events overnight. Denies any headache, no nausea, no vomiting He did use BiPAP overnight but only for couple of hours He was awake alert oriented and answering all the questions appropriately He was saturating 98% on 5 L nasal cannula And went down to 3 L Review of Systems Review of Systems: All systems reviewed & are unremarkable except as noted in Subjective Physical Exam Physical Exam: Constitutional: No acute distress HEENT: EOMI, PERRLA Respiratory system:Decreased air entry bilaterally, no wheeze, no rhonchi, positive crackles bilateral lower lobes CVS: S1-S2 positive, positive 2 out of 6 systolic murmur appreciated best at apex Abdomen: Soft, nontender, nondistended, positive bowel sounds x4 Extremities: +2 pulses bilaterally radialis/ dorsalis pedis, no cyanosis, +3 pitting edema bilateral lower extremity Neuro: Awake alert oriented x3 Psych: Normal mood and affect G/U: Positive Peña Skin: no rashes, warm and dry Lymphatic: no cervical or axillary lymphadenopathy Results & Data Results & Data ([facility]) Vital Signs (Past 12 Hours) Vital Signs Temp Pulse Pulse Resp BP Pulse Ox O2 Del Method 05/02/22 07:44 36.8 C 74 18 167/74 H 97 Nasal Cannula 05/01/22 22:41 66 05/02/22 04:12 36.5 C 74 22 165/75 H 96 Nasal Cannula 05/01/22 22:36 76 19 98 05/01/22 22:52 36.8 C 68 19 145/61 H 97 Nasal Cannula O2 Flow Rate FiO2 05/02/22 07:44 5 05/01/22 22:41 05/02/22 04:12 5 05/01/22 22:36 40 05/01/22 22:52 5 Laboratory Results 05/02/22 05:41 05/02/22 05:41 PG Care Time/CCT Total # of Minutes Spent Total Time Spent with Patient: Total time spent is greater than 50% in coordination of care (as documented) at patient's floor/unit and/or counseling patient: Coding Level of Care Code 38264 Subseq Hosp Care Lvl 3 Diagnoses Acute diastolic CHF (congestive heart failure) I50.31 Cor pulmonale I27.81 Obesity hypoventilation syndrome E66.2 Acute respiratory failure with hypoxia and hypercapnia J96.01; J96.02
--- NOTE | 2022-05-02 11:03 | XRay Report ---
XR chest 1V portable HISTORY: Shortness of breath. Follow-up. COMPARISON: Chest 04/25/2022. FINDINGS: No pneumothorax. There are low lung volumes with elevation the right hemidiaphragm. The hea rt remains enlarged. There are poststernotomy changes. Mild interstitial pulmonary edema in the small bilateral pleural effusions/bibasilar densities have improved in the interval. No new focal lung con solidations identified. IMPRESSION: Interval improvement in the mild interstitial pulmonary edema and small bilateral pleural effusions/d ensities. ACT 112: Negative or not required by law. Electronically signed by: Kannan Cintron M.D. 05/02/2022 11:02 AM
[2022-05-02] MEDS ORDERED: POLYETHYLENE (MIRALAX) 17 GM PACK PO PRN (13:26)
[2022-05-02] MEDS ORDERED: POLYETHYLENE (MIRALAX) 17 GM PACK ONE (13:35)
--- NOTE | 2022-05-02 14:06 | Hospitalist Progress Note ---
Date of Service May 02, 2022 Assessment & Plan (1) Acute diastolic CHF (congestive heart failure): Plan: Picture most consistent though likely has a component of cor pulmonale. - Continue Bumex 2 mg IV BID (2) Scrotal edema: Plan: Due to CHF. Seen by urology. Supportive care. - Presently refusing any scrotal elevation; he reported being willing to move after pain medication, so asked RN to try this. (3) Catheter-associated urinary tract infection: Plan: Not present on admission; Proteus sensitive to Rocephin Was on from 04/26 - 05/02. - Monitor (4) Acute respiratory failure with hypoxia: Plan: And with hypercapnia; likely combination of diastolic heart failure and [place]/obesity hypoventilation. - Consulted pulmonary likely merits nightly NIV though at discharge may be an issue without a formal sleep study. Presently declining BiPap during the day. (5) Coronary artery disease: Plan: Patient denies chest pain. Troponin normal. No acute ischemic changes present on EKG. - Continue meds as above Patient was to have a stent placed in the LLE but missed his appointment - Outpatient followup with Dr. Smalls (6) Atrial fibrillation: Plan: S/p ablation. Presently in SR with sinus arrhythmia. - Continue carvedilol but dose lowered - Continue anticoagulation with apixaban (7) Hypertension: Plan: BP recent at 140/60. - Continue amlodipine, losartan, carvedilol, and hydralazine. (8) Type 2 diabetes mellitus, with long-term current use of insulin: Plan: A1c was 9.1% in 03/2022. - Continue glargine 30 units SQ BID - Sliding scale insulin -> Sugars 100 - 155. (9) Dyslipidemia: Plan: Chronic. - Continue atorvastatin (10) Chronic venous stasis dermatitis of both lower extremities: Plan: Dressing in place. - Wound care BID - Continue compression stockings - Wound care consult (11) Acute renal insufficiency: Plan: Suspect CRSstable; continue diuresis - Cr is 1.1 today. (12) Elevated alkaline phosphatase level: Plan: Has been in this range before; no definite clinical correlate inclined to observe; if persists or worse can consider further assessment. Admission and Anticipated Discharge Date Admission Date: April 23, 2022 Subjective Very upset today. Has many conspiratorial thoughts about how we have made him worse to keep him here longer. Reports to me that he only came in for some mild shortness of breath and now has swollen legs and swollen scrotum. Feels his breathing is not improved. Reports no fevers/chills, chest pain, abdominal pain, nausea, or vomiting. Physical Exam Constitutional: WD/WN, vitals as above Eyes: EOM intact bilaterally; no conjunctival abnormality ENMT: external ear and nose normal, oropharynx normal Neck: trachea midline, no thyromegaly normal visual inspection Respiratory: normal respiratory effort, lungs clear to auscultation no respiratory distress Cardiovascular: RRR, no murmur, no edema Gastrointestinal (Abdomen): Inspection/Auscultation: abdomen normal to inspection; abdomen not distended Musculoskeletal: no cyanosis or clubbing, extremities motor strength 5/5 Skin: no rashes, warm and dry Neurologic: moves all extremities and awake Psychiatric: Orientation: alert, oriented to person and cooperative Genitourinary: + scrotum abnormality (Ertyema and swelling) Results & Data Results & Data ([facility]) Vital Signs (Past 12 Hours) Vital Signs Temp Pulse Resp BP Pulse Ox O2 Del Method O2 Flow Rate 05/02/22 10:58 36.8 C 70 18 142/58 H 94 Nasal Cannula 2 05/02/22 07:44 36.8 C 74 18 167/74 H 97 Nasal Cannula 5 05/02/22 04:12 36.5 C 74 22 165/75 H 96 Nasal Cannula 5 PG Care Time/CCT Total # of Minutes Spent Total Time Spent with Patient: Total time spent is greater than 50% in coordination of care (as documented) at patient's floor/unit and/or counseling patient: Coding Level of Care Code 04005 Subseq Hosp Care Lvl 3 Diagnoses Acute diastolic CHF (congestive heart failure) I50.31 Scrotal edema N50.89 Catheter-associated urinary tract infection T83.511A; N39.0 Acute respiratory failure with hypoxia J96.01 Coronary artery disease I25.10 Atrial fibrillation I48.91 Hypertension I10 Type 2 diabetes mellitus, with long-term current use of insulin E11.9; Z79.4 Dyslipidemia E78.5 Chronic venous stasis dermatitis of both lower extremities I87.2 Acute renal insufficiency N28.9 Elevated alkaline phosphatase level R74.8
[2022-05-02] MEDS: traMADol HCL 50 MG TABLET PO PRN ×2 (17:03→23:09)
[2022-05-02] MEDS: ATORVASTATIN 40 MG TAB PO SCH (20:40)
[2022-05-03] MEDS: oxyCODONE HCL IR 5 MG TAB (IMMEDIATE RELEASE) PO PRN ×3 (02:06→20:45)
[2022-05-03] MEDS: traMADol HCL 50 MG TABLET PO PRN ×2 (06:04→18:06)
[2022-05-03 07:04] LABS: Mean Corpuscular Hemoglobin 26.6 pg (25.0-34.0); Mean Corpuscular Volume 88.7 fL (80.0-100.0); Mean Platelet Volume 10.7 fL (9.4-12.4); Platelet Count 265 K/uL (130-400); RDW Coefficient of Variation 16.1 % (11.5-14.5); RDW Standard Deviation 52.6 fL (36.4-46.3); Red Blood Count 4.51 M/uL (4.63-6.08); White Blood Count 10.03 K/ul (4.8-10.8)
[2022-05-03 07:33] LABS: Albumin Globulin Ratio 0.9 (0.9-2); Albumin Level 3.4 gm/dl (3.4-5.0); BUN Creatinine Ratio 39.6 (10-20); Bilirubin,Total 0.6 mg/dl (0.2-1.0); Calcium 9.4 mg/dl (8.5-10.1); Est GFR (African American) 61.8 ml/min; Est GFR (Non-African American) 53.3 ml/min; Globulin 3.7 gm/dl (2.5-4.0); Magnesium 2.2 mg/dl (1.7-2.4); Potassium 5.4 mmol/L (3.5-5.1); Total Protein 7.1 gm/dl (6.0-8.3)
[2022-05-03] MEDS: BUMETANIDE 2 MG in SYRINGE 0 ML IV SCH ×2 (08:30→16:47)
[2022-05-03] MEDS: hydrALAZINE TAB 50 MG TAB PO SCH ×3 (08:31→20:45)
[2022-05-03] MEDS: APIXABAN 5 MG TABLET PO SCH ×2 (08:31→20:45)
[2022-05-03] MEDS: carvediloL 3.125 MG TAB PO SCH ×2 (08:31→20:45)
[2022-05-03] MEDS: LOSARTAN POTASSIUM 50 MG TAB PO SCH (08:31)
[2022-05-03] MEDS: amLODIPine BESYLATE 5 MG TAB PO SCH (08:31)
--- NOTE | 2022-05-03 08:31 | Pulmonology Progress Note ---
Date of Service May 03, 2022 Assessment & Plan (1) Acute diastolic CHF (congestive heart failure): (2) Cor pulmonale: (3) Obesity hypoventilation syndrome: (4) Acute respiratory failure with hypoxia and hypercapnia: Plan Chest x-ray 04/25/2022 personally reviewed: Portable film, poor inspiratory effort, bilateral costophrenic and cardiophrenic angles are blunted, increased cardiac silhouette, pulmonary vascular congestion 2D echo 04/24/2022: EF 55-60%, grade 2 diastolic dysfunction, right ventricle is not well visualized -- Acute hypoxic hypercapnic respiratory failure Hypoxia is most likely from pulmonary edema from grade 2 diastolic CHF, pulm onary hypertension might also be playing a role Hypercapnia is most likely from underlying CLINTON/OHS Continue with O2 supplementation to keep O2 saturation between 88-92% Do not over oxygenate the patient BiPAP nightly and as needed shortness of breath. This will help with pulmonary edema as well -- [place]/OHS BiPAP nightly and as needed shortness of breath Patient will need sleep study to be done as an outpatient Patient will benefit from CPAP/BiPAP machine on discharge -- History of cigarette smoking Quit approximately 40 years ago -- Morbid obesity Advised to lose with diet and exercise --A. fib On apixaban Plan: In/out: -435, urine output 1825, -7.4 L since coming to the hospital Chest x-ray from 05/02/2022 shows improvement in the right-sided pleural effusion as well as pulmonary edema. There is elevation of the right hemidiaphragm. Importance of using BiPAP whenever asleep and at night reiterated to the patient but he still not using it. I did tell him that he will get intubated in the near future if he not compliant with BiPAP Continue with diuretics to keep the patient negative balance. Hyperkalemia management as per primary team Keep O2 saturation between 88-92%, avoid over oxygenating the patient Case was discussed with SOHEILA Gauthier No further recommendation from pulmonary perspective. We will sign off. Please call directly with any questions Please note the above document was generated using voice recognition software. It may contain grammatical, syntax or spelling errors.Any formal questions or concerns about the content, text or information contained within the body of this dictation should be directly addressed to the provider for clarification. Admission and Anticipated Discharge Date Admission Date: April 23, 2022 Subjective Patient seen and examined at bedside. No acute distress, no adverse events overnight. Patient unfortunately did not use CPAP for more than an hour last night. He was sleeping on the chair when I entered the room. Denies any headache, no nausea, no vomiting No chest pain Shortness of breath is improved. Fair appetite Review of Systems Review of Systems: All systems reviewed & are unremarkable except as noted in Subjective Physical Exam Physical Exam: Constitutional: No acute distress HEENT: EOMI, PERRLA Respiratory system:Decreased air entry bilaterally, no wheeze, no rhonchi, positive crackles bilateral lower lobes CVS: S1-S2 positive, positive 2 out of 6 systolic murmur appreciated best at apex Abdomen: Soft, nontender, nondistended, positive bowel sounds x4 Extremities: +2 pulses bilaterally radialis/ dorsalis pedis, no cyanosis, +3 pitting edema bilateral lower extremity Neuro: Awake alert oriented x3 Psych: Normal mood and affect G/U: Positive Peña Skin: no rashes, warm and dry Lymphatic: no cervical or axillary lymphadenopathy Results & Data Results & Data ([facility]) Vital Signs (Past 12 Hours) Vital Signs Temp Pulse Pulse Resp BP Pulse Ox O2 Del Method 05/03/22 08:00 37.0 C 60 18 139/70 97 05/03/22 03:34 36.5 C 67 20 148/60 H 95 Nasal Cannula 05/03/22 00:05 66 20 96 05/02/22 22:31 71 05/02/22 23:07 36.6 C 70 20 166/70 H 94 Nasal Cannula O2 Flow Rate FiO2 05/03/22 08:00 05/03/22 03:34 2.0 05/03/22 00:05 40 05/02/22 22:31 05/02/22 23:07 2 Laboratory Results 05/03/22 06:28 05/03/22 06:28 PG Care Time/CCT Total # of Minutes Spent Total Time Spent with Patient: Total time spent is greater than 50% in coordination of care (as documented) at patient's floor/unit and/or counseling patient: Coding Level of Care Code 83973 Subseq Hosp Care Lvl 2 Diagnoses Acute diastolic CHF (congestive heart failure) I50.31 Cor pulmonale I27.81 Obesity hypoventilation syndrome E66.2 Acute respiratory failure with hypoxia and hypercapnia J96.01; J96.02
[2022-05-03] MEDS: INSULIN ASPART PER UNIT SC SCH ×4 (08:36→20:35)
[2022-05-03] MEDS: ACETAMINOPHEN 500 MG TAB PO PRN (08:36)
[2022-05-03] MEDS: LANTUS PER UNIT CHARGE SQ SCH ×2 (08:37→21:10)
--- NOTE | 2022-05-03 11:37 | Hospitalist Progress Note ---
Date of Service May 03, 2022 Assessment & Plan (1) Acute diastolic CHF (congestive heart failure): Plan: Picture most consistent though likely has a component of cor pulmonale. - Continue Bumex 2 mg IV BID - Standing weight only down about 1 kg from yesterday. Net - 435 mL. (2) Scrotal edema: Plan: Due to CHF. Seen by urology. Supportive care. - Some improvement today. Agreeable to trying to elevate as able. (3) Catheter-associated urinary tract infection: Plan: Not present on admission; Proteus sensitive to Rocephin Was on from 04/26 - 05/02. - Monitor (4) Acute respiratory failure with hypoxia: Plan: And with hypercapnia; likely combination of diastolic heart failure and [place]/obesity hypoventilation. - Consulted pulmonary likely merits nightly NIV though at discharge may be an issue without a formal sleep study. Presently declining BiPap during the day. Did wear it for 2 hours at night. (5) Coronary artery disease: Plan: Patient denies chest pain. Troponin normal. No acute ischemic changes present on EKG. - Continue meds as above Patient was to have a stent placed in the LLE but missed his appointment - Outpatient followup with Dr. Smalls (6) Atrial fibrillation: Plan: S/p ablation. Presently in SR with sinus arrhythmia. - Continue carvedilol but dose lowered - Continue anticoagulation with apixaban (7) Hypertension: Plan: BP recent at 140/70. - Continue amlodipine, losartan, carvedilol, and hydralazine. - Lower losartan to 50 mg to reduce changes of hyperkalemia. (8) Type 2 diabetes mellitus, with long-term current use of insulin: Plan: A1c was 9.1% in 03/2022. - Continue glargine 30 units SQ BID - Sliding scale insulin -> Sugars 125 - 150 in last 24 hours. (9) Dyslipidemia: Plan: Chronic. - Continue atorvastatin (10) Chronic venous stasis dermatitis of both lower extremities: Plan: Dressing in place. - Wound care BID - Continue compression stockings - Wound care consult (11) Acute renal insufficiency: Plan: Suspect CRSstable; continue diuresis - Cr is 1.3 today. (12) Elevated alkaline phosphatase level: Plan: Has been in this range before; no definite clinical correlate inclined to observe; if persists or worse can consider further assessment. (13) DVT prophylaxis: Plan: Apixaban for his afib Admission and Anticipated Discharge Date Admission Date: April 23, 2022 Subjective Doing much better today. Seems more positive, seems to think swelling is slightly better. Scrotum slightly less swollen and slightly less painful. Willing to get back into bed, though he does note that the poor mattress makes it somewhat painful. Physical Exam Constitutional: WD/WN, vitals as above Eyes: EOM intact bilaterally; no conjunctival abnormality ENMT: external ear and nose normal, oropharynx normal Neck: trachea midline, no thyromegaly normal visual inspection Respiratory: normal respiratory effort, lungs clear to auscultation no respiratory distress Cardiovascular: RRR, no murmur, no edema Gastrointestinal (Abdomen): Inspection/Auscultation: abdomen normal to inspection; abdomen not distended Musculoskeletal: no cyanosis or clubbing, extremities motor strength 5/5 Skin: no rashes, warm and dry Neurologic: moves all extremities and awake Psychiatric: Orientation: alert, oriented to person and cooperative Genitourinary: + scrotum abnormality (Erthyema and swelling) Results & Data Results & Data ([facility]) Vital Signs (Past 12 Hours) Vital Signs Temp Pulse Pulse Resp BP Pulse Ox O2 Del Method 05/03/22 08:00 Nasal Cannula 05/03/22 08:00 37.0 C 60 18 139/70 97 05/03/22 03:34 36.5 C 67 20 148/60 H 95 Nasal Cannula 05/03/22 00:05 66 20 96 O2 Flow Rate FiO2 05/03/22 08:00 2 05/03/22 08:00 05/03/22 03:34 2.0 05/03/22 00:05 40 PG Care Time/CCT Total # of Minutes Spent Total Time Spent with Patient: Total time spent is greater than 50% in coordination of care (as documented) at patient's floor/unit and/or counseling patient: Coding Level of Care Code 78561 Subseq Hosp Care Lvl 3 Diagnoses Acute diastolic CHF (congestive heart failure) I50.31 Scrotal edema N50.89 Catheter-associated urinary tract infection T83.511A; N39.0 Acute respiratory failure with hypoxia J96.01 Coronary artery disease I25.10 Atrial fibrillation I48.91 Hypertension I10 Type 2 diabetes mellitus, with long-term current use of insulin E11.9; Z79.4 Dyslipidemia E78.5 Chronic venous stasis dermatitis of both lower extremities I87.2 Acute renal insufficiency N28.9 Elevated alkaline phosphatase level R74.8 DVT prophylaxis Z29.9
[2022-05-03] MEDS: ATORVASTATIN 40 MG TAB PO SCH (20:45)
[2022-05-04] MEDS: traMADol HCL 50 MG TABLET PO PRN ×3 (01:07→20:52)
[2022-05-04] MEDS: oxyCODONE HCL IR 5 MG TAB (IMMEDIATE RELEASE) PO PRN ×2 (03:16→08:48)
[2022-05-04] MEDS: ACETAMINOPHEN 500 MG TAB PO PRN ×2 (06:07→16:46)
[2022-05-04 06:47] LABS: Hematocrit (blood only) 36.9 % (40.1-51.0); Hemoglobin 11.1 g/dl (14.0-18.0); Mean Corpuscular Hemoglobin 26.7 pg (25.0-34.0); Mean Corpuscular Hgb Conc 30.1 g/dL (32.0-36.0); Mean Corpuscular Volume 88.7 fL (80.0-100.0); Mean Platelet Volume 10.6 fL (9.4-12.4); Platelet Count 276 K/uL (130-400); RDW Coefficient of Variation 16.1 % (11.5-14.5); RDW Standard Deviation 52.9 fL (36.4-46.3); Red Blood Count 4.16 M/uL (4.63-6.08); White Blood Count 9.75 K/ul (4.8-10.8)
[2022-05-04 07:06] LABS: BUN Creatinine Ratio 39.7 (10-20); Calcium 9.2 mg/dl (8.5-10.1); Creatinine Clr Calc Pharmacy 79.1 ml/min; Est GFR (African American) 63.5 ml/min; Est GFR (Non-African American) 54.8 ml/min; Magnesium 2.2 mg/dl (1.7-2.4); Potassium 5.5 mmol/L (3.5-5.1)
[2022-05-04] MEDS: INSULIN ASPART PER UNIT SC SCH ×4 (08:43→20:52)
[2022-05-04] MEDS: hydrALAZINE TAB 50 MG TAB PO SCH ×3 (08:43→20:49)
[2022-05-04] MEDS: BUMETANIDE 2 MG in SYRINGE 0 ML IV SCH ×2 (08:43→16:46)
[2022-05-04] MEDS: carvediloL 3.125 MG TAB PO SCH ×2 (08:44→20:49)
[2022-05-04] MEDS: LOSARTAN POTASSIUM 25 MG TAB PO SCH (08:44)
[2022-05-04] MEDS: amLODIPine BESYLATE 5 MG TAB PO SCH (08:44)
[2022-05-04] MEDS: APIXABAN 5 MG TABLET PO SCH ×2 (08:44→20:50)
[2022-05-04] MEDS: LANTUS PER UNIT CHARGE SQ SCH ×2 (08:48→20:52)
--- NOTE | 2022-05-04 12:04 | Cardiology Progress Note ---
Date of Service May 04, 2022 Assessment & Plan (1) Acute diastolic CHF (congestive heart failure): Plan: 2. 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 Acute renal insufficiency 4. Bradycardia -- sinus with periods of second degree AV block Mobitz type I, trifascicular block 5. History of atrial flutter status post ablation on anticoagulation 6. Type 2 diabetes--on insulin 7. Hypertension 8. Lymphedema CVI with venous ulcerations 9. Poor medical adherence 10. Suspected PAD 11. Nonsustained VT Good urine output on BID IV diuretic Weight, LE edema, 02 requirement improving Renal function stable - Continue bumex 2mg IV BID today. Likely conversion to maintenance p.o. diuretics in next day or 2 - Continue daily standing weights, BUN/SCr -Continue current hydralazine, carvedilol, losartan, amlodipine. - Continue Eliquis -Lower extremity compression Agree with rehab on discharge. Will follow Admission and Anticipated Discharge Date Admission Date: April 23, 2022 Subjective Doing okay this morning. Breathing improved from admission. Denies any chest pain or palpitations. Still with discomfort around catheter, scrotal area. Telemetry reviewedsinus, no events I/O- -2200 yesterday. Weight down 5 pounds from yesterday. Cumulative negative >9 L Review of Systems Review of Systems: All systems reviewed & are unremarkable except as noted in HPI & below Physical Exam Physical Exam: General: Comfortable HEENT: Sclerae anicteric Lungs: Breath sounds improved. no crackles Cardiac: Regular rate and rhythm, 2 out of 6 systolic ejection murmur, unable to assess JVD Vascular: 2+ radial Abdomen: Soft, nontender. Extremities: Chronic venous stasis changes, 2+ edema left greater than right, evidence of stasis dermatitis with skin breakdown, scaling left greater than right Psych: Alert orient x3, normal affect and mood Results & Data ([facility]) Vital Signs (Past 12 Hours) Vital Signs Temp Pulse Resp BP Pulse Ox O2 Del Method O2 Flow Rate 05/04/22 11:47 97.7 F 63 18 146/61 H 94 Nasal Cannula 2 05/04/22 08:00 Nasal Cannula 2 05/04/22 07:59 98.1 F 68 20 139/73 96 Nasal Cannula 2 05/04/22 02:59 98.2 F 71 18 170/73 H 94 Nasal Cannula 1.5 PG Care Time/CCT Total # of Minutes Spent Total Time Spent with Patient: Total time spent is greater than 50% in coordination of care (as documented) at patient's floor/unit and/or counseling patient: Coding Level of Care Code 36752 Subseq Hosp Care Lvl 3 Diagnoses Acute diastolic CHF (congestive heart failure) I50.31
--- NOTE | 2022-05-04 12:59 | Hospitalist Progress Note ---
Date of Service May 04, 2022 Assessment & Plan (1) Acute diastolic CHF (congestive heart failure): Plan: Picture most consistent though likely has a component of cor pulmonale. - Continue Bumex 2 mg IV BID - Standing weight only down about 2 kg from yesterday. Net - 2000 mL, so this also computes. Approaching euvolemia; discussed with cardiology, and will give IV Bumex through today. Will stop tonight, and then assess in AM before deciding on dose. (2) Scrotal edema: Plan: Due to CHF. Seen by urology. Supportive care. - Some improvement today. Agreeable to trying to elevate as able and has been getting in bed. The bed is very painful for his back though, so that makes it hard to stay there for prolonged periods. (3) Catheter-associated urinary tract infection: Plan: Not present on admission; Proteus sensitive to Rocephin Was on from 04/26 - 05/02. - Monitor (4) Acute respiratory failure with hypoxia: Plan: And with hypercapnia; likely combination of diastolic heart failure and [place]/obesity hypoventilation. - Consulted pulmonary likely merits nightly NIV though at discharge may be an issue without a formal sleep study. Presently declining BiPap during the day. Did wear it for 2 hours at night. - Improving slowly. Down to 1.5L NC. (5) Coronary artery disease: Plan: Patient denies chest pain. Troponin normal. No acute ischemic changes present on EKG. - Continue meds as above Patient was to have a stent placed in the LLE but missed his appointment. - Outpatient followup with Dr. Smalls (6) Atrial fibrillation: Plan: S/p ablation. Presently in SR with sinus arrhythmia. - Continue carvedilol but dose lowered - Continue anticoagulation with apixaban (7) Hypertension: Plan: BP recent at 140/60. - Continue amlodipine, losartan, carvedilol, and hydralazine. - Lower losartan to 25 mg to reduce chances of hyperkalemia. (8) Type 2 diabetes mellitus, with long-term current use of insulin: Plan: A1c was 9.1% in 03/2022. - Continue glargine 30 units SQ BID - Sliding scale insulin -> Sugars 110 - 220 in last 24 hours. (9) Dyslipidemia: Plan: Chronic. - Continue atorvastatin (10) Chronic venous stasis dermatitis of both lower extremities: Plan: Dressing in place. - Wound care BID - Continue compression stockings as able - Wound care consult (11) Acute renal insufficiency: Plan: Suspect CRSstable; continue diuresis - Cr is 1.3 today. (12) Elevated alkaline phosphatase level: Plan: Has been in this range before; no definite clinical correlate inclined to observe; if persists or worse can consider further assessment. (13) DVT prophylaxis: Plan: Apixaban for his afib Admission and Anticipated Discharge Date Admission Date: April 23, 2022 Subjective Doing well today. In better spirits. Feels legs are modestly improved. Scrotal swelling has improved as well. It is also no longer painful, but that may be due more to less chaffing rather than less swelling. Reports no fevers/chills, chest pain, shortness of breath, abdominal pain, nausea, or vomiting. Physical Exam Constitutional: WD/WN, vitals as above Eyes: EOM intact bilaterally; no conjunctival abnormality ENMT: external ear and nose normal, oropharynx normal Neck: trachea midline, no thyromegaly normal visual inspection Respiratory: normal respiratory effort, lungs clear to auscultation no respiratory distress Cardiovascular: RRR, no murmur, no edema Gastrointestinal (Abdomen): Inspection/Auscultation: abdomen normal to inspection; abdomen not distended Musculoskeletal: no cyanosis or clubbing, extremities motor strength 5/5 Skin: no rashes, warm and dry Neurologic: moves all extremities and awake Psychiatric: Orientation: alert, oriented to person and cooperative Genitourinary: + scrotum abnormality (Erthyema and swelling have both improved. Still pink, but less straight red) Results & Data Results & Data ([facility]) Vital Signs (Past 12 Hours) Vital Signs Temp Pulse Resp BP Pulse Ox O2 Del Method O2 Flow Rate 05/04/22 11:47 36.5 C 63 18 146/61 H 94 Nasal Cannula 2 05/04/22 08:00 Nasal Cannula 2 05/04/22 07:59 36.7 C 68 20 139/73 96 Nasal Cannula 2 05/04/22 02:59 36.8 C 71 18 170/73 H 94 Nasal Cannula 1.5 PG Care Time/CCT Total # of Minutes Spent Total Time Spent with Patient: Total time spent is greater than 50% in coordination of care (as documented) at patient's floor/unit and/or counseling patient: Coding Level of Care Code 24828 Subseq Hosp Care Lvl 3 Diagnoses Acute diastolic CHF (congestive heart failure) I50.31 Scrotal edema N50.89 Catheter-associated urinary tract infection T83.511A; N39.0 Acute respiratory failure with hypoxia J96.01 Coronary artery disease I25.10 Atrial fibrillation I48.91 Hypertension I10 Type 2 diabetes mellitus, with long-term current use of insulin E11.9; Z79.4 Dyslipidemia E78.5 Chronic venous stasis dermatitis of both lower extremities I87.2 Acute renal insufficiency N28.9 Elevated alkaline phosphatase level R74.8 DVT prophylaxis Z29.9
[2022-05-04] MEDS: ATORVASTATIN 40 MG TAB PO SCH (20:49)
[2022-05-05] MEDS: oxyCODONE HCL IR 5 MG TAB (IMMEDIATE RELEASE) PO PRN (00:02)
[2022-05-05 06:20] LABS: Hematocrit (blood only) 36.5 % (40.1-51.0); Mean Corpuscular Hgb Conc 30.1 g/dL (32.0-36.0); Mean Corpuscular Volume 89.5 fL (80.0-100.0); Mean Platelet Volume 10.4 fL (9.4-12.4); Platelet Count 277 K/uL (130-400); RDW Standard Deviation 52.9 fL (36.4-46.3); Red Blood Count 4.08 M/uL (4.63-6.08); White Blood Count 9.12 K/ul (4.8-10.8)
[2022-05-05] MEDS: traMADol HCL 50 MG TABLET PO PRN ×3 (06:33→23:24)
[2022-05-05 06:46] LABS: BUN Creatinine Ratio 40.3 (10-20); Calcium 9.1 mg/dl (8.5-10.1); Creatinine Clr Calc Pharmacy 77.3 ml/min; Est GFR (African American) 61.8 ml/min; Est GFR (Non-African American) 53.3 ml/min; Magnesium 2.3 mg/dl (1.7-2.4); Potassium 5.2 mmol/L (3.5-5.1)
[2022-05-05] MEDS: carvediloL 3.125 MG TAB PO SCH ×2 (08:36→19:53)
[2022-05-05] MEDS: BUMETANIDE 2 MG in SYRINGE 0 ML IV SCH ×2 (08:36→17:10)
[2022-05-05] MEDS: APIXABAN 5 MG TABLET PO SCH ×2 (08:36→20:08)
[2022-05-05] MEDS: LANTUS PER UNIT CHARGE SQ SCH ×2 (08:36→20:27)
[2022-05-05] MEDS: hydrALAZINE TAB 50 MG TAB PO SCH ×3 (08:36→20:08)
[2022-05-05] MEDS: LOSARTAN POTASSIUM 25 MG TAB PO SCH (08:36)
[2022-05-05] MEDS: INSULIN ASPART PER UNIT SC SCH ×4 (08:37→20:27)
[2022-05-05] MEDS: amLODIPine BESYLATE 5 MG TAB PO SCH (08:43)
--- NOTE | 2022-05-05 09:12 | Cardiology Progress Note ---
Date of Service May 05, 2022 Assessment & Plan (1) Acute diastolic CHF (congestive heart failure): Plan: 2. 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 Acute renal insufficiency 4. Bradycardia -- sinus with periods of second degree AV block Mobitz type I, trifascicular block 5. History of atrial flutter status post ablation on anticoagulation 6. Type 2 diabetes--on insulin 7. Hypertension 8. Lymphedema CVI with venous ulcerations 9. Poor medical adherence 10. Suspected PAD 11. Nonsustained VT Good urine output on BID IV diuretic Persistent congestion Renal function stable - Continue bumex 2mg IV BID today. - Continue daily standing weights, BUN/SCr - Continue current hydralazine, carvedilol, losartan, amlodipine. - Continue Eliquis - Lower extremity compression Agree with rehab on discharge. Will follow Admission and Anticipated Discharge Date Admission Date: April 23, 2022 Subjective Upset about fluid restriction. Up walking to sink with walker yesterday with PT/OT O2 down to 86% Denies dyspnea, chest pain today. Feels scrotum unchanged. Tele Reviewed - no events I/O - negative 1800 Review of Systems Review of Systems: All systems reviewed & are unremarkable except as noted in HPI & below Physical Exam Physical Exam: General: Comfortable HEENT: Sclerae anicteric Lungs: Breath sounds improved. no crackles. Dec at RT base. Cardiac: Regular rate and rhythm, 2 out of 6 systolic ejection murmur, unable to assess JVD Vascular: 2+ radial Abdomen: Soft, nontender. Persistent scrotal edema. Less red Extremities: Chronic venous stasis changes, 2+ edema left greater than right, evidence of stasis dermatitis with skin breakdown, scaling left greater than right Psych: Alert orient x3, normal affect and mood Results & Data ([facility]) Vital Signs (Past 12 Hours) Vital Signs Temp Pulse Pulse Resp BP Pulse Ox O2 Del Method 05/05/22 08:32 98.4 F 72 18 140/61 93 05/05/22 04:06 98.1 F 67 16 194/73 H 95 Nasal Cannula 05/05/22 00:00 66 05/04/22 22:24 98.4 F 66 18 151/63 H 94 Nasal Cannula O2 Flow Rate 05/05/22 08:32 05/05/22 04:06 1 05/05/22 00:00 05/04/22 22:24 1.5 PG Care Time/CCT Total # of Minutes Spent Total Time Spent with Patient: Total time spent is greater than 50% in coordination of care (as documented) at patient's floor/unit and/or counseling patient: Coding Level of Care Code 20837 Subseq Hosp Care Lvl 3 Diagnoses Acute diastolic CHF (congestive heart failure) I50.31
[2022-05-05] MEDS: ACETAMINOPHEN 500 MG TAB PO PRN (12:09)
--- NOTE | 2022-05-05 15:45 | Hospitalist Progress Note ---
Date of Service May 05, 2022 Assessment & Plan (1) Acute diastolic CHF (congestive heart failure): Plan: Picture most consistent though likely has a component of cor pulmonale. - Continue Bumex 2 mg IV BID - Standing weight stable today, but net - 2000 mL. Approaching euvolemia; discussed with cardiology on 05/04. Continue IV diuresis at this time. (2) Scrotal edema: Plan: Due to CHF. Seen by urology. Supportive care. - Minimal improvement today. Has been in bed some, but doesn't like the bed. Not willing to try to scrotal sling as it looks like it is sized for "two golf balls." (3) Catheter-associated urinary tract infection: Plan: Not present on admission; Proteus sensitive to Rocephin Was on from 04/26 - 05/02. - Monitor (4) Acute respiratory failure with hypoxia: Plan: And with hypercapnia; likely combination of diastolic heart failure and CLINTON/obesity hypoventilation. - Consulted pulmonary likely merits nightly NIV though at discharge may be an issue without a formal sleep study. Presently declining BiPap during the day. Did wear it for 2 hours at night. - Improving slowly. Down to 1 L NC. (5) Coronary artery disease: Plan: Patient denies chest pain. Troponin normal. No acute ischemic changes present on EKG. - Continue meds as above Patient was to have a stent placed in the LLE but missed his appointment. - Outpatient follow-up with Dr. Smalls (6) Atrial fibrillation: Plan: S/p ablation. Presently in SR with sinus arrhythmia. - Continue carvedilol but dose lowered - Continue anticoagulation with apixaban (7) Hypertension: Plan: BP recent at 140/70. - Continue amlodipine, losartan, carvedilol, and hydralazine. - Lowered losartan to 25 mg to reduce chances of hyperkalemia on 05/04. (8) Type 2 diabetes mellitus, with long-term current use of insulin: Plan: A1c was 9.1% in 03/2022. - Continue glargine 30 units SQ BID - Sliding scale insulin -> Sugars 125 - 220 in last 24 hours. (9) Dyslipidemia: Plan: Chronic. - Continue atorvastatin (10) Chronic venous stasis dermatitis of both lower extremities: Plan: Dressing in place. - Wound care BID - Continue compression stockings as able - Wound care consult (11) Acute renal insufficiency: Plan: Suspect CRSstable; continue diuresis - Cr is 1.3 today. (12) Elevated alkaline phosphatase level: Plan: Has been in this range before; no definite clinical correlate inclined to observe; if persists or worse can consider further assessment. (13) DVT prophylaxis: Plan: Apixaban for his afib Admission and Anticipated Discharge Date Admission Date: April 23, 2022 Subjective Honestly doing well today. No major issues. Scrotum still swollen. Reports no fevers/chills, chest pain, shortness of breath, abdominal pain, nausea, or vomiting. Physical Exam Constitutional: WD/WN, vitals as above Eyes: EOM intact bilaterally; no conjunctival abnormality ENMT: external ear and nose normal, oropharynx normal Neck: trachea midline, no thyromegaly normal visual inspection Respiratory: normal respiratory effort, lungs clear to auscultation no respiratory distress Cardiovascular: RRR, no murmur, no edema Gastrointestinal (Abdomen): Inspection/Auscultation: abdomen normal to inspection; abdomen not distended Musculoskeletal: no cyanosis or clubbing, extremities motor strength 5/5 Skin: no rashes, warm and dry Neurologic: moves all extremities and awake Psychiatric: Orientation: alert, oriented to person and cooperative Genitourinary: + scrotum abnormality (Erthyema and swelling have both improved. Still pink, but less straight red) Results & Data Results & Data ([facility]) Vital Signs (Past 12 Hours) Vital Signs Temp Pulse Resp BP Pulse Ox O2 Del Method O2 Flow Rate 05/05/22 15:27 36.5 C 69 19 140/70 92 Nasal Cannula 1 05/05/22 11:23 36.5 C 66 17 147/60 H 91 Nasal Cannula 2 05/05/22 08:00 Nasal Cannula 2 05/05/22 08:32 36.9 C 72 18 140/61 93 05/05/22 04:06 36.7 C 67 16 194/73 H 95 Nasal Cannula 1 PG Care Time/CCT Total # of Minutes Spent Total Time Spent with Patient: Total time spent is greater than 50% in coordination of care (as documented) at patient's floor/unit and/or counseling patient: Coding Level of Care Code 97390 Subseq Hosp Care Lvl 3 Diagnoses Acute diastolic CHF (congestive heart failure) I50.31 Scrotal edema N50.89 Catheter-associated urinary tract infection T83.511A; N39.0 Acute respiratory failure with hypoxia J96.01 Coronary artery disease I25.10 Atrial fibrillation I48.91 Hypertension I10 Type 2 diabetes mellitus, with long-term current use of insulin E11.9; Z79.4 Dyslipidemia E78.5 Chronic venous stasis dermatitis of both lower extremities I87.2 Acute renal insufficiency N28.9 Elevated alkaline phosphatase level R74.8 DVT prophylaxis Z29.9
[2022-05-05] MEDS: ATORVASTATIN 40 MG TAB PO SCH (20:08)
[2022-05-06 06:52] LABS: Hematocrit (blood only) 37.2 % (40.1-51.0); Hemoglobin 11.2 g/dl (14.0-18.0); Mean Corpuscular Hemoglobin 26.9 pg (25.0-34.0); Mean Corpuscular Hgb Conc 30.1 g/dL (32.0-36.0); Mean Corpuscular Volume 89.4 fL (80.0-100.0); Mean Platelet Volume 10.3 fL (9.4-12.4); Platelet Count 275 K/uL (130-400); RDW Coefficient of Variation 16.2 % (11.5-14.5); RDW Standard Deviation 52.8 fL (36.4-46.3); Red Blood Count 4.16 M/uL (4.63-6.08); White Blood Count 8.95 K/ul (4.8-10.8)
[2022-05-06 07:31] LABS: Albumin Level 3.4 gm/dl (3.4-5.0); Bilirubin,Total 0.5 mg/dl (0.2-1.0); Calcium 9.1 mg/dl (8.5-10.1); Creatinine Clr Calc Pharmacy 75.1 ml/min; Est GFR (African American) 59.6 ml/min; Est GFR (Non-African American) 51.4 ml/min; Globulin 3.4 gm/dl (2.5-4.0); Magnesium 2.3 mg/dl (1.7-2.4); Potassium 5.3 mmol/L (3.5-5.1); Total Protein 6.8 gm/dl (6.0-8.3)
[2022-05-06] MEDS: INSULIN ASPART PER UNIT SC SCH ×3 (08:47→17:52)
[2022-05-06] MEDS: LANTUS PER UNIT CHARGE SQ SCH (08:48)
[2022-05-06] MEDS: BUMETANIDE 2 MG in SYRINGE 0 ML IV SCH ×2 (08:48→17:53)
[2022-05-06] MEDS: carvediloL 3.125 MG TAB PO SCH ×2 (08:49→20:00)
[2022-05-06] MEDS: APIXABAN 5 MG TABLET PO SCH ×2 (08:49→20:00)
[2022-05-06] MEDS: LOSARTAN POTASSIUM 25 MG TAB PO SCH (08:49)
[2022-05-06] MEDS: hydrALAZINE TAB 50 MG TAB PO SCH ×3 (08:50→20:00)
[2022-05-06] MEDS: amLODIPine BESYLATE 5 MG TAB PO SCH (08:50)
[2022-05-06] MEDS ORDERED: bisacodyL 10 MG SUPP PR STA (14:09)
--- NOTE | 2022-05-06 14:34 | Discharge Summary ---
Date of Service May 06, 2022 Admission HPI Per Admitting Provider Ryan Bruce is a 72yo male with history of CAD s/p CABG x 2V, ischemic cardiomyopathy with chronic systolic and diastolic CHF, EF of 40-45%, atrial flutter s/p ablation on Apixaban anticoagulation, HTN, HLP, DM and chronic lymphedema with stasis dermatitis. Patient reports two weeks of progressive SOB and COYNE. Also endorses 30# unintentional weight gain over the last 2 weeks. He has baseline orthopnea and is unable to lay flat but now has to sit upright in a chair to breathe. He presents to the ER today with acute progressive dyspnea - oxygen saturation measured at home 70%. He reports that his daughter made him come to the ER. He denies fever, chest pain, palpitations, cough, phlegm, abdominal pain, nausea, vomiting, diarrhea, constipation. He does not use home O2 or NIPPV. In the ER patient afebrile, tachypneic at 32bpm with saturation of 65% on room air. He did have one BP reading of 201/85. He was placed on BiPAP and was given Nitro patch and IV Lasix. During my encounter patient sitting upright in chair, BiPAP in place. No respiratory distress. Patient able to answer questions and speak in complete sentences. No additional complaints at this time. ER Course: BiPAP Yeboah Nitro paste x 1 inch Lasix 40mg IV Principal Diagnosis 1. Acute on chronic hypercapnic hypoxic respiratory failure 2. A/c CHF 3. CAUTI (treated) Discharge Exam GENERAL: 72 yo Well-developed, well-nourished morbidly obese WM. NAD. LUNGS: Nonlabored w/o conversational dyspnea. Bibasilar crackles noted, no wheezes or rhonchi. CARDIOVASCULAR: Regular rate and rhythm w/ 2-3/6 RANGEL. ABDOMEN: Soft, non-tender and non-distended. BS normoactive x 4 quad. EXTREMITIES: +3 pitting edema. Non-tender. Peripheral pulses +2/4. NEUROLOGIC: A&O x3. Nonfocal PSYCHIATRIC: Cooperative. Appropriate mood and affect. SKIN: Warm, dry, intact. No rashes or lesions. Discharge Data Allergies Allergy/AdvReac Type Severity Reaction Status Date / Time sulfamethoxazole AdvReac nausea Verified 04/23/22 21:35 [From Bactrim] trimethoprim [From Bactrim] AdvReac nausea Verified 04/23/22 21:35 Consultations 04/23/22 20:49 ED Decision to Admit Stat 04/24/22 09:55 Consult Cardiology Routine 04/30/22 18:35 Consult Urology Routine 05/01/22 15:46 Consult Pulmonology Routine Ordered Studies Chest X-Ray 04/23/22 19:28 XR chest 1V portable CLINICAL HISTORY: shob TECHNIQUE: Single frontal radiograph of the chest was obtained. Comparison: Comparison is made to chest radiograph 04/29/2021 FINDINGS: Median sternotomy wires are unchanged. Cardiomegaly is noted. There is prominence and cephalization of the vasculature with Carolina B lines seen. Likely small bilateral pleural effusions. IMPRESSION: Clinical history megaly with moderate pulmonary edema, increased from prior exam. Likely small bilateral pleural effusions. ACT 112: Negative or not required by law. Electronically signed by: Rick Banegas M.D. 04/23/2022 8:12 PM Chest X-Ray 04/25/22 08:30 XR chest 1V portable HISTORY: 72 years-old Male CHF acute shortness of breath COMPARISON: Chest radiograph 04/23/2022 TECHNIQUE: AP view of the chest FINDINGS: Cardiac silhouette is enlarged. Pulmonary vascular congestion an mildly improved interstitial coarsening. Prior median sternotomy. There is no pneumothorax. Layering pleural effusions with bibasilar consolidation. Degenerative changes of the shoulders and spine. IMPRESSION: 1. Cardiomegaly with mildly improved pulmonary edema. 2. Layering pleural effusions with bibasilar consolidation redemonstrated. ACT 112: Negative or not required by law. The above report was generated using voice recognition software. It may contain grammatical, syntax or spelling errors. Electronically signed by: Kb Montenegro M.D. 04/25/2022 7:06 AM Renal Ultrasound 04/29/22 13:50 US renal/blad retro comp HISTORY: 72 years-old Male Abnormal renal function COMPARISON: None TECHNIQUE: Multiple real-time sonographic images of the kidneys and urinary bladder were obtained assessing grayscale appearance and color flow FINDINGS: The right kidney measures 12.2 cm in length. The left kidney measures 12.2 cm in length. Mild cortical thinning of the bilateral kidneys. No renal calculi, hydronephrosis or suspicious mass lesion. Cortical medullary differentiation is preserved bilaterally. Decompressed urinary bladder is not well visualized. IMPRESSION: 1. No renal calculi or hydronephrosis. 2. Mild cortical thinning of the kidneys. ACT 112: Negative or not required by law. The above report was generated using voice recognition software. It may contain grammatical, syntax or spelling errors. Electronically signed by: Kb Montenegro M.D. 04/29/2022 3:48 PM Scrotum Ultrasound 04/30/22 18:31 ULTRASOUND TESTES AND SCROTUM CLINICAL HISTORY: Scrotal pain and swelling. COMPARISON STUDY: Scrotal ultrasound dated 12/03/2014. TECHNIQUE: Real-time, grayscale, and color Doppler sonography of the testes and scrotum is performed. Images are reviewed in the transverse and longitudinal planes. FINDINGS: The testes are mildly atrophic and slightly heterogeneous. The right testis measures 3.7 x 3.6 x 3.2 cm and the left testis measures 3.3 x 3.0 x 2.8 cm. No intratesticular mass is seen. Testicular blood flow is normal and symmetric. Normal Doppler waveforms are identified in both testes. The epididymal heads are grossly unremarkable but not well visualized. There is marked scrotal wall thickening. Hyperemia is shown on color imaging. No varicocele or hydrocele is seen. IMPRESSION: 1. No acute sonographic abnormality is seen involving the testes. 2. There is marked scrotal wall thickening and edema with hyperemia on color imaging. Correlate clinically for evidence of cellulitis. ACT 112: Negative or not required by law. Electronically signed by: Zak Kemp M.D. 04/30/2022 7:32 PM Chest X-Ray 05/02/22 10:30 XR chest 1V portable HISTORY: Shortness of breath. Follow-up. COMPARISON: Chest 04/25/2022. FINDINGS: No pneumothorax. There are low lung volumes with elevation the right hemidiaphragm. The heart remains enlarged. There are poststernotomy changes. Mild interstitial pulmonary edema in the small bilateral pleural effusions/bibasilar densities have improved in the interval. No new focal lung consolidations identified. IMPRESSION: Interval improvement in the mild interstitial pulmonary edema and small bilateral pleural effusions/densities. ACT 112: Negative or not required by law. Electronically signed by: Kannan Cintron M.D. 05/02/2022 11:02 AM Hospital Course (1) Acute diastolic CHF (congestive heart failure): Picture most consistent though likely has a component of cor pulmonale. - Continue Bumex 2 mg IV BID - Standing weight stable today, but net - 2000 mL. Approaching euvolemia; discussed with cardiology on 05/04. Continue IV diuresis at this time. - Another FB of -2490 mL over the past 24 hours - D/w Dr. Smalls, will transition to Bumex 2mg BID, can remove yeboah - F/u with Penelope Calderon PA-C in HF clinic (2) Scrotal edema: Due to CHF. Seen by urology. Supportive care. - Minimal improvement today. Has been in bed some, but doesn't like the bed. Not willing to try to scrotal sling as it looks like it is sized for "two golf balls." (3) Catheter-associated urinary tract infection: Not present on admission; Proteus sensitive to Rocephin Was on from 04/26 - 05/02. - Monitor (4) Acute respiratory failure with hypoxia: And with hypercapnia; likely combination of diastolic heart failure and CLINTON/obesity hypoventilation. - Consulted pulmonary likely merits nightly NIV though at discharge may be an issue without a formal sleep study. Presently declining BiPap during the day. Did wear it for 2 hours at night. - Improving slowly. Reportedly 96-98% on 2L, instructed nurse to wean off O2 and monitor. Goal pulse ox 88-92% given his underlying COPD - Has non-diagnosed sleep apnea-will need a formal sleep study at [facility] to get him qualified for cpap prior to return home - for now, he can use a cpap at HS 8-10mmhg (5) Coronary artery disease: Patient denies chest pain. Troponin normal. No acute ischemic changes present on EKG. - Continue meds as above Patient was to have a stent placed in the LLE but missed his appointment. - Outpatient follow-up with Dr. Smalls (6) Atrial fibrillation: S/p ablation. Presently in SR with sinus arrhythmia. - Continue carvedilol but dose lowered - Continue anticoagulation with apixaban (7) Hypertension: BP recent at 140/70. - Continue amlodipine, losartan, carvedilol, and hydralazine. - Lowered losartan to 25 mg to reduce chances of hyperkalemia on 05/04. (8) Type 2 diabetes mellitus, with long-term current use of insulin: A1c was 9.1% in 03/2022. - Continue glargine 30 units SQ BID - Sliding scale insulin -> Sugars 125 - 220 in last 24 hours. (9) Dyslipidemia: Chronic. - Continue atorvastatin (10) Chronic venous stasis dermatitis of both lower extremities: Dressing in place. - Wound care BID - Continue compression stockings as able - Wound care consult (11) Acute renal insufficiency: Suspect CRSstable; continue diuresis - Cr is 1.3 today. (12) Elevated alkaline phosphatase level: Has been in this range before; no definite clinical correlate inclined to observe; if persists or worse can consider further assessment. Plan K slightly elevated at 5.3, hasn't had a BM in 4 days. Given a dose of Patiromer as well as a bisacodyl suppository. Wean O2 as able to keep goal pulse ox 88- 92%. He is medically stable for discharge to [facility] rehab hospital. Discussed with Dr. Smalls, able to transition pt back to oral diuretics and f/u as outpatient. Plan has been d/w Dr. Vance Gates who is in agreement with aforementioned. Total Time Total Time Spent Total Time Spent (In Minutes): >30 minutes Discharge Plan Discharge Items Patient Disposition: Transfer Inpatient Rehab Fac Reason For Visit: ACUTE HYPOXIC RESPIRATORY FAILURE Discharge Diagnosis: 1. Fluid overload 2. Low pulse ox 3. Sleep apnea Activity: As commented below Activity Comment: with assistance as tolerated Non-emergency contact: Primary Care Provider, Specialist, Public Improvement Inspector and Theater Education Teacher Call non-emergency contact if: you have any medication questions and your symptoms worsen Follow-up/Referrals: Neetu Smallwood DO [Primary Care Provider] - María Calderon PA-C [Physician Arch Support Maker] - 05/09/22 2:00 pm (Congestive Heart Failure Program Appointment Information Early follow up is essential to managing your heart failure. An appointment has been scheduled for you with the [facility] Heart Failure Program within 7 days of discharge. Anticipate this visit to be 30-60 minutes long. Please expect a supervisor insulation phone call from one of our nurses approximately 48 hours from discharge. They will also be placing an order for lab work to be completed 1-2 days prior to your heart failure follow up appointment. Please be sure to have this done so we can go over the results when you come in. Office Location The cardiology office building is located in front of the hospital at [address] Bring the following with you to your follow-up doctor appointments: Please bring your daily weight log any discharge paperwork all of your medication bottles with you to this visit. ) Diet: Carb Consistent or DM2, Heart Healthy and Low Sodium (2gm) Fluids: 1500ml (6 cups) Addtl Attending Provider Instructions: You were hospitalized due to fluid overload that accumulated in your heart and caused you to be short of breath with low oxygen levels. You were placed on medications to help remove the access water called diuretics. The medicine (Bumex) was given through our IV. You are now being transitioned to the oral form of this medication. It is very important that you remain compliant with taking it twice a day as directed. Do not skip doses or adjust the dose unless specifically instructed to do so by a physician or other qualified healthcare provider. You will need to also be compliant with using a cpap machine at night when you sleep. This is to help prevent your airway from becoming blocked causing you to stop breathing. When this happens, you are not able to adequately oxygenate your brain and other vital organs. * Please wear the cpap at settings of 14 mmhg each night. * You are going to need a sleep study performed while at [facility] rehab hospital to qualify you for a cpap so that it is arranged prior to your discharge home from [facility]. You are felt to need physical rehab therefore are being discharged to [facility] rehab hospital where you will participate in physical and occupational therapy until you are well enough to return home. Please keep all scheduled follow ups with your specialists as planned. You will be closely followed by the medical team at [facility] but will need to arrange for a PCP follow up prior to your discharge home from [facility]. Also, it is important to note that some of your blood pressure medications have been changed. Please note the followin. Losartan is decreased to 25mg once per day 2. Coreg is decreased to 3.125mg twice a day 3. You have been started on Hydralazine 50mg, one tablet three times per day. Please keep your fluid intake less than 2L per day and eat a low fat/low salt diabetic diet. If you have any questions following your discharge, you may call the nonemergency number listed on your discharge paperwork. In the event of a medical emergency, call 911. [facility] Automated Equipment Engineer Technician Provider Instructions: Call your Primary Care doctor if any of the following symptoms or problems start or get worse: * Shortness of breath or difficulty breathing * Wake up at night short of breath * Chest pain * Cough * Swelling of your hands, feet, or legs * More fatigued or tired with your normal activity * Palpitations - sudden fast heart beats WEIGHT * Weigh yourself every morning after using the bathroom. * Use the same scale. * Wear the same amount of clothing. * Write your weight down on a chart. * Call your Primary Care doctor if you gain more than 2-3 pounds in 1-2 days. MEDICATIONS * Use this discharge instruction sheet for medication instructions. * Take your medications at the time your doctor ordered. * Do not skip a dose of your medicines. * If you miss a dose of medicine, take it as soon as possible, but DO NOT DOUBLE A DOSE. * Read your medicine information when you get home. * Know all of the side effects of your medicine. If in doubt, ask your pharmacist * Call your Primary Care doctor's office if you have any side effects. * Be sure all of your doctors know what medicine and herbs you take (including cold, flu, and herbal medicine). Take the following with you to your follow-up doctor appointments: * Weight Chart * Medication List * List of questions Do not drink excessive alcohol, beer or wine. Pending Studies at Discharge: No Stand-Alone Forms: My [facility] Skilled Items Patient informed of condition?: Yes DNR: No Discharge Level of Care: Acute rehab Communicable Disease: No Discharge Prognosis: Stable Lines: None Urinary Catheter: No Medications and DC Order Prescriptions: New carvedilol 3.125 mg Tablet 3.125 mg PO BID Qty: 60 0RF losartan 25 mg Tablet 25 mg PO DAILY Qty: 30 0RF hydralazine 50 mg Tablet 50 mg PO TID Qty: 90 0RF bumetanide 2 mg tablet 2 mg PO BID Qty: 60 0RF Continued metformin 500 mg tablet extended release 24 hr 1,000 mg PO BID Qty: 360 1RF Rx Instructions: Regular ER, not MOD or OSM glipizide 5 mg tablet 5 mg PO BIDM Qty: 180 1RF atorvastatin 80 mg tablet 80 mg PO HS Qty: 90 1RF Eliquis 5 mg tablet 5 mg PO BID Qty: 180 1RF Artie BaileyoStar U-300 Insulin 300 unit/mL (1.5 mL) insulin pen 75 unit subcut HS Qty: 4.5 5RF Rx Instructions: 75 unit (0.23 mL) SQ AT BEDTIME tramadol 50 mg tablet See Rx Instructions PO Q6H PRN (Reason: pain) Qty: 120 0RF Rx Instructions: Take 1-2 tabs PO every 6 hours PRN; PDMP check last fill: 02/03/22 nitroglycerin 0.4 mg tablet, sublingual 0.4 mg SL Q5M PRN (Reason: chest pain) albuterol sulfate 90 mcg/actuation HFA aerosol inhaler 2 puff INH QID PRN (Reason: Shortness Of Breath) acetaminophen [Tylenol Extra Strength] 500 mg tablet 500 mg PO Q4H PRN (Reason: pain) Qty: 360 3RF amlodipine 5 mg tablet 5 mg PO DAILY Qty: 90 1RF ergocalciferol (vitamin D2) 1,250 mcg (50,000 unit) capsule 1,250 mcg PO WK Rx Instructions: sundays Discontinued losartan 100 mg tablet 100 mg PO DAILY Qty: 90 1RF carvedilol 6.25 mg tablet 6.25 mg PO BID Qty: 180 0RF Rx Instructions: must administer with a meal/food Discharge Orders: Discharge Order (Routine); Ordered 05/06/22 Ordered By: Qing Alberts Admission Data Admit Date/Time: 04/23/22 21:28 Attending Provider: Vance Gates Admit Provider: Michelle Arevalo Primary Care Provider: Neetu Smallwood Other Providers: Michelle Arevalo ; Cruz Baron ; Oseas Jimenez ; Timothy Rice ; Hank Garrett ; Sean Cox ; Scott Presley Jr ; Yahir Momin ; Pattie Smalls ; Eva Sanabria ; Art Smalls ; Dionicio Padron ; Iván Chappell ; María Calderon ; Nithya Chavis ; Geovany Henley ; Mickey Villalba ; Ilan Sepulveda ; Hank Johnson V. ; Iván Sotelo ; Johnny Bowden ; [facility] Other Interventions: Discharge Summary Assessment (RN) Last Done: 05/06/22 17:18 Supervising Physician Co-Signing Physician Notes I supervised Qing Alberts PA-C on the care of this patient. I interviewed and examined the patient independently of her yesterday, within the last 24h of discharge. The plan is as written in her note except for any following changes/exceptions: None 72yo M w/ CHF exacerbation. Has diuresed well, and now 10 kg forecast analyst than on admission. Likely still has some moderate element of volume overload, but definitely improving. Switched to oral Bumex on discharge; will follow up with Dr. Smalls and Emily Calderon in clinic. Coding Level of Care Code D/C DAY MANAGEMENT >30 MINS Diagnoses Acute diastolic CHF (congestive heart failure) I50.31 Scrotal edema N50.89 Catheter-associated urinary tract infection T83.511A; N39.0 Acute respiratory failure with hypoxia J96.01 Coronary artery disease I25.10 Atrial fibrillation I48.91 Hypertension I10 Type 2 diabetes mellitus, with long-term current use of insulin E11.9; Z79.4 Dyslipidemia E78.5 Chronic venous stasis dermatitis of both lower extremities I87.2 Acute renal insufficiency N28.9 Elevated alkaline phosphatase level R74.8
[2022-05-06] MEDS ORDERED: PATIROMER CALCIUM SORBITEX 8.4 GM PACK PO ONE (14:45)
[2022-05-06 19:25] VITALS: BP 142/66; PULSE 80; O2SAT 91
[2022-05-06 19:26] VITALS: TEMP 98.6
[2022-05-06] MEDS: traMADol HCL 50 MG TABLET PO PRN (19:54)
[2022-05-06] MEDS: ATORVASTATIN 40 MG TAB PO SCH (20:00)
== END 2022-05-06 20:29 | DRG 291 ==
LOC: ED 19:21 → SUATTDRO 21:28 → 2S 21:28 → 2E 04-27 06:34
DX: I48.91 Unspecified atrial fibrillation; Y84.6 Urinary catheterization as the cause of abnormal reaction of the patient, or of later complication, without mention of misadventure at the time of the procedure; Z68.43 Body mass index [BMI] 50.0-59.9, adult; J96.21 Acute and chronic respiratory failure with hypoxia; I87.2 Venous insufficiency (chronic) (peripheral); Z79.4 Long term (current) use of insulin; R74.8 Abnormal levels of other serum enzymes; Z91.19 Patient's noncompliance with other medical treatment and regimen; I27.81 Cor pulmonale (chronic); B96.4 Proteus (mirabilis) (morganii) as the cause of diseases classified elsewhere; I47.2 Ventricular tachycardia; N40.0 Benign prostatic hyperplasia without lower urinary tract symptoms; E66.2 Morbid (severe) obesity with alveolar hypoventilation; I25.10 Atherosclerotic heart disease of native coronary artery without angina pectoris; Y81.2 Prosthetic and other implants, materials and accessory general- and plastic-surgery devices associated with adverse incidents; J96.22 Acute and chronic respiratory failure with hypercapnia; T83.511A Infection and inflammatory reaction due to indwelling urethral catheter, initial encounter; Y92.239 Unspecified place in hospital as the place of occurrence of the external cause; Z87.891 Personal history of nicotine dependence; J81.0 Acute pulmonary edema; Z95.1 Presence of aortocoronary bypass graft; Z79.01 Long term (current) use of anticoagulants; I25.5 Ischemic cardiomyopathy; Z88.2 Allergy status to sulfonamides; I11.0 Hypertensive heart disease with heart failure; E11.51 Type 2 diabetes mellitus with diabetic peripheral angiopathy without gangrene; I50.43 Acute on chronic combined systolic (congestive) and diastolic (congestive) heart failure; I45.3 Trifascicular block; J96.01 Acute respiratory failure with hypoxia

== ENCOUNTER 2023-02-10 13:33 | Inpatient (IN) ==
--- NOTE | 2023-02-10 14:25 | XRay Report ---
XR chest 1V portable HISTORY: Chest pain, nonspecific COMPARISON: Chest 05/02/2022. FINDINGS: No pneumothorax. No pleural effusions. There are low lung volumes with mild elevation of th e right hemidiaphragm. The heart remains enlarged. There are poststernotomy changes. Mild central pul monary vascular congestion without overt edema. Bibasilar linear densities favor subsegmental atelect asis. IMPRESSION: Cardiomegaly with mild central pulmonary vascular congestion without overt edema ACT 112: Negative or not required by law. Electronically signed by: Kannan Cintron M.D. 02/10/2023 2:23 PM
[2023-02-10 15:10] LABS: Basophils # (auto) 0.03 K/uL (0-0.2); Basophils % (auto) 0.3 %; Eosinophils # (auto) 0.13 K/uL (0-0.50); Eosinophils % (auto) 1.4 %; Hematocrit (blood only) 43.3 % (42.0-52.0); Hemoglobin 13.3 g/dl (14.0-18.0); Immature Granulocytes # (auto) 0.04 K/uL (0.01-0.20); Immature Granulocytes % (auto) 0.4 %; Lymphocytes # (auto) 1.25 K/uL (1.2-3.4); Lymphocytes % (auto) 13.9 %; Mean Corpuscular Hemoglobin 26.9 pg (25.0-34.0); Mean Corpuscular Hgb Conc 30.7 g/dL (32.0-36.0); Mean Corpuscular Volume 87.7 fL (80.0-100.0); Mean Platelet Volume 10.7 fL (9.4-12.4); Monocytes # (auto) 0.74 K/uL (0.11-0.59); Monocytes % (auto) 8.2 %; Neutrophils # (auto) 6.79 K/uL (1.40-6.50); Neutrophils % (auto) 75.8 %; Platelet Count 201 K/uL (130-400); RDW Coefficient of Variation 16.4 % (11.5-14.5); Red Blood Count 4.94 M/uL (4.70-6.10); White Blood Count 8.98 K/ul (4.8-10.8)
--- NOTE | 2023-02-10 15:17 | Electrocardiogram Report ---
Test Reason : Blood Pressure : / mmHG Vent. Rate : 064 BPM Atrial Rate : 064 BPM P-R Int : 170 ms QRS Dur : 138 ms QT Int : 436 ms P-R-T Axes : -21 153 065 degrees QTc Int : 449 ms Sinus rhythm with marked sinus arrhythmia Right bundle branch block Old Anterolateral infarct Abnormal ECG When compared with ECG of 25-APR-2022 13:34, Premature atrial complexes are no longer Present Criteria for Anterolateral infarct is now Present Confirmed by Oseas Jimenez ([id number]) on 02/10/2023 3:16:43 PM Referred By: REFERRED SELF Confirmed By:Oseas Jimenez
[2023-02-10 15:30] LABS: Alanine Aminotransferase 10 U/L (7-52); Albumin Level 3.8 gm/dl (3.4-5.0); Alkaline Phosphatase 103 U/L (34-104); Anion Gap 7 (3-11); BUN Creatinine Ratio 53.4 (10-20); Bilirubin,Total 0.5 mg/dl (0.2-1.0); Blood Urea Nitrogen 70 mg/dl (6-23); Calcium 9.6 mg/dl (8.6-10.3); Carbon Dioxide 33 mmol/L (21-32); Chloride 93 mmol/L (98-107); Creatinine Clr Calc Pharmacy 78.7 ml/min; Est GFR (African American) 63.5 ml/min; Est GFR (Non-African American) 54.8 ml/min; Glucose 141 mg/dl (70-99(Fasting)); Lipase 27 U/L (11-82); Sodium 133 mmol/L (136-145); Total Protein 7.8 gm/dl (6.0-8.3); Troponin I High Sensitivity 14.3 pg/ml (0-20)
--- NOTE | 2023-02-10 15:32 | Emergency Department Note ---
Impression & Plan Chronic combined systolic and diastolic congestive heart failure, Chronic venous stasis dermatitis of both lower extremities, Hypoxia ED Provider Note NAME: IRISH ROSALES AGE: 72 SEX: M ARRIVES VIA: Ambulance INFORMANT: Patient ED PROVIDER(S): Michael Boateng MD CHIEF COMPLAINT: Shortness of breath. PLAN: Disposition: Admit MEDICAL DECISION MAKING: The patient is a 72-year-old gentleman with a past medical history of CAD, status post CABG, ischemic cardiomyopathy with chronic systolic and diastolic heart failure with EF of 40-45%, atrial flutter status post ablation on Eliquis, hypertension, hyperlipidemia, diabetes, chronic lymphedema and stasis dermatitis who presents to the emergency department via EMS from home for worsening shortness of breath over the past week where his daughter who is a RN was concerned about his breathing and that he would desaturate as low as the 70s on room air. The patient is a poor historian and denies any recent weight gain or fluid retention and reports he does not weigh himself because his "scale is broken". He acknowledges that he has been told he should be on BiPAP at night but cannot tolerate the mask. He does have home health come to his home 3 times a week to dress his legs and in particular his left lower extremity has been weeping. He reports that the home nurse came today but did not change the dressings due to plan to transfer to the hospital. He denies any fevers, cough, congestion, GI or symptoms. He is open about his frustrations about previous admissions and repeatedly states that he "does not want to be here". However his daughter did arrive to the bedside and expressed her concern about his breathing and how in the past the patient had been resistant to being transferred to the hospital and ultimately led to respiratory failure requiring emergent BiPAP. Ultimately patient agreed with plan for admission albeit begrudgingly. On arrival the patient is chronically ill-appearing, dyspneic with minimal exertion but no acute distress, afebrile with O2 saturation 81% on room air improving to the low 90s on 4 L nasal cannula. Vital signs are otherwise stable. He appears hypervolemic with 2+ bilateral lower extremity pitting edema with chronic venous stasis dermatitis with serous weeping of the left lower leg without overt erythema warmth or tenderness. EKG demonstrates sinus rhythm with marked sinus arrhythmia, 64 bpm, right bundle branch block, no overt ST elevation or depression, QTc 449, QRS 138. Chest x-ray demonstrates venous congestion without overt pulmonary edema. Bibasilar linear densities likely atelectasis. WBC, HCT and platelets within normal limits. Chemistry without metabolic acidosis. Electrolytes without significant abnormality. LFTs unremarkable. High-sensitivity troponin 14.3, within normal limits. BNP 44 and may be falsely low due to obese body habitus. Lipase within normal limits. COVID-19 RNA, MAHSA test was negative. Treatment initiated with IV Bumex. Case was d/w Dr. Hickman [facility] [place] who will evaluate the patient for admission. Triage Nursing notes reviewed and agree them. Prior/outside medical records reviewed Vital Signs: reviewed Differential diagnosis: Reactive airway disease, pneumonia, pneumothorax, COPD, CHF, infections, cardiac ischemia, pulmonary embolism, musculoskeletal, gastrointestinal, as well as other pathologies. ER treatment provided: See below. Diagnostics interpreted by me: ECG: Sinus rhythm with marked sinus arrhythmia, 64 bpm, right bundle branch block, no overt ST elevation or depression, QTc 449, QRS 138. Cardiac Monitoring: An order for continuous cardiac monitoring was placed and demonstrated sinus rhythm, 64 bpm, no ectopy. Laboratory studies: See below Imaging studies: See below Consultation(s): Case was d/w [facility] hospitalist who will evaluate the patient for admission. HPI: The patient is a 72-year-old gentleman with a past medical history of CAD, status post CABG, ischemic cardiomyopathy with chronic systolic and diastolic heart failure with EF of 40-45%, atrial flutter status post ablation on Eliquis, hypertension, hyperlipidemia, diabetes, chronic lymphedema and stasis dermatitis who presents to the emergency department via EMS from home for worsening shortness of breath over the past week where his daughter who is a RN was concerned about his breathing and that he would desaturate as low as the 70s on room air. The patient is a poor historian and denies any recent weight gain or fluid retention and reports he does not weigh himself because his "scale is brok en". He acknowledges that he has been told he should be on BiPAP at night but cannot tolerate the mask. He does have home health come to his home 3 times a week to dress his legs and in particular his left lower extremity has been weeping. He reports that the home nurse came today but did not change the dressings due to plan to transfer to the hospital. He denies any fevers, cough, congestion, GI or symptoms. He is open about his frustrations about previous admissions and repeatedly states that he "does not want to be here". However his daughter did arrive to the bedside and expressed her concern about his breathing and how in the past the patient had been resistant to being transfe rred to the hospital and ultimately led to respiratory failure requiring emergent BiPAP. Ultimately patient agreed with plan for admission albeit begrudgingly. ROS: See above HPI for pertinent positives & negatives. A total of 10 systems reviewed and were otherwise negative. VITALS:See Below PHYSICAL EXAMINATION: GENERAL: Awake, alert, chronically ill-appearing, mildly dyspneic but in no distress HENT: Normocephalic, atraumatic. Oropharynx unremarkable. EYES: Normal conjunctiva. Sclera non-icteric. NECK: Supple. No nuchal rigidity. FROM. No JVD. RESPIRATORY: Diminished at the bases and clear to auscultation. CARDIAC: Regular rate, normal rhythm. Extremities warm and well perfused. Pulses equal. ABDOMEN: Soft, non-distended. No tenderness to palpation. No rebound or guarding. No masses. RECTAL: Deferred. MUSCULOSKELETAL: Chest examination reveals no tenderness. The back is symmetrical on inspection without obvious abnormality. There is no CVA tenderness to palpation. No joint edema. LOWER EXTREMITIES: 2+ bilateral lower extremity pitting edema with chronic venous stasis dermatitis with serous weeping of the left lower leg without overt erythema warmth or tenderness. NEURO: Normal sensorium. No sensory or motor deficits noted. SKIN: No jaundice noted. Michael Boateng MD Past Med/Surg History Medical History Arthritis Atrial fibrillation Atrial flutter with controlled response Bilateral primary osteoarthritis of knee BPH (benign prostatic hyperplasia) Catheter-associated urinary tract infection Catheter-associated urinary tract infection Cellulitis, scrotum Chronic combined systolic and diastolic congestive heart failure Chronic venous stasis dermatitis of both lower extremities Cor pulmonale Coronary artery disease Degenerative arthritis of knee, bilateral Diabetic nephropathy associated with type 2 diabetes mellitus Diabetic peripheral neuropathy associated with type 2 diabetes mellitus Dysesthesia Dyslipidemia Harley's gangrene Glaucoma Hypertension Hypoxia Ischemic cardiomyopathy Left leg cellulitis Lymphedema Morbid obesity Obesity hypoventilation syndrome Open wound of scrotum Paroxysmal SVT (supraventricular tachycardia) Peripheral arterial disease Scrotal edema Sick sinus syndrome Tobacco use Type 2 diabetes mellitus, with long-term current use of insulin Vitamin D deficiency Surgical History History of testicular surgery Hx of CABG (2015) S/P ablation of atrial fibrillation (2014) Family History Brother Diabetes Hypertension Alcohol abuse Kidney stones Cancer Sister Breast cancer Hypertension Denies family history of Ovarian cancer Prostate cancer Myocardial infarction Colorectal cancer Social History Smoking Status: Former smoker Tobacco Type: Cigarettes Age Started Using Tobacco: 22; packs per day: 2; Cigarettes Per Day: QUIT SMOKING AT AGE 42- STILL CHEWS TOBACCO; Second Hand Exposure: No; Do You Dip or Chew Tobacco: Yes; Hx Alcohol Use: Yes Alcohol type: beer Hx Substance Use: No Preferred Language: Kenyan Communication Ability: Effective Visual Impairment: No Limitations Hearing Ability: Hard of Hearing Technical Healthcare Consultant Required: No Beliefs That Will Affect Care: None marital status: Current Living Situation: Family Current Living Situation Comment: lives with ex , daughter, granddaughter, grandson 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 status: 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 How many Children do You have: 3 Feels Safe at Home: Yes Childhood Exposure to Second-Hand Smoke: Yes Diet: regular caffeine: Yes during the past year weight has: remained stable Dental Care, Regularly: No Physical Activity Frequency: Does not Exercise Seatbelt Use: never Sunscreen Use: Yes Assistive Devices: Walker Allergies Allergies Allergy/AdvReac Type Severity Reaction Status Date / Time sulfamethoxazole AdvReac nausea Verified 02/10/23 17:55 [From Bactrim] trimethoprim [From Bactrim] AdvReac nausea Verified 02/10/23 17:55 Home Meds Home Medications Medication Instructions Recorded Confirmed nitroglycerin 0.4 mg sublingual 0.4 mg sublingual Q5M PRN chest 05/16/19 02/10/23 tablet pain albuterol sulfate 90 mcg/actuation 2 puff inhalation QID PRN 09/02/21 02/10/23 aerosol inhaler Shortness Of Breath empagliflozin 25 mg tablet 25 mg PO DAILY 05/12/22 02/10/23 (Jardiance) polyethylene glycol 3350 17 17 g PO DAILY PRN constipation 05/12/22 02/10/23 gram/dose oral powder (Miralax) sennosides 8.6 mg tablet (Senokot) 8.6 mg PO DAILY PRN constipation 05/12/22 02/10/23 acetaminophen 500 mg tablet 500 - 1,000 mg PO Q6 PRN pain 02/10/23 02/10/23 (Tylenol Extra Strength) atorvastatin 80 mg tablet 80 mg PO HS 02/10/23 02/10/23 ergocalciferol (vitamin D2) 1,250 50,000 unit PO WK 02/10/23 02/10/23 mcg (50,000 unit) capsule hydralazine 50 mg tablet 50 mg PO TID 02/10/23 02/10/23 insulin glargine U-300 conc 300 75 unit subcut DAILY 02/10/23 02/10/23 unit/mL (1.5 mL) subcutaneous pen (Artie Dixon U-300 Insulin) metolazone 5 mg tablet 5 mg PO MOWEFR 02/10/23 02/10/23 Previous Rx's Medication Instructions Recorded apixaban 5 mg tablet (Eliquis) 5 mg PO BID #180 tabs 08/26/22 glipizide 5 mg tablet 5 mg PO BIDM #180 tabs 09/02/22 metformin 500 mg tablet,extended 1,000 mg PO BID #360 tabs 09/19/22 release 24 hr bumetanide 2 mg tablet 2 mg PO BID #60 tabs 10/25/22 Compression wraps- Comprecares #2 ea 10/31/22 amlodipine 5 mg tablet 5 mg PO DAILY #90 tabs 11/29/22 Profore Lite Unna Boot change #1 ea 01/17/23 twice a week LLE dx venous stasis ulcers oxycodone 10 mg tablet 10 mg PO Q6H PRN pain #120 tabs 01/30/23 carvedilol 3.125 mg tablet 3.125 mg PO BID #180 tabs 01/31/23 losartan 25 mg tablet 25 mg PO DAILY #90 tabs 01/31/23 Results & Data (ED) Vital Signs Vital Signs - 24 hr 02/10/23 13:36 02/10/23 13:49 02/10/23 14:01 Temperature 37.2 C Temperature Source Oral Pulse Rate 69 62 Pulse Rate from SpO2 Sensor Respiratory Rate 24 Respiratory Effort / Characteristics Spontaneous Short of Breath SOB on Exertion Respiratory Pattern Tachypnea Blood Pressure 162/96 H Blood Pressure Mean 118 Pulse Oximetry 81 L 82 L Oxygen Delivery Method Room Air Room Air Oxygen Flow Rate Sepsis Recent Fever Within 48 Hours No Sepsis New/Unexplained Change in Mental Status No Sepsis Action Taken by Nursing No Action Required Oxygen Flow Rate - Titration 4 Pulse Oximetry Post Tiitration 97 02/10/23 13:36 02/10/23 14:00 02/10/23 14:30 Temperature Temperature Source Pulse Rate Pulse Rate from SpO2 Sensor 63 69 Respiratory Rate 17 Respiratory Effort / Characteristics Short of Breath SOB on Exertion Respiratory Pattern Tachypnea Blood Pressure 160/79 H 156/69 H Blood Pressure Mean 106 98 Pulse Oximetry 99 97 Oxygen Delivery Method Oxygen Flow Rate 4 4 Sepsis Recent Fever Within 48 Hours Sepsis New/Unexplained Change in Mental Status Sepsis Action Taken by Nursing Oxygen Flow Rate - Titration Pulse Oximetry Post Tiitration 02/10/23 16:00 Temperature Temperature Source Pulse Rate 71 Pulse Rate from SpO2 Sensor 74 Respiratory Rate 16 Respiratory Effort / Characteristics Respiratory Pattern Blood Pressure 162/103 H Blood Pressure Mean 122 Pulse Oximetry 89 L Oxygen Delivery Method Oxygen Flow Rate 4 Sepsis Recent Fever Within 48 Hours Sepsis New/Unexplained Change in Mental Status Sepsis Action Taken by Nursing Oxygen Flow Rate - Titration Pulse Oximetry Post Tiitration Laboratory Data Attestation: I reviewed the patient's lab results. 02/10/23 14:46 02/10/23 14:46 Lab Results 02/10/23 02/10/23 02/10/23 Range/Units 14:07 14:46 14:46 WBC 8.98 (4.8-10.8) K/ul RBC 4.94 (4.70-6.10) M/uL Hgb 13.3 L (14.0-18.0) g/dl Hct 43.3 (42.0-52.0) % MCV 87.7 (80.0-100.0) fL MCH 26.9 (25.0-34.0) pg MCHC 30.7 L (32.0-36.0) g/dL RDW Std Deviation 52.0 H (36.4-46.3) fL RDW Coeff of Rebecca 16.4 H (11.5-14.5) % Plt Count 201 (130-400) K/uL MPV 10.7 (9.4-12.4) fL Immature Gran % (Auto) 0.4 % Neut % (Auto) 75.8 % Lymph % (Auto) 13.9 % [place] % (Auto) 8.2 % Eos % (Auto) 1.4 % Baso % (Auto) 0.3 % Neut # (Auto) 6.79 H (1.40-6.50) K/uL Lymph # (Auto) 1.25 (1.2-3.4) K/uL [place] # (Auto) 0.74 H (0.11-0.59) K/uL Eos # (Auto) 0.13 (0-0.50) K/uL Baso # (Auto) 0.03 (0-0.2) K/uL Immature Gran # (Auto) 0.04 (0.01-0.20) K/uL PT Cancelled INR Cancelled Sodium (136-145) mmol/L Potassium Chloride (98-107) mmol/L Carbon Dioxide (21-32) mmol/L Anion Gap (3-11) BUN (6-23) mg/dl Creatinine (0.6-1.4) mg/dl Est Cr Clr Drug Dosing ml/min Est GFR ( Amer) ml/min Est GFR (Non-Af Amer) ml/min BUN/Creatinine Ratio (10-20) Glucose (70-99(Fasting)) mg/dl Calcium (8.6-10.3) mg/dl Magnesium (1.7-2.4) mg/dl Total Bilirubin (0.2-1.0) mg/dl AST ALT (7-52) U/L Alkaline Phosphatase (34-104) U/L Troponin I High Sens (0-20) pg/ml B-Natriuretic Peptide (0-100) pg/ml Total Protein (6.0-8.3) gm/dl Albumin (3.4-5.0) gm/dl Globulin (2.5-4.0) gm/dl Albumin/Globulin Ratio (0.9-2) Lipase (11-82) U/L SARS-CoV-2, RNA, NAAT NEGATIVE (NEGATIVE) 02/10/23 02/10/2323 Range/Units 14:46 14:46 16:19 WBC (4.8-10.8) K/ul RBC (4.70-6.10) M/uL Hgb (14.0-18.0) g/dl Hct (42.0-52.0) % MCV (80.0-100.0) fL MCH (25.0-34.0) pg MCHC (32.0-36.0) g/dL RDW Std Deviation (36.4-46.3) fL RDW Coeff of Rebecca (11.5-14.5) % Plt Count (130-400) K/uL MPV (9.4-12.4) fL Immature Gran % (Auto) % Neut % (Auto) % Lymph % (Auto) % [place] % (Auto) % Eos % (Auto) % Baso % (Auto) % Neut # (Auto) (1.40-6.50) K/uL Lymph # (Auto) (1.2-3.4) K/uL [place] # (Auto) (0.11-0.59) K/uL Eos # (Auto) (0-0.50) K/uL Baso # (Auto) (0-0.2) K/uL Immature Gran # (Auto) (0.01-0.20) K/uL PT INR Sodium 133 L (136-145) mmol/L Potassium TNP 4.5 Chloride 93 L (98-107) mmol/L Carbon Dioxide 33 H (21-32) mmol/L Anion Gap 7 (3-11) BUN 70 H (6-23) mg/dl Creatinine 1.31 (0.6-1.4) mg/dl Est Cr Clr Drug Dosing 78.7 ml/min Est GFR ( Amer) 63.5 ml/min Est GFR (Non-Af Amer) 54.8 ml/min BUN/Creatinine Ratio 53.4 H (10-20) Glucose 141 H (70-99(Fasting)) mg/dl Calcium 9.6 (8.6-10.3) mg/dl Magnesium 2.0 (1.7-2.4) mg/dl Total Bilirubin 0.5 (0.2-1.0) mg/dl AST TNP 13 ALT 10 (7-52) U/L Alkaline Phosphatase 103 (34-104) U/L Troponin I High Sens 14.3 (0-20) pg/ml B-Natriuretic Peptide 44 (0-100) pg/ml Total Protein 7.8 (6.0-8.3) gm/dl Albumin 3.8 (3.4-5.0) gm/dl Globulin 4.0 (2.5-4.0) gm/dl Albumin/Globulin Ratio 1.0 (0.9-2) Lipase 27 (11-82) U/L SARS-CoV-2, RNA, NAAT (NEGATIVE) 02/10/23 Range/Units 16:19 WBC (4.8-10.8) K/ul RBC (4.70-6.10) M/uL Hgb (14.0-18.0) g/dl Hct (42.0-52.0) % MCV (80.0-100.0) fL MCH (25.0-34.0) pg MCHC (32.0-36.0) g/dL RDW Std Deviation (36.4-46.3) fL RDW Coeff of Rebecca (11.5-14.5) % Plt Count (130-400) K/uL MPV (9.4-12.4) fL Immature Gran % (Auto) % Neut % (Auto) % Lymph % (Auto) % [place] % (Auto) % Eos % (Auto) % Baso % (Auto) % Neut # (Auto) (1.40-6.50) K/uL Lymph # (Auto) (1.2-3.4) K/uL [place] # (Auto) (0.11-0.59) K/uL Eos # (Auto) (0-0.50) K/uL Baso # (Auto) (0-0.2) K/uL Immature Gran # (Auto) (0.01-0.20) K/uL PT 11.2 INR 1.0 Sodium (136-145) mmol/L Potassium Chloride (98-107) mmol/L Carbon Dioxide (21-32) mmol/L Anion Gap (3-11) BUN (6-23) mg/dl Creatinine (0.6-1.4) mg/dl Est Cr Clr Drug Dosing ml/min Est GFR ( Amer) ml/min Est GFR (Non-Af Amer) ml/min BUN/Creatinine Ratio (10-20) Glucose (70-99(Fasting)) mg/dl Calcium (8.6-10.3) mg/dl Magnesium (1.7-2.4) mg/dl Total Bilirubin (0.2-1.0) mg/dl AST ALT (7-52) U/L Alkaline Phosphatase (34-104) U/L Troponin I High Sens (0-20) pg/ml B-Natriuretic Peptide (0-100) pg/ml Total Protein (6.0-8.3) gm/dl Albumin (3.4-5.0) gm/dl Globulin (2.5-4.0) gm/dl Albumin/Globulin Ratio (0.9-2) Lipase (11-82) U/L SARS-CoV-2, RNA, NAAT (NEGATIVE) Administered Medications Discontinued Medications Bumetanide 2 mg/ Syringe 8 mls @ 4 mls/min IV ONE ONE Stop: 02/10/23 16:55 Last Admin: 02/10/23 17:45 Dose: 4 mls/min Documented By: SC Imaging Data Radiologist's Impression: Chest X-Ray 02/10/23 13:36 XR chest 1V portable HISTORY: Chest pain, nonspecific COMPARISON: Chest 05/02/2022. FINDINGS: No pneumothorax. No pleural effusions. There are low lung volumes with mild elevation of the right hemidiaphragm. The heart remains enlarged. There are poststernotomy changes. Mild central pulmonary vascular congestion without overt edema. Bibasilar linear densities favor subsegmental atelectasis. IMPRESSION: Cardiomegaly with mild central pulmonary vascular congestion without overt edema ACT 112: Negative or not required by law. Electronically signed by: Kannan Cintron M.D. 02/10/2023 2:23 PM Discharge Plan Visit Data Chief Complaint: Shortness of Breath/Dyspnea ED Provider: Michael Boateng Discharge Problem: Chronic combined systolic and diastolic congestive heart failure, Chronic venous stasis dermatitis of both lower extremities, Hypoxia Patient Disposition: Admitted As Inpatient Discharge Instructions Interventions: ED Discharge Assessment Last Done: 02/10/23 19:40
[2023-02-10 16:50] LABS: Potassium 4.5 mmol/L (3.5-5.1)
[2023-02-10] MEDS ORDERED: BUMETANIDE 2 MG in SYRINGE 0 ML IV ONE (16:54)
[2023-02-10 16:55] LABS: Prothrombin Time 11.2 Seconds (9.0-12.0)
--- NOTE | 2023-02-10 17:02 | History & Physical Report ---
Date of Service February 10, 2023 Assessment & Plan (1) Acute respiratory failure with hypoxia: Plan: Unclear if definitely down to just Acute on chronic HFpEF given improved weight and BNP. Possibly just worsening cor pulmonale in setting of obesity hypoventilation and CLINTON. No PNA suspected, on Eliquis therefore PE much less likely Aim O2 sats > 90%. BiPAP HS 14/8 (2) Acute on chronic heart failure with preserved ejection fraction: Plan: Bumex 2mg IV BID, increase metolazone to daily rather than three times a week Strict I&Os, daily weight Low Na, fluid restrict to 1500ml (3) Obesity hypoventilation syndrome: (4) Cor pulmonale: (5) Atrial fibrillation: Plan: Currently in Sinus rhythm Continue Eliquis for anticoagulation Continue carvedilol for rate control (6) Type 2 diabetes mellitus, with long-term current use of insulin: Plan: Hemoglobin A1C 9.9 in November. Continue glipizide and Jardiance Will hold metformin in case of need of contrast study Lantus 30 units BID (this is what was given last admission), increase as necessary (7) Hypertension: Plan: Continue diuretics as above Continue hydralazine, amlodipine, losartan and carvedilol (8) Chronic venous stasis dermatitis of both lower extremities: Plan: Local wound care, no area of concerning cellulitis Plan VTE Prophyalxis - Eliquis Diet - Low Na, heart healthy, fluid restrict Disposition - admit to med/tele Admission and Anticipated Discharge Date Admission Date: February 10, 2023 History of Present Illness Chief Complaint: "I don't want to be here" Primary Care Provider: Neetu Smallwood DO Ryan Bruce is a 72 year old male with heart failure with preserved ejection fraction, obstructive sleep apnea and obesity hypoventilation who presents to the ER with hypoxia. The patient tells me "I'don't know" when asked how long he has been unwell for. He reports wanting to go home but has agreed with his family to stay but he think nothing is wrong and wants to go home. He is not on oxygen at home and requiring 4LPM O2 currently. He feels everytime he stays here no one does anything for him but I should just do what I have to do. He thinks his weight is down 70lb since last time in hospital. He reports compliance with his medications at home as a nurse fills the boxes up for him. He denies any fever or chills. Notes nasal congestion since "it got hot and dry". Coughing a little but no worse than usual. Leg swelling better than usual. Allergies Allergy/AdvReac Type Severity Reaction Status Date / Time sulfamethoxazole AdvReac nausea Verified 02/10/23 17:55 [From Bactrim] trimethoprim [From Bactrim] AdvReac nausea Verified 02/10/23 17:55 Home Medications Medication Instructions Recorded Confirmed Type nitroglycerin 0.4 mg sublingual 0.4 mg sublingual Q5M PRN chest 05/16/19 02/10/23 History tablet pain albuterol sulfate 90 mcg/actuation 2 puff inhalation QID PRN 09/02/21 02/10/23 History aerosol inhaler Shortness Of Breath empagliflozin 25 mg tablet 25 mg PO DAILY 05/12/22 02/10/23 History (Jardiance) polyethylene glycol 3350 17 17 g PO DAILY PRN constipation 05/12/22 02/10/23 History gram/dose oral powder (Miralax) sennosides 8.6 mg tablet (Senokot) 8.6 mg PO DAILY PRN constipation 05/12/22 02/10/23 History apixaban 5 mg tablet (Eliquis) 5 mg PO BID #180 tabs 08/26/22 02/10/23 Rx glipizide 5 mg tablet 5 mg PO BIDM #180 tabs 09/02/22 02/10/23 Rx metformin 500 mg tablet,extended 1,000 mg PO BID #360 tabs 09/19/22 02/10/23 Rx release 24 hr bumetanide 2 mg tablet 2 mg PO BID #60 tabs 10/25/22 02/10/23 Rx Compression wraps- Comprecares #2 ea 10/31/22 02/10/23 Rx amlodipine 5 mg tablet 5 mg PO DAILY #90 tabs 11/29/22 02/10/23 Rx Profore Lite Unna Boot change #1 ea 01/17/23 02/10/23 Rx twice a week LLE dx venous stasis ulcers oxycodone 10 mg tablet 10 mg PO Q6H PRN pain #120 tabs 01/30/23 02/10/23 Rx carvedilol 3.125 mg tablet 3.125 mg PO BID #180 tabs 01/31/23 02/10/23 Rx losartan 25 mg tablet 25 mg PO DAILY #90 tabs 01/31/23 02/10/23 Rx acetaminophen 500 mg tablet 500 - 1,000 mg PO Q6 PRN pain 02/10/23 02/10/23 History (Tylenol Extra Strength) atorvastatin 80 mg tablet 80 mg PO HS 02/10/23 02/10/23 History ergocalciferol (vitamin D2) 1,250 50,000 unit PO WK 02/10/23 02/10/23 History mcg (50,000 unit) capsule hydralazine 50 mg tablet 50 mg PO TID 02/10/23 02/10/23 History insulin glargine U-300 conc 300 75 unit subcut DAILY 02/10/23 02/10/23 History unit/mL (1.5 mL) subcutaneous pen ([employer] SoloStar U-300 Insulin) metolazone 5 mg tablet 5 mg PO MOWEFR 02/10/23 02/10/23 History Past Med/Surg History Medical History Arthritis Atrial fibrillation Atrial flutter with controlled response Bilateral primary osteoarthritis of knee BPH (benign prostatic hyperplasia) Catheter-associated urinary tract infection Catheter-associated urinary tract infection Cellulitis, scrotum Chronic combined systolic and diastolic congestive heart failure Chronic venous stasis dermatitis of both lower extremities Cor pulmonale Coronary artery disease Degenerative arthritis of knee, bilateral Diabetic nephropathy associated with type 2 diabetes mellitus Diabetic peripheral neuropathy associated with type 2 diabetes mellitus Dysesthesia Dyslipidemia Harley's gangrene Glaucoma Hypertension Hypoxia Ischemic cardiomyopathy Left leg cellulitis Lymphedema Morbid obesity Obesity hypoventilation syndrome Open wound of scrotum Paroxysmal SVT (supraventricular tachycardia) Peripheral arterial disease Scrotal edema Sick sinus syndrome Tobacco use Type 2 diabetes mellitus, with long-term current use of insulin Vitamin D deficiency Surgical History History of testicular surgery Hx of CABG (2015) S/P ablation of atrial fibrillation (2014) Family History Brother Diabetes Hypertension Alcohol abuse Kidney stones Cancer Sister Breast cancer Hypertension Denies family history of Ovarian cancer Prostate cancer Myocardial infarction Colorectal cancer Social History Smoking Status: Former smoker Tobacco Type: Cigarettes Age Started Using Tobacco: 22; packs per day: 2; Cigarettes Per Day: QUIT SMOKING AT AGE 42- STILL CHEWS TOBACCO; Second Hand Exposure: No; Do You Dip or Chew Tobacco: Yes; Hx Alcohol Use: No Hx Substance Use: No Preferred Language: Uzbek Communication Ability: Effective Visual Impairment: No Limitations Hearing Ability: Hard of Hearing Child Adolescent Care Required: No Beliefs That Will Affect Care: None marital status: Current Living Situation: Family Current Living Situation Comment: lives with ex , daughter, granddaughter, grandson 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 status: retired current occupation: [employer] How many Children do You have: 3 Feels Safe at Home: Yes Safety Concerns: Feels Safe At This Time Childhood Exposure to Second-Hand Smoke: Yes Diet: regular caffeine: Yes during the past year weight has: remained stable Dental Care, Regularly: No Physical Activity Frequency: Does not Exercise Seatbelt Use: never Sunscreen Use: Yes Assistive Devices: Oxygen - Continuous and Walker Review of Systems 2 Review of Systems: All systems reviewed & are unremarkable except as noted in HPI & below Physical Exam Constitutional: well developed and + acute distress (respiratory); + not well nourished Eyes: PERRL, conjunctivae normal, anicteric sclerae ENMT: external ear and nose normal, oropharynx normal Neck: + thick neck Respiratory: + labored breathing and + uses accessory muscles Auscultation: + diminished lung sounds (throughout) and + crackles (bibasal); breath sounds present, no rales, no rhonchi and no wheezes Cardiovascular: Rate/Rhythm: regular rate and + irregularly irregular Heart Sounds: no murmur Vessels: no JVD (unable to assess adequately as patient sitting on bedside) Extremities: + pedal edema (3+ to knees equal b/l with chronic venous stasis changes) Gastrointestinal (Abdomen): normal bowel sounds, soft, nontender, no hepatosplenomegaly Musculoskeletal: no cyanosis or clubbing, extremities motor strength 5/5 Skin: no rashes, warm and dry Neurologic: moves all extremities and awake; not confused Psychiatric: A+Ox3, euthymic affect Results & Data Results & Data Vital Signs (Past 12 Hours) Vital Signs Temp Pulse Resp BP Pulse Ox O2 Del Method O2 Flow Rate 02/10/23 16:00 71 16 162/103 H 89 L 4 02/10/23 14:30 156/69 H 97 4 02/10/23 14:00 17 160/79 H 99 4 02/10/23 14:01 62 02/10/23 13:49 82 L Room Air 02/10/23 13:36 37.2 C 69 24 162/96 H 81 L Room Air Laboratory Results Abnormal lab results 02/10/23 02/10/23 Range/Units 14:46 14:46 Hgb 13.3 L (14.0-18.0) g/dl MCHC 30.7 L (32.0-36.0) g/dL RDW Std Deviation 52.0 H (36.4-46.3) fL RDW Coeff of Rebecca 16.4 H (11.5-14.5) % Neut # (Auto) 6.79 H (1.40-6.50) K/uL Perkins # (Auto) 0.74 H (0.11-0.59) K/uL Sodium 133 L (136-145) mmol/L Chloride 93 L (98-107) mmol/L Carbon Dioxide 33 H (21-32) mmol/L BUN 70 H (6-23) mg/dl BUN/Creatinine Ratio 53.4 H (10-20) Glucose 141 H (70-99(Fasting)) mg/dl Diagnostic Findings XR chest 1V portable HISTORY: Chest pain, nonspecific COMPARISON: Chest 05/02/2022. FINDINGS: No pneumothorax. No pleural effusions. There are low lung volumes with mild elevation of the right hemidiaphragm. The heart remains enlarged. There are poststernotomy changes. Mild central pulmonary vascular congestion without overt edema. Bibasilar linear densities favor subsegmental atelectasis. IMPRESSION: Cardiomegaly with mild central pulmonary vascular congestion without overt edema Medications Administered ER Medications Given: Bumex 2mg IV ECG Rate (beats per minute): 64 Rhythm: sinus with SA Findings: no acute ischemic change Comparison ECG Date: from (April 25, 2022) Change: the following changes noted (PACs no longer present, criteria for anterolateral infarct now present) Code Status & VTE Plan Code Status Full VTE Prophylaxis Plan VTE Prophylaxis will be ordered: Yes PG Care Time/CCT Total # of Minutes Spent Total Time Spent with Patient: Total time spent is greater than 50% in coordination of care (as documented) at patient's floor/unit and/or counseling patient: Coding Level of Care Code 64059 INT INP/OBS CARE 3/75MIN Diagnoses Acute respiratory failure with hypoxia J96.01 Acute on chronic heart failure with preserved ejection fraction I50.33 Obesity hypoventilation syndrome E66.2 Cor pulmonale I27.81 Atrial fibrillation I48.91 Type 2 diabetes mellitus, with long-term current use of insulin E11.9; Z79.4 Hypertension I10 Chronic venous stasis dermatitis of both lower extremities I87.2
[2023-02-10] MEDS ORDERED: DEXTROSE 50% 50 ML SYRINGE IV PRN (19:36)
[2023-02-10] MEDS ORDERED: GLUCAGON FOR INJ 1 MG VIAL SQ PRN (19:36)
[2023-02-10] MEDS ORDERED: POLYETHYLENE (MIRALAX) 17 GM PACK PO PRN (19:36)
[2023-02-10] MEDS ORDERED: GLUCOSE 40% GEL 15 GM TUBE PO PRN (19:36)
[2023-02-10] MEDS ORDERED: GLUCOSE 10 TAB/TUBE PO PRN (19:36)
[2023-02-10] MEDS ORDERED: CARBOHYDRATES FOR HYPOGLYCEMIA PO PRN (19:36)
[2023-02-10] MEDS ORDERED: SENNA 8.6 MG TAB PO PRN (19:36)
[2023-02-10] MEDS: oxyCODONE HCL IR 5 MG TAB (IMMEDIATE RELEASE) PO PRN (20:58)
[2023-02-10] MEDS: ACETAMINOPHEN 325 MG TAB PO PRN (20:59)
[2023-02-10] MEDS: APIXABAN 5 MG TABLET PO SCH (21:00)
[2023-02-10] MEDS: ATORVASTATIN 40 MG TAB PO SCH (21:00)
[2023-02-10] MEDS: hydrALAZINE TAB 50 MG TAB PO SCH (21:00)
[2023-02-10] MEDS: glipiZIDE 5 MG TAB PO SCH (21:01)
[2023-02-10] MEDS: LANTUS PER UNIT CHARGE SQ SCH (21:09)
[2023-02-11] MEDS: ACETAMINOPHEN 325 MG TAB PO PRN ×3 (00:59→20:31)
[2023-02-11] MEDS: oxyCODONE HCL IR 5 MG TAB (IMMEDIATE RELEASE) PO PRN ×3 (01:00→20:25)
[2023-02-11] MEDS ORDERED: metOLazone 5 MG TABLET PO SCH (07:00)
[2023-02-11] MEDS: glipiZIDE 5 MG TAB PO SCH ×2 (08:29→17:21)
[2023-02-11] MEDS: hydrALAZINE TAB 50 MG TAB PO SCH ×3 (08:29→19:54)
[2023-02-11] MEDS: EMPAGLIFLOZIN 25 MG TAB PO SCH (08:29)
[2023-02-11] MEDS: carvediloL 3.125 MG TAB PO SCH ×2 (08:31→17:22)
[2023-02-11] MEDS: APIXABAN 5 MG TABLET PO SCH ×2 (08:31→19:54)
[2023-02-11] MEDS: amLODIPine BESYLATE 5 MG TAB PO SCH (08:32)
[2023-02-11] MEDS: LOSARTAN POTASSIUM 25 MG TAB PO SCH (08:32)
[2023-02-11] MEDS: LANTUS PER UNIT CHARGE SQ SCH ×2 (08:40→20:25)
[2023-02-11] MEDS ORDERED: BUMETANIDE 4 MG in SYRINGE 0 ML IV SCH (09:00)
[2023-02-11] MEDS ORDERED: ERGOCALCIFEROL 50,000 UNITS 1250 MCG CAP PO SCH (09:00)
[2023-02-11] MEDS ORDERED: BUMETANIDE 2 MG in SYRINGE 0 ML IV SCH (09:00)
[2023-02-11 09:03] LABS: Basophils # (auto) 0.02 K/uL (0-0.2); Basophils % (auto) 0.3 %; Eosinophils # (auto) 0.15 K/uL (0-0.50); Hematocrit (blood only) 43.8 % (42.0-52.0); Hemoglobin 13.5 g/dl (14.0-18.0); Immature Granulocytes # (auto) 0.02 K/uL (0.01-0.20); Immature Granulocytes % (auto) 0.3 %; Lymphocytes # (auto) 1.11 K/uL (1.2-3.4); Lymphocytes % (auto) 14.7 %; Mean Corpuscular Hemoglobin 26.9 pg (25.0-34.0); Mean Corpuscular Hgb Conc 30.8 g/dL (32.0-36.0); Mean Corpuscular Volume 87.4 fL (80.0-100.0); Mean Platelet Volume 11.2 fL (9.4-12.4); Monocytes % (auto) 9.2 %; Neutrophils # (auto) 5.57 K/uL (1.40-6.50); Neutrophils % (auto) 73.5 %; Platelet Count 197 K/uL (130-400); RDW Coefficient of Variation 16.4 % (11.5-14.5); RDW Standard Deviation 52.5 fL (36.4-46.3); Red Blood Count 5.01 M/uL (4.70-6.10); White Blood Count 7.57 K/ul (4.8-10.8)
[2023-02-11 09:23] LABS: BUN Creatinine Ratio 46.3 (10-20); Calcium 9.5 mg/dl (8.6-10.3); Creatinine Clr Calc Pharmacy 68.3 ml/min; Est GFR (African American) 54.3 ml/min; Est GFR (Non-African American) 46.9 ml/min; Potassium 4.7 mmol/L (3.5-5.1)
--- NOTE | 2023-02-11 10:56 | XCELERA ---
[id number]
[2023-02-11 15:34] LABS: BUN Creatinine Ratio 45.8 (10-20); Calcium 9.4 mg/dl (8.6-10.3); Creatinine Clr Calc Pharmacy 66.5 ml/min; Est GFR (African American) 52.6 ml/min; Est GFR (Non-African American) 45.4 ml/min; Potassium 4.7 mmol/L (3.5-5.1)
--- NOTE | 2023-02-11 18:58 | Hospitalist Progress Note ---
Date of Service February 11, 2023 Assessment & Plan (1) Acute respiratory failure with hypoxia: Plan: Secondary to acute on chronic HFpEF -Also with worsening cor pulmonale in setting of obesity hypoventilation and [place]. No PNA suspected, on Eliquis therefore PE much less likely Aim O2 sats > 90%. BiPAP HS 14/8 Requiring 2 L nasal cannula 2 step prior to discharge (2) Acute on chronic heart failure with preserved ejection fraction: Plan: Bumex 2mg IV BID, increase metolazone to daily rather than three times a week- with creatinine rising, will hold further diuretics and reassess tomorrow Strict I&Os, daily weight Low Na, fluid restrict to 1500ml (3) Obesity hypoventilation syndrome: Plan: BiPAP (4) Cor pulmonale: Plan: Diuresis and oxygen (5) Atrial fibrillation: Plan: Currently in Sinus rhythm Continue Eliquis for anticoagulation Continue carvedilol for rate control (6) Type 2 diabetes mellitus, with long-term current use of insulin: Plan: Hemoglobin A1C 9.9 in November. Blood sugars uncontrolled-hold glipizide and continue Jardiance Will hold metformin in case of need of contrast study Lantus 30 units BID (this is what was given last admission), increase as necessary Add NovoLog supplemental insulin (7) Hypertension: Plan: Diuretics as above Continue hydralazine, amlodipine, losartan and carvedilol (8) Chronic venous stasis dermatitis of both lower extremities: Plan: Local wound care, no area of concerning cellulitis Has compression stockings in place Has been offered angiogram by vascular medicine but patient declined to have this done Has home health care Plan VTE Prophyalxis - Eliquis Diet - Low Na, heart healthy, fluid restrict Disposition -continued stay, but patient adamant about leaving the hospital soon as possible-likely tomorrow Admission and Anticipated Discharge Date Admission Date: February 10, 2023 Subjective Patient upset about being in the hospital. Thinks there is nothing wrong with him and that his legs are the same as far as swelling as they always have been. Denies fevers or chills. Feels better with oxygen in place. Telemetry with normal sinus rhythm and rates in the 60s, 6 beat run of V. tach Physical Exam Constitutional: WD/WN, vitals as above + morbidly obese Respiratory: normal respiratory effort, lungs clear to auscultation Cardiovascular: Rate/Rhythm: regular rate and regular rhythm Extremities: + edema (3+ pitting edema left lower extremity to the thigh, 2+ right lower extremit) Skin: + erythema (Chronic bilateral legs, left with dressing in place over skin wound) Psychiatric: Orientation: alert, oriented x 3, cooperative and + guarded Results & Data Results & Data Vital Signs (Past 12 Hours) Vital Signs Temp Pulse Pulse Resp BP BP Pulse Ox 02/11/23 16:22 36.8 C 68 20 165/69 H 97 02/11/23 07:47 36.6 C 56 L 20 147/72 H 94 02/11/23 07:23 60 O2 Del Method O2 Flow Rate 02/11/23 16:22 Nasal Cannula 3 02/11/23 07:47 Room Air 02/11/23 07:23 Laboratory Results CBC, BMP reviewed Troponin reviewed PG Care Time/CCT Total # of Minutes Spent Total Time Spent with Patient: Total time spent is greater than 50% in coordination of care (as documented) at patient's floor/unit and/or counseling patient: Coding Level of Care Code 91037 SUB INP/OBS CARE 2/35MIN Diagnoses Acute respiratory failure with hypoxia J96.01 Acute on chronic heart failure with preserved ejection fraction I50.33 Obesity hypoventilation syndrome E66.2 Cor pulmonale I27.81 Atrial fibrillation I48.91 Type 2 diabetes mellitus, with long-term current use of insulin E11.9; Z79.4 Hypertension I10 Chronic venous stasis dermatitis of both lower extremities I87.2
[2023-02-11] MEDS: ATORVASTATIN 40 MG TAB PO SCH (19:54)
[2023-02-11] MEDS: INSULIN ASPART PER UNIT CHARGE SC SCH (20:26)
[2023-02-12] MEDS: ACETAMINOPHEN 325 MG TAB PO PRN ×2 (05:44→12:47)
[2023-02-12] MEDS: oxyCODONE HCL IR 5 MG TAB (IMMEDIATE RELEASE) PO PRN ×2 (05:45→12:47)
[2023-02-12] MEDS: INSULIN ASPART PER UNIT CHARGE SC SCH ×3 (08:38→16:49)
[2023-02-12] MEDS: LOSARTAN POTASSIUM 25 MG TAB PO SCH (08:39)
[2023-02-12] MEDS: APIXABAN 5 MG TABLET PO SCH (08:39)
[2023-02-12] MEDS: hydrALAZINE TAB 50 MG TAB PO SCH ×2 (08:39→16:04)
[2023-02-12] MEDS: amLODIPine BESYLATE 5 MG TAB PO SCH (08:40)
[2023-02-12] MEDS: LANTUS PER UNIT CHARGE SQ SCH (08:40)
[2023-02-12] MEDS: carvediloL 3.125 MG TAB PO SCH ×2 (08:40→16:48)
[2023-02-12] MEDS: EMPAGLIFLOZIN 25 MG TAB PO SCH (08:40)
[2023-02-12 10:31] LABS: BUN Creatinine Ratio 42.3 (10-20); Calcium 9.5 mg/dl (8.6-10.3); Est GFR (African American) 48.7 ml/min; Est GFR (Non-African American) 42.1 ml/min; Magnesium 2.2 mg/dl (1.7-2.4); Potassium 4.3 mmol/L (3.5-5.1)
[2023-02-12] MEDS: BUMETANIDE 1 MG TAB PO SCH ×2 (11:25→16:48)
--- NOTE | 2023-02-12 11:51 | Discharge Summary ---
Discharge Summary Date of Service February 12, 2023 Notes For Next Care Provider Needs cardiology follow-up visit BMP in 1 week Medication Changes From Visit Increased Bumex to 4 Mg p.o. twice daily Admission HPI Per Admitting Provider Ryan Bruce is a 72 year old male with heart failure with preserved ejection fraction, obstructive sleep apnea and obesity hypoventilation who presents to the ER with hypoxia. The patient tells me "I'don't know" when asked how long he has been unwell for. He reports wanting to go home but has agreed with his family to stay but he think nothing is wrong and wants to go home. He is not on oxygen at home and requiring 4LPM O2 currently. He feels everytime he stays here no one does anything for him but I should just do what I have to do. He thinks his weight is down 70lb since last time in hospital. He reports compliance with his medications at home as a nurse fills the boxes up for him. He denies any fever or chills. Notes nasal congestion since "it got hot and dry". Coughing a little but no worse than usual. Leg swelling better than usual. Principal Dx & Hospital Course #1 = Principal Diagnosis (1) Acute respiratory failure with hypoxia: Secondary to acute on chronic HFpEF -Also with worsening cor pulmonale in setting of obesity hypoventilation and [place]. No PNA suspected, on Eliquis therefore PE much less likely Requiring 3 LNC supplemental O2 here He does not tolerate BiPAP 2 step prior to discharge showed- [place] improved prior to discharge Increasing diuretics as below (2) Acute on chronic heart failure with preserved ejection fraction: Bumex 2mg IV BID was given and he was given an extra dose of metolazone -with creatinine rising to 1.6 after doing so He will have to accept a rising creatinine to keep fluid off to avoid dialysis in the future Increase Bumex to 4 Mg p.o. twice daily for discharge, continue metolazone 3 times a week Consider discontinuation of amlodipine as may be contributing to lower extremity edema which is thought to be lymphedema as per cardiology He has great difficulty getting out of the house for appointments and prefers to not be seen in the CHF clinic, but is willing to follow-up with Dr. Smalls of cardiology-we will arrange this follow-up His weight is down since admission Feels better on supplemental O2-we will arrange for home use Low Na, fluid restrict to 1500ml Discharged home on Bumex 4 Mg p.o. twice daily (3) Obesity hypoventilation syndrome: Not tolerate BiPAP (4) Cor pulmonale: Diuresis and oxygen (5) Atrial fibrillation: Currently in Sinus rhythm Continue Eliquis for anticoagulation Continue carvedilol for rate control (6) Type 2 diabetes mellitus, with long-term current use of insulin: Hemoglobin A1C 9.9 in November. Uncontrolled due to hyperglycemia Continue home glipizide, Jardiance, metformin, insulin Follow-up with PCP (7) Hypertension: Diuretics as above Continue hydralazine, amlodipine, losartan and carvedilol (8) Chronic venous stasis dermatitis of both lower extremities: Local wound care, no area of concerning cellulitis Has compression stockings in place Has been offered angiogram by vascular medicine but patient declined to have this done Has home health care Plan VTE Prophyalxis - Eliquis Diet - Low Na, heart healthy, fluid restrict Disposition -discharged home Discharge Exam Constitutional WD/WN, vitals as above + morbidly obese Respiratory normal respiratory effort, lungs clear to auscultation Cardiovascular Rate/Rhythm: regular rate and regular rhythm Extremities: + edema (3+ pitting edema left lower extremity to the thigh, 2+ right lower extremit) Skin + erythema (Chronic bilateral legs, left with dressing in place over skin wound) Psychiatric Orientation: alert, oriented x 3, cooperative and + guarded Updated Medication List Medication Instructions Recorded Confirmed Type nitroglycerin 0.4 mg sublingual 0.4 mg sublingual Q5M PRN chest 05/16/19 02/10/23 History tablet pain albuterol sulfate 90 mcg/actuation 2 puff inhalation QID PRN 09/02/21 02/10/23 History aerosol inhaler Shortness Of Breath empagliflozin 25 mg tablet 25 mg PO DAILY 05/12/22 02/10/23 History (Jardiance) polyethylene glycol 3350 17 17 g PO DAILY PRN constipation 05/12/22 02/10/23 History gram/dose oral powder (Miralax) sennosides 8.6 mg tablet (Senokot) 8.6 mg PO DAILY PRN constipation 05/12/22 02/10/23 History apixaban 5 mg tablet (Eliquis) 5 mg PO BID #180 tabs 08/26/22 02/10/23 Rx glipizide 5 mg tablet 5 mg PO BIDM #180 tabs 09/02/22 02/10/23 Rx metformin 500 mg tablet,extended 1,000 mg PO BID #360 tabs 09/19/22 02/10/23 Rx release 24 hr Compression wraps- Comprecares #2 ea 10/31/22 02/10/23 Rx amlodipine 5 mg tablet 5 mg PO DAILY #90 tabs 11/29/22 02/10/23 Rx Profore Lite Unna Boot change #1 ea 01/17/23 02/10/23 Rx twice a week LLE dx venous stasis ulcers oxycodone 10 mg tablet 10 mg PO Q6H PRN pain #120 tabs 01/30/23 02/10/23 Rx carvedilol 3.125 mg tablet 3.125 mg PO BID #180 tabs 01/31/23 02/10/23 Rx losartan 25 mg tablet 25 mg PO DAILY #90 tabs 01/31/23 02/10/23 Rx acetaminophen 500 mg tablet 500 - 1,000 mg PO Q6 PRN pain 02/10/23 02/10/23 History (Tylenol Extra Strength) atorvastatin 80 mg tablet 80 mg PO HS 02/10/23 02/10/23 History ergocalciferol (vitamin D2) 1,250 50,000 unit PO WK 02/10/23 02/10/23 History mcg (50,000 unit) capsule hydralazine 50 mg tablet 50 mg PO TID 02/10/23 02/10/23 History insulin glargine U-300 conc 300 75 unit subcut DAILY 02/10/23 02/10/23 History unit/mL (1.5 mL) subcutaneous pen ([employer] SoloStar U-300 Insulin) metolazone 5 mg tablet 5 mg PO MOWEFR 02/10/23 02/10/23 History bumetanide 2 mg tablet 4 mg PO BID #120 tabs 02/12/23 Rx Hospital Stay Data Consultations 02/10/23 16:54 ED Decision to Admit Stat Procedures Performed Echocardiogram Pending Results Patient Have Any Pending Studies at Discharge: No Discharge Instructions Given to Patient (Per Discharging Provider) You were admitted for low oxygen levels from heart failure. Your Bumex dose will be increased to 4mg twice a day to help keep extra fluid off. Your kidney function is not normal and needs to be followed carefully with this increased dose of Bumex, however we may have to accept some degree of worsening kidney function in order to keep this extra fluid off of you. Please have the home nurse draw a basic metabolic panel (blood work to check your kidney function) in 1 week. Please follow-up with Dr. Smalls in the cardiology office within 2 weeks. His office will contact you with this appointment date/time. Call your Primary Care doctor if any of the following symptoms or problems start or get worse: * Shortness of breath or difficulty breathing * Wake up at night short of breath * Chest pain * Cough * Swelling of your hands, feet, or legs * More fatigued or tired with your normal activity * Palpitations - sudden fast heart beats WEIGHT * Weigh yourself every morning after using the bathroom. * Use the same scale. * Wear the same amount of clothing. * Write your weight down on a chart. * Call your Primary Care doctor if you gain more than 2-3 pounds in 1-2 days. MEDICATIONS * Use this discharge instruction sheet for medication instructions. * Take your medications at the time your doctor ordered. * Do not skip a dose of your medicines. * If you miss a dose of medicine, take it as soon as possible, but DO NOT DOUBLE A DOSE. * Read your medicine information when you get home. * Know all of the side effects of your medicine. If in doubt, ask your pharmacist * Call your Primary Care doctor's office if you have any side effects. * Be sure all of your doctors know what medicine and herbs you take (including cold, flu, and herbal medicine). Take the following with you to your follow-up doctor appointments: * Weight Chart * Medication List * List of questions Do not drink excessive alcohol, beer or wine. Total Time Total Time Spent Total Time Spent (In Minutes): 40 minutes Coding Diagnoses Acute respiratory failure with hypoxia J96.01 Acute on chronic heart failure with preserved ejection fraction I50.33 Obesity hypoventilation syndrome E66.2 Cor pulmonale I27.81 Atrial fibrillation I48.91 Type 2 diabetes mellitus, with long-term current use of insulin E11.9; Z79.4 Hypertension I10 Chronic venous stasis dermatitis of both lower extremities I87.2
== END 2023-02-12 18:36 | disposition home health service (06) | DRG 291 ==
LOC: ED 13:33 → SUATTDRO 17:30 → 2N 17:30

== ENCOUNTER 2023-09-21 19:39 | Inpatient (IN) ==
[2023-09-21 20:30] LABS: Base Excess VBG 7.4 mEq/L; HCO3 VBG 36 mmol/L; Oxygen Saturation VBG 61.1 %; PCO2 VBG 68 mmHg (38-50); PO2 VBG 35 mmHg; pH VBG 7.33 (7.36-7.41)
[2023-09-21] MEDS ORDERED: ALBUT/IPRATROP 3MG/0.5MG NEB 3 ML VIAL NEB STA (20:42)
[2023-09-21] MEDS ORDERED: methylPREDNISolone 125 MG/2 ML VIAL IV STA (20:42)
[2023-09-21 20:49] LABS: Basophils # (auto) 0.03 K/uL (0.00-0.20); Basophils % (auto) 0.2 %; Eosinophils # (auto) 0.09 K/uL (0.00-0.50); Eosinophils % (auto) 0.7 %; Hematocrit (blood only) 35.4 % (42.0-52.0); Hemoglobin 10.5 g/dl (14.0-18.0); Immature Granulocytes % (auto) 0.8 %; Lymphocytes # (auto) 1.37 K/uL (1.20-3.40); Mean Corpuscular Hemoglobin 28.5 pg (25.0-34.0); Mean Corpuscular Hgb Conc 29.7 g/dL (32.0-36.0); Mean Corpuscular Volume 95.9 fL (80.0-100.0); Mean Platelet Volume 11.2 fL (9.4-12.4); Monocytes # (auto) 0.82 K/uL (0.11-0.59); Monocytes % (auto) 6.6 %; Neutrophils # (auto) 9.99 K/uL (1.40-6.50); Neutrophils % (auto) 80.7 %; Platelet Count 185 K/uL (130-400); RDW Standard Deviation 46.3 fL (36.4-46.3); Red Blood Count 3.69 M/uL (4.70-6.10)
[2023-09-21 21:04] LABS: BUN Creatinine Ratio 43.5 (10-20); Bilirubin Direct 0.2 mg/dl (0-0.2); Bilirubin,Total 0.5 mg/dl (0.2-1.0); Calcium 9.3 mg/dl (8.6-10.3); Creatinine Clr Calc Pharmacy 79.3 ml/min; Est GFR (African American) 67.4 ml/min; Est GFR (Non-African American) 58.1 ml/min; Magnesium 1.8 mg/dl (1.7-2.4); Potassium 5.2 mmol/L (3.5-5.1)
[2023-09-21 21:12] LABS: Troponin I High Sensitivity 15.2 pg/ml (0-20)
[2023-09-21 21:18] LABS: Adenovirus PCR Not Detected (NotDetected); Bordetella parapertussis PCR Not Detected (NotDetected); Bordetella pertussis PCR Not Detected (NotDetected); Chlamydia pneumoniae PCR Not Detected (NotDetected); Coronavirus 229E PCR Not Detected (NotDetected); Coronavirus CoV-2 (COVID19)PCR Not Detected (NotDetected); Coronavirus HKU1 PCR Not Detected (NotDetected); Coronavirus NL63 PCR Not Detected (NotDetected); Coronavirus OC43PCR Not Detected (NotDetected); Human Metapneumovirus PCR Not Detected (NotDetected); Influenza B PCR Not Detected (NotDetected); Mycoplasma pneumoniae PCR Not Detected (NotDetected); Parainfluenza Virus 1 PCR Not Detected (NotDetected); Parainfluenza Virus 2 PCR Not Detected (NotDetected); Parainfluenza Virus 3 PCR Not Detected (NotDetected); Parainfluenza Virus 4 PCR Not Detected (NotDetected); Respiratory Syncytial VirusPCR Not Detected (NotDetected); Rhinovirus/Enterovirus PCR Not Detected (NotDetected)
[2023-09-21 21:28] LABS: Influenza A (H3) PCR DETECTED (NotDetected)
[2023-09-21] MEDS ORDERED: OSELTAMIVIR PHOSPHATE 75 MG CAP PO STA (22:02)
--- NOTE | 2023-09-21 22:08 | XRay Report ---
SINGLE VIEW CHEST CLINICAL HISTORY: Sepsis. FINDINGS: An AP, portable, upright chest radiograph is compared to study dated 02/10/2023 and correlate d with chest CT dated 11/20/2018. The patient is status post midline sternotomy. The heart is enlarged noting atherosclerotic calcification of the thoracic aorta. There is pulmonary vascular congestion. There is chronic elevation of the right hemidiaphragm. Scarring/atelectasis is noted at the lung base s. Question a small right pleural effusion. No pneumothorax is seen. The skeletal structures are oste openic. The bony thorax is grossly intact. Degenerative change is noted in the shoulders. IMPRESSION: Cardiomegaly with evidence of congestive failure. ACT 112: Negative or not required by law. Electronically signed by: Zak Kemp M.D. 09/21/2023 10:07 PM
--- NOTE | 2023-09-21 22:28 | CT Scan Report ---
Exam(s): CT HEAD Without Contrast EXAM: CT Head Without Intravenous Contrast CLINICAL HISTORY: Reason for exam: weakness. TECHNIQUE: Axial computed tomography images of the head/brain without intravenous contrast. CTDI is 37.32 mGy and DLP is 625.8 mGy-cm. Automated exposure control was utilized for the study. A dose lowering technique was utilized adhering to the principles of ALARA. Mild motion artifact. COMPARISON: None. FINDINGS: Brain: No mass effect or acute infarct. No acute hemorrhage. Mild atrophy and chronic white matter disease. Ventricles: No hydrocephalus or midline shift. Bones/joints: No acute skull lesion. Soft tissues: No scalp hematoma. Sinuses: Polyp or cyst left maxillary, otherwise, clear. Mastoid air cells: No mastoid effusion. IMPRESSION: 1. Mild age-related findings. 2. No acute infarct, bleed, or acute intracranial abnormality. Electronically signed by: Emily Booker M.D. 09/21/23 22:28 PM
--- NOTE | 2023-09-21 23:30 | History & Physical Report ---
Date of Service September 21, 2023 Assessment & Plan (1) Influenza A: (2) Chronic respiratory failure with hypoxia: (3) Chronic kidney disease, stage 3 (moderate): (4) Obesity hypoventilation syndrome: (5) Atrial fibrillation: (6) Type 2 diabetes mellitus, with long-term current use of insulin: (7) Diabetic peripheral neuropathy associated with type 2 diabetes mellitus: (8) Diabetic nephropathy associated with type 2 diabetes mellitus: (9) Coronary artery disease: (10) Chronic venous stasis dermatitis of both lower extremities: Plan Chronic respiratory failure with hypoxia/obesity hypoventilation syndrome/influenza A- Unclear if influenza A is adding to oxygenation status or just to issues with fatigue Continue usual regimen of albuterol sulfate and oxygen, with goal pulse ox 90% Given Tamiflu 75 mg p.o. in the ED, will continue twice daily Was given Solu-Medrol 125 mg IV and DuoNeb treatment without significant improvement Would not give any additional Solu-Medrol DuoNebs every 2 hours as needed Cannot get much information from patient as to what he does typically use at home, there is notation that he has portable oxygen He likely would benefit from CPAP at nighttime Atrial fibrillation/hypertension/CHF- Continue amlodipine, apixaban, bumetanide, carvedilol Hold losartan Bilateral lower extremity venous insufficiency, with history of stasis ulcers- There is notation regarding Unna boots being used in the past, which I think the patient would probably benefit from Consult wound care nurse Diabetes mellitus- Hold glipizide, metformin Continue glargine 10 units at bedtime Placed on Accu-Cheks with NovoLog SSI Patient may need home health assessment to determine ability to live at home I asked the patient if he thought he would benefit from having nursing visitations, and he thought that he would Question progressing toward failure to thrive History of Present Illness Chief Complaint: The patient presents to the emergency department with complaint of generalized w eakness, and unable to take care of himself at home Primary Care Provider: Neetu Smallwood DO The patient is a 73-year-old male with a past medical history including obesity hypoventilation syndrome, CKD stage III, chronic respiratory failure, cor pulmonale, PAD, atrial fibrillation, diabetes mellitus type 2 on insulin, is chemic cardiomyopathy, diabetic nephropathy and neuropathy, CAD, PSVT and atrial flutter with controlled response. The patient is unkempt appearing, has the appearance of failure to thrive. He reports that his daughter put a wrap on his left lower extremity this evening, with note saying he is to be on Unna boots bilaterally. HPI and review of systems are difficult to obtain, as patient is not completely cooperative. His appearance is disheveled. His principal complaint is that of fatigue, generalized weakness, and feels he is unable to go home and take care of himself Allergies Allergy/AdvReac Type Severity Reaction Status Date / Time sulfamethoxazole AdvReac nausea Verified 08/31/23 15:27 [From Bactrim] trimethoprim [From Bactrim] AdvReac nausea Verified 08/31/23 15:27 Home Medications Medication Instructions Recorded Confirmed Type nitroglycerin 0.4 mg sublingual 0.4 mg sublingual Q5M PRN chest 05/16/19 09/21/23 History tablet pain polyethylene glycol 3350 17 17 g PO DAILY PRN constipation 05/12/22 09/21/23 History gram/dose oral powder (Miralax) sennosides 8.6 mg tablet (Senokot) 8.6 mg PO DAILY PRN constipation 05/12/22 09/21/23 History Compression wraps- Comprecares #2 ea 10/31/22 09/21/23 Rx Profore Lite Unna Boot change #1 ea 01/17/23 09/21/23 Rx twice a week LLE dx venous stasis ulcers acetaminophen 500 mg tablet 500 - 1,000 mg PO Q6 PRN pain 02/10/23 09/21/23 History (Tylenol Extra Strength) albuterol sulfate 90 mcg/actuation 2 puff inhalation QID PRN 02/14/23 09/21/23 Rx aerosol inhaler Shortness Of Breath #8.5 grams ergocalciferol (vitamin D2) 1,250 50,000 unit PO WK #8 caps 02/14/23 09/21/23 Rx mcg (50,000 unit) capsule Portable Oxygen #1 ea 02/20/23 09/21/23 Rx insulin glargine U-300 conc 300 10 unit subcut HS 02/20/23 09/21/23 History unit/mL (1.5 mL) subcutaneous pen (Toujeo SoloStar U-300 Insulin) Oxygen Home #1 ea 02/23/23 09/21/23 Rx glipizide 5 mg tablet 5 mg PO BIDM #180 tabs 03/09/23 09/21/23 Rx bumetanide 2 mg tablet 4 mg (2 x 2 mg) PO BID #120 tabs 07/20/23 09/21/23 Rx atorvastatin 20 mg tablet 20 mg PO HS 08/31/23 09/21/23 History oxycodone 10 mg tablet 10 mg PO Q6H PRN pain #120 tabs 09/07/23 09/21/23 Rx amlodipine 5 mg tablet 5 mg PO QAM 09/21/23 09/21/23 History apixaban 5 mg tablet (Eliquis) 5 mg PO AMHS 09/21/23 09/21/23 History carvedilol 3.125 mg tablet 3.125 mg PO AMPM 09/21/23 09/21/23 History losartan 25 mg tablet 25 mg PO QAM 09/21/23 09/21/23 History metformin 500 mg tablet,extended 1,000 mg PO AMHS 09/21/23 09/21/23 History release 24 hr oxycodone 10 mg tablet 10 mg PO Q6 PRN Pain 09/21/23 09/21/23 History Past Med/Surg History Medical History (Updated 09/22/23 @ 00:56 by Blanco Cortes MD) Chronic respiratory failure with hypoxia Chronic kidney disease, stage 3 (moderate) Catheter-associated urinary tract infection Scrotal edema Obesity hypoventilation syndrome Cor pulmonale Catheter-associated urinary tract infection Peripheral arterial disease Left leg cellulitis Morbid obesity Vitamin D deficiency Bilateral primary osteoarthritis of knee Atrial fibrillation Type 2 diabetes mellitus, with long-term current use of insulin Tobacco use Sick sinus syndrome Lymphedema Ischemic cardiomyopathy Glaucoma Dyslipidemia Dysesthesia Diabetic peripheral neuropathy associated with type 2 diabetes mellitus Diabetic nephropathy associated with type 2 diabetes mellitus Coronary artery disease Chronic venous stasis dermatitis of both lower extremities Chronic combined systolic and diastolic congestive heart failure BPH (benign prostatic hyperplasia) Arthritis Degenerative arthritis of knee, bilateral Hypoxia Hypertension Cellulitis, scrotum Atrial flutter with controlled response Paroxysmal SVT (supraventricular tachycardia) Open wound of scrotum Harley's gangrene Surgical History History of testicular surgery S/P ablation of atrial fibrillation (2015) Hx of CABG (2016) Family History Brother Diabetes Hypertension Alcohol abuse Kidney stones Cancer Sister Breast cancer Hypertension Denies family history of Ovarian cancer Prostate cancer Myocardial infarction Colorectal cancer Social History Smoking Status: Never smoker Tobacco Type: Cigarettes Age Started Using Tobacco: 22; packs per day: 2; Cigarettes Per Day: QUIT SMOKING AT AGE 42- STILL CHEWS TOBACCO; Second Hand Exposure: No; Do You Dip or Chew Tobacco: Yes; Hx Alcohol Use: No Hx Substance Use: No Preferred Language: Swedish Communication Ability: Effective Visual Impairment: No Limitations Hearing Ability: Hard of Hearing Dealer Accounts Investigator Required: No Beliefs That Will Affect Care: None marital status: Current Living Situation: Family Current Living Situation Comment: lives with ex , daughter, granddaughter, grandson 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 status: retired 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 How many Children do You have: 3 Feels Safe at Home: Yes Childhood Exposure to Second-Hand Smoke: Yes Diet: regular caffeine: Yes during the past year weight has: remained stable Dental Care, Regularly: No Physical Activity Frequency: Does not Exercise Seatbelt Use: never Sunscreen Use: Yes Assistive Devices: Cane, Glasses and Walker Review of Systems Review of Systems: The patient denies chest pain, palpitations, sore throat, fevers, chills, sweats, nausea, vomiting, diarrhea , constipation, abdominal pain, pelvic pain, blood in urine or stool, dysuria, urinary frequency or urgency, lightheadedness, dizziness, headache, memory loss, loss of consciousness, abnormal bruising or bleeding, focal weakness, numbness or tingling in arms or legs, back or neck pain, or night sweats. The review of systems is otherwise negative other than for that already noted above, and at least 10 systems have been reviewed. Physical Exam Physical Exam: The patient is awake, disheveled and unkempt appearing, normocephalic and atraumatic, sitting upright in bed in bed and in no acute distress. HEENT--PERRL, EOMI, mucous membranes and oropharynx dry. Neck--supple. No JVD. No bruits. Thyroid normal, trachea midline, no adenopathy. Heart--normal S1 and S2. No murmurs, rubs or gallops. Lungs--clear bilaterally, no respiratory distress, no accessory muscle use. Abdomen--normal bowel sounds and soft. Nontender. Morbidly obese Extremities--chronic venous stasis changes bilaterally, with left lower extremity wrapped loosely Dermatologic--chronic venous stasis changes bilaterally with vesicles and leaking left worse than right Neurologic--cranial nerves II through XII grossly intact. Rheumatologic--limited exam due to obesity Psychiatric--primarily is concerned about being sent home Results & Data Results & Data Vital Signs (Past 12 Hours) Vital Signs Temp Pulse Resp BP Pulse Ox O2 Del Method O2 Flow Rate 09/21/23 23:00 158/71 H 09/21/23 23:00 75 20 90 09/21/23 22:31 16 93 09/21/23 22:31 140/98 09/21/23 22:30 79 23 95 09/21/23 22:12 82 16 09/21/23 21:31 75 27 H 92 09/21/23 21:31 161/77 H 09/21/23 21:30 75 17 93 09/21/23 21:13 160/69 H 09/21/23 21:13 73 18 99 09/21/23 21:00 93 09/21/23 20:30 95 09/21/23 20:16 96 Nasal Cannula 2 09/21/23 20:00 172/72 H 09/21/23 20:00 79 26 H 93 09/21/23 19:54 96/79 L 09/21/23 19:54 88 21 100 09/21/23 19:27 37.1 C 95 H 20 172/72 H 94 Nasal Cannula 3 Laboratory Results Laboratory Results WBC 12.40 K/ul (4.8-10.8) H 09/21/23 20:09 RBC 3.69 M/uL (4.70-6.10) L 09/21/23 20:09 Hgb 10.5 g/dl (14.0-18.0) L 09/21/23 20:09 Hct 35.4 % (42.0-52.0) L 09/21/23 20:09 MCV 95.9 fL (80.0-100.0) 09/21/23 20:09 MCH 28.5 pg (25.0-34.0) 09/21/23 20:09 MCHC 29.7 g/dL (32.0-36.0) L 09/21/23 20:09 RDW Std Deviation 46.3 fL (36.4-46.3) 09/21/23 20:09 RDW Coeff of Rebecca 13.0 % (11.5-14.5) 09/21/23 20:09 Plt Count 185 K/uL (130-400) 09/21/23 20:09 MPV 11.2 fL (9.4-12.4) 09/21/23 20:09 Immature Gran % (Auto) 0.8 % 09/21/23 20:09 Neut % (Auto) 80.7 % 09/21/23 20:09 Lymph % (Auto) 11.0 % 09/21/23 20:09 [place] % (Auto) 6.6 % 09/21/23 20:09 Eos % (Auto) 0.7 % 09/21/23 20:09 Baso % (Auto) 0.2 % 09/21/23 20:09 Neut # (Auto) 9.99 K/uL (1.40-6.50) H 09/21/23 20:09 Lymph # (Auto) 1.37 K/uL (1.20-3.40) 09/21/23 20:09 [place] # (Auto) 0.82 K/uL (0.11-0.59) H 09/21/23 20:09 Eos # (Auto) 0.09 K/uL (0.00-0.50) 09/21/23 20:09 Baso # (Auto) 0.03 K/uL (0.00-0.20) 09/21/23 20:09 Immature Gran # (Auto) 0.10 K/uL (0.01-0.20) 09/21/23 20: PT Cancelled 09/21/23 20: INR Cancelled 09/21/23 20:09 APTT Cancelled 09/21/23 20: PTT Ratio Cancelled 09/21/23 20:09 VBG pH 7.33 (7.36-7.41) L 09/21/23 20:09 VBG pCO2 68 mmHg (38-50) H 09/21/23 20:09 VBG pO2 35 mmHg 09/21/23 20:09 VBG HCO3 36 mmol/L 09/21/23 20:09 VBG O2 Saturation 61.1 % 09/21/23 20:09 VBG Base Excess 7.4 mEq/L 09/21/23 20:09 Sodium 136 mmol/L (136-145) 09/21/23 20:09 Potassium 5.2 mmol/L (3.5-5.1) H 09/21/23 20:09 Chloride 96 mmol/L (98-107) L 09/21/23 20:09 Carbon Dioxide 34 mmol/L (21-32) H 09/21/23 20:09 Anion Gap 6 (3-11) 09/21/23 20:09 BUN 54 mg/dl (6-23) H 09/21/23 20:09 Creatinine 1.24 mg/dl (0.6-1.4) 09/21/23 20:09 Est Cr Clr Drug Dosing 79.3 ml/min 09/21/23 20:09 Est GFR ( Amer) 67.4 ml/min 09/21/23 20:09 Est GFR (Non-Af Amer) 58.1 ml/min 09/21/23 20:09 BUN/Creatinine Ratio 43.5 (10-20) H 09/21/23 20:09 Glucose 201 mg/dl (70-99(Fasting)) H 09/21/23 20:09 Lactate 1.1 mmol/L (0.4-2.0) 09/21/23 20:09 Calcium 9.3 mg/dl (8.6-10.3) 09/21/23 20:09 Magnesium 1.8 mg/dl (1.7-2.4) 09/21/23 20:09 Total Bilirubin 0.5 mg/dl (0.2-1.0) 09/21/23 20:09 Direct Bilirubin 0.2 mg/dl (0-0.2) 09/21/23 20:09 AST 11 U/L (13-39) L 09/21/23 20:09 ALT 9 U/L (7-52) 09/21/23 20:09 Alkaline Phosphatase 149 U/L (34-104) H 09/21/23 20:09 Troponin I High Sens 15.2 pg/ml (0-20) 09/21/23 20:09 B-Natriuretic Peptide 136 pg/ml (0-100) H 09/21/23 20:09 Total Protein 8.0 gm/dl (6.0-8.3) 09/21/23 20:09 Albumin 4.0 gm/dl (3.4-5.0) 09/21/23 20:09 Procalcitonin 0.19 ng/ml (0-0.5) 09/21/23 20:09 Adenovirus (PCR) Not Detected (NotDetected) 09/21/23 20:09 B. pertussis DNA (PCR) Not Detected (NotDetected) 09/21/23 20:09 B.parapertussis DNA PCR Not Detected (NotDetected) 09/21/23 20:09 C. pneumoniae DNA (PCR) Not Detected (NotDetected) 09/21/23 20:09 Coronavirus OC43 (PCR) Not Detected (NotDetected) 09/21/23 20:09 Coronavirus HKU1 (PCR) Not Detected (NotDetected) 09/21/23 20:09 Coronavirus 229E (PCR) Not Detected (NotDetected) 09/21/23 20:09 SARS-CoV-2 (PCR) Not Detected (NotDetected) 09/21/23 20:09 Coronavirus NL63 (PCR) Not Detected (NotDetected) 09/21/23 20:09 Human Metapneumovir PCR Not Detected (NotDetected) 09/21/23 20:09 Influenza A (H3) PCR DETECTED (NotDetected) A* 09/21/23 20:09 Influenza Type B (PCR) Not Detected (NotDetected) 09/21/23 20:09 M. pneumoniae (PCR) Not Detected (NotDetected) 09/21/23 20:09 Parainfluenza 1 (PCR) Not Detected (NotDetected) 09/21/23 20:09 Parainfluenza 2 (PCR) Not Detected (NotDetected) 09/21/23 20:09 Parainfluenza 3 (PCR) Not Detected (NotDetected) 09/21/23 20:09 Parainfluenza 4 (PCR) Not Detected (NotDetected) 09/21/23 20:09 RSV (PCR) Not Detected (NotDetected) 09/21/23 20:09 Entero/Rhino (PCR) Not Detected (NotDetected) 09/21/23 20:09 Impressions Chest X-Ray 09/21/23 20:09 SINGLE VIEW CHEST CLINICAL HISTORY: Sepsis. FINDINGS: An AP, portable, upright chest radiograph is compared to study dated 02/10/2023 and correlated with chest CT dated 11/20/2018. The patient is status post midline sternotomy. The heart is enlarged noting atherosclerotic calcification of the thoracic aorta. There is pulmonary vascular congestion. There is chronic elevation of the right hemidiaphragm. Scarring/atelectasis is noted at the lung bases. Question a small right pleural effusion. No pneumothorax is seen. The skeletal structures are osteopenic. The bony thorax is grossly intact. Degenerative change is noted in the shoulders. IMPRESSION: Cardiomegaly with evidence of congestive failure. ACT 112: Negative or not required by law. Electronically signed by: Zak Kemp M.D. 09/21/2023 10:[address] 09/21/23 20:09 Exam(s): CT HEAD Without Contrast EXAM: CT Head Without Intravenous Contrast CLINICAL HISTORY: Reason for exam: weakness. TECHNIQUE: Axial computed tomography images of the head/brain without intravenous contrast. CTDI is 37.32 mGy and DLP is 625.8 mGy-cm. Automated exposure control was utilized for the study. A dose lowering technique was utilized adhering to the principles of ALARA. Mild motion artifact. COMPARISON: None. FINDINGS: Brain: No mass effect or acute infarct. No acute hemorrhage. Mild atrophy and chronic white matter disease. Ventricles: No hydrocephalus or midline shift. Bones/joints: No acute skull lesion. Soft tissues: No scalp hematoma. Sinuses: Polyp or cyst left maxillary, otherwise, clear. Mastoid air cells: No mastoid effusion. IMPRESSION: 1. Mild age-related findings. 2. No acute infarct, bleed, or acute intracranial abnormality. Electronically signed by: Emily Booker M.D. 09/21/23 22:28 PM Code Status & VTE Plan Code Status Full code VTE Prophylaxis Plan VTE Prophylaxis will be ordered: Yes PG Care Time/CCT Total # of Minutes Spent Total Time Spent with Patient: Total time spent is greater than 50% in coordination of care (as documented) at patient's floor/unit and/or counseling patient: Coding Level of Care Code 19633 INT INP/OBS CARE Diagnoses Influenza A J10.1 Chronic respiratory failure with hypoxia J96.11 Chronic kidney disease, stage 3 (moderate) N18.30 Obesity hypoventilation syndrome E66.2 Atrial fibrillation I48.91 Type 2 diabetes mellitus, with long-term current use of insulin E11.9; Z79.4 Diabetic peripheral neuropathy associated with type 2 diabetes mellitus E11.42 Diabetic nephropathy associated with type 2 diabetes mellitus E11.21 Coronary artery disease I25.10 Chronic venous stasis dermatitis of both lower extremities I87.2
--- NOTE | 2023-09-22 00:17 | Emergency Department Note ---
History of Present Illness General Chief complaint: Flu Like Symptoms Stated complaint: Cough x1week, Pain all over Time Seen by Provider: 09/21/23 19:52 History of Present Illness Provider complaint: Cough body aches Onset (ago): week(s) 1 73-year-old adult presents to the emergency department for cough and bodyaches. Patient reports that over the last week he has been doing body aches and cough. No hemoptysis. He states he has been using his home oxygen 3 L more often than he usually does. He reports increased weakness. He denies any chest pain. No nausea vomiting or diarrhea. Home Medications Medication Instructions Recorded Confirmed Type nitroglycerin 0.4 mg sublingual 0.4 mg sublingual Q5M PRN chest 05/16/19 09/21/23 History tablet pain polyethylene glycol 3350 17 17 g PO DAILY PRN constipation 05/12/22 09/21/23 History gram/dose oral powder (Miralax) sennosides 8.6 mg tablet (Senokot) 8.6 mg PO DAILY PRN constipation 05/12/22 09/21/23 History Compression wraps- Comprecares #2 ea 10/31/22 09/21/23 Rx Profore Lite Unna Boot change #1 ea 01/17/23 09/21/23 Rx twice a week LLE dx venous stasis ulcers acetaminophen 500 mg tablet 500 - 1,000 mg PO Q6 PRN pain 02/10/23 09/21/23 History (Tylenol Extra Strength) albuterol sulfate 90 mcg/actuation 2 puff inhalation QID PRN 02/14/23 09/21/23 Rx aerosol inhaler Shortness Of Breath #8.5 grams ergocalciferol (vitamin D2) 1,250 50,000 unit PO WK #8 caps 02/14/23 09/21/23 Rx mcg (50,000 unit) capsule Portable Oxygen #1 ea 02/20/23 09/21/23 Rx insulin glargine U-300 conc 300 10 unit subcut HS 02/20/23 09/21/23 History unit/mL (1.5 mL) subcutaneous pen (Toujeo SoloStar U-300 Insulin) Oxygen Home #1 ea 02/23/23 09/21/23 Rx glipizide 5 mg tablet 5 mg PO BIDM #180 tabs 03/09/23 09/21/23 Rx bumetanide 2 mg tablet 4 mg (2 x 2 mg) PO BID #120 tabs 07/20/23 09/21/23 Rx atorvastatin 20 mg tablet 20 mg PO HS 08/31/23 09/21/23 History oxycodone 10 mg tablet 10 mg PO Q6H PRN pain #120 tabs 09/07/23 09/21/23 Rx amlodipine 5 mg tablet 5 mg PO QAM 09/21/23 09/21/23 History apixaban 5 mg tablet (Eliquis) 5 mg PO AMHS 09/21/23 09/21/23 History carvedilol 3.125 mg tablet 3.125 mg PO AMPM 09/21/23 09/21/23 History losartan 25 mg tablet 25 mg PO QAM 09/21/23 09/21/23 History metformin 500 mg tablet,extended 1,000 mg PO AMHS 09/21/23 09/21/23 History release 24 hr oxycodone 10 mg tablet 10 mg PO Q6 PRN Pain 09/21/23 09/21/23 History Allergies Allergy/AdvReac Type Severity Reaction Status Date / Time sulfamethoxazole AdvReac nausea Verified 08/31/23 15:27 [From Bactrim] trimethoprim [From Bactrim] AdvReac nausea Verified 08/31/23 15:27 Past Med/Surg History Medical History Chronic kidney disease, stage 3 (moderate) Catheter-associated urinary tract infection Scrotal edema Obesity hypoventilation syndrome Cor pulmonale Catheter-associated urinary tract infection Peripheral arterial disease Left leg cellulitis Morbid obesity Vitamin D deficiency Bilateral primary osteoarthritis of knee Atrial fibrillation Type 2 diabetes mellitus, with long-term current use of insulin Tobacco use Sick sinus syndrome Lymphedema Ischemic cardiomyopathy Glaucoma Dyslipidemia Dysesthesia Diabetic peripheral neuropathy associated with type 2 diabetes mellitus Diabetic nephropathy associated with type 2 diabetes mellitus Coronary artery disease Chronic venous stasis dermatitis of both lower extremities Chronic combined systolic and diastolic congestive heart failure BPH (benign prostatic hyperplasia) Arthritis Degenerative arthritis of knee, bilateral Hypoxia Hypertension Cellulitis, scrotum Atrial flutter with controlled response Paroxysmal SVT (supraventricular tachycardia) Open wound of scrotum Harley's gangrene Surgical History History of testicular surgery S/P ablation of atrial fibrillation (2015) Hx of CABG (2016) Family History Brother Diabetes Hypertension Alcohol abuse Kidney stones Cancer Sister Breast cancer Hypertension Denies family history of Ovarian cancer Prostate cancer Myocardial infarction Colorectal cancer Social History Smoking Status: Never smoker Tobacco Type: Cigarettes Age Started Using Tobacco: 22; packs per day: 2; Cigarettes Per Day: QUIT SMOKING AT AGE 42- STILL CHEWS TOBACCO; Second Hand Exposure: No; Do You Dip or Chew Tobacco: Yes; Hx Alcohol Use: No Hx Substance Use: No Preferred Language: Telugu Communication Ability: Effective Visual Impairment: No Limitations Hearing Ability: Hard of Hearing Office Engineer Required: No Beliefs That Will Affect Care: None marital status: Current Living Situation: Family Current Living Situation Comment: lives with ex , daughter, granddaughter, grandson 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 How many Children do You have: 3 Feels Safe at Home: Yes Childhood Exposure to Second-Hand Smoke: Yes Diet: regular caffeine: Yes during the past year weight has: remained stable Dental Care, Regularly: No Physical Activity Frequency: Does not Exercise Seatbelt Use: never Sunscreen Use: Yes Assistive Devices: Cane, Glasses and Walker Physical Exam Vital Signs Vital Signs - 24 hr 09/21/23 19:27 09/21/23 19:54 09/21/23 19:54 Temperature 37.1 C Temperature Source Oral Pulse Rate 95 H 88 Pulse Rate from SpO2 Sensor 77 Respiratory Rate 20 21 Respiratory Effort / Characteristics Spontaneous Short of Breath Respiratory Depth Normal Blood Pressure 172/72 H 96/79 L Blood Pressure Mean 105 85 Pulse Oximetry 94 100 Oxygen Delivery Method Nasal Cannula Oxygen Flow Rate 3 Sepsis New/Unexplained Change in Mental Status No Sepsis Action Taken by Nursing No Action Required 09/21/23 20:00 09/21/23 20:00 09/21/23 20:16 Temperature Temperature Source Pulse Rate 79 Pulse Rate from SpO2 Sensor 79 Respiratory Rate 26 H Respiratory Effort / Characteristics Respiratory Depth Blood Pressure 172/72 H Blood Pressure Mean 115 Pulse Oximetry 93 96 Oxygen Delivery Method Nasal Cannula Oxygen Flow Rate 2 Sepsis New/Unexplained Change in Mental Status Sepsis Action Taken by Nursing 09/21/23 20:30 09/21/23 21:00 09/21/23 21:13 Temperature Temperature Source Pulse Rate 73 Pulse Rate from SpO2 Sensor 72 80 74 Respiratory Rate 18 Respiratory Effort / Characteristics Respiratory Depth Blood Pressure Blood Pressure Mean Pulse Oximetry 95 93 99 Oxygen Delivery Method Oxygen Flow Rate Sepsis New/Unexplained Change in Mental Status Sepsis Action Taken by Nursing 09/21/23 21:13 09/21/23 21:30 09/21/23 21:31 Temperature Temperature Source Pulse Rate 75 Pulse Rate from SpO2 Sensor 77 Respiratory Rate 17 Respiratory Effort / Characteristics Respiratory Depth Blood Pressure 160/69 H 161/77 H Blood Pressure Mean 126 82 Pulse Oximetry 93 Oxygen Delivery Method Oxygen Flow Rate Sepsis New/Unexplained Change in Mental Status Sepsis Action Taken by Nursing 09/21/23 21:31 09/21/23 22:12 09/21/23 22:30 Temperature Temperature Source Pulse Rate 75 82 79 Pulse Rate from SpO2 Sensor 76 78 Respiratory Rate 27 H 16 23 Respiratory Effort / Characteristics Respiratory Depth Blood Pressure Blood Pressure Mean Pulse Oximetry 92 95 Oxygen Delivery Method Oxygen Flow Rate Sepsis New/Unexplained Change in Mental Status Sepsis Action Taken by Nursing 09/21/23 22:31 09/21/23 22:31 09/21/23 23:00 Temperature Temperature Source Pulse Rate 75 Pulse Rate from SpO2 Sensor 76 73 Respiratory Rate 16 20 Respiratory Effort / Characteristics Respiratory Depth Blood Pressure 140/98 Blood Pressure Mean 124 Pulse Oximetry 93 90 Oxygen Delivery Method Oxygen Flow Rate Sepsis New/Unexplained Change in Mental Status Sepsis Action Taken by Nursing 09/21/23 23:00 Temperature Temperature Source Pulse Rate Pulse Rate from SpO2 Sensor Respiratory Rate Respiratory Effort / Characteristics Respiratory Depth Blood Pressure 158/71 H Blood Pressure Mean 83 Pulse Oximetry Oxygen Delivery Method Oxygen Flow Rate Sepsis New/Unexplained Change in Mental Status Sepsis Action Taken by Nursing Physical Exam GENERAL: He is oriented to person, place, and time. He appears well-developed and well-nourished. He does not appear distressed. HENT: Exam performed. - Head: Normocephalic and atraumatic. - Right Ear: External ear normal. No mastoid erythema - Left Ear: External ear normal. No mastoid erythema - Mouth/Throat: The oropharynx is clear and moist. No trismus in the jaw. No dental abscesses or uvula swelling. No oropharyngeal exudate or tonsillar abscesses. EYES: Conjunctivae and EOM are normal. Pupils are equal, round, and reactive to light. Right eye exhibits no discharge. Left eye exhibits no discharge. No scleral icterus. NECK: Normal range of motion. Neck supple. No JVD present. No rigidity. No tracheal deviation and normal range of motion present. CV: Normal rate, regular rhythm, normal heart sounds and intact distal pulses. Palpable radial pulses bue. PULM/CHEST: Effort normal and breath sounds normal. No respiratory distress. No stridor. He has no wheezes. He has no rales. ABD: The abdomen is soft. Morbidly obese. He has no distension. No mass is present. There is no tenderness. There is no rebound, no guarding MUSC/SKEL: Normal range of motion. There is no tenderness or deformity. 2+ pitting edema of the bilateral lower extremities LYMPH: No cervical adenopathy. NEURO: He is alert and oriented to person, place, and time. He has normal strength. No cranial nerve deficit or sensory deficit. SKIN: Skin is warm and dry. He is not diaphoretic. PSYCH: He has a normal mood and affect. Behavior is normal. Judgment and thought content normal. Course Course 1951: The patient was evaluated in room B7. A complete history and physical exam was performed Administered Medications Discontinued Medications Albuterol (Albut/Ipratrop 3mg/0.5mg Neb 3 Ml Vial) 3 ml NEB NOW STA; Protocol Stop: 09/21/23 20:43 Last Admin: 09/21/23 21:05 Dose: 3 ml Documented By: DARNELL Methylprednisolone (Methylprednisolone 125 Mg/2 Ml Vial) 125 mg IV NOW STA Stop: 09/21/23 20:43 Last Admin: 09/21/23 21:05 Dose: 125 mg Documented By: DARNELL Oseltamivir Phosphate (Oseltamivir Phosphate 75 Mg Cap) 75 mg PO NOW STA; Protocol Stop: 09/21/23 22:03 Last Admin: 09/21/23 23:06 Dose: 75 mg Documented By: DARNELL Medical Decision Making Laboratory Data Attestation: I reviewed the patient's lab results. 09/21/23 20:09 09/21/23 20:09 Lab Results 09/21/23 Range/Units 20:09 WBC 12.40 H (4.8-10.8) K/ul RBC 3.69 L (4.70-6.10) M/uL Hgb 10.5 L (14.0-18.0) g/dl Hct 35.4 L (42.0-52.0) % MCV 95.9 (80.0-100.0) fL MCH 28.5 (25.0-34.0) pg MCHC 29.7 L (32.0-36.0) g/dL RDW Std Deviation 46.3 (36.4-46.3) fL RDW Coeff of Rebecca 13.0 (11.5-14.5) % Plt Count 185 (130-400) K/uL MPV 11.2 (9.4-12.4) fL Immature Gran % (Auto) 0.8 % Neut % (Auto) 80.7 % Lymph % (Auto) 11.0 % Bradford % (Auto) 6.6 % Eos % (Auto) 0.7 % Baso % (Auto) 0.2 % Neut # (Auto) 9.99 H (1.40-6.50) K/uL Lymph # (Auto) 1.37 (1.20-3.40) K/uL Bradford # (Auto) 0.82 H (0.11-0.59) K/uL Eos # (Auto) 0.09 (0.00-0.50) K/uL Baso # (Auto) 0.03 (0.00-0.20) K/uL Immature Gran # (Auto) 0.10 (0.01-0.20) K/uL PT Cancelled INR Cancelled APTT Cancelled PTT Ratio Cancelled VBG pH 7.33 L (7.36-7.41) VBG pCO2 68 H (38-50) mmHg VBG pO2 35 mmHg VBG HCO3 36 mmol/L VBG O2 Saturation 61.1 % VBG Base Excess 7.4 mEq/L Sodium 136 (136-145) mmol/L Potassium 5.2 H (3.5-5.1) mmol/L Chloride 96 L (98-107) mmol/L Carbon Dioxide 34 H (21-32) mmol/L Anion Gap 6 (3-11) BUN 54 H (6-23) mg/dl Creatinine 1.24 (0.6-1.4) mg/dl Est Cr Clr Drug Dosing 79.3 ml/min Est GFR ( Amer) 67.4 ml/min Est GFR (Non-Af Amer) 58.1 ml/min BUN/Creatinine Ratio 43.5 H (10-20) Glucose 201 H (70-99(Fasting)) mg/dl Lactate 1.1 (0.4-2.0) mmol/L Calcium 9.3 (8.6-10.3) mg/dl Magnesium 1.8 (1.7-2.4) mg/dl Total Bilirubin 0.5 (0.2-1.0) mg/dl Direct Bilirubin 0.2 (0-0.2) mg/dl AST 11 L (13-39) U/L ALT 9 (7-52) U/L Alkaline Phosphatase 149 H (34-104) U/L Troponin I High Sens 15.2 (0-20) pg/ml B-Natriuretic Peptide 136 H (0-100) pg/ml Total Protein 8.0 (6.0-8.3) gm/dl Albumin 4.0 (3.4-5.0) gm/dl Procalcitonin 0.19 (0-0.5) ng/ml Adenovirus (PCR) Not Detected (NotDetected) B. pertussis DNA (PCR) Not Detected (NotDetected) B.parapertussis DNA PCR Not Detected (NotDetected) C. pneumoniae DNA (PCR) Not Detected (NotDetected) Coronavirus OC43 (PCR) Not Detected (NotDetected) Coronavirus HKU1 (PCR) Not Detected (NotDetected) Coronavirus 229E (PCR) Not Detected (NotDetected) SARS-CoV-2 (PCR) Not Detected (NotDetected) Coronavirus NL63 (PCR) Not Detected (NotDetected) Human Metapneumovir PCR Not Detected (NotDetected) Influenza A (H3) PCR DETECTED A* (NotDetected) Influenza Type B (PCR) Not Detected (NotDetected) M. pneumoniae (PCR) Not Detected (NotDetected) Parainfluenza 1 (PCR) Not Detected (NotDetected) Parainfluenza 2 (PCR) Not Detected (NotDetected) Parainfluenza 3 (PCR) Not Detected (NotDetected) Parainfluenza 4 (PCR) Not Detected (NotDetected) RSV (PCR) Not Detected (NotDetected) Entero/Rhino (PCR) Not Detected (NotDetected) Imaging Data Attestation: I personally reviewed and interpreted this imaging study as follows: My Impression: Chest x-ray negative. Airway clear. No pneumothorax. No consolidation. cardiomegaly with no cephalization.. No free air under the diaphragm. No fractures of the skeletal structures. Radiologist's Impression: Chest X-Ray 09/21/23 20:09 SINGLE VIEW CHEST CLINICAL HISTORY: Sepsis. FINDINGS: An AP, portable, upright chest radiograph is compared to study dated 02/10/2023 and correlated with chest CT dated 11/20/2018. The patient is status post midline sternotomy. The heart is enlarged noting atherosclerotic calcification of the thoracic aorta. There is pulmonary vascular congestion. There is chronic elevation of the right hemidiaphragm. Scarring/atelectasis is noted at the lung bases. Question a small right pleural effusion. No pneumothorax is seen. The skeletal structures are osteopenic. The bony thorax is grossly intact. Degenerative change is noted in the shoulders. IMPRESSION: Cardiomegaly with evidence of congestive failure. ACT 112: Negative or not required by law. Electronically signed by: Zak Kemp M.D. 09/21/2023 10:[address] 09/21/23 20:09 Exam(s): CT HEAD Without Contrast EXAM: CT Head Without Intravenous Contrast CLINICAL HISTORY: Reason for exam: weakness. TECHNIQUE: Axial computed tomography images of the head/brain without intravenous contrast. CTDI is 37.32 mGy and DLP is 625.8 mGy-cm. Automated exposure control was utilized for the study. A dose lowering technique was utilized adhering to the principles of ALARA. Mild motion artifact. COMPARISON: None. FINDINGS: Brain: No mass effect or acute infarct. No acute hemorrhage. Mild atrophy and chronic white matter disease. Ventricles: No hydrocephalus or midline shift. Bones/joints: No acute skull lesion. Soft tissues: No scalp hematoma. Sinuses: Polyp or cyst left maxillary, otherwise, clear. Mastoid air cells: No mastoid effusion. IMPRESSION: 1. Mild age-related findings. 2. No acute infarct, bleed, or acute intracranial abnormality. Electronically signed by: Emily Booker M.D. 09/21/23 22:28 PM ECG Data Attestation: I personally reviewed and interpreted this ECG as follows: Rate (beats per minute): 77 Rhythm: + normal sinus ECG Intervals/blocks: + Right Bundle branch block ECG ST segments: + Normal ST segments Additional Comments: UT 258 QRS 144 QTc 451 MDM Narrative Cardiac monitoring: An order was placed for continuous cardiac monitoring. The monitor shows a rate of 80 with sinus rhythm interpreted by me Vital signs stable. Labs and imaging are within normal limits with the exception of a mildly elevated BNP. Patient's oxygen saturation is stable on his usual home 3 L of oxygen. Patient is positive for influenza. Will start the patient on Tamiflu given his age and other comorbidities. I did discuss with the patient that he can be discharged home safely as his other labs are within normal limits and the patient adamantly refused to being discharged stating he does not feel safe at home and needs to be admitted to the hospital. I again tried to explain to the patient that his results are reassuring and the patient became very upset and started screaming that he will not be discharged home. [facility] hospitalist was contacted for admission. Impression & Plan Influenza Discharge Plan Visit Data Chief Complaint: Flu Like Symptoms Stated Complaint: Cough x1week, Pain all over ED Provider: Awais Campbell Discharge Problem: Influenza Patient Disposition: Being Evaluated by Hospitalist Forms Stand Alone Forms: My [facility] Prescriptions Prescriptions: No Action (DME) Compression wraps- Comprecares See Rx Instructions .Route .MEDSUPPLY Qty: 2 0RF Rx Instructions: As directed (DME) Profore Lite Unna Boot change twice a week LLE dx venous stasis ulcers See Rx Instructions .Route .MEDSUPPLY Qty: 1 0RF Rx Instructions: As directed ergocalciferol (vitamin D2) 1,250 mcg (50,000 unit) capsule 50,000 unit PO WK Qty: 8 0RF Rx Instructions: saturdays albuterol sulfate 90 mcg/actuation HFA aerosol inhaler 2 puff INH QID PRN (Reason: Shortness Of Breath) Qty: 8.5 0RF glipizide 5 mg tablet 5 mg PO BIDM Qty: 180 1RF bumetanide 2 mg tablet 4 mg PO BID Qty: 120 4RF Rx Instructions: takes with breakfast and lunch oxycodone 10 mg tablet 10 mg PO Q6H PRN (Reason: pain) Qty: 120 0RF (DME) Portable Oxygen Misc See Rx Instructions .ROUTE .MEDSUPPLY Qty: 1 0RF Rx Instructions: 3L NC (DME) Oxygen Home Liters Per Minute See Rx Instructions .Route Qty: 1 0RF Rx Instructions: 3L NC WITH HUMIDIFICATION w/ activity atorvastatin 20 mg tablet 20 mg PO HS sennosides [Senokot] 8.6 mg tablet 8.6 mg PO DAILY PRN (Reason: constipation) polyethylene glycol 3350 [Miralax] 17 gram/dose powder 17 g PO DAILY PRN (Reason: constipation) nitroglycerin 0.4 mg tablet, sublingual 0.4 mg SL Q5M PRN (Reason: chest pain) amlodipine 5 mg tablet 5 mg PO QAM metformin 500 mg tablet extended release 24 hr 1,000 mg PO AMHS Eliquis 5 mg tablet 5 mg PO AMHS carvedilol 3.125 mg tablet 3.125 mg PO AMPM losartan 25 mg tablet 25 mg PO QAM oxycodone 10 mg tablet 10 mg PO Q6 PRN (Reason: Pain) acetaminophen [Tylenol Extra Strength] 500 mg tablet 500 - 1,000 mg PO Q6 PRN (Reason: pain) Artie Dixon U-300 Insulin 300 unit/mL (1.5 mL) insulin pen 10 unit SUBCUT HS Referrals Referrals: Neetu Smallwood DO [Primary Care Provider] -
[2023-09-22] MEDS ORDERED: GLUCOSE 40% GEL 15 GM TUBE PO PRN (00:26)
[2023-09-22] MEDS ORDERED: DEXTROSE 50% 50 ML SYRINGE IV PRN (00:26)
[2023-09-22] MEDS ORDERED: CARBOHYDRATES FOR HYPOGLYCEMIA PO PRN (00:26)
[2023-09-22] MEDS ORDERED: POLYETHYLENE (MIRALAX) 17 GM PACK PO PRN (00:26)
[2023-09-22] MEDS ORDERED: GLUCAGON FOR INJ 1 MG VIAL SQ PRN (00:26)
[2023-09-22] MEDS ORDERED: ONDANSETRON INJ 2 MG/ML 2 ML VIAL IV PRN (00:26)
[2023-09-22] MEDS ORDERED: GLUCOSE 10 TAB/TUBE PO PRN (00:26)
[2023-09-22] MEDS ORDERED: ALBUTEROL HFA 8 GM INHALER INH PRN (00:26)
[2023-09-22] MEDS: oxyCODONE HCL IR 5 MG TAB (IMMEDIATE RELEASE) PO PRN ×3 (00:48→18:30)
[2023-09-22] MEDS: ACETAMINOPHEN 325 MG TAB PO PRN ×2 (00:48→05:37)
[2023-09-22] MEDS ORDERED: ALBUT/IPRATROP 3MG/0.5MG NEB 3 ML VIAL NEB PRN (00:59)
[2023-09-22] MEDS: INSULIN ASPART PER UNIT CHARGE SC SCH ×5 (02:16→22:08)
[2023-09-22 02:41] LABS: Appearance Urine Clear (Clear); Bacteria Urine Automated Negative (Negative); Bilirubin Urine Negative (Negative); Blood Urine Negative (Negative); Color Urine Yellow; Glucose Urine UA Negative (Negative); Ketones Urine Negative (Negative); Leukocyte Esterase Urine Negative (Negative); Nitrite Urine Negative (Negative); Protein Urine 2+ (Negative); RBC Urine Automated 0-4 /hpf (0-4); Specific Gravity Urine 1.016 (1.000-1.030); Urobilinogen Urine Negative (Negative)
[2023-09-22 06:11] LABS: Hemoglobin 11.5 g/dl (14.0-18.0); Mean Corpuscular Hemoglobin 29.3 pg (25.0-34.0); Mean Corpuscular Hgb Conc 31.1 g/dL (32.0-36.0); Mean Corpuscular Volume 94.1 fL (80.0-100.0); Mean Platelet Volume 11.2 fL (9.4-12.4); Platelet Count 201 K/uL (130-400); RDW Coefficient of Variation 12.9 % (11.5-14.5); RDW Standard Deviation 44.7 fL (36.4-46.3); Red Blood Count 3.93 M/uL (4.70-6.10)
[2023-09-22 06:32] LABS: Albumin Level 3.9 gm/dl (3.4-5.0); Calcium 9.4 mg/dl (8.6-10.3); Magnesium 1.9 mg/dl (1.7-2.4); Potassium 5.6 mmol/L (3.5-5.1)
[2023-09-22 06:40] LABS: BUN Creatinine Ratio 40.3 (10-20); Creatinine Clr Calc Pharmacy 82.6 ml/min; Est GFR (African American) 70.8 ml/min; Est GFR (Non-African American) 61.1 ml/min; Phosphorus 3.8 mg/dl (2.5-4.9)
[2023-09-22 06:45] LABS: Basophils # (auto) 0.01 K/uL (0.00-0.20); Basophils % (auto) 0.1 %; Immature Granulocytes # (auto) 0.12 K/uL (0.01-0.20); Lymphocytes # (auto) 0.64 K/uL (1.20-3.40); Lymphocytes % (auto) 5.4 %; Monocytes # (auto) 0.12 K/uL (0.11-0.59); Neutrophils # (auto) 10.91 K/uL (1.40-6.50); Neutrophils % (auto) 92.5 %
[2023-09-22] MEDS ORDERED: INSULIN ASPART PER UNIT CHARGE SC STA (06:46)
[2023-09-22] MEDS ORDERED: LANTUS PER UNIT CHARGE SQ ONE ×2 (06:47→11:49)
[2023-09-22 07:10] LABS: Estimated Average Glucose 180 mg/dl; Hemoglobin A1C 7.9 % (4.5-5.6)
[2023-09-22] MEDS ORDERED: FUROSEMIDE 40 MG/4 ML VIAL IV ONE ×2 (08:14→10:25)
[2023-09-22] MEDS ORDERED: STAT IV/IM STA (08:16)
[2023-09-22] MEDS ORDERED: CALCIUM GLUCONATE 10% 1,000 MG in SODIUM CHLOR 0.9% MINI-B 50 ML IV ONE (08:16)
[2023-09-22] MEDS ORDERED: INSULIN HUMAN REGULAR PER UNIT 10 UNITS in SYRINGE 9.9 ML IV ONE ×2 (08:22→17:30)
--- NOTE | 2023-09-22 08:29 | Hospitalist Progress Note ---
Date of Service September 22, 2023 Assessment & Plan (1) Influenza A: Plan: 73yo male unable to care for self at home w/ increased O2 use at home/shortness of breath and inability to ambulate with body aches/cough and increased weakness. Admitted for acute on chronic respiratory failure with hypoxia/obesity hypoventilation syndrome/influenza A/possible CHF exacerbation and need for rehab/placement Admit med-tele CT head negative for acute stroke on admission UA w/ 2+ protein, 5-10 epis, NO bacteria Biofire testing revealed +Influenza A testing Isolation precautions in place CXR w/ cardiomegaly and evidence for congestive changes - Prior admission in February 2023 w/ 2step and discharged on 3L NC w/ exertion and was discharged on increased bumex to 4mg BID from 2mg BID and metolazone to 3x/wk WBC elevated 12.4k on admit--> 11.8k on repeat -Given IV steroids in ER, no improvement and not continued. Suspect WBC elevation 2nd to such. Afebrile. Blood cultures pending from admit Continues on tamiflu as started in ER Supportive care, pulmonary toilet Supplemental O2 to maintain sats - presently 90% on 2L. PT/OT to be ordered given extreme weakness/deconditioning/ambulatory dysfunction as unable to care for himself at home. CM to follow DVT proph: Leo continued See below for tx possible/suspected CHF exacerbation (2) Acute on chronic heart failure with preserved ejection fraction: Plan: hx HFpEF, prior on bumex/metolazone w/ increased dosing as above at ri in February 2023, but only on bumex at present for diuresis. Also w/ Hx Multivessel coronary artery disease post 2 vessel CABG 2015 (MENDEZ TO LAD, SVG TO LCX), known [employer] and see last by Dr Smalls in Sep 2022. At that visit, dry weight "330lb" on bumex BID and metolazone MWF and on SGLT2 Weight 147kg on admission BNP 136 CXR w/ volume overload per review, ALP elevation to 149 (no RUQ pain on exam) - suspect hepatic congestion/volume overload * Of note, when in for CHF exacerbation last summer his BNP was normal in the 40s and patient reports only taking bumex once a day as doesn't want to be up all night urinating. Unclear if taking 8mg at once time or if only taking 4mg at a time. NO LONGER ON METOLAZONE which was increased from MWF to DAILY at ri at that time (appears this was placed on hold between PCP visits February 20 and June 03 however I do not see any nursing notes/cards notes in between for this instruction) Continued on bumex 4mg PO BID on admission Lasix 40mg IV x1 provided this morning Yeboah placed for accurate I&O/inability to make it to bathroom/urinat e/incontinence (UA neg for infection on admit) May switch to IV lasix while inpatient per discussion w/ supervising provider Limited ECHO ordered to eval EF. Consider repeating BNP in another 48 hrs for comparison Benefit from [facility], however intolerant in the past Monitor weights, I&Os Continued monitoring of renal function/volume status (3) Chronic respiratory failure with hypoxia: Plan: apparently does not tolerate BIPAP., Utilizes 3L NC HS and to be using w/ exertion. +flu testing VBG on admit pH 7.33, pCO2 68 Patient denies increased sputum production recently. CXR w/o consolidative process. Afebrile Duonebs, pulmonary toilet, tamiflu as above Supplemental O2 to maintain sats (4) Atrial fibrillation: Plan: continues on eliquis 5mg BID, coreg 3.125mg BID monitor on telemetry K elevated - see tx below. Mag 1.9 and will monitor. (5) Diabetic nephropathy associated with type 2 diabetes mellitus: Plan: A1c 7.9- On metformin, glipizide currently at home but was on toujeo in past but not taken in ~6 months per patient - Review of med list w/ Jardiance but appears also not taking that at present per list "not taking" -Suspect benefit from jardiance w/ hx CHF and will need continued discussions He reports having BSGs 190-200s this past week at home, not good control. BSG elevation on admit, insulin provided and to 200s but back to 350s this afternoon (noting missed initial insulin in ER prior to lunch) -- Additional glargine provided, pharmacy consulted. --- suspect elevation 2nd to steroids given in ER, no further ordered Appreciate pharmacy consult/glycemic management Check B12 w/ AM labs given metformin use, neuropathy Monitor BSGs (6) Hyperkalemia: Plan: EKG unchanged from February 2023. Montioring on telemetry. Worse on repeat to 5.6 this morning. Ca gluconate/insulin provided as well as lasix Holding losartan 25mg daily Monitor BMP this afternoon and in AM w/ diuretic use (7) Chronic kidney disease, stage 3 (moderate): Plan: BUN/Cr 48/1.19 with most recent Cr 1.65 February 23 after dc on the at 1.98 No longer on metolazone, ?reason for discontinuation Lasix/bumex as outlined above Renal dose/avoid nephrotoxins otherwise Losartan on hold, tx K5.6 and monitoring repeat BMP (8) Obesity hypoventilation syndrome: Plan: intolerant to bipap. O2 and diuresis as outlined (9) Diabetic peripheral neuropathy associated with type 2 diabetes mellitus: Plan: checking B12 for completeness (10) Coronary artery disease: Plan: Hx Multivessel coronary artery disease post 2 vessel CABG 2015 (MENDEZ TO LAD, SVG TO LCX), known [employer]CA [employer] Followed by Dr Smalls in the past but hasn't not seen in over a year. At that visit, dry weight "330lb" on bumex BID and metolazone MWF and on SGLT2 EKG unchanged from prior admit. Trop on initial testing 15. No CP reported/need to repeat Monitoring on telemetry Remains on eliquis BID, statin, coreg as outlined. Losartan on hold given hyperkalemia DOES NOT APPEAR TO BE ON HYDRALAZINE ANYMORE PER MED REC. Monitor BP. No CP reported but could add back on if needing BP control w/ diuresis (11) Chronic venous stasis dermatitis of both lower extremities: Plan: noted, lymphedema/edema from volume overload chronic wounds, recent trauma from bucket to his L leg. To apparently be wearing Unna boots (has in the past, not available inpatient) Would not apply any compression w/ CHF at present Wound RN consulted, appreciated assistance w/ cleaning/drying Also w/ fungal appearance to b/l toes, benefit from f/u podiatry for treatment as no doubt contributing to issues w/ ambulation (toe nails are very long/ curling under) (12) Neck pain: Plan: reported chronic neck and knee pains checking cervical spine xray, no concerns for meningitits at present time pain control, will add topical voltaren therapy evals as above (13) Knee pain: Plan: noted chronic issue will check lyme for completeness pain control ordered as taking at home (14) Constipation: Plan: chronic issue but worsened recently due to immobility. does have umbilical hernia, no evidence for ischemia on exam. lactic wnl on admission bowel regimen ordered colace BID scheduled, senna prn. will add miralax daily check TSH given chronic issue/afib hx monitor for BM (15) Type 2 diabetes mellitus, with long-term current use of insulin: Plan: no longer on injectable, however BSgs elevated, A1c not at goal. pharmacy consulted as above Plan continued inpatient stay, PT/OT consults placed as likely unsafe to return home/care for himself at present time Admission and Anticipated Discharge Date Admission Date: September 21, 2023 Supervising Physician Co-Signing Physician Notes The patient was not seen by me. The chart was reviewed. Case discussed with CHINMAY Burden. Agree with assessment and plan Subjective eval around lunch, sitting up in chair. reports taking 2 tablets of bumex once daily in the morning. NO longer takes metolazone, unclear why but he thinks because it dried him out On toujeo in the past but low BSgs at times and hasn't taken in at least 6 months he reports. BSGs at home in 190s-200s this past week. Increased weakness and not able to get up off the couch- urinating in a bucket due to significant weakness. LE edema, L leg wrapped and hit a bucket last week/ripped the skin. Fungal appearance to his toes, pinky toe on RIGHT foot ripped off this morning. Has not seen cardiology in quite some time. No CP. SOB stable on 2L and reports he uses 3L as needed at home and with sleep but admits he doesn't use it all the time w exertion. Discussed + flu testing, also needing diuretics for volume overload. He notes his legs don't look that bad. Yeboah placed as had been having some in continence. Having some neck discomfort that goes down his back but no radiation into his legs. He notes chronic knee pain and that he's been telling people for 2 days about his neck but no one wants to do anything about it. Reports chronic issues with constipation. On exam w/ umbilical hernia, large, nonreducible but nontender/no erythema and reports has been there for quite some time. Issues w/ constipation at baseline and increased recently as wasn't able to get up/move around to even take anything. Will utilize bowel regimen w colace BID, add miralax/dulcolax prn. BSGs elevated to 340s this afternoon, did not get coverage prior. IV insulin and calcium gluconate late on administration bc he ripped out his IV. Discussed inpatient stay/goals at discharge. He would be agreeable to rehab if needed but stated "I just want to be able to get up and move around again". Wound RN in to see patient at end of encounter. Physical Exam Physical Exam: 73yo male , disheveled appearance/unkept , sitting up in chair, NAD but reporting fatigue head atraumatic, normocephalic, +trachea midline, +JVD, mmm Resp: diminished in the bases with associated fine crackles, no wheezing/rales, on 2L NC CV: RRR, +systolic murmur, b/l edema/chronic venous stasis (see skin), +pitting edema, pulses diminished but present no overt calf tenderness GI: +BS, +distension, +obese, +umbilical hernia (large, nonreducible but nontender/no erythema) : yeboah in place MSK/Neuro: b/l knee discomfort, slightly edematous but no overt findings generalized weakness but nonfocal pain w/ flexion/extension at the neck but no increased pain to neck w/ knee flexion Psych: AOx3, cooperative but disgruntled at times Skin: b/l venous stasis changes/dry flaking skin multiple lesions to anterior/medial L leg, 2 dressings and initially in tubigrip (removed) additional findings on the left(see wound care documentation), multiple weeping areas/serous fluid fungal appearance to toenails bilaterally (5th toenail since removed accidentally this morning on the right foot) Results & Data Results & Data Vital Signs (Past 12 Hours) Vital Signs Pulse Resp BP Pulse Ox O2 Del Method O2 Flow Rate 09/22/23 07:28 Nasal Cannula 2 09/21/23 23:00 158/71 H 09/21/23 23:00 75 20 90 09/21/23 22:31 16 93 09/21/23 22:31 140/98 09/21/23 22:30 79 23 95 09/21/23 22:12 82 16 09/21/23 21:31 75 27 H 92 09/21/23 21:31 161/77 H 09/21/23 21:30 75 17 93 09/21/23 21:13 160/69 H 09/21/23 21:13 73 18 99 09/21/23 21:00 93 09/21/23 20:30 95 Laboratory Results 09/22/23 09/22/23 09/22/23 Range/Units 06:00 02:25 00:55 WBC 11.80 H (4.8-10.8) K/ul RBC 3.93 L (4.70-6.10) M/uL Hgb 11.5 L (14.0-18.0) g/dl Hct 37.0 L (42.0-52.0) % MCV 94.1 (80.0-100.0) fL MCH 29.3 (25.0-34.0) pg MCHC 31.1 L (32.0-36.0) g/dL RDW Std Deviation 44.7 (36.4-46.3) fL RDW Coeff of Rebecca 12.9 (11.5-14.5) % Plt Count 201 (130-400) K/uL MPV 11.2 (9.4-12.4) fL Immature Gran % (Auto) 1.0 % Neut % (Auto) 92.5 % Lymph % (Auto) 5.4 % [place] % (Auto) 1.0 % Eos % (Auto) 0.0 % Baso % (Auto) 0.1 % Neut # (Auto) 10.91 H (1.40-6.50) K/uL Lymph # (Auto) 0.64 L (1.20-3.40) K/uL [place] # (Auto) 0.12 (0.11-0.59) K/uL Eos # (Auto) 0.00 (0.00-0.50) K/uL Baso # (Auto) 0.01 (0.00-0.20) K/uL Immature Gran # (Auto) 0.12 (0.01-0.20) K/uL PT INR APTT PTT Ratio VBG pH (7.36-7.41) VBG pCO2 (38-50) mmHg VBG pO2 mmHg VBG HCO3 mmol/L VBG O2 Saturation % VBG Base Excess mEq/L Sodium 133 L (136-145) mmol/L Potassium 5.6 H (3.5-5.1) mmol/L Chloride 95 L (98-107) mmol/L Carbon Dioxide 27 (21-32) mmol/L Anion Gap 11 (3-11) BUN 48 H (6-23) mg/dl Creatinine 1.19 (0.6-1.4) mg/dl Est Cr Clr Drug Dosing 82.6 ml/min Est GFR ( Amer) 70.8 ml/min Est GFR (Non-Af Amer) 61.1 ml/min BUN/Creatinine Ratio 40.3 H (10-20) Glucose 371 H* (70-99(Fasting)) mg/dl POC Glucose 267 H (70-99) mg/dl Estimat Average Glucose 180 mg/dl Hemoglobin A1c 7.9 H (4.5-5.6) % Lactate (0.4-2.0) mmol/L Calcium 9.4 (8.6-10.3) mg/dl Phosphorus 3.8 (2.5-4.9) mg/dl Magnesium 1.9 (1.7-2.4) mg/dl Total Bilirubin (0.2-1.0) mg/dl Direct Bilirubin (0-0.2) mg/dl AST (13-39) U/L ALT (7-52) U/L Alkaline Phosphatase (34-104) U/L Troponin I High Sens (0-20) pg/ml B-Natriuretic Peptide (0-100) pg/ml Total Protein (6.0-8.3) gm/dl Albumin 3.9 (3.4-5.0) gm/dl Procalcitonin (0-0.5) ng/ml Urine Color Yellow Urine Appearance Clear (Clear) Urine pH 5.0 (4.5-7.5) Ur Specific [place] 1.016 (1.000-1.030) Urine Protein 2+ H (Negative) Urine Glucose (UA) Negative (Negative) Urine Ketones Negative (Negative) Urine Blood Negative (Negative) Urine Nitrite Negative (Negative) Urine Bilirubin Negative (Negative) Urine Urobilinogen Negative (Negative) Ur Leukocyte Esterase Negative (Negative) Urine WBC (Auto) 1-5 (0-5) /hpf Urine RBC (Auto) 0-4 (0-4) /hpf U Hyaline Cast (Auto) 1-5 (0-5) /lpf U Epithel Cells (Auto) 5-10 H (0-5) /lpf Urine Bacteria (Auto) Negative (Negative) Adenovirus (PCR) (NotDetected) B. pertussis DNA (PCR) (NotDetected) B.parapertussis DNA PCR (NotDetected) C. pneumoniae DNA (PCR) (NotDetected) Coronavirus OC43 (PCR) (NotDetected) Coronavirus HKU1 (PCR) (NotDetected) Coronavirus 229E (PCR) (NotDetected) SARS-CoV-2 (PCR) (NotDetected) Coronavirus NL63 (PCR) (NotDetected) Human Metapneumovir PCR (NotDetected) Influenza A (H3) PCR (NotDetected) Influenza Type B (PCR) (NotDetected) M. pneumoniae (PCR) (NotDetected) Parainfluenza 1 (PCR) (NotDetected) Parainfluenza 2 (PCR) (NotDetected) Parainfluenza 3 (PCR) (NotDetected) Parainfluenza 4 (PCR) (NotDetected) RSV (PCR) (NotDetected) Entero/Rhino (PCR) (NotDetected) 09/21/23 Range/Units 20:09 WBC 12.40 H (4.8-10.8) K/ul RBC 3.69 L (4.70-6.10) M/uL Hgb 10.5 L (14.0-18.0) g/dl Hct 35.4 L (42.0-52.0) % MCV 95.9 (80.0-100.0) fL MCH 28.5 (25.0-34.0) pg MCHC 29.7 L (32.0-36.0) g/dL RDW Std Deviation 46.3 (36.4-46.3) fL RDW Coeff of Rebecca 13.0 (11.5-14.5) % Plt Count 185 (130-400) K/uL MPV 11.2 (9.4-12.4) fL Immature Gran % (Auto) 0.8 % Neut % (Auto) 80.7 % Lymph % (Auto) 11.0 % [place] % (Auto) 6.6 % Eos % (Auto) 0.7 % Baso % (Auto) 0.2 % Neut # (Auto) 9.99 H (1.40-6.50) K/uL Lymph # (Auto) 1.37 (1.20-3.40) K/uL [place] # (Auto) 0.82 H (0.11-0.59) K/uL Eos # (Auto) 0.09 (0.00-0.50) K/uL Baso # (Auto) 0.03 (0.00-0.20) K/uL Immature Gran # (Auto) 0.10 (0.01-0.20) K/uL PT Cancelled INR Cancelled APTT Cancelled PTT Ratio Cancelled VBG pH 7.33 L (7.36-7.41) VBG pCO2 68 H (38-50) mmHg VBG pO2 35 mmHg VBG HCO3 36 mmol/L VBG O2 Saturation 61.1 % VBG Base Excess 7.4 mEq/L Sodium 136 (136-145) mmol/L Potassium 5.2 H (3.5-5.1) mmol/L Chloride 96 L (98-107) mmol/L Carbon Dioxide 34 H (21-32) mmol/L Anion Gap 6 (3-11) BUN 54 H (6-23) mg/dl Creatinine 1.24 (0.6-1.4) mg/dl Est Cr Clr Drug Dosing 79.3 ml/min Est GFR ( Amer) 67.4 ml/min Est GFR (Non-Af Amer) 58.1 ml/min BUN/Creatinine Ratio 43.5 H (10-20) Glucose 201 H (70-99(Fasting)) mg/dl POC Glucose (70-99) mg/dl Estimat Average Glucose mg/dl Hemoglobin A1c (4.5-5.6) % Lactate 1.1 (0.4-2.0) mmol/L Calcium 9.3 (8.6-10.3) mg/dl Phosphorus (2.5-4.9) mg/dl Magnesium 1.8 (1.7-2.4) mg/dl Total Bilirubin 0.5 (0.2-1.0) mg/dl Direct Bilirubin 0.2 (0-0.2) mg/dl AST 11 L (13-39) U/L ALT 9 (7-52) U/L Alkaline Phosphatase 149 H (34-104) U/L Troponin I High Sens 15.2 (0-20) pg/ml B-Natriuretic Peptide 136 H (0-100) pg/ml Total Protein 8.0 (6.0-8.3) gm/dl Albumin 4.0 (3.4-5.0) gm/dl Procalcitonin 0.19 (0-0.5) ng/ml Urine Color Urine Appearance (Clear) Urine pH (4.5-7.5) Ur Specific [place] (1.000-1.030) Urine Protein (Negative) Urine Glucose (UA) (Negative) Urine Ketones (Negative) Urine Blood (Negative) Urine Nitrite (Negative) Urine Bilirubin (Negative) Urine Urobilinogen (Negative) Ur Leukocyte Esterase (Negative) Urine WBC (Auto) (0-5) /hpf Urine RBC (Auto) (0-4) /hpf U Hyaline Cast (Auto) (0-5) /lpf U Epithel Cells (Auto) (0-5) /lpf Urine Bacteria (Auto) (Negative) Adenovirus (PCR) Not Detected (NotDetected) B. pertussis DNA (PCR) Not Detected (NotDetected) B.parapertussis DNA PCR Not Detected (NotDetected) C. pneumoniae DNA (PCR) Not Detected (NotDetected) Coronavirus OC43 (PCR) Not Detected (NotDetected) Coronavirus HKU1 (PCR) Not Detected (NotDetected) Coronavirus 229E (PCR) Not Detected (NotDetected) SARS-CoV-2 (PCR) Not Detected (NotDetected) Coronavirus NL63 (PCR) Not Detected (NotDetected) Human Metapneumovir PCR Not Detected (NotDetected) Influenza A (H3) PCR DETECTED A* (NotDetected) Influenza Type B (PCR) Not Detected (NotDetected) M. pneumoniae (PCR) Not Detected (NotDetected) Parainfluenza 1 (PCR) Not Detected (NotDetected) Parainfluenza 2 (PCR) Not Detected (NotDetected) Parainfluenza 3 (PCR) Not Detected (NotDetected) Parainfluenza 4 (PCR) Not Detected (NotDetected) RSV (PCR) Not Detected (NotDetected) Entero/Rhino (PCR) Not Detected (NotDetected) Diagnostic Findings Chest X-Ray 09/21/23 20:09 SINGLE VIEW CHEST CLINICAL HISTORY: Sepsis. FINDINGS: An AP, portable, upright chest radiograph is compared to study dated 02/10/2023 and correlated with chest CT dated 11/20/2018. The patient is status post midline sternotomy. The heart is enlarged noting atherosclerotic calcification of the thoracic aorta. There is pulmonary vascular congestion. There is chronic elevation of the right hemidiaphragm. Scarring/atelectasis is noted at the lung bases. Question a small right pleural effusion. No pneumothorax is seen. The skeletal structures are osteopenic. The bony thorax is grossly intact. Degenerative change is noted in the shoulders. IMPRESSION: Cardiomegaly with evidence of congestive failure. ACT 112: Negative or not required by law. Electronically signed by: Zak Kemp M.D. 09/21/2023 10:[address] 09/21/23 20:09 Exam(s): CT HEAD Without Contrast EXAM: CT Head Without Intravenous Contrast CLINICAL HISTORY: Reason for exam: weakness. TECHNIQUE: Axial computed tomography images of the head/brain without intravenous contrast. CTDI is 37.32 mGy and DLP is 625.8 mGy-cm. Automated exposure control was utilized for the study. A dose lowering technique was utilized adhering to the principles of ALARA. Mild motion artifact. COMPARISON: None. FINDINGS: Brain: No mass effect or acute infarct. No acute hemorrhage. Mild atrophy and chronic white matter disease. Ventricles: No hydrocephalus or midline shift. Bones/joints: No acute skull lesion. Soft tissues: No scalp hematoma. Sinuses: Polyp or cyst left maxillary, otherwise, clear. Mastoid air cells: No mastoid effusion. IMPRESSION: 1. Mild age-related findings. 2. No acute infarct, bleed, or acute intracranial abnormality. Electronically signed by: Emily Booker M.D. 09/21/23 22:28 PM PG Care Time/CCT Total # of Minutes Spent Total Time Spent with Patient: Total time spent is greater than 50% in coordination of care (as documented) at patient's floor/unit and/or counseling patient: Coding Level of Care Code 50528 SUB INP/OBS CARE 50MIN Diagnoses Influenza A J10.1 Acute on chronic heart failure with preserved ejection fraction I50.33 Chronic respiratory failure with hypoxia J96.11 Atrial fibrillation I48.91 Diabetic nephropathy associated with type 2 diabetes mellitus E11.21 Hyperkalemia E87.5 Chronic kidney disease, stage 3 (moderate) N18.30 Obesity hypoventilation syndrome E66.2 Diabetic peripheral neuropathy associated with type 2 diabetes mellitus E11.42 Coronary artery disease I25.10 Chronic venous stasis dermatitis of both lower extremities I87.2 Neck pain M54.2 Knee pain M25.569 Constipation K59.00 Type 2 diabetes mellitus, with long-term current use of insulin E11.9; Z79.4
[2023-09-22] MEDS ORDERED: CALCIUM GLUCONATE 1,000 MG/60 ML BAG IV ONE (08:30)
[2023-09-22] MEDS: BUMETANIDE 1 MG TAB PO SCH ×2 (10:14→17:55)
[2023-09-22] MEDS: APIXABAN 5 MG TABLET PO SCH ×2 (10:14→20:17)
[2023-09-22] MEDS: OSELTAMIVIR PHOSPHATE 75 MG CAP PO SCH ×2 (10:15→20:16)
[2023-09-22] MEDS: amLODIPine BESYLATE 5 MG TAB PO SCH (10:16)
[2023-09-22] MEDS: carvediloL 3.125 MG TAB PO SCH ×2 (10:17→20:16)
[2023-09-22] MEDS ORDERED: PHARMACY GLYCEMIC MGMT CONSULT PRN (11:47)
--- NOTE | 2023-09-22 12:02 | Electrocardiogram Report ---
Test Reason : Blood Pressure : / mmHG Vent. Rate : 077 BPM Atrial Rate : 077 BPM P-R Int : 258 ms QRS Dur : 144 ms QT Int : 408 ms P-R-T Axes : 000 -73 059 degrees QTc Int : 461 ms Sinus rhythm with 1st degree A-V block with Premature supraventricular complexes Left axis deviation Right bundle branch block Old Lateral infarct (cited on or before 10-FEB-2023) Inferior infarct , age undetermined Abnormal ECG When compared with ECG of 10-FEB-2023 14:16, No significant change Confirmed by Oseas Jimenez ([id number]) on 09/22/2023 12:01:51 PM Referred By: REFERRED SELF Confirmed By:Oseas Jimenez
[2023-09-22] MEDS ORDERED: bisacodyL 10 MG SUPP PR PRN (12:07)
--- NOTE | 2023-09-22 13:09 | Pharmacy Report ---
Pharmacy Glycemic Short Note 2 - Date of Service September 22, 2023 - Glycemic Short BSG Results (Last 24 hours): 09/21/23 09/22/23 09/22/23 20:09 00:55 06:00 Glucose 201 H 371 H* POC Glucose 267 H 09/22/23 09/22/23 09/22/23 08:15 09:41 11:38 Glucose POC Glucose 378 H* 364 H* 341 H* OUTPATIENT ANTIDIABETIC REGIMEN: * Glipizide 5mg PO BID * Metformin 1gm PO BID * Toujeo 10 units SQ qHS -- pt has not been taking for some time d/t hypoglycemic episodes (info obtained from outpt provider history) * HbA1c: 7.9% (09/22/23) ASSESSMENT: * Mr Bruce is a 73yo diabetic M admitted with influenza A, weakness. * Pt received 125mg IV SoluMedrol in the ED last evening, which is likely contributing to his hyperglycemia throughout the day today. * Despite Lantus, Novolog, and IV insulin (for hyperkalemia) doses, hyperglycemia has been persistent. * Pt initiated on SQ basal/bolus insulin regimen on admission. Despite patients weight (147kg), I'm hesitant to initiate insulin too aggressively in light of patient's reports of hypoglycemia on a dose of 10 units daily of insulin outpt. * Novolog initiated using a conservative (adjusted body weight) stress level 2. * Pt was ordered a second dose of Lantus around lunchtime today per provider. Depending on how patient's BSGs respond, will consider giving a supplemental dose at bedtime. * Pharmacy will continue to monitor and adjust regimen as indicated during admission. PLAN FOR INPATIENT GLYCEMIC CONTROL: * Hold outpatient oral diabetes medications * Basal insulin * Lantus 10 units SQ @ 0800 * Lantus 10 units SQ @ 1240 * Lantus 10 units SQ at bedtime this evening if BSGs remain >200 mg/dL * Bolus insulin * NovoLog per scale ACHS or Q6hrs while NPO * Goal Range: Low 100 mg/dL - High 140 mg/dL * Correction Factor: 25 mg/dL/unit * Nutritional / Prandial insulin per carb ratio of 1 unit per 8 grams CHO consumed
[2023-09-22 16:07] LABS: BUN Creatinine Ratio 49.5 (10-20); Calcium 9.3 mg/dl (8.6-10.3); Creatinine Clr Calc Pharmacy 93.6 ml/min; Est GFR (African American) 82.4 ml/min; Est GFR (Non-African American) 71.1 ml/min; Potassium 5.4 mmol/L (3.5-5.1); Thyroid Stimulating Hormone 0.19 uIu/ml (0.300-4.500)
[2023-09-22 16:19] LABS: Lyme Ab IgG w/WB Rflx Negative (Negative); Lyme Ab IgM w/WB Rflx Negative (Negative)
--- NOTE | 2023-09-22 16:31 | Communication Note ---
Date of Service: September 22, 2023 Pharmacy consulted for glycemic management. Additional 10u lantus SQ @ 1240 and additional 10u SQ prior to bedtime if BSGs >200mg/dl Repeat labs w/ improvement in Cr 1.19--> 1.05. BUN 48--> 52. K to 5.4 from 5.6 and per supervising provider to continue diuresis as outlined and no further aggressive treatment just yet. Net negative 2.2L thus far. Continued monitoring on telemetry and continue to hold his losartan to prevent worsening Monitoring labs on repeat in AM
[2023-09-22 16:44] LABS: T4 Free Thyroxine 1.19 ng/dl (0.61-1.60)
--- NOTE | 2023-09-22 17:06 | XRay Report ---
CERVICAL SPINE 3 VIEWS CLINICAL HISTORY: Cervicalgia. FINDINGS: AP, lateral, and odontoid views of the cervical spine are obtained. No prior studies are av ailable for comparison at the time of dictation. The examination is degraded by inability to properly position the patient. The skeletal structures are osteopenic. There is no radiographic evidence of a cute fracture. Vertebral body height is maintained from C2 through C6. C7 is obscured by the patient' s shoulders. There is minimal anterolisthesis at C3-C4 and C4-C5. Alignment is otherwise preserved. T here is straightening of the cervical lordosis with reversal centered at the C5. Anterior osteophytes are seen throughout. The odontoid process and lateral masses are grossly intact. The atlantodental a rticulation is maintained noting productive degenerative change. The spinous processes appear intact. There is [id number] disc space narrowing in the lower cervical region. The prevertebral soft t issues are normal as imaged. Advanced multilevel facet arthropathy is seen on the frontal view. Midli ne sternotomy wires are noted. IMPRESSION: 1. No acute bony abnormality is seen involving the cervical spine. 2. Osteopenia and spondylotic change as above. Dictated: 09/22/2023 3:57 PM Transcribed: 09/22/2023 4:43 PM [place] [id number] BERNARD_[email or web address] Electronically signed by: Zak Kemp M.D. 09/22/2023 5:04 PM
--- NOTE | 2023-09-22 18:12 | XCELERA ---
[id number] \\[email or web address]\[id number]_PDF_[id number]
[2023-09-22] MEDS ORDERED: MICONAZOLE NITRATE POWDER 85 GM EXT PRN (18:38)
[2023-09-22] MEDS: DOCUSATE SODIUM 100 MG CAP PO SCH (20:16)
[2023-09-22] MEDS: ATORVASTATIN 20 MG TAB PO SCH (20:17)
[2023-09-22] MEDS ORDERED: LANTUS PER UNIT CHARGE SC SCH ×3 (21:00)
[2023-09-23] MEDS: ACETAMINOPHEN 325 MG TAB PO PRN ×2 (00:18→18:02)
[2023-09-23] MEDS: oxyCODONE HCL IR 5 MG TAB (IMMEDIATE RELEASE) PO PRN ×3 (00:19→18:03)
[2023-09-23] MEDS ORDERED: INSULIN ASPART PER UNIT CHARGE SC SCH (02:00)
[2023-09-23 04:20] LABS: Basophils # (auto) 0.03 K/uL (0.00-0.20); Basophils % (auto) 0.2 %; Eosinophils # (auto) 0.02 K/uL (0.00-0.50); Eosinophils % (auto) 0.1 %; Hematocrit (blood only) 32.4 % (42.0-52.0); Hemoglobin 10.1 g/dl (14.0-18.0); Immature Granulocytes # (auto) 0.14 K/uL (0.01-0.20); Lymphocytes # (auto) 1.11 K/uL (1.20-3.40); Mean Corpuscular Hemoglobin 29.2 pg (25.0-34.0); Mean Corpuscular Hgb Conc 31.2 g/dL (32.0-36.0); Mean Corpuscular Volume 93.6 fL (80.0-100.0); Mean Platelet Volume 10.6 fL (9.4-12.4); Monocytes # (auto) 0.95 K/uL (0.11-0.59); Monocytes % (auto) 6.9 %; Neutrophils % (auto) 83.8 %; Platelet Count 226 K/uL (130-400); RDW Standard Deviation 44.5 fL (36.4-46.3); Red Blood Count 3.46 M/uL (4.70-6.10); White Blood Count 13.85 K/ul (4.8-10.8)
[2023-09-23 04:37] LABS: Albumin Level 3.8 gm/dl (3.4-5.0); BUN Creatinine Ratio 49.1 (10-20); Bilirubin,Total 0.3 mg/dl (0.2-1.0); Calcium 9.2 mg/dl (8.6-10.3); Creatinine Clr Calc Pharmacy 87.8 ml/min; Est GFR (African American) 76.2 ml/min; Est GFR (Non-African American) 65.7 ml/min; Globulin 3.8 gm/dl (2.5-4.0); Magnesium 1.8 mg/dl (1.7-2.4); Total Protein 7.6 gm/dl (6.0-8.3)
--- NOTE | 2023-09-23 07:42 | Hospitalist Progress Note ---
Date of Service September 23, 2023 Assessment & Plan (1) Influenza A: Plan: 73yo male unable to care for self at home w/ increased O2 use at home/shortness of breath and inability to ambulate with body aches/cough and increased weakness. Admitted for acute on chronic respiratory failure with hypoxia/obesity hypoventilation syndrome/influenza A/possible CHF exacerbation and need for rehab/placement Monitor on med-tele CT head negative for acute stroke on admission UA w/ 2+ protein, 5-10 epis, NO bacteria Biofire testing revealed +Influenza A testing Isolation precautions in place Tamiflu continued Duonebs, pulmonary toilet/incentive spirometer. No sputum produc tion/consolidative process on imaging Supplemental O2 to maintain sats - presently on baseline 3L (had not been using consistently at home as to be using w/ exertion) WBC elevated 12.4k - 11.8k on repeat. No improvement w/ steroids IV in ER, no wheezing on exam and NOT continued Suspected elevation in WBC 2nd to steroids and trended down on repeat however elevated today but has been afebrile. Blood cultures NGTD. ?reactive from influenza. Monocyte elevation today. Repeat CXR obtained, continued congestive changes CXR w/ cardiomegaly and evidence for congestive changes on admission. Not taking bumex correctly at home/no longer on metolazone as below which was increased to DAILY in February Given additional lasix 40mg IV w/ usual bumex 4mg PO BID on 09/22 w/ net negative 3L See below for additional diuresis for volume management PT/OT consulted given weakness/deconditioning/ambulatory dysfunction/unable to care for himself at home. Agreeable to rehab, notified CM to look out for therapy evals. DVT proph: Eliquis BID continued given hx afib (NSR/possible some afib on monitor but rates in 40-60s for the most part) (2) Acute on chronic heart failure with preserved ejection fraction: Plan: hx HFpEF, prior on bumex/metolazone Hx Multivessel coronary artery disease post 2 vessel CABG 2015 (MENDEZ TO LAD, SVG TO LCX), known [employer] and see last by Dr Smalls in Sep 2022. At that visit, dry weight "330lb" on bumex BID and metolazone MWF and on SGLT2 Last admission in February 2023 w/ increased bumex dosing to 4mg BID and scheduled metolazone DAILY from [facility] but no longer on metolazone and suspect not taking bumex as directed. BNP WAS NORMAL AT THAT TIME Weight 147kg on admission BNP elevated, 136 CXR w/ cardiomegaly w/ congestive changes (also w/ ALP 149 w/o RUQ pain and suspect hepatic congestion/volume overload) and LE edema (also chronic lymphedema in general) Bumex 4mg PO BID continued +Lasix 40mg IV on 09/22, also to assist w/ hyperkalemia, now normal on repeat labs and losartan remains on hold Yeboah in place for incontinence/ambulatory dysfunction. voiding trial prior to dc Discussed w/ supervising provider 09/23 and review CXR w/ recs for additional IV lasix for today (09/23) and monitor CXR daily ?consideration for diamox w/ CO2 elevation Repeat limited ECHO to eval for any reduced EF/other issue CHF clinic provider consulted to see this upcoming week/assist in follow up care. Prior on jardiance which likely would be beneficial adding back Monitor weights, I&Os. BNP to be repeated tomorrow (3) Chronic respiratory failure with hypoxia: Plan: apparently does not tolerate BIPAP., Utilizes 3L NC HS and to be using w/ exertion. +flu testing VBG on admit pH 7.33, pCO2 68 Patient denies increased sputum production recently. CXR w/o consolidative process. Afebrile Duonebs, pulmonary toilet, tamiflu as above Supplemental O2 to maintain sats and remaining stable on baseline 3L which again, doubt utilizing properly/consistently at home (4) Atrial fibrillation: Plan: continues on eliquis 5mg BID, coreg 3.125mg BID EKG on admit w/ 1st degree AV block. Lyme testing negative ?slow afib at times on monitor. Denied any palpitations K elevated (tx as below). Mag wnl and will continue to monitor on monitoring coordinator on telemetry, (5) Diabetic nephropathy associated with type 2 diabetes mellitus: Plan: A1c 7.9- On metformin, glipizide currently at home - Review of med list w/ Jardiance but appears also not taking that at present per list "not taking" -Suspect benefit from jardiance w/ hx CHF and will need continued discussions He reports having BSGs 190-200s this past week at home, not good control. was on toujeo in past but not taken in ~6 months per patient BSG elevation on admit, worsened w/ IV steroids in ER. Unfortunately late meds/in ER and missed dosing prior to lunch and pharmacy consulted for glycemic management/assistance and appreciate assistance No further steroids planned at present time, most recent BSG 258/improved but still elevated and will monitor. ?from illness w/ influenza vs compliance w/ meds at home (6) Hyperkalemia: Plan: EKG unchanged from February 2023. Telemetry monitoring w/o significant abn, possibly having some occasional afib? On eliquis BID K to 5.6 on 09/22 and given insulin/calcium gluconate, diuretics as above and repeat 5.4 and discussed w/ supervising provider evening 09/22 and recs to continue diuretics and K to normalize K 5.0 on AM labs, bumex/lasix as outlined above LOSARTAN remains on hold while working w/ diuresis as above and prevention of hypotension/worsened renal function/hyperkalemia Monitor BMP in AM (7) Chronic kidney disease, stage 3 (moderate): Plan: BUN/Cr 48/1.19 with most recent Cr 1.65 February 23 after dc on the at 1.98 No longer on metolazone, ?reason for discontinuation unclear Renal dose meds/avoid nephrotoxins as able, losartan on hold given prior hyperkalemia BUN/Cr 55/1.12 today and continuing bumex/lasix as above May need to consider touching base w/ nephrology vs cards for ongoing management pending response. CHF clinic provider consult as above as well for this upcoming week BMP in AM (8) Obesity hypoventilation syndrome: Plan: intolerant to bipap. O2 and diuresis as outlined (9) Diabetic peripheral neuropathy associated with type 2 diabetes mellitus: Plan: checking B12 for completeness, no significant deficiency but low normal 365. no replacement ordered (10) Coronary artery disease: Plan: Hx Multivessel coronary artery disease post 2 vessel CABG 2015 (MENDEZ TO LAD, SVG TO LCX), known [employer] Followed by Dr Smalls in the past but hasn't not seen in over a year. At that visit, dry weight "330lb" on bumex BID and metolazone MWF and on SGLT2 EKG unchanged from prior admit. Trop on initial testing 15. No CP reported/need to repeat Monitoring on telemetry Remains on eliquis BID, statin, coreg as outlined. Losartan on hold given hyperkalemia DOES NOT APPEAR TO BE ON HYDRALAZINE ANYMORE PER MED REC. Monitor BP. No CP reported but could add back on if needing BP control w/ diuresis and currently 130/73 (11) Chronic venous stasis dermatitis of both lower extremities: Plan: noted, lymphedema/edema from volume overload chronic wounds, recent trauma from bucket to his L leg. To apparently be wearing Unna boots (has in the past, not available inpatient) Would not apply any compression w/ CHF at present Wound RN consulted, appreciated assistance w/ cleaning/drying Also w/ fungal appearance to b/l toes --> benefit from f/u podiatry for treatment as no doubt contributing to issues w/ ambulation (toe nails are very long/curling under) (12) Neck pain: Plan: reported chronic neck and knee pains checking cervical spine xray, no concerns for meningitics at present time cerval spine xray without acute bony abn seen. Osteopenia and spondylotic changes noted. mild-mod disc space narrowing in lower cervical region improved pain today reported. continue topical voltaren, pain control therapy evals as outlined above suspect generalized aches/myalgias from +influenza process (13) Knee pain: Plan: noted chronic issue, lyme negative. diuretics as above, pain control w. tylenol/oxycodone as taking at home. DECLINES need for increased pain control at present time no acute need for imaging but can consider if any worsening discomfort w/ diuresis (14) Constipation: Plan: chronic issue but worsened recently due to immobility. does have umbilical hernia, no evidence for ischemia on exam. lactic wnl on admission bowel regimen ordered colace BID scheduled, senna prn. added miralax daily TSH checked given chronic issue/hx afib and surprisingly was not elevated but slightly low at 0.1. ?unclear. T4/t3 wnl and can f/u PCP +BS on exam/slightly slow but no pain reported. Encouraged ambulation/suppository but patient frustrated w/ urgency to get bowels moving. Monitor bowel movements, consider KUB in AM to eval stool burden (15) Type 2 diabetes mellitus, with long-term current use of insulin: Plan: no longer on injectable, however BSgs elevated, A1c not at goal. pharmacy consulted as above Plan continued inpatient stay, PT/OT consulted and patient unsafe for return home/care for himself changing to full admission, diuretics as outlined and monitoring labs/CXR in AM Admission and Anticipated Discharge Date Admission Date: September 21, 2023 Supervising Physician Co-Signing Physician Notes The patient was not seen by me. The chart was reviewed. Case discussed with CHINMAY Burden. Agree with assessment and plan Subjective Eval this morning around lunch. Sitting up in recliner, unable to sleep in bed (suspected 2nd to volume overload). Denies any fever/chills, has been afebrile. Chronic cough but nonproductive. When asked about his neck today he said it's "not too bad today". Chronic neck/back/knee pain, on tylenol and oxycodone and discussed any need for increased control and he denied this. Denied passing gas but has BS on exam. Denied abdominal pain or want for suppository at present time and asked why we are being so aggressive with getting him to have bowel movement. Discussed will continue current regimen but constipation can contribute to worsening weakness. He denies having any increased shortness of breath or prior to admission despite reports of needing to "use oxygen more often" which he really is to be using w/ exertion at all times given prior admission/2step report. Yeboah in place draining clear yellow urine. Continues on BID bumex and renal function stable and will monitor. WBC elevated but no increased redness/pain to his legs and will monitor for any worsening/need for antibiotics. He does agree he is too weak to return home at present time and was ok w/ rehab and notifying CM once therapy evaluations obtained. Changing to full admission. Questions/concerns addressed at this time. Physical Exam Physical Exam: 73yo male , disheveled appearance/unkept , sitting up in chair, NAD but fatigued appearing head atraumatic, normocephalic, +trachea midline, +JVD, mmm Resp: diminished in the bases with associated fine crackles, no wheezing/rales, occassional cough, on 3L NC 99% SpO2 CV: RRR, +systolic murmur, b/l edema/chronic venous stasis (dependent rubor, see skin), +pitting edema, pulses diminished but present no overt calf tenderness GI: +BS, +distension, +obese, +umbilical hernia (large, nonreducible but nontender/no erythema) : yeboah in place MSK/Neuro: b/l knee discomfort, slightly edematous but no overt findings generalized weakness but nonfocal pain w/ flexion/extension at the neck but no increased pain to neck w/ knee flexion -- DECREASED TODAY Psych: AOx3, cooperative but disgruntled at times Skin: b/l venous stasis changes/dry flaking skin, dependent rubor, no overt warmth/tenderness has been cleaned since yesterday by wound care and covered with ABDs/kerlex to LLE and RLE w/ optifoam over prior wound. fungal appearance to toenails bilaterally (5th toenail since removed accidentally this morning on the right foot) Results & Data Results & Data Vital Signs (Past 12 Hours) Vital Signs Temp Pulse Pulse Resp BP Pulse Ox O2 Del Method 09/23/23 03:51 36.8 C 69 20 171/84 H 96 Nasal Cannula 09/23/23 00:23 36.8 C 73 20 159/76 H 97 Nasal Cannula 09/22/23 22:15 73 09/22/23 20:25 Nasal Cannula O2 Flow Rate 09/23/23 03:51 3 09/23/23 00:23 3 09/22/23 22:15 09/22/23 20:25 3 Laboratory Results 09/23/23 09/23/23 09/22/23 Range/Units 04:04 01:53 20:48 WBC 13.85 H (4.8-10.8) K/ul RBC 3.46 L (4.70-6.10) M/uL Hgb 10.1 L (14.0-18.0) g/dl Hct 32.4 L (42.0-52.0) % MCV 93.6 (80.0-100.0) fL MCH 29.2 (25.0-34.0) pg MCHC 31.2 L (32.0-36.0) g/dL RDW Std Deviation 44.5 (36.4-46.3) fL RDW Coeff of Rebecca 13.0 (11.5-14.5) % Plt Count 226 (130-400) K/uL MPV 10.6 (9.4-12.4) fL Immature Gran % (Auto) 1.0 % Neut % (Auto) 83.8 % Lymph % (Auto) 8.0 % Macon % (Auto) 6.9 % Eos % (Auto) 0.1 % Baso % (Auto) 0.2 % Neut # (Auto) 11.60 H (1.40-6.50) K/uL Lymph # (Auto) 1.11 L (1.20-3.40) K/uL Macon # (Auto) 0.95 H (0.11-0.59) K/uL Eos # (Auto) 0.02 (0.00-0.50) K/uL Baso # (Auto) 0.03 (0.00-0.20) K/uL Immature Gran # (Auto) 0.14 (0.01-0.20) K/uL Sodium 133 L (136-145) mmol/L Potassium 5.0 (3.5-5.1) mmol/L Chloride 93 L (98-107) mmol/L Carbon Dioxide 36 H (21-32) mmol/L Anion Gap 4 (3-11) BUN 55 H (6-23) mg/dl Creatinine 1.12 (0.6-1.4) mg/dl Est Cr Clr Drug Dosing 87.8 ml/min Est GFR ( Amer) 76.2 ml/min Est GFR (Non-Af Amer) 65.7 ml/min BUN/Creatinine Ratio 49.1 H (10-20) Glucose 277 H 262 H (70-99(Fasting)) mg/dl POC Glucose 290 H (70-99) mg/dl Calcium 9.2 (8.6-10.3) mg/dl Magnesium 1.8 (1.7-2.4) mg/dl Total Bilirubin 0.3 (0.2-1.0) mg/dl AST 10 L (13-39) U/L ALT 7 (7-52) U/L Alkaline Phosphatase 134 H (34-104) U/L Total Creatine Kinase (30-223) U/L Total Protein 7.6 (6.0-8.3) gm/dl Albumin 3.8 (3.4-5.0) gm/dl Globulin 3.8 (2.5-4.0) gm/dl Albumin/Globulin Ratio 1.0 (0.9-2) Vitamin B12 365 (180-914) pg/ml TSH (0.300-4.500) uIu/ml Free T4 (0.61-1.60) ng/dl Free T3 2.77 (2.3-4.2) pg/ml Lyme Disease IgG Ab (Negative) Lyme Disease IgM Ab (Negative) 09/22/23 09/22/23 09/22/23 Range/Units 20:21 20:19 20:06 WBC (4.8-10.8) K/ul RBC (4.70-6.10) M/uL Hgb (14.0-18.0) g/dl Hct (42.0-52.0) % MCV (80.0-100.0) fL MCH (25.0-34.0) pg MCHC (32.0-36.0) g/dL RDW Std Deviation (36.4-46.3) fL RDW Coeff of Rebecca (11.5-14.5) % Plt Count (130-400) K/uL MPV (9.4-12.4) fL Immature Gran % (Auto) % Neut % (Auto) % Lymph % (Auto) % [place] % (Auto) % Eos % (Auto) % Baso % (Auto) % Neut # (Auto) (1.40-6.50) K/uL Lymph # (Auto) (1.20-3.40) K/uL Macon # (Auto) (0.11-0.59) K/uL Eos # (Auto) (0.00-0.50) K/uL Baso # (Auto) (0.00-0.20) K/uL Immature Gran # (Auto) (0.01-0.20) K/uL Sodium (136-145) mmol/L Potassium (3.5-5.1) mmol/L Chloride (98-107) mmol/L Carbon Dioxide (21-32) mmol/L Anion Gap (3-11) BUN (6-23) mg/dl Creatinine (0.6-1.4) mg/dl Est Cr Clr Drug Dosing ml/min Est GFR ( Amer) ml/min Est GFR (Non-Af Amer) ml/min BUN/Creatinine Ratio (10-20) Glucose (70-99(Fasting)) mg/dl POC Glucose 270 H 483 H* 284 H (70-99) mg/dl Calcium (8.6-10.3) mg/dl Magnesium (1.7-2.4) mg/dl Total Bilirubin (0.2-1.0) mg/dl AST (13-39) U/L ALT (7-52) U/L Alkaline Phosphatase (34-104) U/L Total Creatine Kinase (30-223) U/L Total Protein (6.0-8.3) gm/dl Albumin (3.4-5.0) gm/dl Globulin (2.5-4.0) gm/dl Albumin/Globulin Ratio (0.9-2) Vitamin B12 (180-914) pg/ml TSH (0.300-4.500) uIu/ml Free T4 (0.61-1.60) ng/dl Free T3 (2.3-4.2) pg/ml Lyme Disease IgG Ab (Negative) Lyme Disease IgM Ab (Negative) 09/22/23 09/22/23 09/22/23 Range/Units 20:04 17:07 17:06 WBC (4.8-10.8) K/ul RBC (4.70-6.10) M/uL Hgb (14.0-18.0) g/dl Hct (42.0-52.0) % MCV (80.0-100.0) fL MCH (25.0-34.0) pg MCHC (32.0-36.0) g/dL RDW Std Deviation (36.4-46.3) fL RDW Coeff of Rebecca (11.5-14.5) % Plt Count (130-400) K/uL MPV (9.4-12.4) fL Immature Gran % (Auto) % Neut % (Auto) % Lymph % (Auto) % [place] % (Auto) % Eos % (Auto) % Baso % (Auto) % Neut # (Auto) (1.40-6.50) K/uL Lymph # (Auto) (1.20-3.40) K/uL Macon # (Auto) (0.11-0.59) K/uL Eos # (Auto) (0.00-0.50) K/uL Baso # (Auto) (0.00-0.20) K/uL Immature Gran # (Auto) (0.01-0.20) K/uL Sodium (136-145) mmol/L Potassium (3.5-5.1) mmol/L Chloride (98-107) mmol/L Carbon Dioxide (21-32) mmol/L Anion Gap (3-11) BUN (6-23) mg/dl Creatinine (0.6-1.4) mg/dl Est Cr Clr Drug Dosing ml/min Est GFR ( Amer) ml/min Est GFR (Non-Af Amer) ml/min BUN/Creatinine Ratio (10-20) Glucose (70-99(Fasting)) mg/dl POC Glucose 531 H* 364 H* 361 H* (70-99) mg/dl Calcium (8.6-10.3) mg/dl Magnesium (1.7-2.4) mg/dl Total Bilirubin (0.2-1.0) mg/dl AST (13-39) U/L ALT (7-52) U/L Alkaline Phosphatase (34-104) U/L Total Creatine Kinase (30-223) U/L Total Protein (6.0-8.3) gm/dl Albumin (3.4-5.0) gm/dl Globulin (2.5-4.0) gm/dl Albumin/Globulin Ratio (0.9-2) Vitamin B12 (180-914) pg/ml TSH (0.300-4.500) uIu/ml Free T4 (0.61-1.60) ng/dl Free T3 (2.3-4.2) pg/ml Lyme Disease IgG Ab (Negative) Lyme Disease IgM Ab (Negative) 09/22/23 09/22/23 09/22/23 Range/Units 15:09 11:38 09:41 WBC (4.8-10.8) K/ul RBC (4.70-6.10) M/uL Hgb (14.0-18.0) g/dl Hct (42.0-52.0) % MCV (80.0-100.0) fL MCH (25.0-34.0) pg MCHC (32.0-36.0) g/dL RDW Std Deviation (36.4-46.3) fL RDW Coeff of Rebecca (11.5-14.5) % Plt Count (130-400) K/uL MPV (9.4-12.4) fL Immature Gran % (Auto) % Neut % (Auto) % Lymph % (Auto) % [place] % (Auto) % Eos % (Auto) % Baso % (Auto) % Neut # (Auto) (1.40-6.50) K/uL Lymph # (Auto) (1.20-3.40) K/uL Macon # (Auto) (0.11-0.59) K/uL Eos # (Auto) (0.00-0.50) K/uL Baso # (Auto) (0.00-0.20) K/uL Immature Gran # (Auto) (0.01-0.20) K/uL Sodium 134 L (136-145) mmol/L Potassium 5.4 H (3.5-5.1) mmol/L Chloride 95 L (98-107) mmol/L Carbon Dioxide 30 (21-32) mmol/L Anion Gap 9 (3-11) BUN 52 H (6-23) mg/dl Creatinine 1.05 (0.6-1.4) mg/dl Est Cr Clr Drug Dosing 93.6 ml/min Est GFR ( Amer) 82.4 ml/min Est GFR (Non-Af Amer) 71.1 ml/min BUN/Creatinine Ratio 49.5 H (10-20) Glucose 389 H* (70-99(Fasting)) mg/dl POC Glucose 341 H* 364 H* (70-99) mg/dl Calcium 9.3 (8.6-10.3) mg/dl Magnesium (1.7-2.4) mg/dl Total Bilirubin (0.2-1.0) mg/dl AST (13-39) U/L ALT (7-52) U/L Alkaline Phosphatase (34-104) U/L Total Creatine Kinase 109 (30-223) U/L Total Protein (6.0-8.3) gm/dl Albumin (3.4-5.0) gm/dl Globulin (2.5-4.0) gm/dl Albumin/Globulin Ratio (0.9-2) Vitamin B12 (180-914) pg/ml TSH 0.190 L (0.300-4.500) uIu/ml Free T4 1.19 (0.61-1.60) ng/dl Free T3 (2.3-4.2) pg/ml Lyme Disease IgG Ab Negative (Negative) Lyme Disease IgM Ab Negative (Negative) 09/22/23 Range/Units 08:15 WBC (4.8-10.8) K/ul RBC (4.70-6.10) M/uL Hgb (14.0-18.0) g/dl Hct (42.0-52.0) % MCV (80.0-100.0) fL MCH (25.0-34.0) pg MCHC (32.0-36.0) g/dL RDW Std Deviation (36.4-46.3) fL RDW Coeff of Rebecca (11.5-14.5) % Plt Count (130-400) K/uL MPV (9.4-12.4) fL Immature Gran % (Auto) % Neut % (Auto) % Lymph % (Auto) % [place] % (Auto) % Eos % (Auto) % Baso % (Auto) % Neut # (Auto) (1.40-6.50) K/uL Lymph # (Auto) (1.20-3.40) K/uL [place]on # (Auto) (0.11-0.59) K/uL Eos # (Auto) (0.00-0.50) K/uL Baso # (Auto) (0.00-0.20) K/uL Immature Gran # (Auto) (0.01-0.20) K/uL Sodium (136-145) mmol/L Potassium (3.5-5.1) mmol/L Chloride (98-107) mmol/L Carbon Dioxide (21-32) mmol/L Anion Gap (3-11) BUN (6-23) mg/dl Creatinine (0.6-1.4) mg/dl Est Cr Clr Drug Dosing ml/min Est GFR ( Amer) ml/min Est GFR (Non-Af Amer) ml/min BUN/Creatinine Ratio (10-20) Glucose (70-99(Fasting)) mg/dl POC Glucose 378 H* (70-99) mg/dl Calcium (8.6-10.3) mg/dl Magnesium (1.7-2.4) mg/dl Total Bilirubin (0.2-1.0) mg/dl AST (13-39) U/L ALT (7-52) U/L Alkaline Phosphatase (34-104) U/L Total Creatine Kinase (30-223) U/L Total Protein (6.0-8.3) gm/dl Albumin (3.4-5.0) gm/dl Globulin (2.5-4.0) gm/dl Albumin/Globulin Ratio (0.9-2) Vitamin B12 (180-914) pg/ml TSH (0.300-4.500) uIu/ml Free T4 (0.61-1.60) ng/dl Free T3 (2.3-4.2) pg/ml Lyme Disease IgG Ab (Negative) Lyme Disease IgM Ab (Negative) Diagnostic Findings Cervical Spine X-Ray 09/22/23 12:01 CERVICAL SPINE 3 VIEWS CLINICAL HISTORY: Cervicalgia. FINDINGS: AP, lateral, and odontoid views of the cervical spine are obtained. No prior studies are available for comparison at the time of dictation. The examination is degraded by inability to properly position the patient. The skeletal structures are osteopenic. There is no radiographic evidence of acute fracture. Vertebral body height is maintained from C2 through C6. C7 is obscured by the patient's shoulders. There is minimal anterolisthesis at C3-C4 and C4-C5. Alignment is otherwise preserved. There is straightening of the cervical lordosis with reversal centered at the C5. Anterior osteophytes are seen throughout. The odontoid process and lateral masses are grossly intact. The atlantodental articulation is maintained noting productive degenerative change. The spinous processes appear intact. There is [id number] disc space narrowing in the lower cervical region. The prevertebral soft tissues are normal as imaged. Advanced multilevel facet arthropathy is seen on the frontal view. Midline sternotomy wires are noted. IMPRESSION: 1. No acute bony abnormality is seen involving the cervical spine. 2. Osteopenia and spondylotic change as above. Dictated: 09/22/2023 3:57 PM Transcribed: 09/22/2023 4:43 PM [place] [id number] [email or web address] Electronically signed by: Zak Kemp M.D. 09/22/2023 5:04 PM Chest X-Ray 09/23/23 07:38 SINGLE VIEW CHEST CLINICAL HISTORY: Follow-up chest congestion. FINDINGS: An AP, portable, upright chest radiograph is compared to study dated 09/21/2023 and correlated with chest CT dated 11/20/2018. The patient is status post midline sternotomy. The heart is enlarged noting atherosclerotic calcification of the thoracic aorta. There is pulmonary vascular congestion. There is chronic elevation of the right hemidiaphragm. There are small pleural effusions with dependent consolidation. No pneumothorax is seen. The skeletal structures are osteopenic. The bony thorax is grossly intact. Degenerative change is noted in the shoulders. IMPRESSION: 1. Cardiomegaly with evidence of congestive failure. This is similar to previous. 2. Small pleural effusions with dependent consolidation ACT 112: Negative or not required by law. Electronically signed by: Zak Kemp M.D. 09/23/2023 7:57 AM PG Care Time/CCT Total # of Minutes Spent Total Time Spent with Patient: Total time spent is greater than 50% in coordination of care (as documented) at patient's floor/unit and/or counseling patient: Coding Level of Care Code 72341 SUB INP/OBS CARE 3/50MIN Diagnoses Influenza A J10.1 Acute on chronic heart failure with preserved ejection fraction I50.33 Chronic respiratory failure with hypoxia J96.11 Atrial fibrillation I48.91 Diabetic nephropathy associated with type 2 diabetes mellitus E11.21 Hyperkalemia E87.5 Chronic kidney disease, stage 3 (moderate) N18.30 Obesity hypoventilation syndrome E66.2 Diabetic peripheral neuropathy associated with type 2 diabetes mellitus E11.42 Coronary artery disease I25.10 Chronic venous stasis dermatitis of both lower extremities I87.2 Neck pain M54.2 Knee pain M25.569 Constipation K59.00 Type 2 diabetes mellitus, with long-term current use of insulin E11.9; Z79.4
--- NOTE | 2023-09-23 07:59 | XRay Report ---
SINGLE VIEW CHEST CLINICAL HISTORY: Follow-up chest congestion. FINDINGS: An AP, portable, upright chest radiograph is compared to study dated 09/21/2023 and correlat ed with chest CT dated 11/20/2018. The patient is status post midline sternotomy. The heart is enlarge d noting atherosclerotic calcification of the thoracic aorta. There is pulmonary vascular congestion. There is chronic elevation of the right hemidiaphragm. There are small pleural effusions with depend ent consolidation. No pneumothorax is seen. The skeletal structures are osteopenic. The bony thorax i s grossly intact. Degenerative change is noted in the shoulders. IMPRESSION: 1. Cardiomegaly with evidence of congestive failure. This is similar to previous. 2. Small pleural effusions with dependent consolidation ACT 112: Negative or not required by law. Electronically signed by: Zak Kemp M.D. 09/23/2023 7:57 AM
[2023-09-23] MEDS: amLODIPine BESYLATE 5 MG TAB PO SCH (09:28)
[2023-09-23] MEDS: carvediloL 3.125 MG TAB PO SCH ×2 (09:28→20:01)
[2023-09-23] MEDS: APIXABAN 5 MG TABLET PO SCH ×2 (09:28→20:02)
[2023-09-23] MEDS: DOCUSATE SODIUM 100 MG CAP PO SCH ×2 (09:28→20:02)
[2023-09-23] MEDS: SENNA 8.6 MG TAB PO PRN (09:29)
[2023-09-23] MEDS: BUMETANIDE 1 MG TAB PO SCH (09:29)
[2023-09-23] MEDS: OSELTAMIVIR PHOSPHATE 75 MG CAP PO SCH ×2 (09:29→20:01)
[2023-09-23] MEDS: INSULIN ASPART PER UNIT CHARGE SC SCH ×4 (09:40→21:17)
[2023-09-23] MEDS: LANTUS PER UNIT CHARGE SC SCH ×2 (09:41→21:16)
[2023-09-23] MEDS ORDERED: FUROSEMIDE 40 MG/4 ML VIAL IV ONE (12:19)
[2023-09-23] MEDS: POLYETHYLENE (MIRALAX) 17 GM PACK PO SCH (12:32)
--- NOTE | 2023-09-23 14:11 | Pharmacy Report ---
Pharmacy Glycemic Short Note 2 - Date of Service September 23, 2023 - Glycemic Short BSG Results (Last 24 hours): 09/22/23 09/22/23 09/22/23 15:09 17:06 17:07 Glucose 389 H* POC Glucose 361 H* 364 H* 09/22/23 09/22/23 09/22/23 20:04 20:06 20:19 Glucose POC Glucose 531 H* 284 H 483 H* 09/22/23 09/22/23 09/23/23 20:21 20:48 01:53 Glucose 262 H POC Glucose 270 H 290 H 09/23/23 09/23/23 09/23/23 04:04 08:13 12:28 Glucose 277 H POC Glucose 258 H 233 H OUTPATIENT ANTIDIABETIC REGIMEN: * Glipizide 5 mg PO BID * Metformin 1000 mg PO BID * Toujeo 10 units SC HS -- pt has not been taking for some time d/t hypoglycemic episodes (info obtained from outpt provider history) * HbA1c: 7.9% (09/22/23) ASSESSMENT: 09/23: * Ryan received 119 units of insulin yesterday, 40 basal + 79 bolus. BSGs were: 599-661-430-270 mg/dL. * Fasting BSG remained elevated at 258 mg/dL this AM. Find it highly unlikely that dose of SoluMedrol is still contributing to elevated BSGs at this point. Despite A1c, patient may be basal deficient given no basal doses at home for some time. Will increase basal dose by 20% today. * Novolog will be tightened to reflect weight/stress of 3 given all BSGs > 200 mg/dL. 09/22: * Mr Bruce is a 73yo diabetic M admitted with influenza A, weakness. * Pt received 125mg IV SoluMedrol in the ED last evening, which is likely contributing to his hyperglycemia throughout the day today. * Despite Lantus, Novolog, and IV insulin (for hyperkalemia) doses, hyperglycemia has been persistent. * Pt initiated on SQ basal/bolus insulin regimen on admission. Despite patients weight (147kg), I'm hesitant to initiate insulin too aggressively in light of patient's reports of hypoglycemia on a dose of 10 units daily of insulin outpt. * Novolog initiated using a conservative (adjusted body weight) stress level 2. * Pt was ordered a second dose of Lantus around lunchtime today per provider. Depending on how patient's BSGs respond, will consider giving a supplemental dose at bedtime. * Pharmacy will continue to monitor and adjust regimen as indicated during admission. PLAN FOR INPATIENT GLYCEMIC CONTROL: * Hold outpatient oral diabetes medications * Basal insulin * Lantus 25 units SC BID * Bolus insulin * NovoLog per scale ACHS or Q6hrs while NPO * Goal Range: Low 110 mg/dL - High 140 mg/dL * Correction Factor: 15 mg/dL/unit * Nutritional / Prandial insulin per carb ratio of 1 unit per 5 grams CHO consumed
--- NOTE | 2023-09-23 14:59 | Communication Note ---
Date of Service: September 23, 2023 Switched bumex to IV BID17 per supervising provider while inpatient for now.
[2023-09-23] MEDS: BUMETANIDE 4 MG in SYRINGE 0 ML IV SCH (18:45)
[2023-09-23] MEDS: ATORVASTATIN 20 MG TAB PO SCH (20:02)
[2023-09-24] MEDS: ACETAMINOPHEN 325 MG TAB PO PRN ×4 (02:30→22:05)
[2023-09-24] MEDS: oxyCODONE HCL IR 5 MG TAB (IMMEDIATE RELEASE) PO PRN ×4 (02:30→22:05)
[2023-09-24 04:31] LABS: Basophils # (auto) 0.04 K/uL (0.00-0.20); Basophils % (auto) 0.3 %; Eosinophils # (auto) 0.09 K/uL (0.00-0.50); Eosinophils % (auto) 0.6 %; Immature Granulocytes # (auto) 0.13 K/uL (0.01-0.20); Immature Granulocytes % (auto) 0.8 %; Lymphocytes # (auto) 1.82 K/uL (1.20-3.40); Lymphocytes % (auto) 11.8 %; Mean Corpuscular Hgb Conc 30.6 g/dL (32.0-36.0); Mean Platelet Volume 10.7 fL (9.4-12.4); Monocytes % (auto) 8.4 %; Neutrophils # (auto) 12.01 K/uL (1.40-6.50); Neutrophils % (auto) 78.1 %; Platelet Count 284 K/uL (130-400); RDW Coefficient of Variation 12.8 % (11.5-14.5); RDW Standard Deviation 45.7 fL (36.4-46.3); Red Blood Count 3.79 M/uL (4.70-6.10); White Blood Count 15.39 K/ul (4.8-10.8)
[2023-09-24 04:50] LABS: Albumin Globulin Ratio 0.9 (0.9-2); Albumin Level 3.7 gm/dl (3.4-5.0); Bilirubin,Total 0.4 mg/dl (0.2-1.0); Calcium 9.4 mg/dl (8.6-10.3); Creatinine Clr Calc Pharmacy 76.8 ml/min; Est GFR (African American) 64.8 ml/min; Est GFR (Non-African American) 55.9 ml/min; Globulin 4.1 gm/dl (2.5-4.0); Magnesium 1.7 mg/dl (1.7-2.4); Potassium 4.6 mmol/L (3.5-5.1); Total Protein 7.8 gm/dl (6.0-8.3)
--- NOTE | 2023-09-24 07:07 | XRay Report ---
SINGLE VIEW CHEST CLINICAL HISTORY: Follow-up chest congestion. FINDINGS: 2 AP, portable, upright chest radiographs are compared to study dated 09/23/2023 and correla beata with chest CT dated 11/20/2018. The patient is status post midline sternotomy. The heart is enlarg ed noting atherosclerotic calcification of the thoracic aorta. There is mild pulmonary vascular conge stion. There is chronic elevation of the right hemidiaphragm. There are small pleural effusions with dependent consolidation. No pneumothorax is seen. The skeletal structures are osteopenic. The bony th orax is grossly intact. Degenerative change is noted in the shoulders. IMPRESSION: 1. Cardiomegaly with mild pulmonary vascular congestion. This is similar to previous. 2. Small pleural effusions with dependent consolidation ACT 112: Negative or not required by law. Electronically signed by: Zak Kemp M.D. 09/24/2023 7:06 AM
--- NOTE | 2023-09-24 07:59 | Hospitalist Progress Note ---
Date of Service September 24, 2023 Assessment & Plan (1) Influenza A: Plan: 73yo male unable to care for self at home w/ increased O2 use at home/shortness of breath and inability to ambulate with body aches/cough and increased weakness. Admitted for acute on chronic respiratory failure with hypoxia/obesity hypoventilation syndrome/influenza A/possible CHF exacerbation and need for rehab/placement Monitor on med-tele CT head negative for acute stroke on admission UA w/ 2+ protein, 5-10 epis, NO bacteria Biofire testing revealed +Influenza A testing Isolation precautions in place Tamiflu continued Duonebs, pulmonary toilet/incentive spirometer. No sputum production/consolidative process on imaging Supplemental O2 to maintain sats - on 2L at present (3L exertion/sleep at baseline but suspect not using) WBC elevation 2nd to steroids on admission, afebrile and had improved on repeat but now elevated to 15.3k on labs Blood cultures pending/negative from admission Now w/ productive cough/green sputum --> Ceftriaxone IV, doxy BID ordered. MRSA nares ordered Sputum cx ordered, incentive spirometer/flutter valve. Mucinex PO BID added CXR w/ persistent congestion, see below regarding diuretics and additional IV lasix for today PT/OT consults pending, will need placement w/ rehab [place] as unable to care for himself at home Monitor CXR daily, labs in AM. May need consult w/ nephrology vs cards for diuresis pending repeat. Can consider does of metolazone vs diamox (CO2 retention, O2 titrate as able) DVT proph: Eliquis BID continued given hx afib (NSR/possible some afib on monitor but rates in 40-60s for the most part) (2) Acute on chronic heart failure with preserved ejection fraction: Plan: hx HFpEF, prior on bumex/metolazone Hx Multivessel coronary artery disease post 2 vessel CABG 2015 (MENDEZ TO LAD, SVG TO LCX), known [employer]CA [employer] and see last by Dr Smalls in Sep 2022. At that visit, dry weight "330lb" on bumex BID and metolazone MW and on SGLT2 Last admission in February 2023 w/ increased bumex dosing to 4mg BID and scheduled metolazone DAILY from [facility] but no longer on metolazone and suspect not taking bumex as directed. BNP WAS NORMAL AT THAT TIME Weight 147kg on admission BNP elevated, 136 CXR w/ cardiomegaly w/ congestive changes (also w/ ALP 149 w/o RUQ pain and suspect hepatic congestion/volume overload) and LE edema (also chronic lymphedema in general) Bumex 4mg IV BID Lasix 40mg IV x 1 on 09/22 and 09/23 to assist w/ diuresis and Cr remaining stable however CXR w/ persistent congestion and lasix 60mg IV x 1 for 09/24. Consider cards/nephro consult for assistance if needed, ?metolazone vs diamox for CO2 retention Repeat limited ECHO to eval for any reduced EF/other issue--> essentially unchanged. EF 55-60%. no wma. Moderate LVH. RV mildly dilated. RV systolic function is normal. CHF clinic provider consulted to see this upcoming week/assist in follow up care. Prior on Jardiance which likely would be beneficial adding back for better diabetes control (?cost issue) Monitor weights(order placed for daily checks as has not been rechecked) I&Os (net negative -5.7L since admission) Monitor BMP/BNP/CXR in AM. Abx for possible PNA as above (3) Chronic respiratory failure with hypoxia: Plan: apparently does not tolerate BIPAP., Utilizes 3L NC HS and to be using w/ exertion. +flu testing VBG on admit pH 7.33, pCO2 68 Patient denies increased sputum production recently. CXR w/o consolidative process. Afebrile Duonebs, pulmonary toilet, tamiflu as above Sputum cx ordered given reports green sputum --> follow up cx if able to obtain +mucinex, flutter valve and ceftriaxone/doxy as above for lung coverage Supplemental O2 to maintain sats and remaining stable on baseline O2 and asked to titrate while at rest to maintain (to use 3L w/ exertion, not using consistently at home) (4) Atrial fibrillation: Plan: Hx paroxysmal afib EKG on admit w/ 1st degree AV block. Lyme testing negative Pwaves on tele K now wnl, monitor w/ diuretics. Mag wnl Monitor on telemetry, continues on eliquis 5mg BID, coreg 3.125mg BID (5) Diabetic nephropathy associated with type 2 diabetes mellitus: Plan: A1c 7.9- On metformin, glipizide currently at home - Review of med list w/ Jardiance but appears also not taking that at present per list "not taking" - Suspect benefit from jardiance w/ hx CHF and will need continued discussions He reports having BSGs 190-200s this past week at home, not good control. was on toujeo in past but not taken in ~6 months per patient BSG elevation on admit, worsened w/ IV steroids in ER. Unfortunately late meds/in ER and missed dosing prior to lunch and pharmacy consulted for glycemic management/assistance and appreciate assistance POC glu 190 on most recent check. (6) Hyperkalemia: Plan: EKG unchanged from February 2023. Telemetry monitoring w/o significant abn, possibly having some occasional afib? On eliquis BID K to 5.6 on 09/22 and given insulin/calcium gluconate, diuretics as above and repeat 5.4 and discussed w/ supervising provider evening 09/22 and recs to continue diuretics and K to normalize K 5.0 on AM labs, bumex/lasix as outlined above LOSARTAN remains on hold while working w/ diuresis as above and prevention of hypotension/worsened renal function/hyperkalemia Monitor BMP in AM (7) Chronic kidney disease, stage 3 (moderate): Plan: BUN/Cr 48/1.19 with most recent Cr 1.65 February 23 after dc on the at 1.98 No longer on metolazone, ?reason for discontinuation unclear Renal dose meds/avoid nephrotoxins as able, losartan on hold given prior hyperkalemia BUN/Cr 64/1.28 today and continues on bumex, additional lasix as above May need to consult w/ nephrology for ongoing diuresis pending repeat labs/eval BMP in AM (8) Obesity hypoventilation syndrome: Plan: intolerant to bipap. O2 and diuresis as outlined (9) Diabetic peripheral neuropathy associated with type 2 diabetes mellitus: Plan: checking B12 for completeness, no significant deficiency but low normal 365. no replacement ordered (10) Coronary artery disease: Plan: Hx Multivessel coronary artery disease post 2 vessel CABG 2015 (MENDEZ TO LAD, SVG TO LCX), known RCA [employer] Followed by Dr Smalls in the past but hasn't not seen in over a year. At that visit, dry weight "330lb" on bumex BID and metolazone MWF and on SGLT2 EKG unchanged from prior admit. Trop on initial testing 15. No CP reported/need to repeat Remains on eliquis BID, statin, coreg as outlined. Losartan on hold given hyperkalemia DOES NOT APPEAR TO BE ON HYDRALAZINE ANYMORE PER MED REC. Monitor BP. No CP reported but could add back on if needing BP control w/ diuresis and currently 136/72 Monitoring on telemetry (11) Chronic venous stasis dermatitis of both lower extremities: Plan: noted, lymphedema/edema from volume overload chronic wounds, recent trauma from bucket to his L leg. To apparently be wearing Unna boots (has in the past, not available inpatient) Would not apply any compression w/ CHF at present Wound RN consulted, appreciated assistance w/ cleaning/drying Also w/ fungal appearance to b/l toes --> benefit from f/u podiatry for treatment as no doubt contributing to issues w/ ambulation (toe nails are very long/curling under) (12) Neck pain: Plan: reported chronic neck and knee pains checking cervical spine xray, no concerns for meningitics at present time cerval spine xray without acute bony abn seen. Osteopenia and spondylotic changes noted. mild-mod disc space narrowing in lower cervical region improved pain today reported. continue topical voltaren, pain control therapy evals as outlined above suspect generalized aches/myalgias from +influenza process Does have some decreased ROM at the shoulder, ?underlying rotator cuff injury --> Xray shoulder for eval. (13) Knee pain: Plan: noted chronic issue, lyme negative. diuretics as above, pain control w. tylenol/oxycodone as taking at home. DECLINES need for increased pain control at present time no acute need for imaging but can consider if any worsening discomfort w/ diuresis --> Xray bilateral knees today (prior 2020). Worse pain on the right compared to the left. ?some effusion/fluid around R knee. No trauma/fall/erythema at present - pain control as ordered but pending imaging /consider consult w/ ortho (14) Constipation: Plan: chronic issue but worsened recently due to immobility. does have umbilical hernia, no evidence for ischemia on exam. lactic wnl on admission bowel regimen ordered colace BID scheduled, senna prn. added miralax daily TSH checked given chronic issue/hx afib and surprisingly was not elevated but slightly low at 0.1. ?unclear. T4/t3 wnl and can f/u PCP +BS on exam/slightly slow but no pain reported. Encouraged ambulation/suppository but patient frustrated w/ urgency to get bowels moving. Monitor bowel movements, consider KUB in AM to eval stool burden (he declines this, thinking will have blow out -- strongly encouraged suppository and bowel movements as could contribute to weakness) (15) Type 2 diabetes mellitus, with long-term current use of insulin: Plan: no longer on injectable, however BSgs elevated, A1c not at goal. pharmacy consulted as above Plan continued inpatient stay, diuretics increased and abx added for possible pneumonia/COPD exacerbation w/ sputum production. No wheezing on exam to indicate need for steroids at present time (and would avoid given significant hyperglycemia w/ such on admit) [place]hab/placement [place] as unable to care for himself. CM to follow Admission and Anticipated Discharge Date Admission Date: September 23, 2023 Supervising Physician Co-Signing Physician Notes The patient was not seen by me. The chart was reviewed. Case discussed with CHINMAY Burden. Agree with assessment and plan Subjective Eval this morning, got CXR/not much improved. He does note that today he is actually able to get up some green colored sputum. Not on any nebulizers/breathing treatments at home at baseline. Denies fevers/chills, ongoing neck discomfort. Passing gas but no BM. Declined KUB as didn't want to get into bed as thought he may have accident. Legs wrapped/dressed. Has chronic knee pain, will obtain xrays. R knee worse than the left. Prior xrays in 2020 and repeating today/consult for ortho if needed pending possible fluid/effusion to his right knee given exam. Lyme testing negative. On room air-2L at times. Titrating at rest but can continue w/ exertion. Physical Exam 2 Physical Exam: 73yo male , disheveled appearance/unkept , sitting up in chair, NAD but fatigued appearing (improved a little) head atraumatic, normocephalic, +trachea midline, +JVD, mmm Resp: diminished in the bases with associated fine crackles (IMPROVED CRACKLES BUT STILL DIMINISHED), no wheezing/rales, occasional cough (now w/ green sputum reported), on 2L NC CV: regular, occasional PAC/PVC on monitor, LE edema stable/slightly improvede,dependent rubor, diminshed pulses due to edema but present, cap refill wnl no overt calf tenderness GI: +BS, +distension, +obese, +umbilical hernia (large, nonreducible but nontender/no erythema) : yeboah in place with clear yellow urine MSK/Neuro: b/l knee discomfort, slightly edematous but no overt findings --> R knee ?effusion, no overt redness/warmth generalized weakness but nonfocal pain w/ flexion/extension at the neck but no increased pain to neck w/ knee flexion -- DECREASED TODAY Psych: AOx3, cooperative but disgruntled at times Skin: b/l venous stasis changes/dry flaking skin, dependent rubor, no overt warmth/tenderness dressings prer wound care- covered with ABDs/kerlex to LLE and RLE w/ optifoam over prior wound. fungal appearance to toenails bilaterally (5th toenail since removed accidentally on admission) Results & Data Results & Data Vital Signs (Past 12 Hours) Vital Signs Temp Pulse Pulse Resp BP Pulse Ox O2 Del Method 09/24/23 07:40 69 09/24/23 03:11 36.6 C 65 18 136/76 96 Nasal Cannula 09/24/23 00:44 36.7 C 56 L 18 150/77 H 97 Nasal Cannula 09/23/23 22:22 65 09/23/23 20:01 36.9 C 66 18 144/67 H 95 Nasal Cannula O2 Flow Rate 09/24/23 07:40 09/24/23 03:11 3 09/24/23 00:44 3 09/23/23 22:22 09/23/23 20:01 3 Laboratory Results 09/24/23 03:47 09/24/23 03:47 Diagnostic Findings Chest X-Ray 09/24/23 07:00 SINGLE VIEW CHEST CLINICAL HISTORY: Follow-up chest congestion. FINDINGS: 2 AP, portable, upright chest radiographs are compared to study dated 09/23/2023 and correlated with chest CT dated 11/20/2018. The patient is status post midline sternotomy. The heart is enlarged noting atherosclerotic calcification of the thoracic aorta. There is mild pulmonary vascular congestion. There is chronic elevation of the right hemidiaphragm. There are small pleural effusions with dependent consolidation. No pneumothorax is seen. The skeletal structures are osteopenic. The bony thorax is grossly intact. Degenerative change is noted in the shoulders. IMPRESSION: 1. Cardiomegaly with mild pulmonary vascular congestion. This is similar to previous. 2. Small pleural effusions with dependent consolidation ACT 112: Negative or not required by law. Electronically signed by: Zak Kemp M.D. 09/24/2023 7:06 AM PG Care Time/CCT Total # of Minutes Spent Total Time Spent with Patient: Total time spent is greater than 50% in coordination of care (as documented) at patient's floor/unit and/or counseling patient: Coding Level of Care Code 07261 SUB INP/OBS CARE 3/50MIN Diagnoses Influenza A J10.1 Acute on chronic heart failure with preserved ejection fraction I50.33 Chronic respiratory failure with hypoxia J96.11 Atrial fibrillation I48.91 Diabetic nephropathy associated with type 2 diabetes mellitus E11.21 Hyperkalemia E87.5 Chronic kidney disease, stage 3 (moderate) N18.30 Obesity hypoventilation syndrome E66.2 Diabetic peripheral neuropathy associated with type 2 diabetes mellitus E11.42 Coronary artery disease I25.10 Chronic venous stasis dermatitis of both lower extremities I87.2 Neck pain M54.2 Knee pain M25.569 Constipation K59.00 Type 2 diabetes mellitus, with long-term current use of insulin E11.9; Z79.4
[2023-09-24] MEDS ORDERED: FUROSEMIDE 40 MG/4 ML VIAL IV ONE (08:31)
[2023-09-24] MEDS: SENNA 8.6 MG TAB PO PRN (08:38)
[2023-09-24] MEDS: APIXABAN 5 MG TABLET PO SCH ×2 (08:38→20:19)
[2023-09-24] MEDS: carvediloL 3.125 MG TAB PO SCH ×2 (08:39→20:20)
[2023-09-24] MEDS: amLODIPine BESYLATE 5 MG TAB PO SCH (08:39)
[2023-09-24] MEDS: OSELTAMIVIR PHOSPHATE 75 MG CAP PO SCH ×2 (08:40→20:19)
[2023-09-24] MEDS: INSULIN ASPART PER UNIT CHARGE SC SCH ×4 (08:45→21:32)
[2023-09-24] MEDS: LANTUS PER UNIT CHARGE SC SCH ×2 (08:50→21:32)
[2023-09-24] MEDS: BUMETANIDE 4 MG in SYRINGE 0 ML IV SCH ×2 (10:04→18:21)
[2023-09-24] MEDS: DOCUSATE SODIUM 100 MG CAP PO SCH ×2 (11:54→20:22)
[2023-09-24] MEDS: POLYETHYLENE (MIRALAX) 17 GM PACK PO SCH (11:54)
[2023-09-24] MEDS: cefTRIAXone SODIUM 2,000 MG in DEXTROSE 5 % MINI-B 50 ML IV SCH (13:12)
[2023-09-24] MEDS ORDERED: bisacodyL 5 MG TABEC PO ONE (15:52)
--- NOTE | 2023-09-24 16:39 | XRay Report ---
RIGHT SHOULDER 3 VIEWS CLINICAL HISTORY: Right shoulder pain. FINDINGS: 3 views of the right shoulder are obtained. No prior studies are available for comparison a t the time of dictation. The skeletal structures are osteopenic. There is no radiographic evidence of fracture or dislocation. Moderate osteoarthritic change is noted at the glenohumeral and acromioclav icular joints. The overlying soft tissues are within normal limits. Midline sternotomy wires are note d. The heart is enlarged and there is pulmonary vascular congestion. IMPRESSION: 1. No acute bony abnormality is identified. 2. Osteopenia and arthritic changes above. 3. Cardiomegaly with evidence of congestive failure. Electronically signed by: Zak Kemp M.D. 09/24/2023 4:38 PM
--- NOTE | 2023-09-24 18:22 | XRay Report ---
RIGHT KNEE 2 VIEWS CLINICAL HISTORY: Right knee pain. Ambulatory dysfunction. FINDINGS: AP and crosstable lateral views of the right knee are compared to study dated 04/23/2021. Th e skeletal structures are osteopenic. No fracture is seen. There is advanced degenerative narrowing i n the medial and patellofemoral compartments. Mild narrowing is noted in the lateral compartment. The re are large marginal osteophytes and patellar enthesophytes. A 1.7 cm bony excrescence is again seen along the medial femoral condyle, likely representing an osteochondroma. There is a moderate to larg e joint effusion. A calcified joint body is seen above the patella. Soft tissue swelling is noted. Th ere is atherosclerotic calcification of the regional arteries. IMPRESSION: 1. Soft tissue swelling and joint effusion with no acute bony abnormality identified. 2. Osteopenia and arthritic change as above. Electronically signed by: Zak Kemp M.D. 09/24/2023 6:20 PM
--- NOTE | 2023-09-24 18:24 | XRay Report ---
LEFT KNEE 2 VIEWS CLINICAL HISTORY: Left knee pain. Ambulatory dysfunction. FINDINGS: AP and crosstable lateral views of the left knee are compared to study dated 04/23/2021. The skeletal structures are osteopenic. No fracture seen. There is severe degenerative narrowing in the medial compartment with near complete loss of joint space and bony sclerosis/irregularity. Moderate n arrowing is seen at the patellofemoral articulation, with mild narrowing in the lateral compartment. There are large marginal osteophytes and patellar enthesophytes. A bony excrescence along the medial femoral condyle is unchanged and may represent an osteochondroma. There is a moderate joint effusion. Small joint bodies are suggested. Soft tissue swelling is seen around the knee. Advanced atheroscler otic calcification is observed in the regional arteries. IMPRESSION: 1. Soft tissue swelling and joint effusion with no acute bony abnormality identified. 2. Osteopenia and arthritic change as above. Electronically signed by: Zak Kemp M.D. 09/24/2023 6:22 PM
[2023-09-24] MEDS: ATORVASTATIN 20 MG TAB PO SCH (20:19)
[2023-09-24] MEDS: DOXYCYCLINE HYCLATE 100 MG CAP PO SCH (20:19)
[2023-09-24] MEDS: guaiFENesin 600 MG TABCR PO SCH (20:20)
[2023-09-25] MEDS: oxyCODONE HCL IR 5 MG TAB (IMMEDIATE RELEASE) PO PRN ×3 (04:39→17:52)
[2023-09-25] MEDS: ACETAMINOPHEN 325 MG TAB PO PRN ×3 (04:40→17:51)
[2023-09-25 05:05] LABS: Basophils # (auto) 0.04 K/uL (0.00-0.20); Basophils % (auto) 0.3 %; Eosinophils # (auto) 0.05 K/uL (0.00-0.50); Eosinophils % (auto) 0.3 %; Hematocrit (blood only) 33.6 % (42.0-52.0); Hemoglobin 10.3 g/dl (14.0-18.0); Immature Granulocytes # (auto) 0.12 K/uL (0.01-0.20); Immature Granulocytes % (auto) 0.8 %; Lymphocytes # (auto) 1.79 K/uL (1.20-3.40); Lymphocytes % (auto) 11.7 %; Mean Corpuscular Hemoglobin 28.9 pg (25.0-34.0); Mean Corpuscular Hgb Conc 30.7 g/dL (32.0-36.0); Mean Corpuscular Volume 94.1 fL (80.0-100.0); Mean Platelet Volume 10.6 fL (9.4-12.4); Monocytes # (auto) 1.43 K/uL (0.11-0.59); Monocytes % (auto) 9.3 %; Neutrophils % (auto) 77.6 %; Platelet Count 257 K/uL (130-400); RDW Coefficient of Variation 12.8 % (11.5-14.5); RDW Standard Deviation 44.7 fL (36.4-46.3); Red Blood Count 3.57 M/uL (4.70-6.10); White Blood Count 15.33 K/ul (4.8-10.8)
[2023-09-25 05:23] LABS: Albumin Globulin Ratio 0.9 (0.9-2); Albumin Level 3.5 gm/dl (3.4-5.0); BUN Creatinine Ratio 49.7 (10-20); Bilirubin,Total 0.4 mg/dl (0.2-1.0); Calcium 8.9 mg/dl (8.6-10.3); Creatinine Clr Calc Pharmacy 67.8 ml/min; Est GFR (African American) 55.8 ml/min; Est GFR (Non-African American) 48.1 ml/min; Globulin 3.9 gm/dl (2.5-4.0); Magnesium 1.8 mg/dl (1.7-2.4); Potassium 4.5 mmol/L (3.5-5.1); Total Protein 7.4 gm/dl (6.0-8.3)
[2023-09-25 05:42] LABS: Ferritin 447.5 ng/ml (8-388)
--- NOTE | 2023-09-25 07:42 | Hospitalist Progress Note ---
Date of Service September 25, 2023 Assessment & Plan (1) Influenza A: Plan: 73yo male unable to care for self at home w/ increased O2 use at home/shortness of breath and inability to ambulate with body aches/cough and increased weakness. Admitted for acute on chronic respiratory failure with hypoxia/obesity hypoventilation syndrome/influenza A/possible CHF exacerbation and need for rehab/placement CT head negative for acute stroke on admission UA w/ 2+ protein, 5-10 epis, NO bacteria Biofire testing revealed +Influenza A testing Isolation precautions in place Tamiflu continued Duonebs, pulmonary toilet/incentive spirometer. No sputum production/consolidative process on imaging Supplemental O2 to maintain sats - on 2L at present (3L exertion/sleep at baseline but suspect not using) WBC elevation 2nd to steroids on admission, afebrile and had improved on repeat but now elevated to 15.3k on labs and + productive cough/green sputum 09/24 + Ceftriaxone IV, doxy BID ordered. MRSA nares ordered, NEGATIVE --> Sputum cx ordered, GS w/ few epi, many poly, moderate gram positive bacilli -- follow final cx WBC 15.3k however decreased neutophils/elevated mono, remains afbrile and will monitor Blood cultures NGTD x 48hrs CXR w/ improvement 09/25 Continue diuretics as outlined below Continue incentive spirometer, flutter valve, mucinex BID- consider hypertonic saline nebs to help w/ mucus/clearance Titrated to room air this morning, 90-93% with good wave form. Decreased to prevent over oxygenation/CO2 elevation on labs. 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 At that visit, dry weight "330lb" on bumex BID and metolazone MWF and on SGLT2 Last admission in February 2023 w/ increased bumex dosing to 4mg BID and scheduled metolazone DAILY from [facility] but no longer on metolazone and suspect not taking bumex as directed. BNP WAS NORMAL AT THAT TIME Weight 147kg on admission BNP elevated, 136 CXR w/ cardiomegaly w/ congestive changes (also w/ ALP 149 w/o RUQ pain and suspect hepatic congestion/volume overload) and LE edema (also chronic lymphedema in general) Bumex 4mg IV BID Lasix 40mg IV x 1 on 09/22 and 09/23 to assist w/ diuresis and Cr remaining stable however CXR w/ persistent congestion Lasix 60mg IV x 1 for 09/24 and CXR w/ improvement and continued net negative and will hold off additional lasix dosing for today and continue bumex BID and monitor labs in AM to prevent overdiuresis given has been -6.7L since admission Repeat limited ECHO to eval for any reduced EF/other issue and was essentially unchanged. EF 55-60%. no wma. Moderate LVH. RV mildly dilated. RV systolic function is normal. CHF clinic provider consulted. Prior on Jardiance which likely would be beneficial adding back for better diabetes control (?cost issue) Monitor weights/I&O (yeboah in place), BMP/CXR in AM. Abx as outlined above for possible bacterial PNA coverage and f/u sputum cx (3) Chronic respiratory failure with hypoxia: Plan: Utilizes 3L NC HS and to be using w/ exertion. +flu testing VBG on admit pH 7.33, pCO2 68 Patient denies increased sputum production recently. CXR w/o consolidative process. Afebrile Duonebs, pulmonary toilet, tamiflu as above Sputum cx ordered given reports green sputum --> follow up cx Continue mucinex, flutter valve and ceftriaxone/doxy as above for lung coverage. MRSA nares NEGATIVE Benefit from BiPAP however has apparently not tolerated in the past. Supplemental O2 to maintain sats and remaining stable , titrated to room air today to prevent over oxygenation given chronic resp failure at baseline (4) Knee pain: Plan: noted chronic issue as above, worsened recently lyme negative. diuretics as above pain control w. Tylenol/oxycodone as taking at home. Had tried tramadol in the past and can consider if needing DECLINED need for increased pain control 09/24 but INCREASED pain today and ordered dose Dilaudid x 1 and will monitor response. --> Xray bilateral knees 09/24 ordered (prior 2020). Worse pain on the right compared to the left. ?some effusion/fluid around knee. No trauma/fall/erythema at present Imaging noting b/l joint effusions/arthritis. Ortho consult placed, appreciate recs/assistance -- has not yet seen today PT/OT consults (5) Atrial fibrillation: Plan: Hx paroxysmal afib EKG on admit w/ 1st degree AV block. Lyme testing negative Pwaves on tele K now wnl, monitor w/ diuretics. Mag wnl Monitor on telemetry, continues on eliquis 5mg BID, coreg 3.125mg BID (6) Diabetic nephropathy associated with type 2 diabetes mellitus: Plan: A1c 7.9- On metformin, glipizide currently at home Review of med list w/ Jardiance but appears also not taking that at present per list "not taking" Suspect benefit from jardiance w/ hx CHF and will need continued discussions Reported having BSGs 190-200s this past week at home, not good control. Was also on toujeo in past but not taken in ~6 months per patient BSG elevation on admit, worsened w/ IV steroids in ER. Unfortunately late meds/in ER and missed dosing prior to lunch in ER and was elevated on repeat Pharmacy consulted for glycemic management, BSGs stable/improved and monitoring/adjustments as needed (7) Hyperkalemia: Plan: EKG unchanged from February 2023. Telemetry monitoring w/o significant abn, possibly having some occasional afib? On eliquis BID K to 5.6 on 09/22 and given insulin/calcium gluconate, diuretics as above and repeat 5.4 and discussed w/ supervising provider evening 09/22 and recs to continue diuretics and K to normalize Losartan to be resumed for AM 09/26 given hx CHF, diuretics as outlined above with bumex as K normalized on repeat labs and remaining stable at 4.5 at present Monitor BMP in AM (8) Chronic kidney disease, stage 3 (moderate): Plan: BUN/Cr 48/1.19 with most recent Cr 1.65 February 23 after dc on the at 1.98 No longer on metolazone, ?reason for discontinuation unclear (suspect patient dc himself given elevated renal function and reporting providers "jacked his kidney's up last time" and "spent time fixing that") BUN/Cr 72/1.45 Remains on bumex BID as above, no additional lasix dosing for today Losartan resumed as above given K normalized/staying stable on repeat labs and continued bumex Renal dose meds/avoid nephrotoxins as able consider nephro consult if needing if not mainaining even/net negative balance on such. Compliance w/ meds encouraged at dc and f/u with medical providers BMP in AM (9) Obesity hypoventilation syndrome: Plan: intolerant to bipap. O2 and diuresis as outlined (10) Diabetic peripheral neuropathy associated with type 2 diabetes mellitus: Plan: B12 no significant deficiency, 365. no replacement needed (11) Coronary artery disease: Plan: Hx Multivessel coronary artery disease post 2 vessel CABG 2015 (MENDEZ TO LAD, SVG TO LCX), known RCA GREIGE MENDER Followed by Dr Smalls in the past but hasn't not seen in over a year. At that visit, dry weight "330lb" on bumex BID and metolazone MWF and on SGLT2 EKG unchanged from prior admit. Trop on initial testing 15. Monitoring on telemetry, NSR w/ PAC/PVCs at times, no afib. no cp reported DOES NOT APPEAR TO BE ON HYDRALAZINE ANYMORE PER MED REC. Monitor BP. No CP reported but could add back on if needing BP control w/ diuresis and currently 121/71 Remains on eliquis BID, statin, coreg as outlined. Losartan held given hyperkalemia as above but resumed for AM 09/26 Continued telemetry monitoring, EKG w/ CP (12) Chronic venous stasis dermatitis of both lower extremities: Plan: noted, lymphedema/edema from volume overload chronic wounds, recent trauma from bucket to his L leg. To apparently be wearing Unna boots (has in the past, not available inpatient) Would not apply any compression w/ CHF at present Wound RN consulted, appreciated assistance w/ cleaning/drying Also w/ fungal appearance to b/l toes--> benefit from f/u podiatry for treatment as no doubt contributing to issues w/ ambulation (toe nails are very long/curling under) (13) Neck pain: Plan: reported chronic neck and knee pains, chronic but worse recently (had been sitting in recliner for week/urinating in bucket), no RBC on UA to suggest any rhabdo. do NOT suspect meningitis, no meningeal signs on exam cervical spine xray w/o acute bony abn seen. Osteopenia and spondylotic changes noted. mild-mod disc space narrowing in lower cervical region improvement in ROM today but could have underlying rotator cuff injury. Ortho consulted for knees as below, can eval shoulder while seeing patient suspect generalized aches/myalgias from +influenza process therapy evals as above (14) Constipation: Plan: chronic issue but worsened recently due to immobility --does have umbilical hernia, no evidence for ischemia on exam. lactic wnl on admission bowel regimen ordered colace BID scheduled, senna prn. added miralax daily TSH checked given chronic issue/hx afib and surprisingly was not elevated but slightly low at 0.1. ?unclear. T4/t3 wnl and can f/u PCP Encouraged ambulation/suppository but patient frustrated w/ urgency to get bowels moving. Monitor bowel movements, consider KUB in AM to eval stool burden (he declined this, thinking will have blow out -- strongly encouraged suppository and bowel movements as could contribute to weakness) (15) Type 2 diabetes mellitus, with long-term current use of insulin: Plan: no longer on injectable, however BSgs elevated, A1c not at goal. pharmacy consulted as above Plan continued inpatient stay, diuretics as outlined, abx for pulmonary coverage and f/u sputum cx.No wheezing on exam to indicate need for steroids at present time (and would avoid given significant hyperglycemia w/ such on admit). Ortho consulted to see regarding b/l knee pain Admission and Anticipated Discharge Date Admission Date: September 23, 2023 Subjective Eval this morning, sitting up in chair. Reporting ongoing knee discomfort. Discussed imaging, ortho consult. Has not been seen by orthopedics today. YEsterday declined need for pain escalation needs but today wanting something IV. Morphine prior ineffective. Will try dose of dilaudid x 1. Patient on supplemental o2, 2L but doesn't need at rest (although reports "good for me" is in the 70-80s w/ Spo2). On room air, pulse ox 90-93% w/ good wave form. +productive cough, sputum cx pending. Continues on abx. Issues w/ transferring last night worsened his knee pain he reports. Yeboah remains w/ yellow urine draining. Discussed holding off additional diuretics for now and continuing his usual bumex. He notes "you're gonna ana up my kidney like they did last time". Questions/concerns addressed at this time. Ongoing inpatient stay, will need placement. Not happy about the food choices here. Reassurance provided. Physical Exam 2 Physical Exam: 73yo male , disheveled appearance/unkept , sitting up in chair, NAD but fatigued appearing (improved a little but quite grumpy) head atraumatic, normocephalic, +trachea midline, +JVD, mmm Resp: diminished in the bases with associated fine crackles, no wheezing/rales, +cough, green sputum, titrated to room air, SpO2 90-93% with good wave form on dynamap CV: regular, occasional PAC/PVC on monitor, LE edema stable/slightly improved,dependent rubor, diminished pulses due to edema but present, cap refill wnl no overt calf tenderness GI: +BS throughout (increased BS on exam today) but remaining distended but nontender, +umbilical hernia (large, nonreducible but nontender/no erythema) : yeboah in place with clear yellow urine MSK/Neuro: b/l knee discomfort, slightly edematous, +effusion b/l, R>L, no overt redness/warmth, +tenderness to palpation primarily medial R knee generalized weakness but nonfocal pain w/ flexion/extension at the neck but no increased pain to neck w/ knee flexion -- DECREASED TODAY, improvement in ROM R shoulder Psych: AOx3, cooperative but disgruntled at times Skin: b/l venous stasis changes/dry flaking skin, dependent rubor, no overt warmth/tenderness dressings prer wound care- covered with ABDs/kerlex to LLE and RLE w/ optifoam over prior wound. fungal appearance to toenails bilaterally (5th toenail since removed accidentally on admission) Results & Data Results & Data Vital Signs (Past 12 Hours) Vital Signs Temp Pulse Pulse Resp BP Pulse Ox O2 Del Method 09/25/23 07:24 60 09/25/23 07:17 36.8 C 68 16 121/71 99 Room Air 09/25/23 03:49 36.8 C 76 20 142/68 H 94 Nasal Cannula 09/25/23 00:02 37.1 C 80 20 125/61 95 Nasal Cannula 09/24/23 22:24 77 09/24/23 20:30 36.9 C 73 20 133/61 95 Nasal Cannula 09/24/23 20:00 Nasal Cannula O2 Flow Rate 09/25/23 07:24 09/25/23 07:17 09/25/23 03:49 3 09/25/23 00:02 09/24/23 22:24 09/24/23 20:30 3 09/24/23 20:00 2 Laboratory Results 09/25/23 04:31 09/25/23 04:31 BNP 91 ALP 118 folate 8.33 Mag 1.8 Iron 29, TIBC 221, unsaturated IBC 192, trans % sat 13. Ferritin 447.5 Diagnostic Findings Knee X-Ray 09/24/23 09:28 LEFT KNEE 2 VIEWS CLINICAL HISTORY: Left knee pain. Ambulatory dysfunction. FINDINGS: AP and crosstable lateral views of the left knee are compared to study dated 04/23/2021. The skeletal structures are osteopenic. No fracture seen. There is severe degenerative narrowing in the medial compartment with near complete loss of joint space and bony sclerosis/irregularity. Moderate narrowing is seen at the patellofemoral articulation, with mild narrowing in the lateral compartment. There are large marginal osteophytes and patellar enthesophytes. A bony excrescence along the medial femoral condyle is unchanged and may represent an osteochondroma. There is a moderate joint effusion. Small joint bodies are suggested. Soft tissue swelling is seen around the knee. Advanced atherosclerotic calcification is observed in the regional arteries. IMPRESSION: 1. Soft tissue swelling and joint effusion with no acute bony abnormality identified. 2. Osteopenia and arthritic change as above. Electronically signed by: Zak Kemp M.D. 09/24/2023 6:22 PM Knee X-Ray 09/24/23 09:28 RIGHT KNEE 2 VIEWS CLINICAL HISTORY: Right knee pain. Ambulatory dysfunction. FINDINGS: AP and crosstable lateral views of the right knee are compared to study dated 04/23/2021. The skeletal structures are osteopenic. No fracture is seen. There is advanced degenerative narrowing in the medial and patellofemoral compartments. Mild narrowing is noted in the lateral compartment. There are large marginal osteophytes and patellar enthesophytes. A 1.7 cm bony excrescence is again seen along the medial femoral condyle, likely representing an osteochondroma. There is a moderate to large joint effusion. A calcified joint body is seen above the patella. Soft tissue swelling is noted. There is atherosclerotic calcification of the regional arteries. IMPRESSION: 1. Soft tissue swelling and joint effusion with no acute bony abnormality identified. 2. Osteopenia and arthritic change as above. Electronically signed by: Zak Kemp M.D. 09/24/2023 6:20 PM Shoulder X-Ray 09/24/23 11:05 RIGHT SHOULDER 3 VIEWS CLINICAL HISTORY: Right shoulder pain. FINDINGS: 3 views of the right shoulder are obtained. No prior studies are available for comparison at the time of dictation. The skeletal structures are osteopenic. There is no radiographic evidence of fracture or dislocation. Moderate osteoarthritic change is noted at the glenohumeral and acromioclavicular joints. The overlying soft tissues are within normal limits. Midline sternotomy wires are noted. The heart is enlarged and there is pulmonary vascular congestion. IMPRESSION: 1. No acute bony abnormality is identified. 2. Osteopenia and arthritic changes above. 3. Cardiomegaly with evidence of congestive failure. Electronically signed by: Zak Kemp M.D. 09/24/2023 4:38 PM Chest X-Ray 09/25/23 07:00 XR chest 1V portable CLINICAL HISTORY: f/u CHF/congestion TECHNIQUE: Single frontal radiograph of the chest was obtained. Comparison: Comparison is made to chest radiograph 09/24/2023 FINDINGS: Median sternotomy wires are unchanged. The cardiomediastinal silhouette is normal. The lungs are clear. Small bilateral pleural effusions are seen. IMPRESSION: Small bilateral pleural effusions. No significant pulmonary edema. ACT 112: Negative or not required by law. Electronically signed by: Rick Banegas M.D. 09/25/2023 9:11 AM PG Care Time/CCT Total # of Minutes Spent Total Time Spent with Patient: Total time spent is greater than 50% in coordination of care (as documented) at patient's floor/unit and/or counseling patient: Coding Level of Care Code 62169 SUB INP/OBS CARE 3/50MIN Diagnoses Influenza A J10.1 Acute on chronic heart failure with preserved ejection fraction I50.33 Chronic respiratory failure with hypoxia J96.11 Knee pain M25.569 Atrial fibrillation I48.91 Diabetic nephropathy associated with type 2 diabetes mellitus E11.21 Hyperkalemia E87.5 Chronic kidney disease, stage 3 (moderate) N18.30 Obesity hypoventilation syndrome E66.2 Diabetic peripheral neuropathy associated with type 2 diabetes mellitus E11.42 Coronary artery disease I25.10 Chronic venous stasis dermatitis of both lower extremities I87.2 Neck pain M54.2 Constipation K59.00 Type 2 diabetes mellitus, with long-term current use of insulin E11.9; Z79.4
--- NOTE | 2023-09-25 09:13 | XRay Report ---
XR chest 1V portable CLINICAL HISTORY: f/u CHF/congestion TECHNIQUE: Single frontal radiograph of the chest was obtained. Comparison: Comparison is made to chest radiograph 09/24/2023 FINDINGS: Median sternotomy wires are unchanged. The cardiomediastinal silhouette is normal. The lungs are manas r. Small bilateral pleural effusions are seen. IMPRESSION: Small bilateral pleural effusions. No significant pulmonary edema. ACT 112: Negative or not required by law. Electronically signed by: Rick Banegas M.D. 09/25/2023 9:11 AM
[2023-09-25] MEDS: INSULIN ASPART PER UNIT CHARGE SC SCH ×4 (09:27→20:33)
[2023-09-25] MEDS: guaiFENesin 600 MG TABCR PO SCH ×2 (09:29→20:14)
[2023-09-25] MEDS: APIXABAN 5 MG TABLET PO SCH ×2 (09:29→20:15)
[2023-09-25] MEDS: LANTUS PER UNIT CHARGE SC SCH ×2 (09:29→21:26)
[2023-09-25] MEDS: carvediloL 3.125 MG TAB PO SCH ×2 (09:29→20:15)
[2023-09-25] MEDS: DOXYCYCLINE HYCLATE 100 MG CAP PO SCH ×2 (09:30→20:15)
[2023-09-25] MEDS: OSELTAMIVIR PHOSPHATE 75 MG CAP PO SCH ×2 (09:30→20:15)
[2023-09-25] MEDS: amLODIPine BESYLATE 5 MG TAB PO SCH (09:30)
[2023-09-25] MEDS: SENNA 8.6 MG TAB PO PRN (09:30)
[2023-09-25] MEDS: BUMETANIDE 4 MG in SYRINGE 0 ML IV SCH ×2 (09:31→17:53)
[2023-09-25] MEDS: DOCUSATE SODIUM 100 MG CAP PO SCH ×2 (09:34→20:21)
[2023-09-25] MEDS: POLYETHYLENE (MIRALAX) 17 GM PACK PO SCH (09:34)
[2023-09-25] MEDS ORDERED: HYDROmorphone INJ 0.5 MG/0.5 ML SYR IV STA (10:58)
[2023-09-25] MEDS ORDERED: LACTULOSE SYRUP 20 GM/30 ML UDC PO ONE (11:05)
--- NOTE | 2023-09-25 11:53 | Orthopedic Consultation ---
<Statement entered by Mike Cody, DO - 10/02/23 17:29> I, Dr. Mike Cody, saw and examined Soy at bedside. He has osteoarthritis of both knees. He would benefit from an intra-articular injection. I agree with the above report. Date of Service September 25, 2023 Assessment & Plan (1) Degenerative arthritis of knee, bilateral: I had a long and detailed discussion today with the patient about his bilateral knee pathology with ample amount of time for the patient to ask any questions or state any concerns. All questions and concerns were answered to the patient's satisfaction. He does have significant osteoarthritic changes to his bilateral knees with the left being worse than the right radiographically. He does note however that his right is worse than the left but they are almost pretty equal. He notes that this pain has been causing him to have ambulatory dysfunction and he is downgraded to a wheelchair use and being nonambulatory due to the pain. At this point, he would like to proceed with bilateral intra-articular joint steroid injections to his bilateral knees. He has had this in the past and he would like to give him another try. He is aware that since he is diabetic, there is risks involved with this. I discussed the risk, benefits, and alte rnatives to intra-articular joint steroid injection in full detail. He verbalized understanding wishes to proceed with steroid injections. I will place the order for pharmacy to pull the steroid injection. Will proceed with injections tomorrow morning. Nurse aware. Will see him tomorrow morning to complete steroid injections bilaterally. History of Present Illness Reason for Consultation: . Bilateral knee arthritis Requesting Physician: . Attending Physician: Brannon Elaine . Patient is a 73-year-old male with a significant past medical history was evaluated today on consultation due to the patient having bilateral knee arthritis for with worsening knee pain upon admission. He states that around 2 weeks ago, his knee pain started again and worse which is now made him turn into a nonambulator secondary to discomfort. Prior to the last 2 weeks, he used a wheeled walker for ambulatory assistance. He notes that his pain is brought on with any sort of standing and bending of the knee. He notes that his pain can range from a 6 to a 10 out of 10. He notes pain is diffusely throughout the knee joints bilaterally. He has been seen by our practice about 4 years ago in which he got both steroid injections and hyaluronic acid injections in which he states that he got very mild relief from either of these. He is not a surgical candidate for total knee replacement at this point. He denies any other concerns. He is not on any anticoagulation. Allergies Allergy/AdvReac Type Severity Reaction Status Date / Time sulfamethoxazole AdvReac nausea Verified 08/31/23 15:27 [From Bactrim] trimethoprim [From Bactrim] AdvReac nausea Verified 08/31/23 15:27 Home Medications Medication Instructions Recorded Confirmed Type nitroglycerin 0.4 mg sublingual 0.4 mg sublingual Q5M PRN chest 05/16/19 09/21/23 History tablet pain polyethylene glycol 3350 17 17 g PO DAILY PRN constipation 05/12/22 09/21/23 History gram/dose oral powder (Miralax) sennosides 8.6 mg tablet (Senokot) 8.6 mg PO DAILY PRN constipation 05/12/22 09/21/23 History Compression wraps- Comprecares #2 ea 10/31/22 09/21/23 Rx Profore Lite Unna Boot change #1 ea 01/17/23 09/21/23 Rx twice a week LLE dx venous stasis ulcers acetaminophen 500 mg tablet 500 - 1,000 mg PO Q6 PRN pain 02/10/23 09/21/23 History (Tylenol Extra Strength) albuterol sulfate 90 mcg/actuation 2 puff inhalation QID PRN 02/14/23 09/21/23 Rx aerosol inhaler Shortness Of Breath #8.5 grams ergocalciferol (vitamin D2) 1,250 50,000 unit PO WK #8 caps 02/14/23 09/21/23 Rx mcg (50,000 unit) capsule Portable Oxygen #1 ea 02/20/23 09/21/23 Rx insulin glargine U-300 conc 300 10 unit subcut HS 02/20/23 09/21/23 History unit/mL (1.5 mL) subcutaneous pen (Toujeo SoloStar U-300 Insulin) Oxygen Home #1 ea 02/23/23 09/21/23 Rx glipizide 5 mg tablet 5 mg PO BIDM #180 tabs 03/09/23 09/21/23 Rx bumetanide 2 mg tablet 4 mg (2 x 2 mg) PO BID #120 tabs 07/20/23 09/21/23 Rx atorvastatin 20 mg tablet 20 mg PO HS 08/31/23 09/21/23 History oxycodone 10 mg tablet 10 mg PO Q6H PRN pain #120 tabs 09/07/23 09/21/23 Rx amlodipine 5 mg tablet 5 mg PO QAM 09/21/23 09/21/23 History apixaban 5 mg tablet (Eliquis) 5 mg PO AMHS 09/21/23 09/21/23 History carvedilol 3.125 mg tablet 3.125 mg PO AMPM 09/21/23 09/21/23 History losartan 25 mg tablet 25 mg PO QAM 09/21/23 09/21/23 History metformin 500 mg tablet,extended 1,000 mg PO AMHS 09/21/23 09/21/23 History release 24 hr oxycodone 10 mg tablet 10 mg PO Q6 PRN Pain 09/21/23 09/21/23 History Past Med/Surg History Medical History (Updated 09/25/23 @ 11:48 by Kb Sanders PA-C) Chronic respiratory failure with hypoxia Chronic kidney disease, stage 3 (moderate) Catheter-associated urinary tract infection Scrotal edema Obesity hypoventilation syndrome Cor pulmonale Catheter-associated urinary tract infection Peripheral arterial disease Left leg cellulitis Morbid obesity Vitamin D deficiency Bilateral primary osteoarthritis of knee Atrial fibrillation Type 2 diabetes mellitus, with long-term current use of insulin Tobacco use Sick sinus syndrome Lymphedema Ischemic cardiomyopathy Glaucoma Dyslipidemia Dysesthesia Diabetic peripheral neuropathy associated with type 2 diabetes mellitus Diabetic nephropathy associated with type 2 diabetes mellitus Coronary artery disease Chronic venous stasis dermatitis of both lower extremities Chronic combined systolic and diastolic congestive heart failure BPH (benign prostatic hyperplasia) Arthritis Degenerative arthritis of knee, bilateral Hypoxia Hypertension Cellulitis, scrotum Atrial flutter with controlled response Paroxysmal SVT (supraventricular tachycardia) Open wound of scrotum Harley's gangrene Surgical History History of testicular surgery S/P ablation of atrial fibrillation (2014) Hx of CABG (2015) Family History Brother Diabetes Hypertension Alcohol abuse Kidney stones Cancer Sister Breast cancer Hypertension Denies family history of Ovarian cancer Prostate cancer Myocardial infarction Colorectal cancer Social History Smoking Status: Former smoker Tobacco Type: Cigarettes Age Started Using Tobacco: 22; packs per day: 2; Cigarettes Per Day: QUIT SMOKING AT AGE 42- STILL CHEWS TOBACCO; Second Hand Exposure: No; Do You Dip or Chew Tobacco: Yes; Hx Alcohol Use: No Hx Substance Use: No Preferred Language: [place] Communication Ability: Effective Visual Impairment: No Limitations Hearing Ability: Hard of Hearing [employer] Gate Arrays Required: No Beliefs That Will Affect Care: None marital status: Current Living Situation: Family Current Living Situation Comment: lives with ex , daughter, granddaughter, grandson 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 status: retired current occupation: [employer] How many Children do You have: 3 Other Information That Helps Us Care for You: No Feels Safe at Home: Yes Childhood Exposure to Second-Hand Smoke: Yes Diet: regular caffeine: Yes during the past year weight has: remained stable Dental Care, Regularly: No Physical Activity Frequency: Does not Exercise Seatbelt Use: never Sunscreen Use: Yes Assistive Devices: Cane, Oxygen - Continuous and Walker Review of Systems All systems reviewed & are unremarkable except as noted in HPI & below. Physical Exam .73yo male , disheveled appearance/unkept, sitting up in chair, NAD but fatigued appearing (improved a little but quite grumpy)head atraumatic, normocephalic, +trachea midline, +JVD, mmm Resp: diminished in the bases with associated fine crackles, no wheezing/rales, +cough, green sputum, titrated to room air, SpO2 90-93% with good wave form on dynamap CV: regular, occasional PAC/PVC on monitor, LE edema stable/slightly improved,dependent rubor, diminished pulses due to edema but present, cap refill wnl no overt calf tenderness GI: +BS throughout (increased BS on exam today) but remaining distended but nontender, +umbilical hernia (large, nonreducible but nontender/no erythema) : yeboah in place with clear yellow urine pain w/ flexion/extension at the neck but no increased pain to neck w/ knee flexion -- DECREASED TODAY, improvement in ROM R shoulder Psych: AOx3, cooperative but disgruntled at times Skin: b/l venous stasis changes/dry flaking skin, dependent rubor, no overt warmth/tenderness dressings prer wound care- covered with ABDs/kerlex to LLE and RLE w/ optifoam over prior wound. fungal appearance to toenails bilaterally (5th toenail since removed accidentally on admission) Musculoskeletal On physical examination of his bilateral knees, he does have chronic venous stasis with wounds to his distal lower extremities bilaterally. He does have slight edema bilaterally in both knees with possibly left worse than the right. No erythema, ecchymosis, warmth to touch, or other obvious deformities. Tenderness to palpation diffusely throughout the knee joint. Limited range of motion with right knee about 5 degrees to 95 degrees of flexion before discomfort. Slightly more with passive limited due to discomfort. Left knee about 5 degrees to 95 degrees of flexion before discomfort. Slightly more with passive limited to discomfort. Results & Data Results & Data Laboratory Results . Diagnostic Findings . Knee X-Ray 09/24/23 09:28 LEFT KNEE 2 VIEWS CLINICAL HISTORY: Left knee pain. Ambulatory dysfunction. FINDINGS: AP and crosstable lateral views of the left knee are compared to study dated 04/23/2021. The skeletal structures are osteopenic. No fracture seen. There is severe degenerative narrowing in the medial compartment with near complete loss of joint space and bony sclerosis/irregularity. Moderate narrowing is seen at the patellofemoral articulation, with mild narrowing in the lateral compartment. There are large marginal osteophytes and patellar enthesophytes. A bony excrescence along the medial femoral condyle is unchanged and may represent an osteochondroma. There is a moderate joint effusion. Small joint bodies are suggested. Soft tissue swelling is seen around the knee. Advanced atherosclerotic calcification is observed in the regional arteries. IMPRESSION: 1. Soft tissue swelling and joint effusion with no acute bony abnormality identified. 2. Osteopenia and arthritic change as above. Electronically signed by: Zak Kepm M.D. 09/24/2023 6:22 PM PG Care Time/CCT Total # of Minutes Spent Total Time Spent with Patient: Total time spent is greater than 50% in coordination of care (as documented) at patient's floor/unit and/or counseling patient: Coding Level of Care Code 96128 IN/OBS CONSULT LVL 3,45M Diagnoses Primary osteoarthritis of both knees M17.0 Osteoarthritis type: primary (1) Degenerative arthritis of knee, bilateral Osteoarthritis type: primary Qualified Code(s): M17.0 - Bilateral primary osteoarthritis of knee
[2023-09-25] MEDS ORDERED: TRIAMCINOLONE ACET 40 MG/ML VIAL IM ONE (11:57)
[2023-09-25] MEDS: cefTRIAXone SODIUM 2,000 MG in DEXTROSE 5 % MINI-B 50 ML IV SCH (12:00)
[2023-09-25] MEDS ORDERED: HYDROmorphone INJ 0.5 MG/0.5 ML SYR IV ONE ×2 (20:05→20:46)
[2023-09-25] MEDS ORDERED: NALOXONE HCL 0.4 MG/1 ML VIAL/CARP IV PRN (20:07)
[2023-09-25] MEDS: ATORVASTATIN 20 MG TAB PO SCH (20:15)
[2023-09-25] MEDS: DICLOFENAC SOD 1% GEL 100 GM TUBE EXT SCH (21:29)
[2023-09-25] MEDS ORDERED: KETOROLAC TROMETHAMINE 15 MG/ML VIAL IV ONE (22:56)
[2023-09-25] MEDS: ACETAMINOPHEN 500 MG TAB PO SCH (23:01)
[2023-09-26] MEDS: oxyCODONE HCL IR 5 MG TAB (IMMEDIATE RELEASE) PO PRN ×3 (00:11→14:00)
[2023-09-26] MEDS ORDERED: ACETAMINOPHEN 1,000 MG/100 ML VIAL IV ONE (03:50)
[2023-09-26 05:21] LABS: Basophils # (auto) 0.04 K/uL (0.00-0.20); Basophils % (auto) 0.2 %; Eosinophils # (auto) 0.03 K/uL (0.00-0.50); Eosinophils % (auto) 0.2 %; Hematocrit (blood only) 30.7 % (42.0-52.0); Hemoglobin 9.4 g/dl (14.0-18.0); Immature Granulocytes # (auto) 0.15 K/uL (0.01-0.20); Immature Granulocytes % (auto) 0.9 %; Lymphocytes # (auto) 1.76 K/uL (1.20-3.40); Lymphocytes % (auto) 10.4 %; Mean Corpuscular Hemoglobin 28.7 pg (25.0-34.0); Mean Corpuscular Hgb Conc 30.6 g/dL (32.0-36.0); Mean Corpuscular Volume 93.9 fL (80.0-100.0); Mean Platelet Volume 10.6 fL (9.4-12.4); Monocytes # (auto) 1.81 K/uL (0.11-0.59); Monocytes % (auto) 10.7 %; Neutrophils # (auto) 13.18 K/uL (1.40-6.50); Neutrophils % (auto) 77.6 %; Platelet Count 246 K/uL (130-400); RDW Standard Deviation 44.8 fL (36.4-46.3); Red Blood Count 3.27 M/uL (4.70-6.10); White Blood Count 16.97 K/ul (4.8-10.8)
[2023-09-26 05:24] LABS: Albumin Globulin Ratio 0.9 (0.9-2); Albumin Level 3.4 gm/dl (3.4-5.0); BUN Creatinine Ratio 45.9 (10-20); Bilirubin,Total 0.4 mg/dl (0.2-1.0); Calcium 8.7 mg/dl (8.6-10.3); Creatinine Clr Calc Pharmacy 57.2 ml/min; Est GFR (African American) 45.4 ml/min; Est GFR (Non-African American) 39.1 ml/min; Globulin 3.8 gm/dl (2.5-4.0); Magnesium 1.7 mg/dl (1.7-2.4); Potassium 4.4 mmol/L (3.5-5.1); Total Protein 7.2 gm/dl (6.0-8.3)
[2023-09-26] MEDS ORDERED: TRIAMCINOLONE ACET 40 MG/ML VIAL IA SCH (06:00)
[2023-09-26] MEDS ORDERED: BUPIVACAINE 0.5 % 5 MG/1 ML MPF 30ML VIAL INFIL SCH (06:00)
[2023-09-26] MEDS: ACETAMINOPHEN 500 MG TAB PO SCH ×3 (07:00→20:54)
--- NOTE | 2023-09-26 07:40 | XRay Report ---
XR chest 1V portable HISTORY: f/u CHF/congestion COMPARISON: Chest 09/25/2023. FINDINGS: There are low lung volumes. No pneumothorax. The heart remains enlarged. There is mild cent ral pulmonary vascular congestion without overt edema. This is similar to the prior study. Poststerno bobo changes. Bibasilar linear densities persist. There are small bilateral pleural effusions, unchan ged. Degenerative changes within the shoulders. IMPRESSION: 1. Cardiomegaly and mild congestive change again noted. 2. Small bilateral pleural effusions and bibasilar densities persist. ACT 112: Negative or not required by law. Electronically signed by: Kannan Cintron M.D. 09/26/2023 7:38 AM
[2023-09-26] MEDS: INSULIN ASPART PER UNIT CHARGE SC SCH ×4 (09:07→20:49)
[2023-09-26] MEDS: LANTUS PER UNIT CHARGE SC SCH ×2 (09:08→20:48)
[2023-09-26] MEDS: BUMETANIDE 4 MG in SYRINGE 0 ML IV SCH (09:10)
[2023-09-26] MEDS: guaiFENesin 600 MG TABCR PO SCH ×2 (09:12→20:54)
[2023-09-26] MEDS: carvediloL 3.125 MG TAB PO SCH ×2 (09:13→20:53)
[2023-09-26] MEDS: APIXABAN 5 MG TABLET PO SCH ×2 (09:14→20:53)
[2023-09-26] MEDS: OSELTAMIVIR PHOSPHATE 75 MG CAP PO SCH ×2 (09:14→20:53)
[2023-09-26] MEDS: DOXYCYCLINE HYCLATE 100 MG CAP PO SCH ×2 (09:15→20:54)
[2023-09-26] MEDS: LOSARTAN POTASSIUM 25 MG TAB PO SCH (09:15)
[2023-09-26] MEDS: SENNA 8.6 MG TAB PO PRN (09:15)
[2023-09-26] MEDS: amLODIPine BESYLATE 5 MG TAB PO SCH (09:15)
[2023-09-26] MEDS: DICLOFENAC SOD 1% GEL 100 GM TUBE EXT SCH ×3 (09:16→20:53)
[2023-09-26] MEDS: POLYETHYLENE (MIRALAX) 17 GM PACK PO SCH (09:51)
[2023-09-26] MEDS: DOCUSATE SODIUM 100 MG CAP PO SCH ×2 (09:51→20:54)
[2023-09-26] MEDS ORDERED: TRIAMCINOLONE ACET 40 MG/ML VIAL IA STA (10:39)
[2023-09-26] MEDS: cefTRIAXone SODIUM 2,000 MG in DEXTROSE 5 % MINI-B 50 ML IV SCH (11:43)
--- NOTE | 2023-09-26 11:49 | Orthopedic Progress Note ---
<Statement entered by Mike Cody, DO - 10/02/23 17:28> I, Dr. Mike Cody, saw and examined Soy at bedside. I agree with the above note. He has advanced osteoarthritis of both knees and could benefit from an intra-articular injection. Date of Service September 26, 2023 Assessment & Plan (1) Bilateral primary osteoarthritis of knee: At this point, he wishes to still proceed with intra-articular steroid injection of his bilateral knee joints. The risk, benefits, alternatives to injections were again discussed with the patient in full detail with verbal consent given. Please see procedure note below. Postinjection instructions were given to the patient in which he verbalized understanding. He may follow-up with orthopedics once he is discharged from the hospital if he wishes to. He is aware that he can get steroid injections every 3 months. He may come in sooner than 3 months if he wishes to proceed down a different treatment course. He may be weightbearing as tolerated bilaterally. DVT prophylaxis and medical management per primary. Please reach out by [facility] text or reach out to [facility] orthopedics if this patient's situation is to change. Procedure: Left knee intra-articular steroid injection. The left knee was prepped using aseptic technique. Site was marked and prepped with Betadine and alcohol swabs. Injection of 40 mg of Kenalog and 5 cc of half percent Marcaine with epinephrine was administered using a 10 cc syringe with a 22-gauge needle. A Band-Aid was placed over the injection site. He tolerated the procedure well and noted immediate relief. Procedure: Right knee intra-articular steroid injection. The right knee was prepped using aseptic technique. Site was marked and prepped with Betadine and alcohol swabs. Injection of 40 mg of Kenalog and 5 cc of half percent Marcaine with epinephrine was administered using a 10 cc syringe with a 22-gauge needle. A Band-Aid was placed over the injection site. He tolerated the procedure well and noted immediate relief. Subjective . Ryan was seen and evaluated at bedside this morning resting comfortably in his chair in no apparent distress. He still notes the same discomfort in his bilateral knees. He notes that it may be a little bit better today but still wishes to proceed with injections into his bilateral knees. No other concerns today. Review of Systems All systems reviewed & are unremarkable except as noted in HPI & below. Physical Exam . On physical examination of his bilateral knees, he does have chronic venous stasis with wounds to his distal lower extremities bilaterally. He does have slight edema bilaterally in both knees with possibly left worse than the right. No erythema, ecchymosis, warmth to touch, or other obvious deformities. Tenderness to palpation diffusely throughout the knee joint. Limited range of motion with right knee about 5 degrees to 95 degrees of flexion before di scomfort. Slightly more with passive limited due to discomfort. Left knee about 5 degrees to 95 degrees of flexion before discomfort. Slightly more with passive limited to discomfort. Results & Data Results & Data Laboratory Results . Diagnostic Findings . PG Care Time/CCT Total # of Minutes Spent Total Time Spent with Patient: Total time spent is greater than 50% in coordination of care (as documented) at patient's floor/unit and/or counseling patient: Coding Level of Care Code 06946 SUB INP/OBS CARE 2/35MIN Diagnoses Bilateral primary osteoarthritis of knee M17.0
--- NOTE | 2023-09-26 12:47 | Heart Failure Consultation ---
Date of Consultation September 26, 2023 Assessment & Plan (1) Heart failure with improved ejection fraction (HFimpEF): (2) Influenza A: (3) Chronic kidney disease, stage 3 (moderate): (4) Obesity hypoventilation syndrome: (5) Chronic venous insufficiency: (6) Morbid obesity: (7) Atrial fibrillation: (8) Lymphedema: (9) Ischemic cardiomyopathy: (10) Coronary artery disease: (11) Chronic venous stasis dermatitis of both lower extremities: (12) Hypertension: Plan HFimpEF: Patient is near euvolemic on exam. His pulmonary symptoms are likely multifactorial (CHF, flu, OHS, obesity, deconditioning) but improving. Weight is below his previous baseline. Suspect dry weight is 325-330 lb. BUN/creatinine are trending up. Would resume Bumex 4 mg PO tomorrow. He was previously on Metolazone MWF which had been self discontinued. Plan to check labs weekly for close monitoring. Recommend daily standing weights. He has a scale at home and is willing to document. Advised to notify the HF program of 2+ lb weight gain overnight or 5+ lb in 1 week. Dry weight 325 lb for now. Continue elevation of lower extremities with wound care. He has declined lymphedema treatment in the past. Recommend low sodium diet, less than 2,000 mg daily. Will need careful monitoring during his transition phase to home. We discussed the nature of heart failure and the goals of the program. He is semi-agreeable to ongoing participation. He has declined follow up in the past. He is anticipating discharge to [facility]. Transportation will be difficult for him once he returns home, however he says his daughter can bring him to the office. May need to consider more virtual visits in the future. Hypertension: Patient has been hypotensive the last few days. Continue to monitor. Consider weaning off Amlodipine which may help his lower extremity edema. Ischemic cardiomyopathy: EF improved to 55-60%. Disposition: Recommend close follow up with the heart failure program. 1 weeks[address] Follow up with Dr. Smalls in 3 months. History of Present Illness Attending Physician: Brannon Elaine History of Present Illness Mr. Bruce is a 73-year-old man with a history paroxysmal atrial flutter status post flutter ablation on anticoagulation, type 2 diabetes, hypertension, OHS/CLINT[place], persistent lower extremity edema/lymphedema, left venous ulcerations, medical nonadherance, PAD, bradycardia (trifasicular block, 2AVB Mobitz type 1), coronary artery disease status post 2 vessel CABG (avina to LAD, vein graft to circumflex), ischemic cardiomyopathy (recovered EF 55%), HFimpEF. Dr. Smalls is his primary cutting supervisor. Recent cardiac studies: 1. 04/24/22 Echo: LVSF is normal. No RWMA. Mild concentric LVH EF 55-60%. Mild TR. 2. 09/22/23 Echo: LV systolic function is normal. EF 55-60%. No RWMA. Moderate concentric LVH. RV mildly dilated. RV systolic function is normal. Patient was previously followed by Dr. Addison for his cardiovascular care and was initially seen by me back in May 2016. At that time he endorsed worsening exertional dyspnea and Lexiscan SPECT was remarkable for inferior infarct with mild LAD distribution ischemia. Underwent cardiac catheterization which showed severe multivessel disease including DIRECTOR OF CONTRACTS of RCA filled via [id number] collaterals. In June of 2016 underwent uncomplicated CABG at [facility] (Dr. Driver). No cardiology follow-up until January of 2018. Last seen by cardiology 09/2022. In the interim has followed closely with his PCP Dr. Smallwood. Prescribed Bumex 4 mg BID. Metolazone was discontinued. He has had continued issues with left lower extremity venous ulcerations. Hospitalized 04/2021 due to left lower extremity cellulitis (? Maggot involvement). During that hospitalization found to be COVID-19 positive and also treated for acute heart failure with increased Bumex and Zaroxolyn. Has previously refused lymphedema therapy. He was initially evaluated with the heart failure program on 05/12/22. He was near euvolemic. Bumex 2 mg BID with Metolazone 5 mg MWF and Spironolactone. Dry weight 330 lb. He was then lost to follow up. He is currently admitted with influenza. He reports he's feeling well today. He feels his breathing is at baseline. He is on 2L supplemental O2 which is his baseline. He is not always compliant with this at home. He has stable lower extremity edema. LLE is dressed. He has been sleeping in his chair. He has been tolerating diuresis- Bumex 4 mg IV BID. He is net negative 6 L for the admission. His BUN/Cr are trending up. CXR today with mild congestion. Patient lives at home with his ex- and daughter in [place]. His daughter does his medications and transports him to appointments. He is a former smoker. Continues to chew tobacco. He is retired. Allergies Allergy/AdvReac Type Severity Reaction Status Date / Time sulfamethoxazole AdvReac nausea Verified 08/31/23 15:27 [From Bactrim] trimethoprim [From Bactrim] AdvReac nausea Verified 08/31/23 15:27 Home Medications Medication Instructions Recorded Confirmed Type nitroglycerin 0.4 mg sublingual 0.4 mg sublingual Q5M PRN chest 05/16/19 09/21/23 History tablet pain polyethylene glycol 3350 17 17 g PO DAILY PRN constipation 05/12/22 09/21/23 History gram/dose oral powder (Miralax) sennosides 8.6 mg tablet (Senokot) 8.6 mg PO DAILY PRN constipation 05/12/22 09/21/23 History Compression wraps- Comprecares #2 ea 10/31/22 09/21/23 Rx Profore Lite Unna Boot change #1 ea 01/17/23 09/21/23 Rx twice a week LLE dx venous stasis ulcers acetaminophen 500 mg tablet 500 - 1,000 mg PO Q6 PRN pain 02/10/23 09/21/23 History (Tylenol Extra Strength) albuterol sulfate 90 mcg/actuation 2 puff inhalation QID PRN 02/14/23 09/21/23 Rx aerosol inhaler Shortness Of Breath #8.5 grams ergocalciferol (vitamin D2) 1,250 50,000 unit PO WK #8 caps 02/14/23 09/21/23 Rx mcg (50,000 unit) capsule Portable Oxygen #1 ea 02/20/23 09/21/23 Rx insulin glargine U-300 conc 300 10 unit subcut HS 02/20/23 09/21/23 History unit/mL (1.5 mL) subcutaneous pen (Toujeo SoloStar U-300 Insulin) Oxygen Home #1 ea 02/23/23 09/21/23 Rx glipizide 5 mg tablet 5 mg PO BIDM #180 tabs 03/09/23 09/21/23 Rx bumetanide 2 mg tablet 4 mg (2 x 2 mg) PO BID #120 tabs 07/20/23 09/21/23 Rx atorvastatin 20 mg tablet 20 mg PO HS 08/31/23 09/21/23 History oxycodone 10 mg tablet 10 mg PO Q6H PRN pain #120 tabs 09/07/23 09/21/23 Rx amlodipine 5 mg tablet 5 mg PO QAM 09/21/23 09/21/23 History apixaban 5 mg tablet (Eliquis) 5 mg PO AMHS 09/21/23 09/21/23 History carvedilol 3.125 mg tablet 3.125 mg PO AMPM 09/21/23 09/21/23 History losartan 25 mg tablet 25 mg PO QAM 09/21/23 09/21/23 History metformin 500 mg tablet,extended 1,000 mg PO AMHS 09/21/23 09/21/23 History release 24 hr oxycodone 10 mg tablet 10 mg PO Q6 PRN Pain 09/21/23 09/21/23 History Patient History Medical History (Updated 09/26/23 @ 13:05 by María Calderon PA-C) Chronic respiratory failure with hypoxia Chronic kidney disease, stage 3 (moderate) Catheter-associated urinary tract infection Scrotal edema Obesity hypoventilation syndrome Cor pulmonale Catheter-associated urinary tract infection Peripheral arterial disease Left leg cellulitis Morbid obesity Vitamin D deficiency Bilateral primary osteoarthritis of knee Atrial fibrillation Type 2 diabetes mellitus, with long-term current use of insulin Tobacco use Sick sinus syndrome Lymphedema Ischemic cardiomyopathy Glaucoma Dyslipidemia Dysesthesia Diabetic peripheral neuropathy associated with type 2 diabetes mellitus Diabetic nephropathy associated with type 2 diabetes mellitus Coronary artery disease Chronic venous stasis dermatitis of both lower extremities BPH (benign prostatic hyperplasia) Arthritis Degenerative arthritis of knee, bilateral Hypoxia Hypertension Cellulitis, scrotum Atrial flutter with controlled response Paroxysmal SVT (supraventricular tachycardia) Open wound of scrotum Harley's gangrene Surgical History History of testicular surgery S/P ablation of atrial fibrillation (2014) Hx of CABG (2015) Family History Brother Diabetes Hypertension Alcohol abuse Kidney stones Cancer Sister Breast cancer Hypertension Denies family history of Ovarian cancer Prostate cancer Myocardial infarction Colorectal cancer Social History Smoking Status: Former smoker Tobacco Type: Cigarettes Age Started Using Tobacco: 22; packs per day: 2; Cigarettes Per Day: QUIT SMOKING AT AGE 42- STILL CHEWS TOBACCO; Second Hand Exposure: No; Do You Dip or Chew Tobacco: Yes; Hx Alcohol Use: No Hx Substance Use: No Preferred Language: [place] Communication Ability: Effective Visual Impairment: No Limitations Hearing Ability: Hard of Hearing [employer] Worker Required: No Beliefs That Will Affect Care: None marital status: Current Living Situation: Family Current Living Situation Comment: lives with ex , daughter, granddaughter, grandson 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 status: 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 No obvious JVD but difficult exam. Lungs: Normal respiratory effort. No crackles. Decreased breath sounds at RT base. Cardiac: Regular rate and rhythm, 2 out of 6 systolic ejection murmur, unable to assess JVD (santos, thick neck) Abdomen: Soft, nontender. Obese. Extremities: Chronic venous stasis changes, 1-2+ edema left greater than right, evidence of stasis dermatitis with skin breakdown, left LE with kerlex/ABD dressing. Psych: Alert orient x3, normal affect and mood Results & Data Vital Signs (Past 12 Hours) Vital Signs Temp Pulse Pulse Resp BP Pulse Ox Pulse Ox 09/26/23 12:08 98.2 F 57 L 18 107/57 L 98 09/26/23 09:15 09/26/23 07:35 97.7 F 57 L 18 115/61 99 09/26/23 07:26 53 L 09/26/23 07:00 99 09/26/23 02:57 98.1 F 60 18 108/56 L 98 O2 Del Method O2 Del Method O2 Flow Rate O2 Flow Rate 09/26/23 12:08 Nasal Cannula 2 09/26/23 09:15 Nasal Cannula 2 09/26/23 07:35 Nasal Cannula 2 09/26/23 07:26 09/26/23 07:00 Nasal Cannula 2 09/26/23 02:57 Nasal Cannula 2 Coding Level of Care Code 20275 INT INP/OBS CARE 3/75MIN Diagnoses Heart failure with improved ejection fraction (HFimpEF) I50.32 Influenza A J10.1 Chronic kidney disease, stage 3 (moderate) N18.30 Obesity hypoventilation syndrome E66.2 Chronic venous insufficiency I87.2 Morbid obesity E66.01 Atrial fibrillation I48.91 Lymphedema I89.0 Ischemic cardiomyopathy I25.5 Coronary artery disease I25.10 Chronic venous stasis dermatitis of both lower extremities I87.2 Hypertension I10
[2023-09-26] MEDS: ATORVASTATIN 20 MG TAB PO SCH (20:54)
--- NOTE | 2023-09-26 21:21 | Hospitalist Progress Note ---
Date of Service September 26, 2023 Assessment & Plan (1) Influenza A: Plan: 73yo male unable to care for self at home w/ increased O2 use at home/shortness of breath and inability to ambulate with body aches/cough and increased weakness. Admitted for acute on chronic respiratory failure with hypoxia/obesity hypoventilation syndrome/influenza A/possible CHF exacerbation and need for rehab/placement CT head negative for acute stroke on admission UA w/ 2+ protein, 5-10 epis, NO bacteria Biofire testing revealed +Influenza A testing Isolation precautions in place Tamiflu continued Duonebs, pulmonary toilet/incentive spirometer. No sputum production/consolidative process on imaging Supplemental O2 to maintain sats - on 2L at present (3L exertion/sleep at baseline but suspect not using) WBC elevation 2nd to steroids on admission, afebrile and had improved on repeat but now elevated to 15.3k on labs and + productive cough/green sputum 09/24 + Ceftriaxone IV, doxy BID ordered. MRSA nares ordered, NEGATIVE --> Sputum cx ordered, GS w/ few epi, many poly, moderate gram positive bacilli -- follow final cx WBC 15.3k however decreased neutophils/elevated mono, remains afbrile and will monitor Blood cultures NGTD x 48hrs CXR w/ improvement 09/25 Continue diuretics as outlined below Continue incentive spirometer, flutter valve, mucinex BID- consider hypertonic saline nebs to help w/ mucus/clearance Titrated to room air this morning, 90-93% with good wave form. Decreased to prevent over oxygenation/CO2 elevation on labs. Could consider diamox if needed for additonal diuresis PT/OT consulted and patient unsafe/unable to care for himself in current state and will need rehab/SNF at discharge DVT proph: Eliquis BID continued given hx afib (NSR/possible some afib on monitor but rates in 40-60s for the most part) Patient remains on 2 liters nasal cannula. 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 At that visit, dry weight "330lb" on bumex BID and metolazone [facility] and on SGLT2 Last admission in February 2023 w/ increased bumex dosing to 4mg BID and scheduled metolazone DAILY from [facility] but no longer on metolazone and suspect not taking bumex as directed. BNP WAS NORMAL AT THAT TIME Weight 147kg on admission BNP elevated, 136 CXR w/ cardiomegaly w/ congestive changes (also w/ ALP 149 w/o RUQ pain and suspect hepatic congestion/volume overload) and LE edema (also chronic lymphedema in general) Bumex 4mg IV BID Lasix 40mg IV x 1 on 09/22 and 09/23 to assist w/ diuresis and Cr remaining stable however CXR w/ persistent congestion Lasix 60mg IV x 1 for 09/24 and CXR w/ improvement and continued net negative and will hold off additional lasix dosing for today and continue bumex BID and monitor labs in AM to prevent overdiuresis given has been -6.7L since admission Repeat limited ECHO to eval for any reduced EF/other issue and was essentially unchanged. EF 55-60%. no wma. Moderate LVH. RV mildly dilated. RV systolic funct ion is normal. CHF clinic provider consulted. Prior on Jardiance which likely would be beneficial adding back for better diabetes control (?cost issue) Monitor weights/I&O (yeboah in place), BMP/CXR in AM. Abx as outlined above for possible bacterial PNA coverage and f/u sputum cx Hold lasix on 09/26 (3) Chronic respiratory failure with hypoxia: Plan: Utilizes 3L NC HS and to be using w/ exertion. +flu testing VBG on admit pH 7.33, pCO2 68 Patient denies increased sputum production recently. CXR w/o consolidative process. Afebrile Duonebs, pulmonary toilet, tamiflu as above Sputum cx ordered given reports green sputum --> follow up cx Continue mucinex, flutter valve and ceftriaxone/doxy as above for lung coverage. MRSA nares NEGATIVE Benefit from BiPAP however has apparently not tolerated in the past. Supplemental O2 to maintain sats and remaining stable , titrated to room air today to prevent over oxygenation given chronic resp failure at baseline (4) Knee pain: Plan: noted chronic issue as above, worsened recently lyme negative. diuretics as above pain control w. Tylenol/oxycodone as taking at home. Had tried tramadol in the past and can consider if needing DECLINED need for increased pain control 09/24 but INCREASED pain today and ordered dose Dilaudid x 1 and will monitor response. --> Xray bilateral knees 09/24 ordered (prior 2020). Worse pain on the right compared to the left. ?some effusion/fluid around knee. No trauma/fall/erythema at present Imaging noting b/l joint effusions/arthritis. Ortho consult placed, appreciate recs/assistance -- has not yet seen today PT/OT consults (5) Atrial fibrillation: Plan: Hx paroxysmal afib EKG on admit w/ 1st degree AV block. Lyme testing negative Pwaves on tele K now wnl, monitor w/ diuretics. Mag wnl Monitor on telemetry, continues on eliquis 5mg BID, coreg 3.125mg BID (6) Diabetic nephropathy associated with type 2 diabetes mellitus: Plan: A1c 7.9- On metformin, glipizide currently at home Review of med list w/ Jardiance but appears also not taking that at present per list "not taking" Suspect benefit from jardiance w/ hx CHF and will need continued discussions Reported having BSGs 190-200s this past week at home, not good control. Was also on toujeo in past but not taken in ~6 months per patient BSG elevation on admit, worsened w/ IV steroids in ER. Unfortunately late meds/in ER and missed dosing prior to lunch in ER and was elevated on repeat Pharmacy consulted for glycemic management, BSGs stable/improved and monitoring/adjustments as needed (7) Hyperkalemia: Plan: EKG unchanged from February 2023. Telemetry monitoring w/o significant abn, possibly having some occasional afib? On eliquis BID K to 5.6 on 09/22 and given insulin/calcium gluconate, diuretics as above and repeat 5.4 and discussed w/ supervising provider evening 09/22 and recs to continue diuretics and K to normalize Losartan to be resumed for AM 09/26 given hx CHF, diuretics as outlined above with bumex as K normalized on repeat labs and remaining stable at 4.5 at present Monitor BMP in AM (8) Chronic kidney disease, stage 3 (moderate): Plan: BUN/Cr 48/1.19 with most recent Cr 1.65 February 23 after dc on the 9th at 1.98 No longer on metolazone, ?reason for discontinuation unclear (suspect patient dc himself given elevated renal function and reporting providers "jacked his kidney's up last time" and "spent time fixing that") BUN/Cr 72/1.45 Remains on bumex BID as above, no additional lasix dosing for today Losartan resumed as above given K normalized/staying stable on repeat labs and continued bumex Renal dose meds/avoid nephrotoxins as able consider nephro consult if needing if not mainaining even/net negative balance on such. Compliance w/ meds encouraged at dc and f/u with medical providers BMP in AM (9) Obesity hypoventilation syndrome: Plan: intolerant to bipap. O2 and diuresis as outlined (10) Diabetic peripheral neuropathy associated with type 2 diabetes mellitus: Plan: B12 no significant deficiency, 365. 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 At that visit, dry weight "330lb" on bumex BID and metolazone MWF and on SGLT2 EKG unchanged from prior admit. Trop on initial testing 15. Monitoring on telemetry, NSR w/ PAC/PVCs at times, no afib. no cp reported DOES NOT APPEAR TO BE ON HYDRALAZINE ANYMORE PER MED REC. Monitor BP. No CP reported but could add back on if needing BP control w/ diuresis and currently 121/71 Remains on eliquis BID, statin, coreg as outlined. Losartan held given hyperkalemia as above but resumed for AM 09/26 Continued telemetry monitoring, EKG w/ CP (12) Chronic venous stasis dermatitis of both lower extremities: Plan: noted, lymphedema/edema from volume overload chronic wounds, recent trauma from bucket to his L leg. To apparently be wearing Unna boots (has in the past, not available inpatient) Would not apply any compression w/ CHF at present Wound RN consulted, appreciated assistance w/ cleaning/drying Also w/ fungal appearance to b/l toes--> benefit from f/u podiatry for treatment as no doubt contributing to issues w/ ambulation (toe nails are very long/curling under) (13) Neck pain: Plan: reported chronic neck and knee pains, chronic but worse recently (had been sitting in recliner for week/urinating in bucket), no RBC on UA to suggest any rhabdo. do NOT suspect meningitis, no meningeal signs on exam cervical spine xray w/o acute bony abn seen. Osteopenia and spondylotic changes noted. mild-mod disc space narrowing in lower cervical region improvement in ROM today but could have underlying rotator cuff injury. Ortho consulted for knees as below, can eval shoulder while seeing patient suspect generalized aches/myalgias from +influenza process therapy evals as above (14) Constipation: Plan: chronic issue but worsened recently due to immobility --does have umbilical hernia, no evidence for ischemia on exam. lactic wnl on admission bowel regimen ordered colace BID scheduled, senna prn. added miralax daily TSH checked given chronic issue/hx afib and surprisingly was not elevated but slightly low at 0.1. ?unclear. T4/t3 wnl and can f/u PCP Encouraged ambulation/suppository but patient frustrated w/ urgency to get bowels moving. Monitor bowel movements, consider KUB in AM to eval stool burden (he declined this, thinking will have blow out -- strongly encouraged suppository and bowel movements as could contribute to weakness) (15) Type 2 diabetes mellitus, with long-term current use of insulin: Plan: no longer on injectable, however BSgs elevated, A1c not at goal. pharmacy consulted as above Plan continued inpatient stay, diuretics as outlined, abx for pulmonary coverage and f/u sputum cx.No wheezing on exam to indicate need for steroids at present time (and would avoid given significant hyperglycemia w/ such on admit). Ortho consulted to see regarding b/l knee pain Admission and Anticipated Discharge Date Admission Date: September 23, 2023 Subjective Patient is a 73 yo male who reports no new symptoms. Review of Systems Review of Systems: All systems reviewed & are unremarkable except as noted in HPI & below Physical Exam Physical Exam: Weight: 332 lb (down 15 lb) General: Comfortable, supplemental O2 2L via NC HEENT: Sclerae anicteric. No obvious JVD but difficult exam. Lungs: Normal respiratory effort. No crackles. Decreased breath sounds at RT base. Cardiac: Regular rate and rhythm, 2 out of 6 systolic ejection murmur, unable to assess JVD (santos, thick neck) Abdomen: Soft, nontender. Obese. Extremities: Chronic venous stasis changes, 1-2+ edema left greater than right, evidence of stasis dermatitis with skin breakdown, left LE with kerlex/ABD dressing. Psych: Alert orient x3, normal affect and mood Results & Data Results & Data Vital Signs (Past 12 Hours) Vital Signs Temp Pulse Pulse Resp BP Pulse Ox O2 Del Method 09/26/23 19:05 36.9 C 71 18 146/63 H 94 Nasal Cannula 09/26/23 15:32 36.8 C 58 L 18 129/65 99 Nasal Cannula 09/26/23 14:59 50 L 09/26/23 12:08 36.8 C 57 L 18 107/57 L 98 Nasal Cannula O2 Flow Rate 09/26/23 19:05 2 09/26/23 15:32 2 09/26/23 14:59 09/26/23 12:08 2 PG Care Time/CCT Total # of Minutes Spent Total Time Spent with Patient: Total time spent is greater than 50% in coordination of care (as documented) at patient's floor/unit and/or counseling patient: Coding Level of Care Code 53628 SUB INP/OBS CARE 2/35MIN Diagnoses Influenza A J10.1 Acute on chronic heart failure with preserved ejection fraction I50.33 Chronic respiratory failure with hypoxia J96.11 Knee pain M25.569 Atrial fibrillation I48.91 Diabetic nephropathy associated with type 2 diabetes mellitus E11.21 Hyperkalemia E87.5 Chronic kidney disease, stage 3 (moderate) N18.30 Obesity hypoventilation syndrome E66.2 Diabetic peripheral neuropathy associated with type 2 diabetes mellitus E11.42 Coronary artery disease I25.10 Chronic venous stasis dermatitis of both lower extremities I87.2 Neck pain M54.2 Constipation K59.00 Type 2 diabetes mellitus, with long-term current use of insulin E11.9; Z79.4
[2023-09-27] MEDS: oxyCODONE HCL IR 5 MG TAB (IMMEDIATE RELEASE) PO PRN (01:12)
[2023-09-27] MEDS ORDERED: INSULIN ASPART PER UNIT CHARGE SC SCH (02:00)
[2023-09-27 05:45] LABS: Hematocrit (blood only) 34.2 % (42.0-52.0); Hemoglobin 10.4 g/dl (14.0-18.0); Mean Corpuscular Hemoglobin 28.3 pg (25.0-34.0); Mean Corpuscular Hgb Conc 30.4 g/dL (32.0-36.0); Mean Corpuscular Volume 93.2 fL (80.0-100.0); Mean Platelet Volume 10.8 fL (9.4-12.4); Platelet Count 266 K/uL (130-400); RDW Coefficient of Variation 12.8 % (11.5-14.5); RDW Standard Deviation 43.6 fL (36.4-46.3); Red Blood Count 3.67 M/uL (4.70-6.10); White Blood Count 13.18 K/ul (4.8-10.8)
[2023-09-27 05:52] LABS: Albumin Globulin Ratio 0.7 (0.9-2); Albumin Level 3.5 gm/dl (3.4-5.0); Bilirubin,Total 0.3 mg/dl (0.2-1.0); Calcium 9.4 mg/dl (8.6-10.3); Creatinine Clr Calc Pharmacy 72.8 ml/min; Est GFR (African American) 60.8 ml/min; Est GFR (Non-African American) 52.4 ml/min; Globulin 4.7 gm/dl (2.5-4.0); Total Protein 8.2 gm/dl (6.0-8.3)
[2023-09-27 06:06] LABS: C Reactive Protein 33.87 mg/dl (0-0.5)
[2023-09-27 06:09] LABS: Basophils # (auto) 0.02 K/uL (0.00-0.20); Basophils % (auto) 0.2 %; Immature Granulocytes # (auto) 0.15 K/uL (0.01-0.20); Immature Granulocytes % (auto) 1.1 %; Lymphocytes # (auto) 0.62 K/uL (1.20-3.40); Lymphocytes % (auto) 4.7 %; Monocytes # (auto) 0.31 K/uL (0.11-0.59); Monocytes % (auto) 2.4 %; Neutrophils # (auto) 12.08 K/uL (1.40-6.50); Neutrophils % (auto) 91.6 %
[2023-09-27] MEDS: ACETAMINOPHEN 500 MG TAB PO SCH (08:12)
[2023-09-27] MEDS: SENNA 8.6 MG TAB PO PRN (08:13)
[2023-09-27] MEDS: DOXYCYCLINE HYCLATE 100 MG CAP PO SCH (08:13)
[2023-09-27] MEDS: carvediloL 3.125 MG TAB PO SCH (08:13)
[2023-09-27] MEDS: guaiFENesin 600 MG TABCR PO SCH (08:13)
[2023-09-27] MEDS: APIXABAN 5 MG TABLET PO SCH (08:14)
[2023-09-27] MEDS: LOSARTAN POTASSIUM 25 MG TAB PO SCH (08:14)
[2023-09-27] MEDS: amLODIPine BESYLATE 5 MG TAB PO SCH (08:14)
[2023-09-27] MEDS: DICLOFENAC SOD 1% GEL 100 GM TUBE EXT SCH (08:14)
[2023-09-27] MEDS: POLYETHYLENE (MIRALAX) 17 GM PACK PO SCH (08:20)
[2023-09-27] MEDS: DOCUSATE SODIUM 100 MG CAP PO SCH (08:20)
[2023-09-27] MEDS ORDERED: BUMETANIDE 1 MG TAB PO SCH (09:00)
[2023-09-27] MEDS: LANTUS PER UNIT CHARGE SC SCH (09:41)
[2023-09-27] MEDS: INSULIN ASPART PER UNIT CHARGE SC SCH ×2 (09:42→12:39)
--- NOTE | 2023-09-27 10:27 | Pharmacy Report ---
Pharmacy Glycemic Short Note 2 - Date of Service September 27, 2023 - Glycemic Short BSG Results (Last 24 hours): 09/26/23 09/26/23 09/26/23 12:25 17:03 19:54 Glucose POC Glucose 157 H 300 H 364 H* 09/26/23 09/27/23 09/27/23 19:55 03:47 04:33 Glucose 321 H* POC Glucose 368 H* 322 H* 09/27/23 09/27/23 09/27/23 08:07 08:08 08:41 Glucose 325 H* POC Glucose 302 H* 316 H* OUTPATIENT ANTIDIABETIC REGIMEN: * Glipizide 5 mg PO BID * Metformin 1000 mg PO BID * Toujeo 10 units SC HS -- pt has not been taking for some time d/t hypoglycemic episodes (info obtained from outpt provider history) * HbA1c: 7.9% (09/22/23) ASSESSMENT: 09/27: * Ryan received 106 units of insulin yesterday (50 were basal) * He received intrarticular injections of triamcinolone to both knees yesterday @ approximately 1100, some systemic absorption is expected. He has demonstrated high sensitivity to steroid injections. * Fasting BSG this AM significantly elevated, likely due to steroid injection yesterday, can expect effects to wear off anywhere from 48 hours to several weeks. Will increase basal insulin by 20% to help cover. * BSGs persistently above 350, will give a one time bolus of 10 units regular insulin IV to help bring down. 09/23: * Ryan received 119 units of insulin yesterday, 40 basal + 79 bolus. BSGs were: [phone] mg/dL. * Fasting BSG remained elevated at 258 mg/dL this AM. Find it highly unlikely that dose of SoluMedrol is still contributing to elevated BSGs at this point. Despite A1c, patient may be basal deficient given no basal doses at home for some time. Will increase basal dose by 20% today. * Novolog will be tightened to reflect weight/stress of 3 given all BSGs > 200 mg/dL. 09/22: * Mr Bruce is a 73yo diabetic M admitted with influenza A, weakness. * Pt received 125mg IV SoluMedrol in the ED last evening, which is likely contributing to his hyperglycemia throughout the day today. * Despite Lantus, Novolog, and IV insulin (for hyperkalemia) doses, hyperglycemia has been persistent. * Pt initiated on SQ basal/bolus insulin regimen on admission. Despite patients weight (147kg), I'm hesitant to initiate insulin too aggressively in light of patient's reports of hypoglycemia on a dose of 10 units daily of insulin outpt. * Novolog initiated using a conservative (adjusted body weight) stress level 2. * Pt was ordered a second dose of Lantus around lunchtime today per provider. Depending on how patient's BSGs respond, will consider giving a supplemental dose at bedtime. * Pharmacy will continue to monitor and adjust regimen as indicated during admission. PLAN FOR INPATIENT GLYCEMIC CONTROL: * Hold outpatient oral diabetes medications * Basal insulin * Lantus 25 units SC BID * Bolus insulin * NovoLog per scale ACHS or Q6hrs while NPO * Goal Range: Low 110 mg/dL - High 140 mg/dL * Correction Factor: 10 mg/dL/unit * Nutritional / Prandial insulin per carb ratio of 1 unit per 3 grams CHO consumed
[2023-09-27] MEDS: cefTRIAXone SODIUM 2,000 MG in DEXTROSE 5 % MINI-B 50 ML IV SCH (12:03)
[2023-09-27] MEDS ORDERED: INSULIN HUMAN REGULAR PER UNIT 10 UNITS in SYRINGE 9.9 ML IV ONE (12:45)
--- NOTE | 2023-09-27 13:47 | Discharge Summary ---
Date of Service September 27, 2023 Admission HPI Per Admitting Provider The patient is a 73-year-old male with a past medical history including obesity hypoventilation syndrome, CKD stage III, chronic respiratory failure, cor pulmonale, PAD, atrial fibrillation, diabetes mellitus type 2 on insulin, ischemic cardiomyopathy, diabetic nephropathy and neuropathy, CAD, PSVT and atrial flutter with controlled response. The patient is unkempt appearing, has the appearance of failure to thrive. He reports that his daughter put a wrap on his left lower extremity this evening, with note saying he is to be on Unna boots bilaterally. HPI and review of systems are difficult to obtain, as lisa xuan is not completely cooperative. His appearance is disheveled. His principal complaint is that of fatigue, generalized weakness, and feels he is unable to go home and take care of himself Discharge Data Allergies Allergy/AdvReac Type Severity Reaction Status Date / Time sulfamethoxazole AdvReac nausea Verified 08/31/23 15:27 [From Bactrim] trimethoprim [From Bactrim] AdvReac nausea Verified 08/31/23 15:27 Consultations 09/21/23 22:53 ED Decision to Admit Stat 09/23/23 12:24 [facility]F Program Referral Routine 09/25/23 07:37 Consult Orthopedic Surgery Routine Ordered Studies 09/21/23 20:09 CT head/brain wo con Stat Hospital Course (1) Influenza A: 73yo male unable to care for self at home w/ increased O2 use at home/shortness of breath and inability to ambulate with body aches/cough and increased weakness. Admitted for acute on chronic respiratory failure with hypoxia/obesity hypoventilation syndrome/influenza A/possible CHF exacerbation and need for rehab/placement CT head negative for acute stroke on admission UA w/ 2+ protein, 5-10 epis, NO bacteria Biofire testing revealed +Influenza A testing Isolation precautions in place Tamiflu continued Duonebs, pulmonary toilet/incentive spirometer. No sputum production/consolidative process on imaging Supplemental O2 to maintain sats - on 2L at present (3L exertion/sleep at baseline but suspect not using) WBC elevation 2nd to steroids on admission, afebrile and had improved on repeat but now elevated to 15.3k on labs and + productive cough/green sputum 09/24 + Ceftriaxone IV, doxy BID ordered. MRSA nares ordered, NEGATIVE --> Sputum cx ordered, GS w/ few epi, many poly, moderate gram positive bacilli -- follow final cx WBC 15.3k however decreased neutophils/elevated mono, remains afbrile and will monitor Blood cultures NGTD x 48hrs CXR w/ improvement 09/25 Continue diuretics as outlined below Continue incentive spirometer, flutter valve, mucinex BID- consider hypertonic saline nebs to help w/ mucus/clearance Titrated to room air this morning, 90-93% with good wave form. Decreased to prevent over oxygenation/CO2 elevation on labs. Could consider diamox if needed for additonal diuresis PT/OT consulted and patient unsafe/unable to care for himself in current state and will need rehab/SNF at discharge DVT proph: Eliquis BID continued given hx afib (NSR/possible some afib on monitor but rates in 40-60s for the most part) Patient remains on 2 liters nasal cannula. (2) Acute on chronic heart failure with preserved ejection fraction: hx HFpEF, prior on bumex/metolazone Hx Multivessel coronary artery disease post 2 vessel CABG 2015 (MENDEZ TO LAD, SVG TO LCX), known RCA MEASUREMENT COORDINATOR and see last by Dr Smalls in Sep 2022. At that visit, dry weight "330lb" on bumex BID and metolazone [facility] and on SGLT2 Last admission in February 2023 w/ increased bumex dosing to 4mg BID and scheduled metolazone DAILY from [facility] but no longer on metolazone and suspect not taking bumex as directed. BNP WAS NORMAL AT THAT TIME Weight 147kg on admission BNP elevated, 136 CXR w/ cardiomegaly w/ congestive changes (also w/ ALP 149 w/o RUQ pain and suspect hepatic congestion/volume overload) and LE edema (also chronic lymphedema in general) Bumex 4mg IV BID Lasix 40mg IV x 1 on 09/22 and 09/23 to assist w/ diuresis and Cr remaining stable however CXR w/ persistent congestion Lasix 60mg IV x 1 for 09/24 and CXR w/ improvement and continued net negative and will hold off additional lasix dosing for today and continue bumex BID and monitor labs in AM to prevent overdiuresis given has been -6.7L since admission Repeat limited ECHO to eval for any reduced EF/other issue and was essentially unchanged. EF 55-60%. no wma. Moderate LVH. RV mildly dilated. RV systolic function is normal. CHF clinic provider consulted. Prior on Jardiance which likely would be beneficial adding back for better diabetes control (?cost issue) Monitor weights/I&O (yeboah in place), BMP/CXR in AM. Abx as outlined above for possible bacterial PNA coverage and f/u sputum cx Hold lasix on 09/26 (3) Chronic respiratory failure with hypoxia: Utilizes 3L NC HS and to be using w/ exertion. +flu testing VBG on admit pH 7.33, pCO2 68 Patient denies increased sputum production recently. CXR w/o consolidative process. Afebrile Duonebs, pulmonary toilet, tamiflu as above Sputum cx ordered given reports green sputum --> follow up cx Continue mucinex, flutter valve and ceftriaxone/doxy as above for lung coverage. MRSA nares NEGATIVE Benefit from BiPAP however has apparently not tolerated in the past. Supplemental O2 to maintain sats and remaining stable , titrated to room air today to prevent over oxygenation given chronic resp failure at baseline (4) Knee pain: noted chronic issue as above, worsened recently lyme negative. diuretics as above pain control w. Tylenol/oxycodone as taking at home. Had tried tramadol in the past and can consider if needing DECLINED need for increased pain control 09/24 but INCREASED pain today and ordered dose Dilaudid x 1 and will monitor response. --> Xray bilateral knees 09/24 ordered (prior 2020). Worse pain on the right compared to the left. ?some effusion/fluid around knee. No trauma/fall/erythema at present Imaging noting b/l joint effusions/arthritis. Ortho consult placed, appreciate recs/assistance -- has not yet seen today PT/OT consults (5) Atrial fibrillation: Hx paroxysmal afib EKG on admit w/ 1st degree AV block. Lyme testing negative Pwaves on tele K now wnl, monitor w/ diuretics. Mag wnl Monitor on telemetry, continues on eliquis 5mg BID, coreg 3.125mg BID (6) Diabetic nephropathy associated with type 2 diabetes mellitus: A1c 7.9- On metformin, glipizide currently at home Review of med list w/ Jardiance but appears also not taking that at present per list "not taking" Suspect benefit from jardiance w/ hx CHF and will need continued discussions Reported having BSGs 190-200s this past week at home, not good control. Was also on toujeo in past but not taken in ~6 months per patient BSG elevation on admit, worsened w/ IV steroids in ER. Unfortunately late meds/i n ER and missed dosing prior to lunch in ER and was elevated on repeat Pharmacy consulted for glycemic management, BSGs stable/improved and monitoring/adjustments as needed (7) Hyperkalemia: EKG unchanged from February 2023. Telemetry monitoring w/o significant abn, possibly having some occasional afib? On eliquis BID K to 5.6 on 09/22 and given insulin/calcium gluconate, diuretics as above and repeat 5.4 and discussed w/ supervising provider evening 09/22 and recs to continue diuretics and K to normalize Losartan to be resumed for AM 09/26 given hx CHF, diuretics as outlined above with bumex as K normalized on repeat labs and remaining stable at 4.5 at present Monitor BMP in AM (8) Chronic kidney disease, stage 3 (moderate): BUN/Cr 48/1.19 with most recent Cr 1.65 February 23 after dc on the at 1.98 No longer on metolazone, ?reason for discontinuation unclear (suspect patient dc himself given elevated renal function and reporting providers "jacked his kidney's up last time" and "spent time fixing that") BUN/Cr 72/1.45 Remains on bumex BID as above, no additional lasix dosing for today Losartan resumed as above given K normalized/staying stable on repeat labs and continued bumex Renal dose meds/avoid nephrotoxins as able consider nephro consult if needing if not mainaining even/net negative balance on such. Compliance w/ meds encouraged at dc and f/u with medical providers BMP in AM (9) Obesity hypoventilation syndrome: intolerant to bipap. O2 and diuresis as outlined (10) Diabetic peripheral neuropathy associated with type 2 diabetes mellitus: B12 no significant deficiency, 365. no replacement needed (11) Coronary artery disease: Hx Multivessel coronary artery disease post 2 vessel CABG 2015 (MENDEZ TO LAD, SVG TO LCX), known RCA MEASUREMENT COORDINATOR Followed by Dr Smalls in the past but hasn't not seen in over a year. At that visit, dry weight "330lb" on bumex BID and metolazone MWF and on SGLT2 EKG unchanged from prior admit. Trop on initial testing 15. Monitoring on telemetry, NSR w/ PAC/PVCs at times, no afib. no cp reported DOES NOT APPEAR TO BE ON HYDRALAZINE ANYMORE PER MED REC. Monitor BP. No CP reported but could add back on if needing BP control w/ diuresis and currently 121/71 Remains on eliquis BID, statin, coreg as outlined. Losartan held given hyperkalemia as above but resumed for AM 09/26 Continued telemetry monitoring, EKG w/ CP (12) Chronic venous stasis dermatitis of both lower extremities: noted, lymphedema/edema from volume overload chronic wounds, recent trauma from bucket to his L leg. To apparently be wearing Unna boots (has in the past, not available inpatient) Would not apply any compression w/ CHF at present Wound RN consulted, appreciated assistance w/ cleaning/drying Also w/ fungal appearance to b/l toes--> benefit from f/u podiatry for treatment as no doubt contributing to issues w/ ambulation (toe nails are very long/curling under) (13) Neck pain: reported chronic neck and knee pains, chronic but worse recently (had been sitting in recliner for week/urinating in bucket), no RBC on UA to suggest any rhabdo. do NOT suspect meningitis, no meningeal signs on exam cervical spine xray w/o acute bony abn seen. Osteopenia and spondylotic changes noted. mild-mod disc space narrowing in lower cervical region improvement in ROM today but could have underlying rotator cuff injury. Ortho consulted for knees as below, can eval shoulder while seeing patient suspect generalized aches/myalgias from +influenza process therapy evals as above (14) Constipation: chronic issue but worsened recently due to immobility --does have umbilical hernia, no evidence for ischemia on exam. lactic wnl on admission bowel regimen ordered colace BID scheduled, senna prn. added miralax daily TSH checked given chronic issue/hx afib and surprisingly was not elevated but slightly low at 0.1. ?unclear. T4/t3 wnl and can f/u PCP Encouraged ambulation/suppository but patient frustrated w/ urgency to get bowels moving. Monitor bowel movements, consider KUB in AM to eval stool burden (he declined this, thinking will have blow out -- strongly encouraged suppository and bowel movements as could contribute to weakness) (15) Type 2 diabetes mellitus, with long-term current use of insulin: no longer on injectable, however BSgs elevated, A1c not at goal. pharmacy consulted as above Plan continued inpatient stay, diuretics as outlined, abx for pulmonary coverage and f/u sputum cx.No wheezing on exam to indicate need for steroids at present time (and would avoid given significant hyperglycemia w/ such on admit). Ortho consulted to see regarding b/l knee pain Discharge Plan Discharge Items Patient Disposition: Transfer Inpatient Rehab Fac Reason For Visit: INFLUENZA A, WEAKNESS/DECONDITIONING, VOLUME OVERL Discharge Diagnosis: FLU A Activity: Resume your previous activity Non-emergency contact: Primary Care Provider Call non-emergency contact if: you have any medication questions Follow-up/Referrals: Neetu Smallwood DO [Primary Care Provider] - María Calderon PA-C [Physician Hydrographer] - 10/03/23 2:00 pm Diet: Carb Consistent or DM2, Heart Healthy and Low Sodium (2gm) Addtl Attending Provider Instructions: recommend followup with PCP in 1-2 weeks Recheck bmp in 1 week Call your Primary Care doctor if any of the following symptoms or problems start or get worse: * Shortness of breath or difficulty breathing * Wake up at night short of breath * Chest pain * Cough * Swelling of your hands, feet, or legs * More fatigued or tired with your normal activity * Palpitations - sudden fast heart beats WEIGHT * Weigh yourself every morning after using the bathroom. * Use the same scale. * Wear the same amount of clothing. * Write your weight down on a chart. * Call your Primary Care doctor if you gain more than 2-3 pounds in 1-2 days. MEDICATIONS * Use this discharge instruction sheet for medication instructions. * Take your medications at the time your doctor ordered. * Do not skip a dose of your medicines. * If you miss a dose of medicine, take it as soon as possible, but DO NOT DOUBLE A DOSE. * Read your medicine information when you get home. * Know all of the side effects of your medicine. If in doubt, ask your pharmacist * Call your Primary Care doctor's office if you have any side effects. * Be sure all of your doctors know what medicine and herbs you take (including cold, flu, and herbal medicine). Take the following with you to your follow-up doctor appointments: * Weight Chart * Medication List * List of questions Do not drink excessive alcohol, beer or wine. Pending Studies at Discharge: Yes Stand-Alone Forms: My [facility] Skilled Items Patient informed of condition?: Yes DNR: No Discharge Level of Care: Skilled Communicable Disease: No Discharge Prognosis: Stable Lines: None Urinary Catheter: No Medications and DC Order Prescriptions: New cefuroxime axetil 500 mg tablet 500 mg PO BID Qty: 4 0RF Rx Instructions: start on 09/28 AM doxycycline hyclate 100 mg tablet 100 mg PO BID Qty: 4 0RF Rx Instructions: Start on 09/27 PM Continued (DME) Compression wraps- Comprecares See Rx Instructions .Route .MEDSUPPLY Qty: 2 0RF Rx Instructions: As directed (DME) Profore Lite Unna Boot change twice a week LLE dx venous stasis ulcers See Rx Instructions .Route .MEDSUPPLY Qty: 1 0RF Rx Instructions: As directed ergocalciferol (vitamin D2) 1,250 mcg (50,000 unit) capsule 50,000 unit PO WK Qty: 8 0RF Rx Instructions: saturdays albuterol sulfate 90 mcg/actuation HFA aerosol inhaler 2 puff INH QID PRN (Reason: Shortness Of Breath) Qty: 8.5 0RF glipizide 5 mg tablet 5 mg PO BIDM Qty: 180 1RF bumetanide 2 mg tablet 4 mg PO BID Qty: 120 4RF Rx Instructions: takes with breakfast and lunch oxycodone 10 mg tablet 10 mg PO Q6H PRN (Reason: pain) Qty: 120 0RF (DME) Portable Oxygen Misc See Rx Instructions .ROUTE .MEDSUPPLY Qty: 1 0RF Rx Instructions: 3L NC (DME) Oxygen Home Liters Per Minute See Rx Instructions .Route Qty: 1 0RF Rx Instructions: 3L NC WITH HUMIDIFICATION w/ activity atorvastatin 20 mg tablet 20 mg PO HS sennosides [Senokot] 8.6 mg tablet 8.6 mg PO DAILY PRN (Reason: constipation) polyethylene glycol 3350 [Miralax] 17 gram/dose powder 17 g PO DAILY PRN (Reason: constipation) nitroglycerin 0.4 mg tablet, sublingual 0.4 mg SL Q5M PRN (Reason: chest pain) amlodipine 5 mg tablet 5 mg PO QAM metformin 500 mg tablet extended release 24 hr 1,000 mg PO AMHS Eliquis 5 mg tablet 5 mg PO AMHS carvedilol 3.125 mg tablet 3.125 mg PO AMPM losartan 25 mg tablet 25 mg PO QAM oxycodone 10 mg tablet 10 mg PO Q6 PRN (Reason: Pain) Toujeo SoloStar U-300 Insulin 300 unit/mL (1.5 mL) insulin pen 10 unit SUBCUT HS Changed acetaminophen [Tylenol Extra Strength] 500 mg tablet 625 mg PO QID Qty: 10 0RF Discharge Orders: Discharge Order (Routine); Ordered 09/27/23 Ordered By: Brannon Mcocy/Other Patient Handouts: Managing Type 2 Diabetes Admission Data Admit Date/Time: 09/23/23 12:07 Attending Provider: Brannon Elaine Admit Provider: Blanco Cortes Primary Care Provider: Neetu Smallwood Other Providers: Blanco Cortes; María Calderon; [facility]; Hank Arevalo Coding Diagnoses Influenza A J10.1 Acute on chronic heart failure with preserved ejection fraction I50.33 Chronic respiratory failure with hypoxia J96.11 Knee pain M25.569 Atrial fibrillation I48.91 Diabetic nephropathy associated with type 2 diabetes mellitus E11.21 Hyperkalemia E87.5 Chronic kidney disease, stage 3 (moderate) N18.30 Obesity hypoventilation syndrome E66.2 Diabetic peripheral neuropathy associated with type 2 diabetes mellitus E11.42 Coronary artery disease I25.10 Chronic venous stasis dermatitis of both lower extremities I87.2 Neck pain M54.2 Constipation K59.00 Type 2 diabetes mellitus, with long-term current use of insulin E11.9; Z79.4
[2023-09-27] MEDS ORDERED: LANTUS PER UNIT CHARGE SC SCH (21:00)
[2023-09-28] MEDS ORDERED: INSULIN ASPART PER UNIT CHARGE SC SCH
== END 2023-09-27 14:13 | DRG 193 ==
LOC: EDINP 19:39 → ED 19:39 → SUATTDRO 23:29 → 2W 09-22 00:26 → SUATTDRO 09-23 12:07
DX: F17.220 Nicotine dependence, chewing tobacco, uncomplicated; Z99.81 Dependence on supplemental oxygen; I87.2 Venous insufficiency (chronic) (peripheral); Z95.1 Presence of aortocoronary bypass graft; E66.2 Morbid (severe) obesity with alveolar hypoventilation; Z79.01 Long term (current) use of anticoagulants; K59.09 Other constipation; N18.30 Chronic kidney disease, stage 3 unspecified; I13.0 Hypertensive heart and chronic kidney disease with heart failure and stage 1 through stage 4 chronic kidney disease, or unspecified chronic kidney disease; E11.22 Type 2 diabetes mellitus with diabetic chronic kidney disease; M54.2 Cervicalgia; L30.8 Other specified dermatitis; Z68.42 Body mass index [BMI] 45.0-49.9, adult; I50.33 Acute on chronic diastolic (congestive) heart failure; E11.51 Type 2 diabetes mellitus with diabetic peripheral angiopathy without gangrene; I25.10 Atherosclerotic heart disease of native coronary artery without angina pectoris; Z79.4 Long term (current) use of insulin; K42.9 Umbilical hernia without obstruction or gangrene; E87.5 Hyperkalemia; J10.1 Influenza due to other identified influenza virus with other respiratory manifestations; Z79.84 Long term (current) use of oral hypoglycemic drugs; I48.91 Unspecified atrial fibrillation; M17.0 Bilateral primary osteoarthritis of knee; J18.9 Pneumonia, unspecified organism; J96.21 Acute and chronic respiratory failure with hypoxia; E11.42 Type 2 diabetes mellitus with diabetic polyneuropathy